=== PATIENT | female | born 1960 | race Caucasian/White ===

== ENCOUNTER 2016-04-09 07:01 | Day surgery (SDC) | payer OTHER ==
[2016-04-09] MEDS ORDERED: SODIUM CHLORIDE 250 ML IV ONE (08:00)
[2016-04-09 08:09] LABS: EOSINOPHIL 2.5 % (0-4.5); MCH 29.5 pg (25.7-33.7); MCHC 34.3 g/dl (32.0-36.0); MEAN CELL VOLUME 86.2 fl (80-96); MEAN PLT VOLUME 8.1 fl (7.5-11.1); NEUTROPHILS 55.3 % (42.8-82.8); PLATELET COUNT 235 K/MM3 (134-434); RDW 13.3 % (11.6-15.6); WHITE BLOOD COUNT 7.5 K/mm3 (4.0-10.0)
[2016-04-09] MEDS ORDERED: PERTUZUMAB 420 MG in SODIUM CHLORIDE 250 ML IVPB ONE (08:30)
[2016-04-09] MEDS ORDERED: TRASTUZUMAB IVPB ONE ×2 (09:00)
[2016-04-09] MEDS ORDERED: SODIUM CHLORIDE IVPB ONE ×2 (09:00)
[2016-04-09 09:47] VITALS: BMI 27.9
[2016-04-09 19:00] VITALS: PULSE 68; TEMP 97.6
[2016-04-09 19:01] VITALS: BP 125/74
== END 2016-04-09 13:00 | disposition home or self-care (01) ==
LOC: JONCCHEMO 07:01 → J7W 09:02 → JONCCHEMO 13:00
PROVIDERS: ATTEND Internal Medicine Hematology & Oncology
DX: Z51.11 Encounter for antineoplastic chemotherapy (principal); C50.919 Malignant neoplasm of unspecified site of unspecified female breast
CPT/HCPCS: 96413; 96417; J9306; J9355; 36415; 85025; 96415

== ENCOUNTER 2016-04-30 07:01 | Day surgery (SDC) | payer OTHER ==
[2016-04-30] MEDS ORDERED: SODIUM CHLORIDE 250 ML IV ONE (08:00)
[2016-04-30] MEDS ORDERED: PERTUZUMAB 420 MG in SODIUM CHLORIDE 250 ML IVPB ONE (08:30)
[2016-04-30] MEDS ORDERED: TRASTUZUMAB IVPB ONE (09:00)
[2016-04-30] MEDS ORDERED: SODIUM CHLORIDE IVPB ONE (09:00)
[2016-04-30 09:13] VITALS: TEMP 97.7
[2016-04-30 09:32] LABS: BASOPHIL 0.5 % (0-2.0); EOSINOPHIL 2.3 % (0-4.5); MCH 29.1 pg (25.7-33.7); MCHC 33.8 g/dl (32.0-36.0); MEAN CELL VOLUME 86.3 fl (80-96); MEAN PLT VOLUME 7.6 fl (7.5-11.1); NEUTROPHILS 53.4 % (42.8-82.8); PLATELET COUNT 264 K/MM3 (134-434); RDW 13.4 % (11.6-15.6); WHITE BLOOD COUNT 7.9 K/mm3 (4.0-10.0)
[2016-04-30 10:19] LABS: ALK PHOS 71 U/L (45-117); CALCIUM 9.5 mg/dL (8.5-10.1); CO2 28 mmol/L (21-32); GLUCOSE,RANDOM 103 mg/dL (74-106); SGOT/AST 30 U/L (15-37); TOT PROT 7.7 g/dl (6.4-8.2)
[2016-04-30 10:57] LABS: BILIRUBIN,TOTAL 0.4 mg/dL (0.2-1.0); SGPT/ALT 50 U/L (12-78)
[2016-04-30 11:03] LABS: BILIRUBIN,DIRECT < 0.1 mg/dL (0.0-0.2)
[2016-04-30 11:17] LABS: ANION GAP 9 (8-16)
[2016-04-30] MEDS ORDERED: PORTA CATH FLUSH 10 ML IVPUSH ONE (12:10)
[2016-04-30 12:19] VITALS: BP 130/80; PULSE 70
== END 2016-04-30 11:12 | disposition home or self-care (01) ==
LOC: JONCCHEMO 07:01 → J7W 08:48 → JONCCHEMO 11:12
PROVIDERS: ATTEND Internal Medicine Hematology & Oncology
DX: Z51.11 Encounter for antineoplastic chemotherapy (principal); C50.312 Malignant neoplasm of lower-inner quadrant of left female breast
CPT/HCPCS: 36415; 80048; 80076; 82378; 85025; 86300; 96413; 96417; J9306; J9355

== ENCOUNTER 2016-05-21 07:03 | Day surgery (SDC) | payer OTHER ==
[2016-05-21] MEDS: SODIUM CHLORIDE 250 ML IV ONE (10:26)
[2016-05-21] MEDS: PERTUZUMAB 420 MG in SODIUM CHLORIDE 250 ML IVPB ONE (10:54)
[2016-05-21 10:59] LABS: BASOPHIL 0.7 % (0-2.0); EOSINOPHIL 1.9 % (0-4.5); MCH 29.4 pg (25.7-33.7); MCHC 34.1 g/dl (32.0-36.0); MEAN PLT VOLUME 7.7 fl (7.5-11.1); NEUTROPHILS 56.1 % (42.8-82.8); PLATELET COUNT 238 K/MM3 (134-434); RDW 13.3 % (11.6-15.6); WHITE BLOOD COUNT 8.2 K/mm3 (4.0-10.0)
[2016-05-21] MEDS: TRASTUZUMAB IVPB ONE (11:33)
[2016-05-21] MEDS: SODIUM CHLORIDE IVPB ONE (11:33)
[2016-05-21 11:39] LABS: ALBUMIN 4.1 g/dl (3.4-5.0); ANION GAP 9 (8-16); BILIRUBIN,TOTAL 0.5 mg/dL (0.2-1.0); CALCIUM 8.9 mg/dL (8.5-10.1); CO2 25 mmol/L (21-32); COCKROFT - GAULT 0; CREATININE 0.9 mg/dL (0.55-1.02); GLUCOSE,RANDOM 93 mg/dL (74-106); SGOT/AST 26 U/L (15-37); SGPT/ALT 38 U/L (12-78); TOT PROT 7.6 g/dl (6.4-8.2)
[2016-05-21 11:40] LABS: ALK PHOS 66 U/L (45-117); BILIRUBIN,DIRECT < 0.1 mg/dL (0.0-0.2)
[2016-05-21 14:20] VITALS: TEMP 98.5
[2016-05-21 14:23] VITALS: BP 118/69; PULSE 100
== END 2016-05-21 12:20 | disposition home or self-care (01) ==
LOC: JONCCHEMO 07:03 → J7W 10:00 → JONCCHEMO 12:20
PROVIDERS: ATTEND Internal Medicine Hematology & Oncology
DX: Z51.11 Encounter for antineoplastic chemotherapy (principal); C50.312 Malignant neoplasm of lower-inner quadrant of left female breast
CPT/HCPCS: 36415; 80048; 80076; 82378; 85025; 86300; 96360; 96413; 96417; J9306; J9355

== ENCOUNTER 2016-06-11 07:38 | Day surgery (SDC) | payer OTHER ==
[2016-06-11] MEDS ORDERED: SODIUM CHLORIDE 250 ML IV ONE (08:00)
[2016-06-11] MEDS ORDERED: PERTUZUMAB 420 MG in SODIUM CHLORIDE 250 ML IVPB ONE (08:30)
[2016-06-11] MEDS ORDERED: TRASTUZUMAB IVPB ONE (09:00)
[2016-06-11] MEDS ORDERED: SODIUM CHLORIDE IVPB ONE (09:00)
[2016-06-11 09:02] LABS: BASOPHIL 1.2 % (0-2.0); EOSINOPHIL 2.3 % (0-4.5); MCH 29.2 pg (25.7-33.7); MEAN CELL VOLUME 85.8 fl (80-96); MEAN PLT VOLUME 8.1 fl (7.5-11.1); NEUTROPHILS 57.3 % (42.8-82.8); PLATELET COUNT 246 K/MM3 (134-434); WHITE BLOOD COUNT 7.8 K/mm3 (4.0-10.0)
[2016-06-11] MEDS ORDERED: PORTA CATH FLUSH 10 ML IVPUSH ONE (14:07)
[2016-06-11 14:12] VITALS: BP 112/64; PULSE 56; TEMP 97.9
== END 2016-06-11 15:50 | disposition home or self-care (01) ==
LOC: JONCCHEMO 07:38 → J7W 09:51 → JONCCHEMO 15:50
PROVIDERS: ATTEND Internal Medicine Hematology & Oncology
PROC: 3E04305 Introduction of Other Antineoplastic into Central Vein, Percutaneous Approach (ICD-10-PCS; principal; 2016-06-11)
PROC: 3E043GC Introduction of Other Therapeutic Substance into Central Vein, Percutaneous Approach (ICD-10-PCS; 2016-06-11)
PROC: 3E0437Z Introduction of Electrolytic and Water Balance Substance into Central Vein, Percutaneous Approach (ICD-10-PCS; 2016-06-11)
DX: Z51.11 Encounter for antineoplastic chemotherapy (principal); C50.312 Malignant neoplasm of lower-inner quadrant of left female breast
CPT/HCPCS: 96413; 96417; J9306; J9355; 36415; 85025; 96360

== ENCOUNTER 2016-07-02 07:17 | Day surgery (SDC) | payer OTHER ==
[2016-07-02] MEDS ORDERED: PORTA CATH FLUSH 10 ML IVPUSH ONE (09:14)
[2016-07-02 09:22] LABS: ALBUMIN 4.1 g/dl (3.4-5.0); BILIRUBIN,DIRECT 0.1 mg/dL (0.0-0.2); BILIRUBIN,TOTAL 0.5 mg/dL (0.2-1.0); CALCIUM 9.1 mg/dL (8.5-10.1); COCKROFT - GAULT 77.35; TOT PROT 7.6 g/dl (6.4-8.2)
[2016-07-02 09:31] LABS: BASOPHIL 0.7 % (0-2.0); MCH 29.5 pg (25.7-33.7); MEAN CELL VOLUME 86.8 fl (80-96); MEAN PLT VOLUME 7.8 fl (7.5-11.1); NEUTROPHILS 56.5 % (42.8-82.8); PLATELET COUNT 253 K/MM3 (134-434); RDW 13.4 % (11.6-15.6); WHITE BLOOD COUNT 6.3 K/mm3 (4.0-10.0)
[2016-07-02] MEDS ORDERED: SODIUM CHLORIDE 250 ML IV ONE (10:00)
[2016-07-02] MEDS ORDERED: PERTUZUMAB 420 MG in SODIUM CHLORIDE 250 ML IVPB ONE (10:30)
[2016-07-02] MEDS ORDERED: TRASTUZUMAB IVPB ONE (11:00)
[2016-07-02] MEDS ORDERED: SODIUM CHLORIDE IVPB ONE (11:00)
[2016-07-02 11:31] VITALS: BP 112/65; PULSE 60; TEMP 98.2
== END 2016-07-02 14:11 | disposition home or self-care (01) ==
LOC: JONCCHEMO 07:17 → J7W 09:08 → JONCCHEMO 14:11
PROVIDERS: ATTEND Internal Medicine Hematology & Oncology
DX: Z51.11 Encounter for antineoplastic chemotherapy (principal); C50.312 Malignant neoplasm of lower-inner quadrant of left female breast
CPT/HCPCS: 36415; 80048; 80076; 85025; 96360; 96413; 96417; J9306; J9355

== ENCOUNTER 2016-07-23 07:38 | Day surgery (SDC) | payer OTHER ==
[2016-07-23 09:00] LABS: BASOPHIL 0.4 % (0-2.0); EOSINOPHIL 3.2 % (0-4.5); MCH 29.1 pg (25.7-33.7); MEAN CELL VOLUME 88.2 fl (80-96); MEAN PLT VOLUME 7.6 fl (7.5-11.1); NEUTROPHILS 51.6 % (42.8-82.8); PLATELET COUNT 239 K/MM3 (134-434); RDW 13.3 % (11.6-15.6); WHITE BLOOD COUNT 6.2 K/mm3 (4.0-10.0)
[2016-07-23 09:24] LABS: BILIRUBIN,TOTAL 0.4 mg/dL (0.2-1.0); CALCIUM 9.4 mg/dL (8.5-10.1); COCKROFT - GAULT 77.35; TOT PROT 7.5 g/dl (6.4-8.2)
[2016-07-23] MEDS ORDERED: PORTA CATH FLUSH 10 ML IVPUSH ONE (09:52)
[2016-07-23] MEDS ORDERED: SODIUM CHLORIDE 250 ML IV ONE (10:00)
[2016-07-23] MEDS ORDERED: PERTUZUMAB 420 MG in SODIUM CHLORIDE 250 ML IVPB ONE (10:30)
[2016-07-23 10:50] LABS: ALBUMIN 3.9 g/dl (3.4-5.0); ALK PHOS 68 U/L (45-117); BILIRUBIN,DIRECT < 0.1 mg/dL (0.0-0.2); BILIRUBIN,TOTAL 0.3 mg/dL (0.2-1.0); SGOT/AST 35 U/L (15-37); SGPT/ALT 55 U/L (12-78); TOT PROT 7.5 g/dl (6.4-8.2)
[2016-07-23] MEDS ORDERED: TRASTUZUMAB IVPB ONE (11:00)
[2016-07-23] MEDS ORDERED: SODIUM CHLORIDE IVPB ONE (11:00)
[2016-07-23 13:29] VITALS: BP 118/57; PULSE 58; TEMP 98.2
== END 2016-07-23 13:32 | disposition home or self-care (01) ==
LOC: JONCCHEMO 07:38 → J7W 09:41 → JONCCHEMO 13:32
PROVIDERS: ATTEND Internal Medicine Hematology & Oncology
PROC: 3E04305 Introduction of Other Antineoplastic into Central Vein, Percutaneous Approach (ICD-10-PCS; principal; 2016-07-23)
PROC: 3E0437Z Introduction of Electrolytic and Water Balance Substance into Central Vein, Percutaneous Approach (ICD-10-PCS; 2016-07-23)
DX: Z51.11 Encounter for antineoplastic chemotherapy (principal); C50.312 Malignant neoplasm of lower-inner quadrant of left female breast; D70.1 Agranulocytosis secondary to cancer chemotherapy
CPT/HCPCS: 96413; 96417; J9306; 36415; 80053; 80076; 82378; 83735; 85025; J9355

== ENCOUNTER 2016-08-13 07:32 | Day surgery (SDC) | payer OTHER ==
[2016-08-13 08:55] LABS: BASOPHIL 0.7 % (0-2.0); EOSINOPHIL 2.5 % (0-4.5); MCH 29.2 pg (25.7-33.7); MCHC 33.4 g/dl (32.0-36.0); MEAN CELL VOLUME 87.4 fl (80-96); MEAN PLT VOLUME 7.6 fl (7.5-11.1); NEUTROPHILS 55.2 % (42.8-82.8); PLATELET COUNT 248 K/MM3 (134-434); RDW 13.1 % (11.6-15.6); WHITE BLOOD COUNT 7.2 K/mm3 (4.0-10.0)
[2016-08-13 09:20] LABS: ALBUMIN 4.2 g/dl (3.4-5.0); ALK PHOS 69 U/L (45-117); ANION GAP 9 (8-16); BILIRUBIN,DIRECT 0.1 mg/dL (0.0-0.2); BILIRUBIN,TOTAL 0.5 mg/dL (0.2-1.0); CALCIUM 9.3 mg/dL (8.5-10.1); CO2 27 mmol/L (21-32); GLUCOSE,RANDOM 92 mg/dL (74-106); SGOT/AST 30 U/L (15-37); SGPT/ALT 36 U/L (12-78)
[2016-08-13] MEDS ORDERED: SODIUM CHLORIDE 250 ML IV ONE (10:00)
[2016-08-13] MEDS ORDERED: PORTA CATH FLUSH 10 ML IVPUSH ONE (10:03)
[2016-08-13] MEDS ORDERED: PERTUZUMAB 420 MG in SODIUM CHLORIDE 250 ML IVPB ONE (10:30)
[2016-08-13] MEDS ORDERED: TRASTUZUMAB IVPB ONE (11:00)
[2016-08-13] MEDS ORDERED: SODIUM CHLORIDE IVPB ONE (11:00)
[2016-08-13 14:37] VITALS: BP 115/62; PULSE 67; TEMP 98
== END 2016-08-13 15:44 | disposition home or self-care (01) ==
LOC: JONCCHEMO 07:32 → J7W 09:57 → JONCCHEMO 15:44
PROVIDERS: ATTEND Internal Medicine Hematology & Oncology
PROC: 3E04305 Introduction of Other Antineoplastic into Central Vein, Percutaneous Approach (ICD-10-PCS; principal; 2016-08-13)
PROC: 3E0437Z Introduction of Electrolytic and Water Balance Substance into Central Vein, Percutaneous Approach (ICD-10-PCS; 2016-08-13)
DX: Z51.11 Encounter for antineoplastic chemotherapy (principal); C50.312 Malignant neoplasm of lower-inner quadrant of left female breast; D70.1 Agranulocytosis secondary to cancer chemotherapy
CPT/HCPCS: 36415; 80053; 80076; 82378; 83735; 85025; 86300; 96413; 96417; J9306; J9355

== ENCOUNTER 2016-09-03 07:50 | Day surgery (SDC) | payer OTHER ==
[2016-09-03] MEDS ORDERED: SODIUM CHLORIDE 250 ML IV ONE (08:00)
[2016-09-03] MEDS ORDERED: PERTUZUMAB 420 MG in SODIUM CHLORIDE 250 ML IVPB ONE (08:30)
[2016-09-03 08:49] LABS: BASOPHIL 0.5 % (0-2.0); EOSINOPHIL 2.3 % (0-4.5); MCH 29.1 pg (25.7-33.7); MCHC 33.3 g/dl (32.0-36.0); MEAN CELL VOLUME 87.4 fl (80-96); MEAN PLT VOLUME 8.1 fl (7.5-11.1); NEUTROPHILS 60.7 % (42.8-82.8); PLATELET COUNT 249 K/MM3 (134-434); RDW 12.9 % (11.6-15.6); WHITE BLOOD COUNT 8.6 K/mm3 (4.0-10.0)
[2016-09-03] MEDS ORDERED: TRASTUZUMAB IVPB ONE (09:00)
[2016-09-03] MEDS ORDERED: SODIUM CHLORIDE IVPB ONE (09:00)
[2016-09-03 09:13] LABS: ALBUMIN 3.9 g/dl (3.4-5.0); ANION GAP 9 (8-16); BILIRUBIN,TOTAL 0.5 mg/dL (0.2-1.0); CALCIUM 9.1 mg/dL (8.5-10.1); CO2 22 mmol/L (21-32); CREATININE 0.9 mg/dL (0.55-1.02); GLUCOSE,RANDOM 92 mg/dL (74-106); SGOT/AST 35 U/L (15-37); SGPT/ALT 31 U/L (12-78); TOT PROT 7.9 g/dl (6.4-8.2)
[2016-09-03 09:14] LABS: ALK PHOS 68 U/L (45-117)
[2016-09-03 09:16] LABS: BILIRUBIN,DIRECT < 0.1 mg/dL (0.0-0.2)
[2016-09-03 09:30] VITALS: BP 106/57; PULSE 60; TEMP 98
[2016-09-03] MEDS ORDERED: PORTA CATH FLUSH 10 ML IVPUSH ONE (09:30)
== END 2016-09-03 12:00 | disposition home or self-care (01) ==
LOC: JONCCHEMO 07:50 → J7W 09:19 → JONCCHEMO 12:00
PROVIDERS: ATTEND Internal Medicine Hematology & Oncology
DX: Z51.11 Encounter for antineoplastic chemotherapy (principal); C50.312 Malignant neoplasm of lower-inner quadrant of left female breast; D70.1 Agranulocytosis secondary to cancer chemotherapy
CPT/HCPCS: 36415; 80053; 80076; 85025; 96413; 96417; J9306; J9355

== ENCOUNTER 2016-09-24 07:59 | Day surgery (SDC) | payer OTHER ==
[2016-09-24 09:06] LABS: BASOPHIL 0.5 % (0-2.0); EOSINOPHIL 2.2 % (0-4.5); MCH 29.4 pg (25.7-33.7); MEAN CELL VOLUME 86.6 fl (80-96); MEAN PLT VOLUME 7.9 fl (7.5-11.1); NEUTROPHILS 55.6 % (42.8-82.8); PLATELET COUNT 285 K/MM3 (134-434); WHITE BLOOD COUNT 7.2 K/mm3 (4.0-10.0)
[2016-09-24 09:26] LABS: ALBUMIN 4.1 g/dl (3.4-5.0); ALK PHOS 72 U/L (45-117); ANION GAP 9 (8-16); BILIRUBIN,TOTAL 0.5 mg/dL (0.2-1.0); CALCIUM 9.1 mg/dL (8.5-10.1); CO2 29 mmol/L (21-32); GLUCOSE,RANDOM 91 mg/dL (74-106); MAGNESIUM 2.1 mg/dL (1.8-2.4); SGOT/AST 23 U/L (15-37); SGPT/ALT 28 U/L (12-78); TOT PROT 7.8 g/dl (6.4-8.2)
[2016-09-24 09:27] LABS: BILIRUBIN,DIRECT < 0.2 mg/dL (0.0-0.2)
[2016-09-24] MEDS ORDERED: SODIUM CHLORIDE 250 ML IV ONE (10:00)
[2016-09-24] MEDS ORDERED: PERTUZUMAB 420 MG in SODIUM CHLORIDE 250 ML IVPB ONE (10:30)
[2016-09-24] MEDS ORDERED: TRASTUZUMAB IVPB ONE (11:00)
[2016-09-24] MEDS ORDERED: SODIUM CHLORIDE IVPB ONE (11:00)
[2016-09-24 16:12] VITALS: BP 112/69; PULSE 57; TEMP 98.1
== END 2016-09-24 12:00 | disposition home or self-care (01) ==
LOC: JONCCHEMO 07:59 → J7W 09:36 → JONCCHEMO 12:00
PROVIDERS: ATTEND Internal Medicine Hematology & Oncology
PROC: 3E04305 Introduction of Other Antineoplastic into Central Vein, Percutaneous Approach (ICD-10-PCS; principal; 2016-09-24)
PROC: 3E0437Z Introduction of Electrolytic and Water Balance Substance into Central Vein, Percutaneous Approach (ICD-10-PCS; 2016-09-24)
DX: Z51.11 Encounter for antineoplastic chemotherapy (principal); C50.312 Malignant neoplasm of lower-inner quadrant of left female breast; D70.1 Agranulocytosis secondary to cancer chemotherapy
CPT/HCPCS: 96413; 96417; J9306; J9355; 36415; 80053; 80076; 83735; 85025

== ENCOUNTER 2016-10-15 07:15 | Day surgery (SDC) | payer OTHER ==
[2016-10-15] MEDS ORDERED: SODIUM CHLORIDE 250 ML IV ONE (08:00)
[2016-10-15] MEDS ORDERED: SODIUM CHLORIDE IVPB ONE ×2 (08:30→10:00)
[2016-10-15] MEDS ORDERED: TRASTUZUMAB IVPB ONE (08:30)
[2016-10-15] MEDS ORDERED: PERTUZUMAB 420 MG in SODIUM CHLORIDE 250 ML IVPB ONE (09:00)
[2016-10-15 09:08] LABS: BASOPHIL 0.4 % (0-2.0); EOSINOPHIL 2.5 % (0-4.5); MCH 28.7 pg (25.7-33.7); MCHC 33.3 g/dl (32.0-36.0); MEAN CELL VOLUME 86.1 fl (80-96); MEAN PLT VOLUME 7.5 fl (7.5-11.1); NEUTROPHILS 53.6 % (42.8-82.8); PLATELET COUNT 258 K/MM3 (134-434)
[2016-10-15 09:30] VITALS: TEMP 98
[2016-10-15 09:50] LABS: ALK PHOS 66 U/L (45-117); BILIRUBIN,DIRECT < 0.1 mg/dL (0.0-0.2); BILIRUBIN,TOTAL 0.4 mg/dL (0.2-1.0); MAGNESIUM 1.9 mg/dL (1.8-2.4); SGOT/AST 20 U/L (15-37); SGPT/ALT 26 U/L (12-78); TOT PROT 7.4 g/dl (6.4-8.2)
[2016-10-15] MEDS ORDERED: DEXAMETHASONE IVPB ONE (10:00)
[2016-10-15] MEDS ORDERED: DIPHENHYDRAMINE IVPB ONE (10:00)
[2016-10-15] MEDS ORDERED: DEXAMETHASONE SOD PHOSPHATE 4 MG/1 ML VIAL IVPB ONE (10:15)
[2016-10-15] MEDS ORDERED: PORTA CATH FLUSH 10 ML IVPUSH ONE (12:52)
[2016-10-15 14:18] VITALS: BP 112/49; PULSE 55
== END 2016-10-15 13:00 | disposition home or self-care (01) ==
LOC: JONCCHEMO 07:15 → J7W 09:15 → JONCCHEMO 13:00
PROVIDERS: ATTEND Internal Medicine Hematology & Oncology
DX: Z51.11 Encounter for antineoplastic chemotherapy (principal); C50.312 Malignant neoplasm of lower-inner quadrant of left female breast; D70.1 Agranulocytosis secondary to cancer chemotherapy
CPT/HCPCS: 36415; 80076; 82378; 83735; 85025; 86300; 96361; 96375; 96413; 96417; J9306; J9355

== ENCOUNTER 2016-11-05 07:20 | Day surgery (SDC) | payer OTHER ==
[2016-11-05] MEDS ORDERED: SODIUM CHLORIDE 250 ML IV ONE (08:00)
[2016-11-05] MEDS ORDERED: PERTUZUMAB 420 MG in SODIUM CHLORIDE 250 ML IVPB ONE (08:30)
[2016-11-05 08:57] LABS: BASOPHIL 0.6 % (0-2.0); EOSINOPHIL 2.4 % (0-4.5); MCH 28.6 pg (25.7-33.7); MCHC 32.9 g/dl (32.0-36.0); MEAN CELL VOLUME 86.9 fl (80-96); MEAN PLT VOLUME 7.8 fl (7.5-11.1); NEUTROPHILS 55.5 % (42.8-82.8); PLATELET COUNT 256 K/MM3 (134-434); RDW 13.4 % (11.6-15.6); WHITE BLOOD COUNT 5.8 K/mm3 (4.0-10.0)
[2016-11-05] MEDS ORDERED: SODIUM CHLORIDE IVPB ONE (09:00)
[2016-11-05] MEDS ORDERED: TRASTUZUMAB IVPB ONE (09:00)
[2016-11-05 09:31] LABS: ANION GAP 7 (8-16); BILIRUBIN,DIRECT < 0.1 mg/dL (0.0-0.2); BILIRUBIN,TOTAL 0.3 mg/dL (0.2-1.0); CALCIUM 9.6 mg/dL (8.5-10.1); CO2 27 mmol/L (21-32); GLUCOSE,RANDOM 92 mg/dL (74-106); SGOT/AST 19 U/L (15-37); SGPT/ALT 26 U/L (12-78); TOT PROT 7.9 g/dl (6.4-8.2)
[2016-11-05 09:32] LABS: ALK PHOS 70 U/L (45-117)
[2016-11-05 10:38] VITALS: TEMP 98.3
[2016-11-05] MEDS ORDERED: PORTA CATH FLUSH 10 ML IVPUSH ONE (10:38)
[2016-11-05 15:34] VITALS: BP 111/60; PULSE 62
== END 2016-11-05 11:30 | disposition home or self-care (01) ==
LOC: JONCCHEMO 07:20 → J7W 09:23 → JONCCHEMO 11:30
PROVIDERS: ATTEND Internal Medicine Hematology & Oncology
DX: Z51.11 Encounter for antineoplastic chemotherapy (principal); C50.312 Malignant neoplasm of lower-inner quadrant of left female breast; D70.1 Agranulocytosis secondary to cancer chemotherapy
CPT/HCPCS: 36415; 80053; 80076; 82378; 83735; 85025; 96413; 96415; 96417; J9306; J9355

== ENCOUNTER 2016-11-26 07:36 | Day surgery (SDC) | payer OTHER ==
[2016-11-26 09:03] LABS: BASOPHIL 0.4 % (0-2.0); EOSINOPHIL 2.5 % (0-4.5); MCH 28.6 pg (25.7-33.7); MCHC 33.2 g/dl (32.0-36.0); MEAN CELL VOLUME 86.3 fl (80-96); MEAN PLT VOLUME 7.4 fl (7.5-11.1); NEUTROPHILS 54.5 % (42.8-82.8); PLATELET COUNT 245 K/MM3 (134-434); RDW 13.1 % (11.6-15.6); WHITE BLOOD COUNT 8.6 K/mm3 (4.0-10.0)
[2016-11-26 09:26] LABS: ALBUMIN 3.9 g/dl (3.4-5.0); ALK PHOS 67 U/L (45-117); ANION GAP 6 (8-16); BILIRUBIN,DIRECT 0.1 mg/dL (0.0-0.2); BILIRUBIN,TOTAL 0.5 mg/dL (0.2-1.0); CALCIUM 9.3 mg/dL (8.5-10.1); CO2 28 mmol/L (21-32); GLUCOSE,RANDOM 84 mg/dL (74-106); MAGNESIUM 2.2 mg/dL (1.8-2.4); SGOT/AST 24 U/L (15-37); SGPT/ALT 29 U/L (12-78); TOT PROT 7.6 g/dl (6.4-8.2)
[2016-11-26] MEDS ORDERED: SODIUM CHLORIDE 250 ML IV ONE (10:00)
[2016-11-26] MEDS ORDERED: PERTUZUMAB 420 MG in SODIUM CHLORIDE 250 ML IVPB ONE (10:30)
[2016-11-26 10:54] VITALS: TEMP 98.3
[2016-11-26] MEDS ORDERED: SODIUM CHLORIDE IVPB ONE (11:00)
[2016-11-26] MEDS ORDERED: TRASTUZUMAB IVPB ONE (11:00)
[2016-11-26] MEDS ORDERED: PORTA CATH FLUSH 10 ML IVPUSH ONE (11:48)
[2016-11-26 13:31] VITALS: BP 136/79; PULSE 64
== END 2016-11-26 12:45 | disposition home or self-care (01) ==
LOC: JONCCHEMO 07:36 → J7W 09:59 → JONCCHEMO 12:45
PROVIDERS: ATTEND Internal Medicine Hematology & Oncology
DX: Z51.11 Encounter for antineoplastic chemotherapy (principal); C50.312 Malignant neoplasm of lower-inner quadrant of left female breast; D70.1 Agranulocytosis secondary to cancer chemotherapy
CPT/HCPCS: 36415; 80053; 80076; 83735; 85025; 96413; 96417; J9306; J9355

== ENCOUNTER 2017-01-07 07:27 | Day surgery (SDC) | payer OTHER ==
[2017-01-07] MEDS ORDERED: SODIUM CHLORIDE 250 ML IV ONE (08:00)
[2017-01-07] MEDS ORDERED: PERTUZUMAB 420 MG in SODIUM CHLORIDE 250 ML IVPB ONE (08:30)
[2017-01-07 08:44] VITALS: TEMP 98.3
[2017-01-07] MEDS ORDERED: TRASTUZUMAB IVPB ONE (09:00)
[2017-01-07] MEDS ORDERED: SODIUM CHLORIDE IVPB ONE (09:00)
[2017-01-07 09:27] LABS: BASOPHIL 0.6 % (0-2.0); EOSINOPHIL 2.2 % (0-4.5); MCH 29.2 pg (25.7-33.7); MEAN CELL VOLUME 88.4 fl (80-96); NEUTROPHILS 58.3 % (42.8-82.8); PLATELET COUNT 265 K/MM3 (134-434); RDW 13.1 % (11.6-15.6); WHITE BLOOD COUNT 5.9 K/mm3 (4.0-10.0)
[2017-01-07 09:44] LABS: ALBUMIN 3.9 g/dl (3.4-5.0); ALK PHOS 73 U/L (45-117); ANION GAP 6 (8-16); BILIRUBIN,DIRECT < 0.2 mg/dL (0.0-0.2); BILIRUBIN,TOTAL 0.3 mg/dL (0.2-1.0); CALCIUM 8.6 mg/dL (8.5-10.1); CO2 26 mmol/L (21-32); CREATININE 0.9 mg/dL (0.55-1.02); GLUCOSE,RANDOM 99 mg/dL (74-106); SGOT/AST 25 U/L (15-37); SGPT/ALT 33 U/L (12-78); TOT PROT 7.6 g/dl (6.4-8.2)
[2017-01-07] MEDS ORDERED: PORTA CATH FLUSH 10 ML IVPUSH ONE (10:23)
[2017-01-07 12:41] VITALS: BP 136/70; PULSE 66
== END 2017-01-07 12:20 | disposition home or self-care (01) ==
LOC: JONCCHEMO 07:27 → J7W 09:49 → JONCCHEMO 12:20
PROVIDERS: ATTEND Internal Medicine Hematology & Oncology
DX: Z51.11 Encounter for antineoplastic chemotherapy (principal); C50.312 Malignant neoplasm of lower-inner quadrant of left female breast; D70.1 Agranulocytosis secondary to cancer chemotherapy
CPT/HCPCS: 36415; 80053; 80076; 83735; 85025; 96361; 96413; 96417; J9306; J9355

== ENCOUNTER 2017-01-28 07:26 | Day surgery (SDC) | payer OTHER ==
[2017-01-28] MEDS ORDERED: SODIUM CHLORIDE 250 ML IV ONE (08:00)
[2017-01-28] MEDS ORDERED: PERTUZUMAB 420 MG in SODIUM CHLORIDE 250 ML IVPB ONE (08:30)
[2017-01-28 08:42] VITALS: TEMP 97.9
[2017-01-28] MEDS ORDERED: SODIUM CHLORIDE IVPB ONE (09:00)
[2017-01-28] MEDS ORDERED: TRASTUZUMAB IVPB ONE (09:00)
[2017-01-28 09:24] LABS: BASO % 0.5 % (0-2.0); EOS % 2.7 % (0-4.5); MCH 28.3 pg (25.7-33.7); MCHC 32.2 g/dl (32.0-36.0); MEAN CELL VOLUME 88.1 fl (80-96); MEAN PLT VOLUME 8.2 fl (7.5-11.1); NEUT % 52.5 % (42.8-82.8); PLATELET COUNT 261 K/MM3 (134-434); RDW 12.9 % (11.6-15.6); WHITE BLOOD COUNT 6.3 K/mm3 (4.0-10.0)
[2017-01-28 09:52] LABS: ALK PHOS 67 U/L (45-117); ANION GAP 5 (8-16); BILIRUBIN,DIRECT < 0.2 mg/dL (0.0-0.2); BILIRUBIN,TOTAL 0.4 mg/dL (0.2-1.0); CALCIUM 9.2 mg/dL (8.5-10.1); CO2 27 mmol/L (21-32); CREATININE 0.9 mg/dL (0.55-1.02); GLUCOSE,RANDOM 91 mg/dL (74-106); MAGNESIUM 2.2 mg/dL (1.8-2.4); SGOT/AST 24 U/L (15-37); SGPT/ALT 32 U/L (12-78); TOT PROT 7.8 g/dl (6.4-8.2)
[2017-01-28 14:18] VITALS: BP 130/73; PULSE 60
[2017-01-28] MEDS ORDERED: PORTA CATH FLUSH 10 ML IVPUSH ONE (14:18)
== END 2017-01-28 11:45 | disposition home or self-care (01) ==
LOC: JONCCHEMO 07:26 → J7W 09:50 → JONCCHEMO 11:45
PROVIDERS: ATTEND Internal Medicine Hematology & Oncology
DX: Z51.11 Encounter for antineoplastic chemotherapy (principal); C50.312 Malignant neoplasm of lower-inner quadrant of left female breast; D70.1 Agranulocytosis secondary to cancer chemotherapy
CPT/HCPCS: 36415; 80053; 80076; 83735; 85025; 96413; 96417; J9306; J9355

== ENCOUNTER 2017-02-18 07:38 | Day surgery (SDC) | payer OTHER ==
[2017-02-18 09:36] LABS: BASO % 0.6 % (0-2.0); HEMATOCRIT 42.3 % (32.4-45.2); HEMOGLOBIN 13.6 GM/dL (10.7-15.3); LYMPH % 30.7 % (8-40); MCH 28.2 pg (25.7-33.7); MCHC 32.1 g/dl (32.0-36.0); MEAN CELL VOLUME 87.8 fl (80-96); MEAN PLT VOLUME 7.8 fl (7.5-11.1); MONO % 9.6 % (3.8-10.2); NEUT % 56.1 % (42.8-82.8); PLATELET COUNT 257 K/MM3 (134-434); RBC 4.82 M/mm3 (3.60-5.2); WHITE BLOOD COUNT 7.2 K/mm3 (4.0-10.0)
[2017-02-18] MEDS ORDERED: SODIUM CHLORIDE 250 ML IV ONE (10:00)
[2017-02-18 10:05] LABS: ALBUMIN 3.8 g/dl (3.4-5.0); ALK PHOS 69 U/L (45-117); ANION GAP 6 (8-16); BILIRUBIN,DIRECT < 0.2 mg/dL (0.0-0.2); BILIRUBIN,TOTAL 0.6 mg/dL (0.2-1.0); BLOOD UREA NITROGEN 27 mg/dL (7-18); CALCIUM 8.6 mg/dL (8.5-10.1); CHLORIDE 107 mmol/L (98-107); CO2 27 mmol/L (21-32); CREATININE 0.9 mg/dL (0.55-1.02); GLUCOSE,RANDOM 88 mg/dL (74-106); MAGNESIUM 2.2 mg/dL (1.8-2.4); POTASSIUM 4.9 mmol/L (3.5-5.1); SGOT/AST 18 U/L (15-37); SGPT/ALT 30 U/L (12-78); SODIUM 140 mmol/L (136-145); TOT PROT 7.7 g/dl (6.4-8.2)
[2017-02-18 10:14] VITALS: TEMP 98
[2017-02-18] MEDS ORDERED: PERTUZUMAB 420 MG in SODIUM CHLORIDE 250 ML IVPB ONE (10:30)
[2017-02-18] MEDS ORDERED: TRASTUZUMAB IVPB ONE (11:00)
[2017-02-18] MEDS ORDERED: SODIUM CHLORIDE IVPB ONE (11:00)
[2017-02-18] MEDS ORDERED: PORTA CATH FLUSH 10 ML IVPUSH ONE (15:24)
[2017-02-18 15:26] VITALS: BP 113/71; PULSE 56
== END 2017-02-18 12:03 | disposition home or self-care (01) ==
LOC: JONCCHEMO 07:38 → J7W 09:53 → JONCCHEMO 12:03
PROVIDERS: ATTEND Internal Medicine Hematology & Oncology
DX: Z51.11 Encounter for antineoplastic chemotherapy (principal); C50.312 Malignant neoplasm of lower-inner quadrant of left female breast; D70.1 Agranulocytosis secondary to cancer chemotherapy
CPT/HCPCS: 36415; 80053; 80076; 83735; 85025; 96413; 96417; J9306; J9355

== ENCOUNTER 2017-03-11 07:32 | Day surgery (SDC) | payer OTHER ==
[2017-03-11] MEDS ORDERED: SODIUM CHLORIDE 250 ML IV ONE (08:00)
[2017-03-11] MEDS ORDERED: PERTUZUMAB 420 MG in SODIUM CHLORIDE 250 ML IVPB ONE (08:30)
[2017-03-11] MEDS ORDERED: TRASTUZUMAB IVPB ONE (09:00)
[2017-03-11] MEDS ORDERED: SODIUM CHLORIDE IVPB ONE (09:00)
[2017-03-11 09:03] LABS: BASO % 0.6 % (0-2.0); EOS % 3.1 % (0-4.5); HEMOGLOBIN 13.7 GM/dL (10.7-15.3); MCH 28.3 pg (25.7-33.7); MCHC 32.6 g/dl (32.0-36.0); MEAN CELL VOLUME 86.9 fl (80-96); MEAN PLT VOLUME 7.7 fl (7.5-11.1); MONO % 9.6 % (3.8-10.2); NEUT % 54.7 % (42.8-82.8); PLATELET COUNT 244 K/MM3 (134-434); RBC 4.83 M/mm3 (3.60-5.2); RDW 12.9 % (11.6-15.6); WHITE BLOOD COUNT 7.2 K/mm3 (4.0-10.0)
[2017-03-11 09:36] LABS: ALBUMIN 4.1 g/dl (3.4-5.0); ALK PHOS 77 U/L (45-117); ANION GAP 7 (8-16); BILIRUBIN,DIRECT < 0.2 mg/dL (0.0-0.2); BILIRUBIN,TOTAL 0.4 mg/dL (0.2-1.0); BLOOD UREA NITROGEN 23 mg/dL (7-18); CALCIUM 8.9 mg/dL (8.5-10.1); CHLORIDE 105 mmol/L (98-107); CO2 27 mmol/L (21-32); CREATININE 0.9 mg/dL (0.55-1.02); GLUCOSE,RANDOM 89 mg/dL (74-106); MAGNESIUM 1.9 mg/dL (1.8-2.4); POTASSIUM 4.4 mmol/L (3.5-5.1); SGOT/AST 20 U/L (15-37); SGPT/ALT 28 U/L (12-78); SODIUM 139 mmol/L (136-145); TOT PROT 7.9 g/dl (6.4-8.2)
[2017-03-11 10:36] VITALS: TEMP 98.2
[2017-03-11] MEDS ORDERED: PORTA CATH FLUSH 10 ML IVPUSH ONE (10:36)
[2017-03-11 15:44] VITALS: BP 122/80; PULSE 83
== END 2017-03-11 12:10 | disposition home or self-care (01) ==
LOC: JONCCHEMO 07:32 → J7W 09:22 → JONCCHEMO 12:10
PROVIDERS: ATTEND Internal Medicine Hematology & Oncology
DX: Z51.11 Encounter for antineoplastic chemotherapy (principal); C50.312 Malignant neoplasm of lower-inner quadrant of left female breast
CPT/HCPCS: 36415; 80053; 80076; 83735; 85025; 96361; 96413; 96417; J9306; J9355

== ENCOUNTER 2017-04-01 07:39 | Day surgery (SDC) | payer OTHER ==
[2017-04-01 08:59] LABS: BASO % 0.4 % (0-2.0); EOS % 2.5 % (0-4.5); HEMATOCRIT 42.6 % (32.4-45.2); LYMPH % 36.3 % (8-40); MCH 28.6 pg (25.7-33.7); MCHC 32.9 g/dl (32.0-36.0); MEAN CELL VOLUME 86.9 fl (80-96); MEAN PLT VOLUME 7.7 fl (7.5-11.1); MONO % 9.2 % (3.8-10.2); NEUT % 51.6 % (42.8-82.8); PLATELET COUNT 280 K/MM3 (134-434); RDW 13.1 % (11.6-15.6); WHITE BLOOD COUNT 7.5 K/mm3 (4.0-10.0)
[2017-04-01] MEDS ORDERED: SODIUM CHLORIDE 250 ML IV ONE (09:00)
[2017-04-01 09:23] LABS: ALBUMIN 4.1 g/dl (3.4-5.0); ALK PHOS 71 U/L (45-117); ANION GAP 5 (8-16); BILIRUBIN,DIRECT < 0.2 mg/dL (0.0-0.2); BILIRUBIN,TOTAL 0.6 mg/dL (0.2-1.0); BLOOD UREA NITROGEN 22 mg/dL (7-18); CALCIUM 8.8 mg/dL (8.5-10.1); CHLORIDE 107 mmol/L (98-107); CO2 29 mmol/L (21-32); GLUCOSE,RANDOM 85 mg/dL (74-106); MAGNESIUM 2.1 mg/dL (1.8-2.4); POTASSIUM 4.6 mmol/L (3.5-5.1); SGOT/AST 25 U/L (15-37); SGPT/ALT 26 U/L (12-78); SODIUM 141 mmol/L (136-145); TOT PROT 7.8 g/dl (6.4-8.2)
[2017-04-01] MEDS ORDERED: PORTA CATH FLUSH 10 ML IVPUSH ONE (09:50)
[2017-04-01 09:51] VITALS: TEMP 97.6
[2017-04-01] MEDS ORDERED: PERTUZUMAB 420 MG in SODIUM CHLORIDE 250 ML IVPB ONE (10:00)
[2017-04-01] MEDS ORDERED: SODIUM CHLORIDE IVPB ONE (10:30)
[2017-04-01] MEDS ORDERED: TRASTUZUMAB IVPB ONE (10:30)
[2017-04-01 13:03] VITALS: BP 112/77; PULSE 87
== END 2017-04-01 11:30 | disposition home or self-care (01) ==
LOC: JONCCHEMO 07:39 → J7W 09:21 → JONCCHEMO 11:30
PROVIDERS: ATTEND Internal Medicine Hematology & Oncology
DX: Z51.11 Encounter for antineoplastic chemotherapy (principal); C50.211 Malignant neoplasm of upper-inner quadrant of right female breast
CPT/HCPCS: 36415; 80053; 80076; 83735; 85025; 96361; 96413; 96417; J9306; J9355

== ENCOUNTER 2017-04-22 07:31 | Day surgery (SDC) | payer OTHER ==
[2017-04-22 08:41] LABS: BASO % 0.5 % (0-2.0); EOS % 2.1 % (0-4.5); HEMATOCRIT 41.1 % (32.4-45.2); LYMPH % 30.5 % (8-40); MCH 29.5 pg (25.7-33.7); MEAN CELL VOLUME 86.6 fl (80-96); MEAN PLT VOLUME 7.4 fl (7.5-11.1); MONO % 8.4 % (3.8-10.2); NEUT % 58.5 % (42.8-82.8); PLATELET COUNT 261 K/MM3 (134-434); RBC 4.74 M/mm3 (3.60-5.2); RDW 13.3 % (11.6-15.6); WHITE BLOOD COUNT 8.5 K/mm3 (4.0-10.0)
[2017-04-22] MEDS ORDERED: SODIUM CHLORIDE 250 ML IV ONE (09:30)
[2017-04-22 09:33] LABS: ALBUMIN 4.1 g/dl (3.4-5.0); ANION GAP 9 (8-16); BILIRUBIN,DIRECT < 0.2 mg/dL (0.0-0.2); BILIRUBIN,TOTAL 0.5 mg/dL (0.2-1.0); BLOOD UREA NITROGEN 22 mg/dL (7-18); CALCIUM 8.9 mg/dL (8.5-10.1); CHLORIDE 106 mmol/L (98-107); CO2 25 mmol/L (21-32); GLUCOSE,RANDOM 85 mg/dL (74-106); SGOT/AST 19 U/L (15-37); SGPT/ALT 26 U/L (12-78); SODIUM 140 mmol/L (136-145); TOT PROT 7.9 g/dl (6.4-8.2)
[2017-04-22 09:35] LABS: ALK PHOS 78 U/L (45-117)
[2017-04-22] MEDS ORDERED: PERTUZUMAB 420 MG in SODIUM CHLORIDE 250 ML IVPB ONE (10:00)
[2017-04-22] MEDS ORDERED: SODIUM CHLORIDE IVPB ONE (10:30)
[2017-04-22] MEDS ORDERED: TRASTUZUMAB IVPB ONE (10:30)
[2017-04-22 13:38] VITALS: TEMP 97.8
[2017-04-22] MEDS ORDERED: PORTA CATH FLUSH 10 ML IVPUSH ONE (13:38)
[2017-04-22 13:51] VITALS: BP 118/60; PULSE 60
== END 2017-04-22 11:10 | disposition home or self-care (01) ==
LOC: JONCCHEMO 07:31 → J7W 09:21 → JONCCHEMO 11:10
PROVIDERS: ATTEND Internal Medicine Hematology & Oncology
DX: Z51.11 Encounter for antineoplastic chemotherapy (principal); C50.211 Malignant neoplasm of upper-inner quadrant of right female breast
CPT/HCPCS: 36415; 80053; 80076; 82378; 83735; 85025; 86300; 96361; 96413; 96417; J9306; J9355

== ENCOUNTER 2017-06-24 07:40 | Day surgery (SDC) | payer OTHER ==
[2017-06-24] MEDS ORDERED: SODIUM CHLORIDE 250 ML IV ONE (08:00)
[2017-06-24] MEDS ORDERED: PERTUZUMAB 420 MG in SODIUM CHLORIDE 250 ML IVPB ONE (08:30)
[2017-06-24] MEDS ORDERED: TRASTUZUMAB IVPB ONE (09:00)
[2017-06-24] MEDS ORDERED: SODIUM CHLORIDE IVPB ONE (09:00)
[2017-06-24 09:51] LABS: BASO % 0.6 % (0-2.0); EOS % 2.9 % (0-4.5); HEMATOCRIT 40.9 % (32.4-45.2); HEMOGLOBIN 13.6 GM/dL (10.7-15.3); LYMPH % 27.9 % (8-40); MCHC 33.3 g/dl (32.0-36.0); MEAN CELL VOLUME 87.1 fl (80-96); MONO % 9.5 % (3.8-10.2); NEUT % 59.1 % (42.8-82.8); PLATELET COUNT 270 K/MM3 (134-434); RDW 13.2 % (11.6-15.6)
[2017-06-24 10:14] VITALS: TEMP 97.8
[2017-06-24] MEDS ORDERED: PORTA CATH FLUSH 10 ML IVPUSH ONE ×3 (10:17→12:11)
[2017-06-24 10:42] LABS: ALBUMIN 3.9 g/dl (3.4-5.0); ALK PHOS 76 U/L (45-117); ANION GAP 10 (8-16); BILIRUBIN,TOTAL 0.3 mg/dL (0.2-1.0); BLOOD UREA NITROGEN 19 mg/dL (7-18); CALCIUM 8.9 mg/dL (8.5-10.1); CHLORIDE 105 mmol/L (98-107); CO2 25 mmol/L (21-32); CREATININE 0.9 mg/dL (0.55-1.02); GLUCOSE,RANDOM 87 mg/dL (74-106); POTASSIUM 4.6 mmol/L (3.5-5.1); SGOT/AST 36 U/L (15-37); SGPT/ALT 47 U/L (12-78); SODIUM 140 mmol/L (136-145); TOT PROT 7.6 g/dl (6.4-8.2)
[2017-06-24 10:45] LABS: BILIRUBIN,DIRECT < 0.2 mg/dL (0.0-0.2)
[2017-06-24 12:11] VITALS: BP 131/60; PULSE 96
== END 2017-06-24 11:30 | disposition home or self-care (01) ==
LOC: JONCCHEMO 07:40 → J7W 09:34 → JONCCHEMO 11:30
PROVIDERS: ATTEND Internal Medicine Hematology & Oncology
DX: Z51.11 Encounter for antineoplastic chemotherapy (principal); C50.312 Malignant neoplasm of lower-inner quadrant of left female breast
CPT/HCPCS: 36415; 80053; 80076; 82378; 83735; 85025; 86300; 96361; 96367; 96411; 96413; J9306; J9355

== ENCOUNTER 2017-07-15 07:23 | Day surgery (SDC) | payer OTHER ==
[2017-07-15] MEDS ORDERED: SODIUM CHLORIDE 250 ML IV ONE (08:00)
[2017-07-15] MEDS ORDERED: PERTUZUMAB 420 MG in SODIUM CHLORIDE 250 ML IVPB ONE (08:30)
[2017-07-15 08:58] LABS: BASO % 0.5 % (0-2.0); EOS % 2.8 % (0-4.5); HEMATOCRIT 38.4 % (32.4-45.2); HEMOGLOBIN 12.8 GM/dL (10.7-15.3); LYMPH % 30.5 % (8-40); MCH 28.7 pg (25.7-33.7); MCHC 33.2 g/dl (32.0-36.0); MEAN CELL VOLUME 86.4 fl (80-96); MEAN PLT VOLUME 7.9 fl (7.5-11.1); MONO % 10.2 % (3.8-10.2); PLATELET COUNT 264 K/MM3 (134-434); RBC 4.45 M/mm3 (3.60-5.2); RDW 12.9 % (11.6-15.6); WHITE BLOOD COUNT 6.1 K/mm3 (4.0-10.0)
[2017-07-15] MEDS ORDERED: TRASTUZUMAB IVPB ONE (09:00)
[2017-07-15] MEDS ORDERED: SODIUM CHLORIDE IVPB ONE (09:00)
[2017-07-15 09:17] LABS: ANION GAP 5 (8-16); BLOOD UREA NITROGEN 26 mg/dL (7-18); CHLORIDE 106 mmol/L (98-107); CO2 28 mmol/L (21-32); GLUCOSE,RANDOM 86 mg/dL (74-106); POTASSIUM 4.8 mmol/L (3.5-5.1); SODIUM 139 mmol/L (136-145)
[2017-07-15] MEDS ORDERED: PORTA CATH FLUSH 10 ML IVPUSH ONE (09:32)
[2017-07-15 09:33] VITALS: TEMP 97.7
[2017-07-15 09:35] LABS: ALK PHOS 71 U/L (45-117); BILIRUBIN,DIRECT < 0.2 mg/dL (0.0-0.2); BILIRUBIN,TOTAL 0.3 mg/dL (0.2-1.0); SGOT/AST 27 U/L (15-37); SGPT/ALT 41 U/L (12-78); TOT PROT 7.4 g/dl (6.4-8.2)
[2017-07-15 11:12] VITALS: BP 117/70; PULSE 56
[2017-07-16 08:06] LABS: CARCINOEMBRYONIC ANTIGEN 3.3 ng/mL (0.0-4.7)
== END 2017-07-15 11:12 | disposition home or self-care (01) ==
LOC: JONCCHEMO 07:23 → J7W 09:15 → JONCCHEMO 11:12
PROVIDERS: ATTEND Internal Medicine Hematology & Oncology
DX: Z51.11 Encounter for antineoplastic chemotherapy (principal); C50.312 Malignant neoplasm of lower-inner quadrant of left female breast
CPT/HCPCS: 36415; 80048; 80076; 82378; 83735; 85025; 86300; 96361; 96413; 96417; J9306; J9355

== ENCOUNTER 2017-08-05 07:27 | Day surgery (SDC) | payer OTHER ==
[2017-08-05 09:18] LABS: BASO % 0.5 % (0-2.0); EOS % 2.5 % (0-4.5); HEMATOCRIT 40.6 % (32.4-45.2); HEMOGLOBIN 13.5 GM/dL (10.7-15.3); LYMPH % 32.6 % (8-40); MCH 28.4 pg (25.7-33.7); MCHC 33.1 g/dl (32.0-36.0); MEAN CELL VOLUME 85.6 fl (80-96); MEAN PLT VOLUME 7.5 fl (7.5-11.1); MONO % 10.1 % (3.8-10.2); NEUT % 54.3 % (42.8-82.8); PLATELET COUNT 247 K/MM3 (134-434); RBC 4.74 M/mm3 (3.60-5.2); WHITE BLOOD COUNT 5.8 K/mm3 (4.0-10.0)
[2017-08-05] MEDS: SODIUM CHLORIDE 250 ML IV ONE (09:35)
[2017-08-05 09:46] LABS: ANION GAP 8 (8-16); BLOOD UREA NITROGEN 20 mg/dL (7-18); CALCIUM 8.9 mg/dL (8.5-10.1); CHLORIDE 110 mmol/L (98-107); CO2 24 mmol/L (21-32); GLUCOSE,RANDOM 94 mg/dL (74-106); SGOT/AST 23 U/L (15-37); SGPT/ALT 31 U/L (12-78); SODIUM 142 mmol/L (136-145)
[2017-08-05 09:47] LABS: BILIRUBIN,DIRECT < 0.2 mg/dL (0.0-0.2); MAGNESIUM 1.8 mg/dL (1.8-2.4); SGOT/AST 22 U/L (15-37); SGPT/ALT 31 U/L (12-78)
[2017-08-05 09:48] LABS: ALK PHOS 74 U/L (45-117); BILIRUBIN,TOTAL 0.3 mg/dL (0.2-1.0); TOT PROT 7.7 g/dl (6.4-8.2)
[2017-08-05 09:49] LABS: ALK PHOS 72 U/L (45-117); BILIRUBIN,TOTAL 0.3 mg/dL (0.2-1.0); TOT PROT 7.7 g/dl (6.4-8.2)
[2017-08-05] MEDS ORDERED: PERTUZUMAB 420 MG in SODIUM CHLORIDE 250 ML IVPB ONE (10:00)
[2017-08-05] MEDS ORDERED: SODIUM CHLORIDE IVPB ONE (10:30)
[2017-08-05] MEDS ORDERED: TRASTUZUMAB IVPB ONE (10:30)
[2017-08-05 10:48] VITALS: BP 135/70; PULSE 65; TEMP 98
[2017-08-05] MEDS ORDERED: PORTA CATH FLUSH 10 ML IVPUSH ONE ×2 (10:51→16:54)
== END 2017-08-05 12:00 | disposition home or self-care (01) ==
LOC: JONCCHEMO 07:27 → J7W 09:20 → JONCCHEMO 12:00
PROVIDERS: ATTEND Internal Medicine Hematology & Oncology
DX: Z51.11 Encounter for antineoplastic chemotherapy (principal); C50.312 Malignant neoplasm of lower-inner quadrant of left female breast
CPT/HCPCS: 36415; 80053; 80076; 82378; 83735; 85025; 86300; 96361; 96413; 96417; J9306; J9355

== ENCOUNTER 2017-08-26 07:43 | Day surgery (SDC) | payer OTHER ==
[2017-08-26] MEDS ORDERED: SODIUM CHLORIDE 250 ML IV ONE (08:00)
[2017-08-26] MEDS ORDERED: PERTUZUMAB 420 MG in SODIUM CHLORIDE 250 ML IVPB ONE (08:30)
[2017-08-26] MEDS ORDERED: SODIUM CHLORIDE IVPB ONE (09:00)
[2017-08-26] MEDS ORDERED: TRASTUZUMAB IVPB ONE (09:00)
[2017-08-26 09:06] LABS: BASO % 0.4 % (0-2.0); EOS % 3.3 % (0-4.5); HEMATOCRIT 39.5 % (32.4-45.2); HEMOGLOBIN 13.3 GM/dL (10.7-15.3); LYMPH % 28.6 % (8-40); MCH 28.9 pg (25.7-33.7); MCHC 33.7 g/dl (32.0-36.0); MEAN CELL VOLUME 85.8 fl (80-96); MEAN PLT VOLUME 7.8 fl (7.5-11.1); MONO % 10.4 % (3.8-10.2); NEUT % 57.3 % (42.8-82.8); PLATELET COUNT 278 K/MM3 (134-434); RBC 4.61 M/mm3 (3.60-5.2); RDW 12.8 % (11.6-15.6); WHITE BLOOD COUNT 6.5 K/mm3 (4.0-10.0)
[2017-08-26 09:26] LABS: ALBUMIN 4.1 g/dl (3.4-5.0); ANION GAP 9 (8-16); BILIRUBIN,DIRECT < 0.2 mg/dL (0.0-0.2); BILIRUBIN,TOTAL 0.3 mg/dL (0.2-1.0); BLOOD UREA NITROGEN 19 mg/dL (7-18); CALCIUM 9.3 mg/dL (8.5-10.1); CHLORIDE 106 mmol/L (98-107); CO2 26 mmol/L (21-32); CREATININE 0.9 mg/dL (0.55-1.02); GLUCOSE,RANDOM 91 mg/dL (74-106); POTASSIUM 4.7 mmol/L (3.5-5.1); SGOT/AST 32 U/L (15-37); SGPT/ALT 38 U/L (12-78); SODIUM 141 mmol/L (136-145); TOT PROT 7.9 g/dl (6.4-8.2)
[2017-08-26 09:27] LABS: ALK PHOS 79 U/L (45-117)
[2017-08-26 09:38] VITALS: TEMP 97.9
[2017-08-26] MEDS ORDERED: PORTA CATH FLUSH 10 ML IVPUSH ONE (09:38)
[2017-08-26 13:59] VITALS: BP 116/63; PULSE 60
== END 2017-08-26 11:30 | disposition home or self-care (01) ==
LOC: JONCCHEMO 07:43 → J7W 09:15 → JONCCHEMO 11:30
PROVIDERS: ATTEND Internal Medicine Hematology & Oncology
DX: Z51.11 Encounter for antineoplastic chemotherapy (principal); C50.312 Malignant neoplasm of lower-inner quadrant of left female breast
CPT/HCPCS: 36415; 80053; 80076; 83735; 85025; 96413; 96417; J9306; J9355

== ENCOUNTER 2017-10-28 07:34 | Day surgery (SDC) | payer OTHER ==
[2017-10-28 09:05] LABS: BASO % 0.4 % (0-2.0); EOS % 2.2 % (0-4.5); HEMATOCRIT 40.2 % (32.4-45.2); HEMOGLOBIN 13.4 GM/dL (10.7-15.3); LYMPH % 29.4 % (8-40); MCH 28.6 pg (25.7-33.7); MCHC 33.3 g/dl (32.0-36.0); MEAN CELL VOLUME 85.8 fl (80-96); MEAN PLT VOLUME 7.8 fl (7.5-11.1); PLATELET COUNT 266 K/MM3 (134-434); RBC 4.68 M/mm3 (3.60-5.2); RDW 13.4 % (11.6-15.6); WHITE BLOOD COUNT 7.4 K/mm3 (4.0-10.0)
[2017-10-28] MEDS ORDERED: SODIUM CHLORIDE 250 ML IV ONE (09:30)
[2017-10-28 09:37] LABS: ALK PHOS 76 U/L (45-117); ANION GAP 9 MMOL/L (8-16); BILIRUBIN,DIRECT < 0.2 mg/dL (0.0-0.2); BILIRUBIN,TOTAL 0.5 mg/dL (0.2-1); BLOOD UREA NITROGEN 24 mg/dL (7-18); CALCIUM 9.6 mg/dL (8.5-10.1); CHLORIDE 108 mmol/L (98-107); CO2 25 mmol/L (21-32); CREATININE 0.9 mg/dL (0.55-1.3); GLUCOSE,RANDOM 87 mg/dL (74-106); MAGNESIUM 2.2 mg/dL (1.8-2.4); POTASSIUM 4.5 mmol/L (3.5-5.1); SGOT/AST 29 U/L (15-37); SGPT/ALT 35 U/L (13-61); SODIUM 142 mmol/L (136-145); TOT PROT 7.7 g/dl (6.4-8.2)
[2017-10-28] MEDS ORDERED: PERTUZUMAB 420 MG in SODIUM CHLORIDE 250 ML IVPB ONE (10:00)
[2017-10-28] MEDS ORDERED: TRASTUZUMAB IVPB ONE (10:30)
[2017-10-28] MEDS ORDERED: SODIUM CHLORIDE IVPB ONE (10:30)
[2017-10-28 14:30] VITALS: TEMP 98.6
[2017-10-28 14:52] VITALS: BP 109/48; PULSE 63
[2017-10-28] MEDS ORDERED: PORTA CATH FLUSH 10 ML IVPUSH ONE (14:52)
== END 2017-10-28 12:10 | disposition home or self-care (01) ==
LOC: JONCCHEMO 07:34 → J7W 09:49 → JONCCHEMO 12:10
PROVIDERS: ATTEND Internal Medicine Hematology & Oncology
DX: Z51.11 Encounter for antineoplastic chemotherapy (principal); C50.312 Malignant neoplasm of lower-inner quadrant of left female breast
CPT/HCPCS: 36415; 80053; 80076; 83735; 85025; 96361; 96366; 96413; 96417; J9306; J9355

== ENCOUNTER 2017-11-18 08:02 | Day surgery (SDC) | payer OTHER ==
[2017-11-18 09:21] LABS: BASO % 0.5 % (0-2.0); EOS % 2.2 % (0-4.5); HEMATOCRIT 38.5 % (32.4-45.2); HEMOGLOBIN 12.5 GM/dL (10.7-15.3); LYMPH % 32.6 % (8-40); MCHC 32.6 g/dl (32.0-36.0); MEAN CELL VOLUME 85.9 fl (80-96); MEAN PLT VOLUME 7.4 fl (7.5-11.1); MONO % 8.9 % (3.8-10.2); NEUT % 55.8 % (42.8-82.8); PLATELET COUNT 257 K/MM3 (134-434); RBC 4.48 M/mm3 (3.60-5.2); RDW 13.2 % (11.6-15.6); WHITE BLOOD COUNT 6.1 K/mm3 (4.0-10.0)
[2017-11-18] MEDS ORDERED: SODIUM CHLORIDE 250 ML IV ONE (09:30)
[2017-11-18 09:32] VITALS: BP 141/59; PULSE 59; TEMP 96.4
[2017-11-18 09:50] LABS: ALBUMIN 3.8 g/dl (3.4-5.0); ALK PHOS 65 U/L (45-117); ANION GAP 7 MMOL/L (8-16); BILIRUBIN,DIRECT 0.1 mg/dL (0.0-0.2); BILIRUBIN,TOTAL 0.5 mg/dL (0.2-1); BLOOD UREA NITROGEN 21 mg/dL (7-18); CALCIUM 8.9 mg/dL (8.5-10.1); CHLORIDE 110 mmol/L (98-107); CO2 26 mmol/L (21-32); CREATININE 0.8 mg/dL (0.55-1.3); GLUCOSE,RANDOM 89 mg/dL (74-106); SGOT/AST 25 U/L (15-37); SGPT/ALT 32 U/L (13-61); SODIUM 142 mmol/L (136-145); TOT PROT 7.4 g/dl (6.4-8.2)
[2017-11-18] MEDS ORDERED: PORTA CATH FLUSH 10 ML IVPUSH ONE (09:52)
[2017-11-18] MEDS ORDERED: PERTUZUMAB 420 MG in SODIUM CHLORIDE 250 ML IVPB ONE (10:00)
[2017-11-18] MEDS ORDERED: TRASTUZUMAB IVPB ONE (10:30)
[2017-11-18] MEDS ORDERED: SODIUM CHLORIDE IVPB ONE (10:30)
== END 2017-11-18 11:00 | disposition home or self-care (01) ==
LOC: JONCCHEMO 08:02 → J7W 08:43 → JONCCHEMO 11:00
PROVIDERS: ATTEND Internal Medicine Hematology & Oncology
DX: Z51.11 Encounter for antineoplastic chemotherapy (principal); C50.312 Malignant neoplasm of lower-inner quadrant of left female breast
CPT/HCPCS: 36415; 80048; 80076; 82378; 85025; 86300; 96361; 96413; 96417; J9306; J9355

== ENCOUNTER 2017-12-09 07:33 | Day surgery (SDC) | payer OTHER ==
[2017-12-09 09:14] LABS: BASO % 0.5 % (0-2.0); EOS % 2.8 % (0-4.5); HEMATOCRIT 41.4 % (32.4-45.2); HEMOGLOBIN 13.6 GM/dL (10.7-15.3); LYMPH % 32.9 % (8-40); MCH 28.1 pg (25.7-33.7); MCHC 32.7 g/dl (32.0-36.0); MEAN CELL VOLUME 85.9 fl (80-96); MEAN PLT VOLUME 7.6 fl (7.5-11.1); MONO % 9.5 % (3.8-10.2); NEUT % 54.3 % (42.8-82.8); PLATELET COUNT 278 K/MM3 (134-434); RBC 4.82 M/mm3 (3.60-5.2); RDW 13.2 % (11.6-15.6); WHITE BLOOD COUNT 6.5 K/mm3 (4.0-10.0)
[2017-12-09] MEDS ORDERED: SODIUM CHLORIDE 250 ML IV ONE (09:30)
[2017-12-09 09:49] LABS: ALBUMIN 4.1 g/dl (3.4-5.0); ALK PHOS 71 U/L (45-117); ANION GAP 10 MMOL/L (8-16); BILIRUBIN,DIRECT 0.1 mg/dL (0.0-0.2); BILIRUBIN,TOTAL 0.7 mg/dL (0.2-1); BLOOD UREA NITROGEN 26 mg/dL (7-18); CALCIUM 8.9 mg/dL (8.5-10.1); CHLORIDE 106 mmol/L (98-107); CO2 25 mmol/L (21-32); CREATININE 0.8 mg/dL (0.55-1.3); GLUCOSE,RANDOM 82 mg/dL (74-106); SGOT/AST 31 U/L (15-37); SGPT/ALT 36 U/L (13-61); SODIUM 142 mmol/L (136-145); TOT PROT 7.9 g/dl (6.4-8.2)
[2017-12-09] MEDS ORDERED: PERTUZUMAB 420 MG in SODIUM CHLORIDE 250 ML IVPB ONE (10:00)
[2017-12-09] MEDS ORDERED: SODIUM CHLORIDE IVPB ONE (10:30)
[2017-12-09] MEDS ORDERED: TRASTUZUMAB IVPB ONE (10:30)
[2017-12-09 10:34] VITALS: BP 128/66; PULSE 68
[2017-12-09] MEDS ORDERED: PORTA CATH FLUSH 10 ML IVPUSH ONE (10:34)
[2017-12-09 10:35] VITALS: TEMP 97.8
[2017-12-10 16:31] LABS: CARCINOEMBRYONIC ANTIGEN 3.5 ng/mL (0.0-4.7)
== END 2017-12-09 12:10 | disposition home or self-care (01) ==
LOC: JONCCHEMO 07:33 → J7W 10:11 → JONCCHEMO 12:10
PROVIDERS: ATTEND Internal Medicine Hematology & Oncology
DX: Z51.11 Encounter for antineoplastic chemotherapy (principal); C50.312 Malignant neoplasm of lower-inner quadrant of left female breast
CPT/HCPCS: 36415; 80053; 80076; 82378; 83735; 85025; 86300; 96413; 96417; J9306; J9355

== ENCOUNTER 2018-01-03 07:32 | Day surgery (SDC) | payer OTHER ==
[2018-01-03] MEDS ORDERED: SODIUM CHLORIDE 250 ML IV ONE (09:30)
[2018-01-03] MEDS ORDERED: PERTUZUMAB 420 MG in SODIUM CHLORIDE 250 ML IVPB ONE (10:00)
[2018-01-03 10:15] LABS: BASO % 0.6 % (0-2.0); EOS % 2.7 % (0-4.5); HEMATOCRIT 37.3 % (32.4-45.2); HEMOGLOBIN 12.9 GM/dL (10.7-15.3); LYMPH % 31.8 % (8-40); MCH 29.7 pg (25.7-33.7); MCHC 34.7 g/dl (32.0-36.0); MEAN CELL VOLUME 85.7 fl (80-96); MONO % 8.6 % (3.8-10.2); NEUT % 56.3 % (42.8-82.8); PLATELET COUNT 261 K/MM3 (134-434); RBC 4.35 M/mm3 (3.60-5.2); WHITE BLOOD COUNT 5.8 K/mm3 (4.0-10.0)
[2018-01-03] MEDS ORDERED: SODIUM CHLORIDE IVPB ONE (10:30)
[2018-01-03] MEDS ORDERED: TRASTUZUMAB IVPB ONE (10:30)
[2018-01-03 10:46] LABS: ALBUMIN 3.9 g/dl (3.4-5.0); ALK PHOS 65 U/L (45-117); ANION GAP 7 MMOL/L (8-16); BILIRUBIN,DIRECT 0.1 mg/dL (0.0-0.2); BILIRUBIN,TOTAL 0.2 mg/dL (0.2-1); BLOOD UREA NITROGEN 24 mg/dL (7-18); CALCIUM 8.9 mg/dL (8.5-10.1); CHLORIDE 108 mmol/L (98-107); CO2 25 mmol/L (21-32); CREATININE 0.9 mg/dL (0.55-1.3); GLUCOSE,RANDOM 91 mg/dL (74-106); MAGNESIUM 1.8 mg/dL (1.8-2.4); POTASSIUM 4.3 mmol/L (3.5-5.1); SGOT/AST 21 U/L (15-37); SGPT/ALT 26 U/L (13-61); SODIUM 140 mmol/L (136-145); TOT PROT 7.3 g/dl (6.4-8.2)
[2018-01-03 17:09] VITALS: BP 129/55; PULSE 55; TEMP 98
== END 2018-01-03 12:20 | disposition home or self-care (01) ==
LOC: JONCCHEMO 07:32 → J7W 09:26 → JONCCHEMO 12:20
PROVIDERS: ATTEND Internal Medicine Hematology & Oncology
DX: Z51.11 Encounter for antineoplastic chemotherapy (principal); C50.312 Malignant neoplasm of lower-inner quadrant of left female breast
CPT/HCPCS: 36415; 80048; 80076; 83735; 85025; 96413; 96417; J9306; J9355

== ENCOUNTER 2018-01-27 05:45 | Day surgery (SDC) | payer OTHER ==
[2018-01-27 09:10] LABS: BASO % 0.5 % (0-2.0); HEMATOCRIT 37.4 % (32.4-45.2); HEMOGLOBIN 13.1 GM/dL (10.7-15.3); MCH 29.7 pg (25.7-33.7); MCHC 34.9 g/dl (32.0-36.0); MEAN PLT VOLUME 7.5 fl (7.5-11.1); MONO % 9.6 % (3.8-10.2); NEUT % 53.9 % (42.8-82.8); PLATELET COUNT 264 K/MM3 (134-434); RDW 13.2 % (11.6-15.6); WHITE BLOOD COUNT 5.7 K/mm3 (4.0-10.0)
[2018-01-27] MEDS ORDERED: SODIUM CHLORIDE 250 ML IV ONE (09:30)
[2018-01-27 09:37] LABS: ALBUMIN 3.6 g/dl (3.4-5.0); ALK PHOS 68 U/L (45-117); ANION GAP 6 MMOL/L (8-16); BILIRUBIN,TOTAL 0.4 mg/dL (0.2-1); BLOOD UREA NITROGEN 22 mg/dL (7-18); CALCIUM 8.6 mg/dL (8.5-10.1); CHLORIDE 105 mmol/L (98-107); CO2 27 mmol/L (21-32); CREATININE 0.9 mg/dL (0.55-1.3); GLUCOSE,RANDOM 95 mg/dL (74-106); POTASSIUM 3.8 mmol/L (3.5-5.1); SGOT/AST 39 U/L (15-37); SGPT/ALT 52 U/L (13-61); SODIUM 138 mmol/L (136-145); TOT PROT 7.4 g/dl (6.4-8.2)
[2018-01-27 09:38] LABS: ALBUMIN 3.6 g/dl (3.4-5.0); BILIRUBIN,DIRECT 0.1 mg/dL (0.0-0.2); BILIRUBIN,TOTAL 0.4 mg/dL (0.2-1); MAGNESIUM 1.9 mg/dL (1.8-2.4); TOT PROT 7.4 g/dl (6.4-8.2)
[2018-01-27] MEDS ORDERED: PERTUZUMAB 420 MG in SODIUM CHLORIDE 250 ML IVPB ONE (10:00)
[2018-01-27] MEDS ORDERED: SODIUM CHLORIDE IVPB ONE (10:30)
[2018-01-27] MEDS ORDERED: TRASTUZUMAB IVPB ONE (10:30)
[2018-01-27 15:50] VITALS: TEMP 97.8
[2018-01-27 16:10] VITALS: BP 111/54; PULSE 54
[2018-01-27] MEDS ORDERED: PORTA CATH FLUSH 10 ML IVPUSH ONE (16:10)
[2018-01-28 04:17] LABS: CARCINOEMBRYONIC ANTIGEN 4.5 ng/mL (0.0-4.7)
== END 2018-01-27 13:00 | disposition home or self-care (01) ==
LOC: JONCCHEMO 05:45 → J7W 10:42 → JONCCHEMO 13:00
PROVIDERS: ATTEND Internal Medicine Hematology & Oncology
PROC: 3E04305 Introduction of Other Antineoplastic into Central Vein, Percutaneous Approach (ICD-10-PCS; principal; 2018-01-27)
PROC: 3E0437Z Introduction of Electrolytic and Water Balance Substance into Central Vein, Percutaneous Approach (ICD-10-PCS; 2018-01-27)
DX: Z51.11 Encounter for antineoplastic chemotherapy (principal); C50.312 Malignant neoplasm of lower-inner quadrant of left female breast; D70.1 Agranulocytosis secondary to cancer chemotherapy
CPT/HCPCS: 36415; 80053; 80076; 82378; 83735; 85025; 86300; 96413; 96417; J9306; J9355

== ENCOUNTER 2018-02-17 05:23 | Day surgery (SDC) | payer OTHER ==
[2018-02-17] MEDS ORDERED: SODIUM CHLORIDE 250 ML IV ONE (08:00)
[2018-02-17] MEDS ORDERED: PERTUZUMAB 420 MG in SODIUM CHLORIDE 250 ML IVPB ONE (08:30)
[2018-02-17] MEDS ORDERED: SODIUM CHLORIDE IVPB ONE (09:00)
[2018-02-17] MEDS ORDERED: TRASTUZUMAB IVPB ONE (09:00)
[2018-02-17 09:17] LABS: BASO % 0.7 % (0-2.0); EOS % 2.9 % (0-4.5); HEMATOCRIT 40.4 % (32.4-45.2); HEMOGLOBIN 13.8 GM/dL (10.7-15.3); LYMPH % 31.7 % (8-40); MCH 29.3 pg (25.7-33.7); MCHC 34.1 g/dl (32.0-36.0); MEAN CELL VOLUME 85.9 fl (80-96); MEAN PLT VOLUME 7.5 fl (7.5-11.1); MONO % 8.7 % (3.8-10.2); PLATELET COUNT 290 K/MM3 (134-434); RDW 13.4 % (11.6-15.6); WHITE BLOOD COUNT 7.3 K/mm3 (4.0-10.0)
[2018-02-17 09:40] LABS: ALBUMIN 3.9 g/dl (3.4-5.0); ALK PHOS 70 U/L (45-117); ANION GAP 8 MMOL/L (8-16); BILIRUBIN,DIRECT 0.1 mg/dL (0.0-0.2); BILIRUBIN,TOTAL 0.3 mg/dL (0.2-1); BLOOD UREA NITROGEN 18 mg/dL (7-18); CHLORIDE 105 mmol/L (98-107); CO2 26 mmol/L (21-32); GLUCOSE,RANDOM 92 mg/dL (74-106); POTASSIUM 4.1 mmol/L (3.5-5.1); SGOT/AST 24 U/L (15-37); SGPT/ALT 26 U/L (13-61); SODIUM 138 mmol/L (136-145); TOT PROT 7.6 g/dl (6.4-8.2)
[2018-02-17] MEDS ORDERED: PORTA CATH FLUSH 10 ML IVPUSH ONE (15:40)
[2018-02-17 15:41] VITALS: BP 138/66; PULSE 57; TEMP 97.9
[2018-02-18 08:06] LABS: CARCINOEMBRYONIC ANTIGEN 5.3 ng/mL (0.0-4.7)
== END 2018-02-17 11:40 | disposition home or self-care (01) ==
LOC: JONCCHEMO 05:23 → J7W 09:57 → JONCCHEMO 11:40
PROVIDERS: ATTEND Internal Medicine Hematology & Oncology
DX: Z51.11 Encounter for antineoplastic chemotherapy (principal); C50.312 Malignant neoplasm of lower-inner quadrant of left female breast; D70.1 Agranulocytosis secondary to cancer chemotherapy
CPT/HCPCS: 36415; 80048; 80076; 82378; 83735; 85025; 86300; 96413; 96417; J9306; J9355

== ENCOUNTER 2018-03-10 07:21 | Day surgery (SDC) | payer OTHER ==
[2018-03-10 08:53] LABS: HEMATOCRIT 38.7 % (32.4-45.2); HEMOGLOBIN 13.4 GM/dL (10.7-15.3); MCHC 34.6 g/dl (32.0-36.0); MEAN CELL VOLUME 86.8 fl (80-96); MEAN PLT VOLUME 7.7 fl (7.5-11.1); NEUT % 54.5 % (42.8-82.8); PLATELET COUNT 242 K/MM3 (134-434); RBC 4.45 M/mm3 (3.60-5.2); RDW 13.2 % (11.6-15.6); WHITE BLOOD COUNT 6.9 K/mm3 (4.0-10.0)
[2018-03-10 08:54] LABS: BASO % 0.7 % (0-2.0); EOS % 2.5 % (0-4.5); LYMPH % 32.3 % (8-40)
[2018-03-10 08:58] VITALS: PULSE 66
[2018-03-10 09:25] LABS: ALBUMIN 3.9 g/dl (3.4-5.0); ALK PHOS 63 U/L (45-117); ANION GAP 9 MMOL/L (8-16); BILIRUBIN,DIRECT 0.1 mg/dL (0.0-0.2); BILIRUBIN,TOTAL 0.4 mg/dL (0.2-1); BLOOD UREA NITROGEN 24 mg/dL (7-18); CALCIUM 8.9 mg/dL (8.5-10.1); CHLORIDE 107 mmol/L (98-107); CO2 25 mmol/L (21-32); GLUCOSE,RANDOM 93 mg/dL (74-106); MAGNESIUM 1.7 mg/dL (1.8-2.4); POTASSIUM 3.9 mmol/L (3.5-5.1); SGOT/AST 23 U/L (15-37); SGPT/ALT 28 U/L (13-61); SODIUM 141 mmol/L (136-145); TOT PROT 7.6 g/dl (6.4-8.2)
[2018-03-10] MEDS ORDERED: SODIUM CHLORIDE 250 ML IV ONE (09:30)
[2018-03-10] MEDS ORDERED: MAGNESIUM SULF 50% (8.12 MEQ/2 ML-1 GM VIAL) ONE (09:57)
[2018-03-10] MEDS ORDERED: PERTUZUMAB 420 MG in SODIUM CHLORIDE 250 ML IVPB ONE (10:00)
[2018-03-10] MEDS ORDERED: TRASTUZUMAB IVPB ONE (10:30)
[2018-03-10] MEDS ORDERED: SODIUM CHLORIDE IVPB ONE (10:30)
[2018-03-10] MEDS ORDERED: MAGNESIUM SULF 50% (8.12 MEQ/2 ML-1 GM VIAL) IVPB ONE (10:30)
[2018-03-10 14:47] VITALS: BP 136/53; TEMP 97.8
[2018-03-10] MEDS ORDERED: PORTA CATH FLUSH 10 ML IVPUSH ONE (15:32)
[2018-03-11 04:14] LABS: CARCINOEMBRYONIC ANTIGEN 6.2 ng/mL (0.0-4.7)
== END 2018-03-10 12:30 | disposition home or self-care (01) ==
LOC: JONCCHEMO 07:21 → J7W 09:50 → JONCCHEMO 12:30
PROVIDERS: ATTEND Internal Medicine Hematology & Oncology
DX: Z51.11 Encounter for antineoplastic chemotherapy (principal); C50.312 Malignant neoplasm of lower-inner quadrant of left female breast; D70.1 Agranulocytosis secondary to cancer chemotherapy
CPT/HCPCS: 36415; 80048; 80076; 82378; 83735; 85025; 86300; 96413; 96417; J9306; J9355

== ENCOUNTER 2018-03-31 05:42 | Day surgery (SDC) | payer OTHER ==
[2018-03-31] MEDS ORDERED: PERTUZUMAB 420 MG in SODIUM CHLORIDE 250 ML IVPB ONE (08:00)
[2018-03-31] MEDS ORDERED: TRASTUZUMAB IVPB ONE (08:30)
[2018-03-31] MEDS ORDERED: SODIUM CHLORIDE IVPB ONE (08:30)
[2018-03-31 09:00] LABS: BASO % 0.4 % (0-2.0); EOS % 2.3 % (0-4.5); HEMATOCRIT 38.1 % (32.4-45.2); HEMOGLOBIN 13.1 GM/dL (10.7-15.3); MCH 29.4 pg (25.7-33.7); MCHC 34.3 g/dl (32.0-36.0); MEAN CELL VOLUME 85.7 fl (80-96); MEAN PLT VOLUME 7.6 fl (7.5-11.1); NEUT % 55.3 % (42.8-82.8); PLATELET COUNT 247 K/MM3 (134-434); RBC 4.45 M/mm3 (3.60-5.2); RDW 13.5 % (11.6-15.6); WHITE BLOOD COUNT 6.9 K/mm3 (4.0-10.0)
[2018-03-31 09:53] LABS: ALBUMIN 3.9 g/dl (3.4-5.0); ALK PHOS 64 U/L (45-117); ANION GAP 6 MMOL/L (8-16); BILIRUBIN,TOTAL 0.6 mg/dL (0.2-1); BLOOD UREA NITROGEN 29 mg/dL (7-18); CALCIUM 9.2 mg/dL (8.5-10.1); CHLORIDE 104 mmol/L (98-107); CO2 28 mmol/L (21-32); GLUCOSE,RANDOM 87 mg/dL (74-106); POTASSIUM 4.1 mmol/L (3.5-5.1); SGOT/AST 26 U/L (15-37); SGPT/ALT 26 U/L (13-61); SODIUM 138 mmol/L (136-145); TOT PROT 7.6 g/dl (6.4-8.2)
[2018-03-31 09:54] LABS: ALBUMIN 3.9 g/dl (3.4-5.0); BILIRUBIN,DIRECT 0.1 mg/dL (0.0-0.2); BILIRUBIN,TOTAL 0.6 mg/dL (0.2-1); MAGNESIUM 1.8 mg/dL (1.8-2.4); TOT PROT 7.6 g/dl (6.4-8.2)
[2018-03-31] MEDS ORDERED: MAGNESIUM OXIDE 400 MG TABLET (FP) PO ONE (10:30)
[2018-03-31] MEDS ORDERED: SODIUM CHLORIDE 250 ML IV ONE (11:00)
[2018-03-31 15:33] VITALS: PULSE 69
[2018-03-31] MEDS ORDERED: PORTA CATH FLUSH 10 ML IVPUSH ONE (15:33)
[2018-03-31 15:36] VITALS: BP 119/69; TEMP 97.9
== END 2018-03-31 12:31 | disposition home or self-care (01) ==
LOC: JONCCHEMO 05:42 → J7W 10:09 → JONCCHEMO 12:31
PROVIDERS: ATTEND Internal Medicine Hematology & Oncology
DX: Z51.11 Encounter for antineoplastic chemotherapy (principal); C50.312 Malignant neoplasm of lower-inner quadrant of left female breast
CPT/HCPCS: 36415; 80053; 80076; 82378; 83735; 85025; 86300; 96413; 96417; J9306; J9355

== ENCOUNTER 2018-04-25 07:47 | Day surgery (SDC) | payer OTHER ==
[2018-04-25 08:53] LABS: BASO % 0.7 % (0-2.0); HEMATOCRIT 37.8 % (32.4-45.2); HEMOGLOBIN 13.4 GM/dL (10.7-15.3); LYMPH % 32.2 % (8-40); MCH 30.5 pg (25.7-33.7); MCHC 35.4 g/dl (32.0-36.0); MEAN CELL VOLUME 86.2 fl (80-96); MEAN PLT VOLUME 7.6 fl (7.5-11.1); MONO % 9.9 % (3.8-10.2); NEUT % 54.2 % (42.8-82.8); PLATELET COUNT 249 K/MM3 (134-434); RBC 4.38 M/mm3 (3.60-5.2); RDW 13.3 % (11.6-15.6); WHITE BLOOD COUNT 7.1 K/mm3 (4.0-10.0)
[2018-04-25 09:52] LABS: ALBUMIN 3.8 g/dl (3.4-5.0); ALK PHOS 66 U/L (45-117); ANION GAP 7 MMOL/L (8-16); BILIRUBIN,DIRECT 0.1 mg/dL (0.0-0.2); BILIRUBIN,TOTAL 0.3 mg/dL (0.2-1); BLOOD UREA NITROGEN 38 mg/dL (7-18); CALCIUM 9.1 mg/dL (8.5-10.1); CHLORIDE 106 mmol/L (98-107); CO2 25 mmol/L (21-32); CREATININE 1.2 mg/dL (0.55-1.3); GLUCOSE,RANDOM 90 mg/dL (74-106); SGOT/AST 38 U/L (15-37); SGPT/ALT 56 U/L (13-61); SODIUM 138 mmol/L (136-145); TOT PROT 7.4 g/dl (6.4-8.2)
[2018-04-25] MEDS ORDERED: PERTUZUMAB 420 MG in SODIUM CHLORIDE 250 ML IVPB ONE (10:00)
[2018-04-25] MEDS ORDERED: SODIUM CHLORIDE IVPB ONE (10:30)
[2018-04-25] MEDS ORDERED: TRASTUZUMAB IVPB ONE (10:30)
[2018-04-25] MEDS ORDERED: SODIUM CHLORIDE 250 ML IV ONE (10:30)
[2018-04-25 13:00] VITALS: PULSE 56; TEMP 97.7
[2018-04-25] MEDS ORDERED: PORTA CATH FLUSH 10 ML IVPUSH ONE (13:09)
[2018-04-25 18:25] VITALS: BP 142/52
== END 2018-04-25 12:00 | disposition home or self-care (01) ==
LOC: JONCCHEMO 07:47 → J7W 09:33 → JONCCHEMO 12:00
PROVIDERS: ATTEND Internal Medicine Hematology & Oncology
PROC: 3E04305 Introduction of Other Antineoplastic into Central Vein, Percutaneous Approach (ICD-10-PCS; principal; 2018-04-25)
PROC: 3E0437Z Introduction of Electrolytic and Water Balance Substance into Central Vein, Percutaneous Approach (ICD-10-PCS; 2018-04-25)
DX: Z51.11 Encounter for antineoplastic chemotherapy (principal); C50.312 Malignant neoplasm of lower-inner quadrant of left female breast; Z17.0 Estrogen receptor positive status [ER+]; D70.1 Agranulocytosis secondary to cancer chemotherapy
CPT/HCPCS: 36415; 80053; 80076; 83735; 85025; 96413; 96417; J9306; J9355

== ENCOUNTER 2018-05-19 07:04 | Day surgery (SDC) | payer OTHER ==
[2018-05-19] MEDS ORDERED: PERTUZUMAB 420 MG in SODIUM CHLORIDE 250 ML IVPB ONE (08:00)
[2018-05-19] MEDS ORDERED: TRASTUZUMAB IVPB ONE (08:30)
[2018-05-19] MEDS ORDERED: SODIUM CHLORIDE IVPB ONE (08:30)
[2018-05-19 09:13] LABS: BASO % 0.5 % (0-2.0); EOS % 2.4 % (0-4.5); HEMATOCRIT 39.2 % (32.4-45.2); HEMOGLOBIN 13.2 GM/dL (10.7-15.3); LYMPH % 33.3 % (8-40); MCH 29.2 pg (25.7-33.7); MCHC 33.8 g/dl (32.0-36.0); MEAN CELL VOLUME 86.6 fl (80-96); MEAN PLT VOLUME 7.5 fl (7.5-11.1); NEUT % 53.8 % (42.8-82.8); PLATELET COUNT 265 K/MM3 (134-434); RBC 4.53 M/mm3 (3.60-5.2); RDW 13.4 % (11.6-15.6); WHITE BLOOD COUNT 6.7 K/mm3 (4.0-10.0)
[2018-05-19 09:46] LABS: ALBUMIN 3.8 g/dl (3.4-5.0); ALK PHOS 69 U/L (45-117); ANION GAP 4 MMOL/L (8-16); BILIRUBIN,TOTAL 0.3 mg/dL (0.2-1); BLOOD UREA NITROGEN 24 mg/dL (7-18); CALCIUM 9.2 mg/dL (8.5-10.1); CHLORIDE 105 mmol/L (98-107); CO2 28 mmol/L (21-32); CREATININE 1.1 mg/dL (0.55-1.3); GLUCOSE,RANDOM 92 mg/dL (74-106); POTASSIUM 4.6 mmol/L (3.5-5.1); SGOT/AST 28 U/L (15-37); SGPT/ALT 31 U/L (13-61); SODIUM 137 mmol/L (136-145); TOT PROT 7.8 g/dl (6.4-8.2)
[2018-05-19 09:47] LABS: ALBUMIN 3.8 g/dl (3.4-5.0); BILIRUBIN,DIRECT 0.1 mg/dL (0.0-0.2); BILIRUBIN,TOTAL 0.4 mg/dL (0.2-1); MAGNESIUM 1.8 mg/dL (1.8-2.4); TOT PROT 7.6 g/dl (6.4-8.2)
[2018-05-19 15:30] VITALS: TEMP 98.4
[2018-05-19] MEDS ORDERED: PORTA CATH FLUSH 10 ML IVPUSH ONE (15:30)
[2018-05-19 15:31] VITALS: BP 138/72; PULSE 62
== END 2018-05-19 10:45 | disposition home or self-care (01) ==
LOC: JONCCHEMO 07:04 → J7W 09:43 → JONCCHEMO 10:45
PROVIDERS: ATTEND Internal Medicine Hematology & Oncology
DX: Z51.11 Encounter for antineoplastic chemotherapy (principal); C50.312 Malignant neoplasm of lower-inner quadrant of left female breast; Z17.0 Estrogen receptor positive status [ER+]; D70.1 Agranulocytosis secondary to cancer chemotherapy
CPT/HCPCS: 36415; 80053; 80076; 82378; 83735; 85025; 86300; 96413; 96417; J9306; J9355

== ENCOUNTER 2018-06-20 07:21 | Day surgery (SDC) | payer OTHER ==
[2018-06-20 08:53] LABS: BASO % 0.8 % (0-2.0); EOS % 3.5 % (0-4.5); HEMATOCRIT 40.6 % (32.4-45.2); HEMOGLOBIN 13.3 GM/dL (10.7-15.3); LYMPH % 29.3 % (8-40); MCH 28.7 pg (25.7-33.7); MCHC 32.7 g/dl (32.0-36.0); MEAN CELL VOLUME 87.8 fl (80-96); MEAN PLT VOLUME 7.7 fl (7.5-11.1); MONO % 11.1 % (3.8-10.2); NEUT % 55.3 % (42.8-82.8); PLATELET COUNT 248 K/MM3 (134-434); RBC 4.62 M/mm3 (3.60-5.2); RDW 13.5 % (11.6-15.6)
[2018-06-20 09:18] LABS: BILIRUBIN,DIRECT 0.1 mg/dL (0.0-0.2); BILIRUBIN,TOTAL 0.3 mg/dL (0.2-1); CALCIUM 9.2 mg/dL (8.5-10.1); MAGNESIUM 2.2 mg/dL (1.8-2.4); POTASSIUM 4.3 mmol/L (3.5-5.1); TOT PROT 7.6 g/dl (6.4-8.2)
[2018-06-20] MEDS ORDERED: PERTUZUMAB 420 MG in SODIUM CHLORIDE 250 ML IVPB ONE (10:00)
[2018-06-20] MEDS ORDERED: TRASTUZUMAB IVPB ONE (10:00)
[2018-06-20] MEDS ORDERED: SODIUM CHLORIDE IVPB ONE (10:00)
[2018-06-20] MEDS ORDERED: SODIUM CHLORIDE 500 ML IV SCH (10:30)
[2018-06-20 14:28] VITALS: TEMP 98.1
[2018-06-20 14:35] VITALS: BP 138/68; PULSE 56
[2018-06-20] MEDS ORDERED: PORTA CATH FLUSH 10 ML IVPUSH ONE (14:35)
== END 2018-06-20 12:30 | disposition home or self-care (01) ==
LOC: JONCCHEMO 07:21 → J7W 09:16 → JONCCHEMO 12:30
PROVIDERS: ATTEND Internal Medicine Hematology & Oncology
DX: Z51.11 Encounter for antineoplastic chemotherapy (principal); C50.312 Malignant neoplasm of lower-inner quadrant of left female breast; Z17.0 Estrogen receptor positive status [ER+]; D70.1 Agranulocytosis secondary to cancer chemotherapy
CPT/HCPCS: 36415; 80048; 80076; 83735; 85025; 96361; 96367; 96413; 96417; J9306; J9355

== ENCOUNTER 2018-07-11 07:23 | Day surgery (SDC) | payer OTHER ==
[2018-07-11 09:38] LABS: BASO % 0.7 % (0-2.0); EOS % 2.7 % (0-4.5); HEMATOCRIT 40.5 % (32.4-45.2); HEMOGLOBIN 13.5 GM/dL (10.7-15.3); LYMPH % 27.6 % (8-40); MCH 28.7 pg (25.7-33.7); MCHC 33.3 g/dl (32.0-36.0); MEAN CELL VOLUME 86.2 fl (80-96); MEAN PLT VOLUME 7.7 fl (7.5-11.1); MONO % 9.9 % (3.8-10.2); NEUT % 59.1 % (42.8-82.8); PLATELET COUNT 272 K/MM3 (134-434); RBC 4.69 M/mm3 (3.60-5.2); WHITE BLOOD COUNT 6.1 K/mm3 (4.0-10.0)
[2018-07-11] MEDS ORDERED: PERTUZUMAB 420 MG in SODIUM CHLORIDE 250 ML IVPB ONE (10:00)
[2018-07-11 10:02] LABS: ALBUMIN 4.2 g/dl (3.4-5.0); BILIRUBIN,DIRECT 0.1 mg/dL (0.0-0.2); BILIRUBIN,TOTAL 0.4 mg/dL (0.2-1); CALCIUM 9.6 mg/dL (8.5-10.1); CREATININE 1.1 mg/dL (0.55-1.3); MAGNESIUM 2.1 mg/dL (1.8-2.4); POTASSIUM 4.6 mmol/L (3.5-5.1); TOT PROT 7.9 g/dl (6.4-8.2)
[2018-07-11] MEDS ORDERED: SODIUM CHLORIDE IVPB ONE (10:30)
[2018-07-11] MEDS ORDERED: TRASTUZUMAB IVPB ONE (10:30)
[2018-07-11 15:10] VITALS: BP 140/70; PULSE 68; TEMP 97.9
[2018-07-11] MEDS ORDERED: PORTA CATH FLUSH 10 ML IVPUSH ONE (15:10)
[2018-07-12 23:11] LABS: CARCINOEMBRYONIC ANTIGEN 5.4 ng/mL (0.0-4.7)
== END 2018-07-11 13:40 | disposition home or self-care (01) ==
LOC: JONCCHEMO 07:23 → J7W 10:24 → JONCCHEMO 13:40
PROVIDERS: ATTEND Internal Medicine Hematology & Oncology
DX: Z51.11 Encounter for antineoplastic chemotherapy (principal); C50.312 Malignant neoplasm of lower-inner quadrant of left female breast; Z17.0 Estrogen receptor positive status [ER+]; D70.1 Agranulocytosis secondary to cancer chemotherapy
CPT/HCPCS: 36415; 80048; 80076; 82378; 83735; 85025; 86300; 96413; 96417; J9306; J9355

== ENCOUNTER 2018-08-04 07:19 | Day surgery (SDC) | payer OTHER ==
[2018-08-04] MEDS ORDERED: PERTUZUMAB 420 MG in SODIUM CHLORIDE 250 ML IVPB ONE (09:00)
[2018-08-04] MEDS ORDERED: SODIUM CHLORIDE IVPB ONE (09:30)
[2018-08-04] MEDS ORDERED: TRASTUZUMAB IVPB ONE (09:30)
[2018-08-04 09:41] LABS: BASO % 0.5 % (0-2.0); EOS % 3.2 % (0-4.5); HEMATOCRIT 39.6 % (32.4-45.2); HEMOGLOBIN 13.3 GM/dL (10.7-15.3); LYMPH % 32.8 % (8-40); MCH 28.8 pg (25.7-33.7); MCHC 33.6 g/dl (32.0-36.0); MEAN CELL VOLUME 85.8 fl (80-96); MEAN PLT VOLUME 7.8 fl (7.5-11.1); MONO % 9.5 % (3.8-10.2); PLATELET COUNT 268 K/MM3 (134-434); RBC 4.62 M/mm3 (3.60-5.2); RDW 13.1 % (11.6-15.6); WHITE BLOOD COUNT 5.6 K/mm3 (4.0-10.0)
[2018-08-04 10:05] LABS: BILIRUBIN,DIRECT 0.1 mg/dL (0.0-0.2); BILIRUBIN,TOTAL 0.5 mg/dL (0.2-1); BLOOD UREA NITROGEN 26.8 mg/dL (7-18); MAGNESIUM 2.1 mg/dL (1.8-2.4); POTASSIUM 4.1 mmol/L (3.5-5.1); TOT PROT 7.6 g/dl (6.4-8.2)
[2018-08-04] MEDS ORDERED: PORTA CATH FLUSH 10 ML IVPUSH ONE (15:33)
[2018-08-04 15:34] VITALS: BP 120/69; PULSE 70; TEMP 98.1
[2018-08-05 05:13] LABS: CARCINOEMBRYONIC ANTIGEN 2.6 ng/mL (0.0-4.7)
== END 2018-08-04 11:40 | disposition home or self-care (01) ==
LOC: JONCCHEMO 07:19 → J7W 09:58 → JONCCHEMO 11:40
PROVIDERS: ATTEND Internal Medicine Hematology & Oncology
DX: C50.312 Malignant neoplasm of lower-inner quadrant of left female breast (principal)
CPT/HCPCS: 36415; 80048; 80076; 82378; 83735; 85025; 86300; 96413; 96417; J9306; J9355

== ENCOUNTER 2018-08-25 06:36 | Day surgery (SDC) | payer OTHER ==
[2018-08-25 08:55] LABS: BASO % 0.6 % (0-2.0); EOS % 2.5 % (0-4.5); HEMOGLOBIN 13.3 GM/dL (10.7-15.3); LYMPH % 29.5 % (8-40); MCH 28.9 pg (25.7-33.7); MCHC 33.3 g/dl (32.0-36.0); MEAN CELL VOLUME 86.6 fl (80-96); MEAN PLT VOLUME 7.3 fl (7.5-11.1); MONO % 9.1 % (3.8-10.2); NEUT % 58.3 % (42.8-82.8); PLATELET COUNT 237 K/MM3 (134-434); RBC 4.62 M/mm3 (3.60-5.2); RDW 13.3 % (11.6-15.6); WHITE BLOOD COUNT 5.2 K/mm3 (4.0-10.0)
[2018-08-25 09:19] LABS: ALBUMIN 3.8 g/dl (3.4-5.0); BILIRUBIN,DIRECT 0.1 mg/dL (0.0-0.2); BILIRUBIN,TOTAL 0.4 mg/dL (0.2-1); BLOOD UREA NITROGEN 29.4 mg/dL (7-18); CALCIUM 9.1 mg/dL (8.5-10.1); CREATININE 1.1 mg/dL (0.55-1.3); MAGNESIUM 2.2 mg/dL (1.8-2.4); POTASSIUM 4.4 mmol/L (3.5-5.1); TOT PROT 7.4 g/dl (6.4-8.2)
[2018-08-25] MEDS ORDERED: PERTUZUMAB 420 MG in SODIUM CHLORIDE 250 ML IVPB ONE (10:00)
[2018-08-25] MEDS ORDERED: SODIUM CHLORIDE IVPB ONE (10:30)
[2018-08-25] MEDS ORDERED: TRASTUZUMAB IVPB ONE (10:30)
[2018-08-25 18:32] VITALS: BP 124/70; PULSE 61; TEMP 97.4
== END 2018-08-25 13:00 | disposition home or self-care (01) ==
LOC: JONCCHEMO 06:36 → J7W 10:25 → JONCCHEMO 13:00
PROVIDERS: ATTEND Internal Medicine Hematology & Oncology
DX: Z51.11 Encounter for antineoplastic chemotherapy (principal); C50.312 Malignant neoplasm of lower-inner quadrant of left female breast
CPT/HCPCS: 36415; 80048; 80076; 82378; 83735; 85025; 86300; 96413; 96417; J9306; J9355

== ENCOUNTER 2018-09-15 06:46 | Day surgery (SDC) | payer OTHER | END 2018-09-15 12:00 | disposition home or self-care (01) | LOC: JONCCHEMO 06:46 → JERBED 09:44 → J7W 09:46 → JONCCHEMO 12:00 ==

== ENCOUNTER 2018-10-06 07:06 | Day surgery (SDC) | payer OTHER ==
[2018-10-06 09:19] LABS: BASO % 1.1 % (0-2.0); EOS % 2.3 % (0-4.5); HEMATOCRIT 39.6 % (32.4-45.2); HEMOGLOBIN 13.5 GM/dL (10.7-15.3); LYMPH % 33.3 % (8-40); MCH 29.3 pg (25.7-33.7); MEAN PLT VOLUME 7.5 fl (7.5-11.1); MONO % 8.7 % (3.8-10.2); NEUT % 54.6 % (42.8-82.8); PLATELET COUNT 256 K/MM3 (134-434); RDW 13.6 % (11.6-15.6); WHITE BLOOD COUNT 5.8 K/mm3 (4.0-10.0)
[2018-10-06 09:47] LABS: BILIRUBIN,DIRECT 0.1 mg/dL (0.0-0.2); BILIRUBIN,TOTAL 0.5 mg/dL (0.2-1); BLOOD UREA NITROGEN 21.3 mg/dL (7-18); CALCIUM 9.1 mg/dL (8.5-10.1); MAGNESIUM 2.1 mg/dL (1.8-2.4); TOT PROT 7.6 g/dl (6.4-8.2)
[2018-10-06] MEDS ORDERED: PERTUZUMAB 420 MG in SODIUM CHLORIDE 250 ML IVPB ONE (10:00)
[2018-10-06] MEDS ORDERED: TRASTUZUMAB IVPB ONE (10:30)
[2018-10-06] MEDS ORDERED: SODIUM CHLORIDE IVPB ONE (10:30)
[2018-10-06 13:28] VITALS: TEMP 98
[2018-10-06] MEDS ORDERED: PORTA CATH FLUSH 10 ML IVPUSH ONE (13:28)
[2018-10-06 13:39] VITALS: BP 124/60; PULSE 63
[2018-10-07 06:07] LABS: CARCINOEMBRYONIC ANTIGEN 2.4 ng/mL (0.0-4.7)
== END 2018-10-06 11:55 | disposition home or self-care (01) ==
LOC: JONCCHEMO 07:06 → J7W 10:05 → JONCCHEMO 11:55
PROVIDERS: ATTEND Internal Medicine Hematology & Oncology
DX: Z51.11 Encounter for antineoplastic chemotherapy (principal); C50.312 Malignant neoplasm of lower-inner quadrant of left female breast; Z17.0 Estrogen receptor positive status [ER+]; D70.8 Other neutropenia
CPT/HCPCS: 36415; 80048; 80076; 82378; 83735; 85025; 86300; 96413; 96417; J9306; J9355

== ENCOUNTER 2018-10-27 05:26 | Day surgery (SDC) | payer OTHER ==
[2018-10-27 09:44] LABS: BASO % 0.5 % (0-2.0); EOS % 2.4 % (0-4.5); HEMATOCRIT 42.2 % (32.4-45.2); HEMOGLOBIN 13.9 GM/dL (10.7-15.3); LYMPH % 27.7 % (8-40); MCH 28.5 pg (25.7-33.7); MEAN CELL VOLUME 86.5 fl (80-96); MEAN PLT VOLUME 7.6 fl (7.5-11.1); MONO % 8.7 % (3.8-10.2); NEUT % 60.7 % (42.8-82.8); PLATELET COUNT 274 K/MM3 (134-434); RBC 4.88 M/mm3 (3.60-5.2); RDW 13.5 % (11.6-15.6); WHITE BLOOD COUNT 6.6 K/mm3 (4.0-10.0)
[2018-10-27] MEDS ORDERED: PERTUZUMAB 420 MG in SODIUM CHLORIDE 250 ML IVPB ONE (10:00)
[2018-10-27 10:16] LABS: ALBUMIN 4.1 g/dl (3.4-5.0); BILIRUBIN,TOTAL 0.3 mg/dL (0.2-1); BLOOD UREA NITROGEN 20.7 mg/dL (7-18); CALCIUM 9.9 mg/dL (8.5-10.1); POTASSIUM 4.8 mmol/L (3.5-5.1); TOT PROT 7.8 g/dl (6.4-8.2)
[2018-10-27] MEDS ORDERED: SODIUM CHLORIDE IVPB ONE (10:30)
[2018-10-27] MEDS ORDERED: TRASTUZUMAB IVPB ONE (10:30)
[2018-10-27] MEDS ORDERED: PORTA CATH FLUSH 10 ML IVPUSH ONE (15:31)
[2018-10-27 15:32] VITALS: TEMP 98.2
[2018-10-27 15:33] VITALS: BP 117/88; PULSE 66
== END 2018-10-27 12:30 | disposition home or self-care (01) ==
LOC: JONCCHEMO 05:26 → J7W 10:22 → JONCCHEMO 12:30
PROVIDERS: ATTEND Internal Medicine Hematology & Oncology
DX: Z51.11 Encounter for antineoplastic chemotherapy (principal); C50.312 Malignant neoplasm of lower-inner quadrant of left female breast; Z17.0 Estrogen receptor positive status [ER+]; D70.8 Other neutropenia
CPT/HCPCS: 36415; 72100-TC-FY; 80053; 82378; 83735; 85025; 86300; 96413; 96417; J9306; J9355

== ENCOUNTER 2018-11-17 07:17 | Day surgery (SDC) | payer OTHER ==
[2018-11-17 09:50] LABS: BASO % 0.6 % (0-2.0); EOS % 2.4 % (0-4.5); HEMATOCRIT 41.7 % (32.4-45.2); HEMOGLOBIN 13.9 GM/dL (10.7-15.3); LYMPH % 32.8 % (8-40); MCH 28.8 pg (25.7-33.7); MCHC 33.4 g/dl (32.0-36.0); MEAN CELL VOLUME 86.3 fl (80-96); MEAN PLT VOLUME 7.9 fl (7.5-11.1); MONO % 10.7 % (3.8-10.2); NEUT % 53.5 % (42.8-82.8); PLATELET COUNT 257 K/MM3 (134-434); RBC 4.83 M/mm3 (3.60-5.2); RDW 13.4 % (11.6-15.6); WHITE BLOOD COUNT 6.3 K/mm3 (4.0-10.0)
[2018-11-17] MEDS ORDERED: PERTUZUMAB 420 MG in SODIUM CHLORIDE 250 ML IVPB ONE (10:00)
[2018-11-17 10:19] LABS: ALBUMIN 4.1 g/dl (3.4-5.0); BILIRUBIN,TOTAL 0.4 mg/dL (0.2-1); CALCIUM 9.2 mg/dL (8.5-10.1); MAGNESIUM 2.1 mg/dL (1.8-2.4); POTASSIUM 4.3 mmol/L (3.5-5.1); TOT PROT 7.8 g/dl (6.4-8.2)
[2018-11-17] MEDS ORDERED: SODIUM CHLORIDE IVPB ONE (10:30)
[2018-11-17] MEDS ORDERED: TRASTUZUMAB IVPB ONE (10:30)
[2018-11-17 15:53] VITALS: TEMP 97.9
[2018-11-17 15:54] VITALS: BP 123/73; PULSE 70
[2018-11-18 08:08] LABS: CARCINOEMBRYONIC ANTIGEN 2.8 ng/mL (0.0-4.7)
== END 2018-11-17 12:40 | disposition home or self-care (01) ==
LOC: JONCCHEMO 07:17 → J7W 10:53 → JONCCHEMO 12:40
PROVIDERS: ATTEND Internal Medicine Hematology & Oncology
DX: Z51.11 Encounter for antineoplastic chemotherapy (principal); C50.312 Malignant neoplasm of lower-inner quadrant of left female breast; D70.8 Other neutropenia; Z17.0 Estrogen receptor positive status [ER+]
CPT/HCPCS: 36415; 80053; 82378; 83735; 85025; 86300; 96413; 96417; J9306; J9355

== ENCOUNTER 2018-12-08 05:30 | Day surgery (SDC) | payer OTHER ==
[2018-12-08 09:45] LABS: BASO % 0.5 % (0-2.0); EOS % 2.5 % (0-4.5); HEMATOCRIT 39.3 % (32.4-45.2); HEMOGLOBIN 13.2 GM/dL (10.7-15.3); LYMPH % 28.5 % (8-40); MCH 28.8 pg (25.7-33.7); MCHC 33.6 g/dl (32.0-36.0); MEAN CELL VOLUME 85.8 fl (80-96); MEAN PLT VOLUME 7.2 fl (7.5-11.1); MONO % 8.1 % (3.8-10.2); NEUT % 60.4 % (42.8-82.8); PLATELET COUNT 272 K/MM3 (134-434); RBC 4.58 M/mm3 (3.60-5.2); RDW 13.3 % (11.6-15.6); WHITE BLOOD COUNT 6.6 K/mm3 (4.0-10.0)
[2018-12-08] MEDS ORDERED: PERTUZUMAB 420 MG in SODIUM CHLORIDE 250 ML IVPB ONE (10:00)
[2018-12-08 10:18] LABS: ALBUMIN 3.9 g/dl (3.4-5.0); BILIRUBIN,TOTAL 0.5 mg/dL (0.2-1); CALCIUM 9.2 mg/dL (8.5-10.1); CREATININE 1.1 mg/dL (0.55-1.3); POTASSIUM 4.3 mmol/L (3.5-5.1); TOT PROT 7.6 g/dl (6.4-8.2)
[2018-12-08] MEDS ORDERED: DEXAMETHASONE SOD PHOSPHATE 20 MG/5 ML VIAL IVPB ONE (10:23)
[2018-12-08] MEDS ORDERED: ACETAMINOPHEN 325 MG TABLET (FP) PO ONE ×2 (10:24→11:15)
[2018-12-08] MEDS ORDERED: SODIUM CHLORIDE IVPB ONE (10:30)
[2018-12-08] MEDS ORDERED: TRASTUZUMAB IVPB ONE (10:30)
[2018-12-08] MEDS ORDERED: DEXAMETHASONE SOD PHOSPHATE 10 MG/1 ML VIAL IVPB ONE (11:15)
[2018-12-08 15:15] VITALS: TEMP 98
[2018-12-08 15:17] VITALS: BP 109/70; PULSE 58
[2018-12-09 08:06] LABS: CARCINOEMBRYONIC ANTIGEN 3.1 ng/mL (0.0-4.7)
[2018-12-09] MEDS ORDERED: MONTELUKAST NA 10 MG TABLET PO ONE (10:45)
== END 2018-12-08 13:00 | disposition home or self-care (01) ==
LOC: JONCCHEMO 05:30 → J7W 10:54 → JONCCHEMO 13:00
PROVIDERS: ATTEND Internal Medicine Hematology & Oncology
PROC: 3E04305 Introduction of Other Antineoplastic into Central Vein, Percutaneous Approach (ICD-10-PCS; principal; 2018-12-08)
PROC: 3E043GC Introduction of Other Therapeutic Substance into Central Vein, Percutaneous Approach (ICD-10-PCS; 2018-12-08)
DX: Z51.11 Encounter for antineoplastic chemotherapy (principal); C50.312 Malignant neoplasm of lower-inner quadrant of left female breast; D70.8 Other neutropenia
CPT/HCPCS: 36415; 80053; 82378; 83735; 85025; 86300; 96367; 96413; 96417; J1100; J9306; J9355

== ENCOUNTER 2018-12-29 07:09 | Day surgery (SDC) | payer OTHER ==
[2018-12-29] MEDS ORDERED: PERTUZUMAB 420 MG in SODIUM CHLORIDE 250 ML IVPB ONE (10:00)
[2018-12-29] MEDS ORDERED: TRASTUZUMAB ANNS IVPB ONE (10:30)
[2018-12-29] MEDS ORDERED: SODIUM CHLORIDE IVPB ONE (10:30)
[2018-12-29 10:59] LABS: BASO % 0.5 % (0-2.0); EOS % 2.7 % (0-4.5); HEMATOCRIT 38.4 % (32.4-45.2); HEMOGLOBIN 12.9 GM/dL (10.7-15.3); LYMPH % 25.7 % (8-40); MCH 28.8 pg (25.7-33.7); MCHC 33.4 g/dl (32.0-36.0); MEAN CELL VOLUME 86.3 fl (80-96); MEAN PLT VOLUME 7.7 fl (7.5-11.1); MONO % 8.7 % (3.8-10.2); NEUT % 62.4 % (42.8-82.8); PLATELET COUNT 253 K/MM3 (134-434); RBC 4.46 M/mm3 (3.60-5.2); WHITE BLOOD COUNT 5.7 K/mm3 (4.0-10.0)
[2018-12-29 11:36] LABS: ALBUMIN 3.8 g/dl (3.4-5.0); BILIRUBIN,TOTAL 0.4 mg/dL (0.2-1); BLOOD UREA NITROGEN 21.3 mg/dL (7-18); CALCIUM 9.3 mg/dL (8.5-10.1); MAGNESIUM 2.1 mg/dL (1.8-2.4); POTASSIUM 4.7 mmol/L (3.5-5.1); TOT PROT 7.4 g/dl (6.4-8.2)
[2018-12-29] MEDS ORDERED: DEXAMETHASONE SOD PHOSPHATE 10 MG/1 ML VIAL IVPB ONE (15:15)
[2018-12-29] MEDS ORDERED: ACETAMINOPHEN 325 MG TABLET (FP) PO ONE (15:15)
[2018-12-29 16:38] VITALS: PULSE 71; TEMP 98.2
[2018-12-29 17:14] VITALS: BP 114/46
[2018-12-29] MEDS ORDERED: PORTA CATH FLUSH 10 ML IVPUSH ONE (17:14)
== END 2018-12-29 17:05 | disposition home or self-care (01) ==
LOC: JONCCHEMO 07:09 → J7W 13:31 → JONCCHEMO 17:05
PROVIDERS: ATTEND Internal Medicine Hematology & Oncology
DX: Z51.11 Encounter for antineoplastic chemotherapy (principal); C50.312 Malignant neoplasm of lower-inner quadrant of left female breast; D70.8 Other neutropenia
CPT/HCPCS: 36415; 80053; 83735; 85025; 96375; 96413; 96417; J1100; J9306; Q5117

== ENCOUNTER 2019-01-19 07:19 | Day surgery (SDC) | payer OTHER ==
[2019-01-19 09:24] LABS: BASO % 0.8 % (0-2.0); EOS % 3.7 % (0-4.5); HEMATOCRIT 39.9 % (32.4-45.2); HEMOGLOBIN 13.5 GM/dL (10.7-15.3); LYMPH % 34.6 % (8-40); MCH 29.5 pg (25.7-33.7); MCHC 33.9 g/dl (32.0-36.0); MEAN CELL VOLUME 86.9 fl (80-96); MONO % 12.7 % (3.8-10.2); NEUT % 48.2 % (42.8-82.8); PLATELET COUNT 239 K/MM3 (134-434); RBC 4.58 M/mm3 (3.60-5.2); RDW 13.5 % (11.6-15.6); WHITE BLOOD COUNT 4.5 K/mm3 (4.0-10.0)
[2019-01-19 09:57] LABS: ALBUMIN 3.8 g/dl (3.4-5.0); BILIRUBIN,TOTAL 0.4 mg/dL (0.2-1); CALCIUM 8.9 mg/dL (8.5-10.1); MAGNESIUM 1.9 mg/dL (1.8-2.4); POTASSIUM 4.6 mmol/L (3.5-5.1)
[2019-01-19] MEDS ORDERED: PERTUZUMAB 420 MG in SODIUM CHLORIDE 250 ML IVPB ONE (10:00)
[2019-01-19] MEDS ORDERED: SODIUM CHLORIDE IVPB ONE (10:30)
[2019-01-19] MEDS ORDERED: TRASTUZUMAB ANNS IVPB ONE (10:30)
[2019-01-19] MEDS ORDERED: DEXAMETHASONE INJECTION 10 MG, DIPHENHYDRAMINE 25 MG in SODIUM CHLORIDE 100 ML IVPB ONE (11:00)
[2019-01-19] MEDS ORDERED: ACETAMINOPHEN 325 MG TABLET (FP) PO ONE (11:00)
[2019-01-19 15:09] VITALS: TEMP 97.7
[2019-01-19 15:10] VITALS: BP 121/52; PULSE 63
== END 2019-01-19 13:10 | disposition home or self-care (01) ==
LOC: JONCCHEMO 07:19 → J7W 10:28 → JONCCHEMO 13:10
PROVIDERS: ATTEND Internal Medicine Hematology & Oncology
DX: Z51.11 Encounter for antineoplastic chemotherapy (principal); C50.312 Malignant neoplasm of lower-inner quadrant of left female breast; D70.8 Other neutropenia
CPT/HCPCS: 36415; 80053; 83735; 85025; 96413; 96417; J1100; J9306; Q5117

== ENCOUNTER 2019-02-01 22:20 | Inpatient (IN) | payer OTHER ==
--- NOTE | 2019-02-01 23:13 | PDOC ---
*Physical Exam - Vital Signs Last Vital Signs Temp Pulse Resp BP Pulse Ox 100.2 F H 92 H 20 155/68 96 02/01/19 22:28 02/01/19 22:28 02/01/19 22:28 02/01/19 22:28 02/01/19 22:28 - Physical Exam 02/01/19 23:13 The patient was examined by MARY GRACE Robert under my direct supervision. I personally evaluated the patient. I concur with the above findings and the plan of care. ED Treatment Course - LABORATORY CBC & Chemistry Diagram: 02/07/19 05:10 02/07/19 05:10 Discharge - Discharge Information Problems reviewed: Yes Clinical Impression/Diagnosis: Influenza A, Breast CA Pneumonia Qualifiers: Pneumonia type: due to influenza A virus Laterality: left Lung location: lower lobe of lung Qualified Code(s): J11.00 - Influenza due to unidentified influenza virus with unspecified type of pneumonia Condition: Good Disposition: HOME - Follow up/Referral - Patient Discharge Instructions - Post Discharge Activity
[2019-02-01] MEDS ORDERED: SODIUM CHLORIDE 2,245 ML IV ONE (23:37)
--- NOTE | 2019-02-01 23:37 | PDOC ---
History of Present Illness - General Chief Complaint: Cold Symptoms Stated Complaint: FEVER/ HEADACHE/ COUGH Time Seen by Provider: 02/01/19 23:09 - History of Present Illness Initial Comments: 02/01/19 23:34 CHIEF COMPLAINT: headache, chills HISTORY OF PRESENT ILLNESS: 53 yo F with hx of breast cancer (last chemo therapy was last week, followed by Dr. Patel), HTN, HLD presents to ED with c/ o headache, left-sided sore throat, cough, and chills since this morning. Patient reports taking 3 Advils two hours ago for a temp of 101.7F. Patient denies any abdominal pain, nausea, vomiting, or diarrhea. PCP: Reji/Norberto No recent travel or sick contacts. PAST MEDICAL HISTORY: breast cancer (active), HTN, HLD FAMILY HISTORY: Denies SOCIAL HISTORY: Denies tobacco, alcohol, illicit drug use. SURGICAL HISTORY: mastectomy on left breast, s/p lymphnodectomy, reconstruction on left and right breast, oophorectomy, 4 D&Cs ALLERGIES: No known drug allergies REVIEW OF SYSTEMS General/Constitutional: Sudden onset fever and chills since this morning, generalized body aches. Denies weakness, weight change. HEENT: Denies change in vision. Denies ear pain or discharge. Denies sore throat. Cardiovascular: Denies chest pain or shortness of breath. Respiratory:Cough. Denies wheezing, or hemoptysis. Gastrointestinal: Denies nausea, vomiting, diarrhea or constipation. Denies rectal bleeding. Genitourinary: Denies dysuria, frequency, or change in urination. Musculoskeletal: Denies joint or muscle swelling or pain. Denies neck or back pain. Skin and breasts: Denies rash or easy bruising. Neurologic: Headache. Denies vertigo, loss of consciousness, or loss of sensation. Psychiatric: Denies depression or anxiety. PHYSICAL EXAM General Appearance: Diaphoretic. No apparent distress, no intoxication. HEENT: Rhinorrhea, swollne turbinates. EOMI, PERRLA, normal ENT inspection, normal voice, TMs normal, pharynx normal. No conjunctival pallor. No photophobia, scleral icterus. Neck: Supple. Trachea midline. No tenderness, rigidity, carotid bruit, stridor , lymphadenopathy, or thyromegaly. Respiratory/Chest: Lungs CTAB. No shortness of breath, chest tenderness, respiratory distress, accessory muscle use. No crackles, rales, rhonchi, stridor , wheezing, dullness Cardiovascular: RRR. S1, S2. No JVD, murmur, bradycardia, tachycardia. Gastrointestinal/Abdominal: Normal bowel sounds. Abdomen soft, non-distended. No tenderness or rebound tenderness. No organomegaly, pulsatile mass, guarding , hernia, hepatomegaly, splenomegaly. Musculoskeletal/Extremities: Normal inspection. FROM of all extremities, normal capillary refill. Pelvis Stable. No CVA tenderness. No tenderness to extremities, pedal edema, swelling, erythema or deformity. Integumentary: Appropriate color, dry, warm. No cyanosis, erythema, jaundice or rash Neurologic: medical biller coder II-XII intact. Fully oriented, alert. Appropriate mood/affect. Motor strength 5/5. No appreciable EOM palsy, facial droop or sensory deficit. Past History - Past Medical History Allergies/Adverse Reactions: Allergies Allergy/AdvReac Type Severity Reaction Status Date / Time levofloxacin [From Levaquin] Allergy Severe Hives Verified 04/08/15 16:31 Home Medications: Ambulatory Orders Losartan/Hydrochlorothiazide [Hyzaar 100-25 Tablet] 1 each PO DAILY 02/20/13 Trastuzumab [Herceptin -] 480 mg IV ASDIR 08/29/13 Cholecalciferol (Vitamin D3) [Vitamin D3] 2,000 unit PO HS #0 tablet 01/05/14 Exemestane [Aromasin -] 25 mg PO DAILY 01/30/16 Multivit-Min/FA/Lycopen/Lutein [Centrum Silver Tablet] 1 each PO DAILY 04/09/16 Anemia: No Asthma: No Cancer: Yes (breast cancer metastatic stage 4 to bone,) Cardiac Disorders: No CVA: No COPD: No CHF: No Dementia: No Diabetes: No GI Disorders: No Disorders: No HTN: Yes Hypercholesterolemia: Yes Liver Disease: No Seizures: No Thyroid Disease: No - Surgical History Abdominal Surgery: No Appendectomy: No Cardiac Surgery: No Cholecystectomy: No Lung Surgery: No Neurologic Surgery: No Orthopedic Surgery: No - Psycho Social/Smoking Cessation Hx Smoking Status: No Smoking History: Never smoked Have you smoked in the past 12 months: No Number of Cigarettes Smoked Daily: 0 Hx Alcohol Use: No Drug/Substance Use Hx: No Substance Use Type: None Hx Substance Use Treatment: No *Physical Exam - Vital Signs Last Vital Signs Temp Pulse Resp BP Pulse Ox 100.2 F H 92 H 20 155/68 96 02/01/19 22:28 02/01/19 22:28 02/01/19 22:28 02/01/19 22:28 02/01/19 22:28 ED Treatment Course - LABORATORY CBC & Chemistry Diagram: 02/02/19 00:15 02/02/19 00:15 Medical Decision Making - Medical Decision Making 02/02/19 01:25 53 yo F with hx of breast cancer (last chemo therapy was last week, followed by Dr. Patel), HTN, HLD presents to ED with c/o headache, left-sided sore throat, cough, and chills since this morning. -sepsis workup Laboratory Tests 02/02/19 02/02/19 02/02/19 00:15 00:15 00:20 WBC 7.0 MCV 87.0 Monocytes % 16.5 H PT with INR 13.20 H INR 1.12 H Lactic Acid 2.1 H Influenza A (Rapid) 02/02/19 01:00 WBC MCV Monocytes % PT with INR INR Lactic Acid Influenza A (Rapid) Positive A CXR with LLL infiltrate suggestive of pneumonia. -ceftriaxone -azithromycin Flu positive. -tamiflu Will admit. Discharge - Discharge Information Problems reviewed: Yes Clinical Impression/Diagnosis: Influenza A, Breast CA Pneumonia Qualifiers: Pneumonia type: due to influenza A virus Laterality: left Lung location: lower lobe of lung Qualified Code(s): J11.00 - Influenza due to unidentified influenza virus with unspecified type of pneumonia - Admission Yes - Follow up/Referral - Patient Discharge Instructions - Post Discharge Activity
[2019-02-02 00:30] LABS: BASO % 0.5 % (0-2.0); EOS % 1.2 % (0-4.5); HEMATOCRIT 37.9 % (32.4-45.2); HEMOGLOBIN 12.7 GM/dL (10.7-15.3); LYMPH % 10.3 % (8-40); MCH 29.2 pg (25.7-33.7); MCHC 33.5 g/dl (32.0-36.0); MEAN PLT VOLUME 7.5 fl (7.5-11.1); MONO % 16.5 % (3.8-10.2); NEUT % 71.5 % (42.8-82.8); PLATELET COUNT 227 K/MM3 (134-434); RBC 4.35 M/mm3 (3.60-5.2); RDW 13.9 % (11.6-15.6)
[2019-02-02 00:46] LABS: INR 1.12 (0.83-1.09); PROTHROMBIN TIME (PATIENT) 13.2 SEC (9.7-13.0)
[2019-02-02 00:49] LABS: ACTIVATED PTT 35.8 SECONDS (25.2-36.5)
[2019-02-02 00:55] LABS: ALBUMIN 3.9 g/dl (3.4-5.0); BILIRUBIN,TOTAL 0.3 mg/dL (0.2-1); BLOOD UREA NITROGEN 19.5 mg/dL (7-18); CALCIUM 8.9 mg/dL (8.5-10.1); CREATININE 1.1 mg/dL (0.55-1.3); TOT PROT 7.3 g/dl (6.4-8.2)
[2019-02-02] MEDS ORDERED: OSELTAMIVIR PHOSPHATE 75 MG CAPSULE PO ONE (01:24)
[2019-02-02] MEDS ORDERED: CEFTRIAXONE 1,000 MG in DEXTROSE 5%-WATER - 50 ML IVPB ONE (01:24)
[2019-02-02] MEDS ORDERED: AZITHROMYCIN IVPB 500 MG in DEXTROSE 5%-WATER - 250 ML IVPB ONE (01:25)
[2019-02-02] MEDS ORDERED: CEFTRIAXONE 1 GM/50 ML BAG ONE (01:59)
[2019-02-02] MEDS ORDERED: OSELTAMIVIR PHOSPHATE 75 MG CAPSULE ONE (01:59)
[2019-02-02] MEDS ORDERED: AZITHROMYCIN IVPB 500 MG/250 ML BAG IVPB ONE (02:30)
[2019-02-02] MEDS ORDERED: ACETAMINOPHEN 325 MG TABLET (FP) PO PRN (02:53)
[2019-02-02] MEDS ORDERED: SODIUM CHLORIDE 1,000 ML IV SCH (03:00)
[2019-02-02 03:10] LABS: EPI CELLS 0.8 /HPF (0-5/HPF); HYALINE CASTS 1 /lpf (0-8); PH,URINE 5.5 (5.0-8.0); URINE APPEARANCE CLEAR; URINE BACTERIA 1.9 /hpf (NEGATIVE); URINE BILIRUBIN NEGATIVE (NEGATIVE); URINE COLOR YELLOW; URINE GLUCOSE (UA) NEGATIVE (NEGATIVE); URINE KETONE NEGATIVE (NEGATIVE); URINE LEUK ESTERASE 1+ (NEGATIVE); URINE NITRITE NEGATIVE (NEGATIVE); URINE PROTEIN NEGATIVE (NEGATIVE); URINE RBC 1 /hpf (0-4); URINE UROBILINOGEN 0.2 mg/dL (0.2-1.0); URINE WBC 8 /hpf (0-5)
--- NOTE | 2019-02-02 03:15 | HP ---
CHIEF COMPLAINT: flu like symptoms PCP: Dr Thornton HISTORY OF PRESENT ILLNESS: 53 yo F with hx breast cancer since 2009 fourth recurrence (last chemo therapy was last week, followed by Dr. Patel), HTN, HLD presents to ED with c/o headache, sore throat,body ache, non productive cough, and chills since this morning. She states that when she measured her temperature today it was at 101.7 at its highest. Last week, she visited her grandchildren who were actively sick with the flu. Pt admits to not taking her flu shot this year. She took tylenol which helped temporarily.She denies any chest pain, SOB, abdominal pain, nausea, vomiting, diarrhea or change in urination. daughter with history of hodgkins lymphoma in her 20s. ER course was notable for: (1) low grade fever 100.2F. CBC unremarkable. CMP PT/INR 13.2/1.12, LA 2.1 (2) influenza A positive, CXR with LLL infiltrate. urine, blood culture sent (3) tamiflu, ceftriaxone, azithro, tylenol Recent Travel: none PAST MEDICAL HISTORY:as above PAST SURGICAL HISTORY: mastectomy on left breast, s/p axilary lymph node dissection on Left, reconstruction on left and right breast, oophorectomy, 4 D& Cs Social History: denies Smoking:denies Alcohol:denies Drugs:denies Allergies levofloxacin [From Levaquin] Allergy (Severe, Verified 04/08/15 16:31) Hives HOME MEDICATIONS: Home Medications Medication Instructions Recorded Losartan/Hydrochlorothiazide 1 each PO DAILY 02/20/13 [Hyzaar 100-25 Tablet] Trastuzumab [Herceptin -] 480 mg IV ASDIR 08/29/13 Cholecalciferol (Vitamin D3) 2,000 unit PO HS #0 tablet 01/05/14 [Vitamin D3] Exemestane [Aromasin -] 25 mg PO DAILY 01/30/16 Multivit-Min/FA/Lycopen/Lutein 1 each PO DAILY 04/09/16 [Centrum Silver Tablet] REVIEW OF SYSTEMS CONSTITUTIONAL: fever, chills Absent: diaphoresis, generalized weakness, malaise, loss of appetite, weight change HEENT: throat pain Absent: rhinorrhea, nasal congestion, throat swelling, difficulty swallowing, mouth swelling, ear pain, eye pain, visual changes CARDIOVASCULAR: Absent: chest pain, syncope, palpitations, irregular heart rate, lightheadedness , peripheral edema RESPIRATORY: cough Absent: shortness of breath, dyspnea with exertion, orthopnea, wheezing, stridor, hemoptysis GASTROINTESTINAL: Absent: abdominal pain, abdominal distension, nausea, vomiting, diarrhea, constipation, melena, hematochezia GENITOURINARY: Absent: dysuria, frequency, urgency, hesitancy, hematuria, flank pain, genital pain MUSCULOSKELETAL: Absent: myalgia, arthralgia, joint swelling, back pain, neck pain SKIN: Absent: rash, itching, pallor HEMATOLOGIC/IMMUNOLOGIC: Absent: easy bleeding, easy bruising, lymphadenopathy, frequent infections ENDOCRINE: Absent: unexplained weight gain, unexplained weight loss, heat intolerance, cold intolerance NEUROLOGIC: headache Absent: focal weakness or paresthesias, dizziness, unsteady gait, seizure, mental status changes, bladder or bowel incontinence PSYCHIATRIC: Absent: anxiety, depression, suicidal or homicidal ideation, hallucinations. PHYSICAL EXAMINATION Vital Signs - 24 hr 02/01/19 02/02/19 02/02/19 22:28 02:24 02:26 Temperature 100.2 F H Pulse Rate 92 H Pulse Rate [ Radial] Respiratory 20 Rate Blood Pressure 155/68 O2 Sat by Pulse 96 96 96 Oximetry (%) 02/02/19 02:39 Temperature 97.8 F Pulse Rate Pulse Rate [ 90 Radial] Respiratory Rate Blood Pressure O2 Sat by Pulse Oximetry (%) GENERAL: Awake, alert, and fully oriented, in mild distress. HEAD: Normal with no signs of trauma. EYES: Pupils equal, round and reactive to light, extraocular movements intact, sclera anicteric, conjunctiva clear. No lid lag. EARS, NOSE, THROAT: swollen turbinate on left, oropharynx clear without exudates. Moist mucous membranes. NECK: Normal range of motion, supple without lymphadenopathy, JVD, or masses. LUNGS: Breath sounds equal, clear to auscultation bilaterally. No wheezes, and no crackles. No accessory muscle use. HEART: Regular rate and rhythm, normal S1 and S2 without murmur, rub or gallop. ABDOMEN: Soft, nontender, not distended, normoactive bowel sounds, no guarding, no rebound, no masses. No hepatomegaly or splenomegaly. MUSCULOSKELETAL: Normal range of motion at all joints. No bony deformities or tenderness. No CVA tenderness. UPPER EXTREMITIES: 2+ pulses, warm, well-perfused. No cyanosis. No clubbing. No peripheral edema. LOWER EXTREMITIES: 2+ pulses, warm, well-perfused. No calf tenderness. No peripheral edema. PSYCHIATRIC: Cooperative. Good eye contact. Appropriate mood and affect. SKIN: mastectomy scars. flushing in neck and anterior chest. Laboratory Results - last 24 hr 02/02/19 02/02/19 02/02/19 00:15 00:15 00:15 WBC 7.0 RBC 4.35 Hgb 12.7 Hct 37.9 MCV 87.0 MCH 29.2 MCHC 33.5 RDW 13.9 Plt Count 227 MPV 7.5 Absolute Neuts (auto) 5.0 Neutrophils % 71.5 D Lymphocytes % 10.3 D Monocytes % 16.5 H Eosinophils % 1.2 Basophils % 0.5 Nucleated RBC % 0 PT with INR 13.20 H INR 1.12 H PTT (Actin FS) 35.8 Sodium Potassium Chloride Carbon Dioxide Anion Gap BUN Creatinine Est GFR (CKD-EPI)AfAm Est GFR (CKD-EPI)NonAf Random Glucose Lactic Acid Calcium Total Bilirubin AST ALT Alkaline Phosphatase Troponin I < 0.02 Total Protein Albumin Influenza A (Rapid) Influenza B (Rapid) 02/02/19 02/02/19 02/02/19 00:15 00:20 01:00 WBC RBC Hgb Hct MCV MCH MCHC RDW Plt Count MPV Absolute Neuts (auto) Neutrophils % Lymphocytes % Monocytes % Eosinophils % Basophils % Nucleated RBC % PT with INR INR PTT (Actin FS) Sodium 138 Potassium 4.0 Chloride 103 Carbon Dioxide 28 Anion Gap 7 L BUN 19.5 H Creatinine 1.1 Est GFR (CKD-EPI)AfAm 63.64 Est GFR (CKD-EPI)NonAf 54.91 Random Glucose 90 Lactic Acid 2.1 H Calcium 8.9 Total Bilirubin 0.3 AST 22 ALT 28 Alkaline Phosphatase 59 Troponin I Total Protein 7.3 Albumin 3.9 Influenza A (Rapid) Positive A Influenza B (Rapid) Negative ASSESSMENT/PLAN: 53 yo F with hx breast cancer since 2008 fourth recurrence (last chemo therapy was last week, followed by Dr. Patel), HTN, HLD presents to ED with c/o headache, sore throat,body ache, non productive cough, and chills since this morning. admitted for PNA with positive flu test sepsis 2/2 possibly PNA no white count, fever and non productive cough, tachypnic, lactic acid at 2.1, tachycardia actively receiving chemo. immunosuppressed state cont ceftriaxone and azithromycin procalcitonin to evaluate viral vs bacterial and antibiotics duration cepacol lozenge for sore throat repeat lactic acid ordered NS @100cc/hr Heme/onc Dr Patel consulted - actively treating her for breast ca f/u AM labs +influenza A with symptoms of cough, fever, body aches, sick contact tamiflu 75 mg BID. symptoms present less than 48hrs reverse isolation monitor for improvement HTN resume once med rec HLD resume once med rec DVT lovenox daily Visit type - Emergency Visit Emergency Visit: Yes ED Registration Date: 02/02/19 Care time: The patient presented to the Emergency Department on the above date and was hospitalized for further evaluation of their emergent condition. - New Patient This patient is new to me today: Yes Date on this admission: 02/02/19 - Critical Care Critical Care patient: No ATTENDING PHYSICIAN STATEMENT I saw and evaluated the patient. I reviewed the resident's note and discussed the case with the resident. I agree with the resident's findings and plan as documented. SUBJECTIVE: OBJECTIVE: ASSESSMENT AND PLAN:
[2019-02-02] MEDS ORDERED: BENZOCAINE/MENTH/CETYLPYRD CL 1 EACH LOZENGE MM PRN (03:18)
[2019-02-02] MEDS: SODIUM CHLORIDE 1,000 ML IV SCH ×2 (03:30→04:15)
[2019-02-02 04:38] VITALS: BMI 31.1
[2019-02-02 06:50] LABS: BASO % 0.7 % (0-2.0); EOS % 1.2 % (0-4.5); HEMATOCRIT 36.6 % (32.4-45.2); HEMOGLOBIN 12.3 GM/dL (10.7-15.3); MCHC 33.5 g/dl (32.0-36.0); MEAN CELL VOLUME 86.6 fl (80-96); MEAN PLT VOLUME 7.6 fl (7.5-11.1); MONO % 19.9 % (3.8-10.2); NEUT % 60.2 % (42.8-82.8); PLATELET COUNT 207 K/MM3 (134-434); RBC 4.22 M/mm3 (3.60-5.2); RDW 13.7 % (11.6-15.6); WHITE BLOOD COUNT 4.8 K/mm3 (4.0-10.0)
[2019-02-02 07:07] LABS: ALBUMIN 3.4 g/dl (3.4-5.0); BILIRUBIN,TOTAL 0.3 mg/dL (0.2-1); BLOOD UREA NITROGEN 17.6 mg/dL (7-18); CALCIUM 8.3 mg/dL (8.5-10.1); CREATININE 0.9 mg/dL (0.55-1.3); MAGNESIUM 1.8 mg/dL (1.8-2.4); POTASSIUM 4.2 mmol/L (3.5-5.1); TOT PROT 6.4 g/dl (6.4-8.2)
--- NOTE | 2019-02-02 10:03 | CONSULT ---
Consultation: REQUESTING PROVIDER:primary team Dr Parker CONSULT REQUEST: We have been asked to medically evaluate this patient for ( active flue , breast mets on chemotherapy ). HISTORY OF PRESENT ILLNESS: 53 yo F with HER-2 positive , ER +,metastatic breast cancer(diagnosed 2009 fourth recurrence) S/P chemo/radiation (last chemo therapy was last week, followed by Dr. Patel), HTN, HLD presents to ED with c/o headache, sore throat, body ache, non productive cough, and chills since yesterday 11 AM. She states that when she measured her temperature today it was at 101.7 at its highest. Last week, she visited her grandchildren who were actively sick with the flu. Pt admits to not taking her flu shot this year. She took tylenol which helped temporarily.She denies any chest pain, SOB, abdominal pain, nausea, vomiting, diarrhea or change in urination. daughter with history of hodgkins lymphoma in her 20s. today pt reports fever , chills, sore throat , worsening cough had 3 BM yesterday normal texture denies any blood in urine or stool reports loss of appetite started on Ceftrixone /Azithromycin, cepacol, and IV fludis Recent Travel: none PMHx: as above PSHx:: mastectomy on left breast, s/p axilary lymph node dissection on Left, reconstruction on left and right breast, oophorectomy, 4 D&Cs Social History: denies Smoking:denies Alcohol:denies Drugs:denies Allergies levofloxacin [From Levaquin] Allergy (Severe, Verified 04/08/15 16:31) Hives REVIEW OF SYSTEMS: CONSTITUTIONAL: Absent: fever, chills, diaphoresis, generalized weakness, malaise, loss of appetite, weight change HEENT: Absent: rhinorrhea, nasal congestion, throat pain, throat swelling, difficulty swallowing, mouth swelling, ear pain, eye pain, visual changes CARDIOVASCULAR: Absent: chest pain, syncope, palpitations, irregular heart rate, lightheadedness , peripheral edema RESPIRATORY: Absent: cough, shortness of breath, dyspnea with exertion, orthopnea, wheezing, stridor, hemoptysis GASTROINTESTINAL: Absent: abdominal pain, abdominal distension, nausea, vomiting, diarrhea, constipation, melena, hematochezia GENITOURINARY: Absent: dysuria, frequency, urgency, hesitancy, hematuria, flank pain, genital pain MUSCULOSKELETAL: Absent: myalgia, arthralgia, joint swelling, back pain, neck pain SKIN: Absent: rash, itching, pallor HEMATOLOGIC/IMMUNOLOGIC: Absent: easy bleeding, easy bruising, lymphadenopathy sub mandibular left side , frequent infections ENDOCRINE: Absent: unexplained weight gain, unexplained weight loss, heat intolerance, cold intolerance NEUROLOGIC: Absent: headache, focal weakness or paresthesias, dizziness, unsteady gait, seizure, mental status changes, bladder or bowel incontinence PSYCHIATRIC: Absent: anxiety, depression, suicidal or homicidal ideation, hallucinations. PHYSICAL EXAMINATION Vital Signs - 24 hr 02/01/19 02/02/19 02/02/19 22:28 02:24 02:26 Temperature 100.2 F H Pulse Rate 92 H Pulse Rate [ Radial] Respiratory 20 Rate Blood Pressure 155/68 O2 Sat by Pulse 96 96 96 Oximetry (%) 02/02/19 02/02/19 02/02/19 02:39 03:00 03:10 Temperature 97.8 F 98 F Pulse Rate 62 Pulse Rate [ 90 Radial] Respiratory 20 Rate Blood Pressure 132/67 O2 Sat by Pulse 96 Oximetry (%) 02/02/19 05:54 Temperature 98.7 F Pulse Rate 68 Pulse Rate [ Radial] Respiratory 20 Rate Blood Pressure O2 Sat by Pulse Oximetry (%) GENERAL: Awake, alert, and fully oriented, feverish , HEAD: Normal with no signs of trauma. EYES: Pupils equal, round and reactive to light, extraocular movements intact, sclera anicteric, EARS, NOSE, THROAT: Ears normal, nares patent, oropharynx clear without exudates. Moist mucous membranes. Nodes : left sub mandibular lymphe node enlargement less than 0.5 cm NECK: Normal range of motion, supple Breast : double port on right side , right breast surgical scar , left breast surgical scar and tatto areola , no lyph nodes was palpated B/L , skin erythema around the neck LUNGS: Breath sounds equal, clear to auscultation bilaterally. No wheezes, and no crackles. No accessory muscle use. HEART: Regular rate and rhythm, normal S1 and S2 without murmur, rub or gallop. ABDOMEN: Soft, nontender, not distended, normoactive bowel sounds, no guarding, LOWER EXTREMITIES: 2+ pulses, warm, well-perfused. No calf tenderness. No peripheral edema. NEUROLOGICAL: no focal deficit Normal speech. Laboratory Results - last 24 hr 02/02/19 02/02/19 02/02/19 00:15 00:15 00:15 WBC 7.0 RBC 4.35 Hgb 12.7 Hct 37.9 MCV 87.0 MCH 29.2 MCHC 33.5 RDW 13.9 Plt Count 227 MPV 7.5 Absolute Neuts (auto) 5.0 Neutrophils % 71.5 D Lymphocytes % 10.3 D Monocytes % 16.5 H Eosinophils % 1.2 Basophils % 0.5 Nucleated RBC % 0 PT with INR 13.20 H INR 1.12 H PTT (Actin FS) 35.8 Sodium Potassium Chloride Carbon Dioxide Anion Gap BUN Creatinine Est GFR (CKD-EPI)AfAm Est GFR (CKD-EPI)NonAf Random Glucose Lactic Acid Calcium Phosphorus Magnesium Total Bilirubin AST ALT Alkaline Phosphatase Troponin I < 0.02 Total Protein Albumin Urine Color Urine Appearance Urine pH Ur Specific [place] Urine Protein Urine Glucose (UA) Urine Ketones Urine Blood Urine Nitrite Urine Bilirubin Urine Urobilinogen Ur Leukocyte Esterase Urine WBC (Auto) Urine RBC (Auto) Urine Casts (Auto) U Epithel Cells (Auto) Urine Bacteria (Auto) Influenza A (Rapid) Influenza B (Rapid) 02/02/19 02/02/19 02/02/19 00:15 00:20 01:00 WBC RBC Hgb Hct MCV MCH MCHC RDW Plt Count MPV Absolute Neuts (auto) Neutrophils % Lymphocytes % Monocytes % Eosinophils % Basophils % Nucleated RBC % PT with INR INR PTT (Actin FS) Sodium 138 Potassium 4.0 Chloride 103 Carbon Dioxide 28 Anion Gap 7 L BUN 19.5 H Creatinine 1.1 Est GFR (CKD-EPI)AfAm 63.64 Est GFR (CKD-EPI)NonAf 54.91 Random Glucose 90 Lactic Acid 2.1 H Calcium 8.9 Phosphorus Magnesium Total Bilirubin 0.3 AST 22 ALT 28 Alkaline Phosphatase 59 Troponin I Total Protein 7.3 Albumin 3.9 Urine Color Urine Appearance Urine pH Ur Specific [place] Urine Protein Urine Glucose (UA) Urine Ketones Urine Blood Urine Nitrite Urine Bilirubin Urine Urobilinogen Ur Leukocyte Esterase Urine WBC (Auto) Urine RBC (Auto) Urine Casts (Auto) U Epithel Cells (Auto) Urine Bacteria (Auto) Influenza A (Rapid) Positive A Influenza B (Rapid) Negative 02/02/19 02/02/19 02/02/19 02:30 05:15 05:15 WBC 4.8 RBC 4.22 Hgb 12.3 Hct 36.6 MCV 86.6 MCH 29.0 MCHC 33.5 RDW 13.7 Plt Count 207 MPV 7.6 Absolute Neuts (auto) 2.9 Neutrophils % 60.2 Lymphocytes % 18.0 D Monocytes % 19.9 H Eosinophils % 1.2 Basophils % 0.7 Nucleated RBC % 0 PT with INR INR PTT (Actin FS) Sodium 141 Potassium 4.2 Chloride 108 H Carbon Dioxide 28 Anion Gap 5 L BUN 17.6 Creatinine 0.9 Est GFR (CKD-EPI)AfAm 81.11 Est GFR (CKD-EPI)NonAf 69.99 Random Glucose 87 Lactic Acid Calcium 8.3 L Phosphorus 3.0 Magnesium 1.8 Total Bilirubin 0.3 AST 21 ALT 23 Alkaline Phosphatase 52 Troponin I Total Protein 6.4 Albumin 3.4 Urine Color Yellow Urine Appearance Clear Urine pH 5.5 Ur Specific [place] 1.008 L Urine Protein Negative Urine Glucose (UA) Negative Urine Ketones Negative Urine Blood Negative Urine Nitrite Negative Urine Bilirubin Negative Urine Urobilinogen 0.2 Ur Leukocyte Esterase 1+ H Urine WBC (Auto) 8 Urine RBC (Auto) 1 Urine Casts (Auto) 1 U Epithel Cells (Auto) 0.8 Urine Bacteria (Auto) 1.9 Influenza A (Rapid) Influenza B (Rapid) 02/02/19 05:15 WBC RBC Hgb Hct MCV MCH MCHC RDW Plt Count MPV Absolute Neuts (auto) Neutrophils % Lymphocytes % Monocytes % Eosinophils % Basophils % Nucleated RBC % PT with INR INR PTT (Actin FS) Sodium Potassium Chloride Carbon Dioxide Anion Gap BUN Creatinine Est GFR (CKD-EPI)AfAm Est GFR (CKD-EPI)NonAf Random Glucose Lactic Acid 1.5 Calcium Phosphorus Magnesium Total Bilirubin AST ALT Alkaline Phosphatase Troponin I Total Protein Albumin Urine Color Urine Appearance Urine pH Ur Specific [place] Urine Protein Urine Glucose (UA) Urine Ketones Urine Blood Urine Nitrite Urine Bilirubin Urine Urobilinogen Ur Leukocyte Esterase Urine WBC (Auto) Urine RBC (Auto) Urine Casts (Auto) U Epithel Cells (Auto) Urine Bacteria (Auto) Influenza A (Rapid) Influenza B (Rapid) Active Medications Generic Name Dose Route Start Last Admin Trade Name Freq PRN Reason Stop Dose Admin Acetaminophen 650 mg 02/02/19 02:53 Tylenol - PO Q4H PRN PAIN LEVEL 6-10 Benzocaine/Menthol 1 each 02/02/19 03:18 02/02/19 04:41 Cepacol Lozenge - MM 1 each PRN PRN Administration SORE THROAT Enoxaparin Sodium 40 mg 02/02/19 10:00 Lovenox - SQ DAILY GISELLA Azithromycin 500 mg/ Dextrose 250 mls @ 250 mls/hr 02/02/19 18:00 IVPB DAILY GISELLA Ceftriaxone Sodium 1 gm/ 50 mls @ 100 mls/hr 02/02/19 18:00 Dextrose IVPB DAILY GISELLA Protocol Sodium Chloride 1,000 mls @ 100 mls/hr 02/02/19 03:21 02/02/19 04:15 Normal Saline - IV 100 mls/hr ASDIR GISELLA Administration Oseltamivir Phosphate 75 mg 02/02/19 10:00 Tamiflu - PO 02/07/19 09:59 BID GISELLA CBC, BMP 02/02/19 05:15 02/02/19 05:15 ASSESSMENT/PLAN:primary note pending discussuin with Dr Gipson 53 yo F with HER-2 positive , ER +,metastatic breast cancer(diagnosed 2009 fourth recurrence) S/P chemo/radiation (last chemo therapy was last week, followed by Dr. Patel), HTN, HLD well known to dr Patel service presented to ED due to one days history fo flue like symptoms was found to have + Influenza A and LLL PNA and we were cosnulted as pt on chemotherapy last dose alst week # LLL # Influenza A positive * IV hydration , * Tylenol IV Q 6 hr PRN for fever * cont Abx and tamiflue , consult ID * airborne isolation precautions * xcr reviewed, * follow up reyna cx * cepacole for sore throat # breast cancer with mets will discuss with dr gipson the needs to cont meds for now #dry cugh start on Rbutussin AC # HTN # HLD #Hypothyroidim # DVT priophylaxis per primaty team Dispo: We will continue to follow the patient. Thank you for this consultative opportunity. Visit type - Emergency Visit Emergency Visit: Yes ED Registration Date: 02/02/19 Care time: The patient presented to the Emergency Department on the above date and was hospitalized for further evaluation of their emergent condition. - New Patient This patient is new to me today: Yes Date on this admission: 02/03/19 - Critical Care Critical Care patient: No ATTENDING PHYSICIAN STATEMENT I saw and evaluated the patient. I reviewed the resident's note and discussed the case with the resident. I agree with the resident's findings and plan as documented. SUBJECTIVE: OBJECTIVE: ASSESSMENT AND PLAN:
--- NOTE | 2019-02-02 10:28 | EKG ---
Test Reason : Blood Pressure : / mmHG Vent. Rate : 058 BPM Atrial Rate : 058 BPM P-R Int : 150 ms QRS Dur : 078 ms QT Int : 358 ms P-R-T Axes : 056 -03 079 degrees QTc Int : 351 ms POOR DATA QUALITY, INTERPRETATION MAY BE ADVERSELY AFFECTED SINUS BRADYCARDIA NONSPECIFIC T WAVE ABNORMALITY ABNORMAL ECG WHEN COMPARED WITH ECG OF 08-APR-2015 19:06, QT HAS SHORTENED Confirmed by HARJEET LOVELL, VIKTORIA ([id number]) on 02/02/2019 10:27:57 AM Referred By: Confirmed By:VIKTORIA COSBY MD
[2019-02-02] MEDS: OSELTAMIVIR PHOSPHATE 75 MG CAPSULE PO SCH ×2 (10:41→21:35)
[2019-02-02] MEDS: ENOXAPARIN NA (PORCINE) 40 MG/0.4 ML DISP.SYRIN SQ SCH (10:41)
[2019-02-02] MEDS: ACETAMINOPHEN 1000 MG/100 ML VIAL (NON FORMULARY) IVPB PRN ×2 (10:50→16:08)
[2019-02-02] MEDS: BENZOCAINE/MENTH/CETYLPYRD CL 1 EACH LOZENGE MM PRN ×2 (10:50→20:00)
--- NOTE | 2019-02-02 11:02 | PN ---
Progress Note, Physician History of Present Illness: Patient seen and examined earlier today Chart is reviewed coughing Mild distress due to discomfort - Current Medication List Current Medications: Active Medications Acetaminophen (Ofirmev Injection -) 1,000 mg IVPB Q6H PRN PRN Reason: FEVER Last Admin: 02/02/19 10:50 Dose: 1,000 mg Benzocaine/Menthol (Cepacol Lozenge -) 1 each MM Q4H PRN PRN Reason: SORE THROAT Stop: 02/06/19 03:17 Last Admin: 02/02/19 10:50 Dose: 1 each Enoxaparin Sodium (Lovenox -) 40 mg SQ DAILY GISELLA Last Admin: 02/02/19 10:41 Dose: 40 mg Guaifenesin/Codeine Phosphate (Robitussin Ac -) 10 ml PO Q8H PRN PRN Reason: COUGH Azithromycin 500 mg/ Dextrose 250 mls @ 250 mls/hr IVPB DAILY GISELLA Ceftriaxone Sodium 1 gm/ (Dextrose) 50 mls @ 100 mls/hr IVPB DAILY GISELLA; Protocol Sodium Chloride (Normal Saline -) 1,000 mls @ 100 mls/hr IV ASDIR GISELLA Last Admin: 02/02/19 04:15 Dose: 100 mls/hr Oseltamivir Phosphate (Tamiflu -) 75 mg PO BID GISELLA Stop: 02/07/19 09:59 Last Admin: 02/02/19 10:41 Dose: 75 mg - Objective Vital Signs: Vital Signs Temperature 98.7 F 02/02/19 05:54 Pulse Rate 68 02/02/19 05:54 Respiratory Rate 20 02/02/19 05:54 Blood Pressure 132/67 02/02/19 03:00 O2 Sat by Pulse Oximetry (%) 96 02/02/19 03:10 Constitutional: Yes: Mild Distress Eyes: Yes: Conjunctiva Clear HENT: Yes: Other (Congestive) Neck: Yes: Supple Cardiovascular: Yes: Regular Rate and Rhythm Respiratory: Yes: Rhonchi (scattered) Gastrointestinal: Yes: Soft Edema: No Psychiatric: Yes: Alert Labs: CBC, BMP 02/02/19 05:15 02/02/19 05:15 INR, PTT INR 1.12 (0.83-1.09) H 02/02/19 00:15 - ....Imaging Chest X-ray: Report Reviewed Problem List - Problems (1) Breast CA Code(s): C50.919 - MALIGNANT NEOPLASM OF UNSP SITE OF UNSPECIFIED FEMALE BREAST (2) Influenza A Code(s): J10.1 - FLU DUE TO OTH IDENT INFLUENZA VIRUS W OTH RESP MANIFEST (3) HTN (hypertension) Code(s): I10 - ESSENTIAL (PRIMARY) HYPERTENSION Assessment/Plan discussed I agree with current management Doppler precautions Follow-up cultures discontinue Cipro--tomorrow if cultures negative Chest x-ray--- negative for pneumonia Will follow
[2019-02-02] MEDS: guaiFENesin/CODEINE 5 ML UNIT-DOSE CUPS PO PRN ×2 (11:37→20:00)
--- NOTE | 2019-02-02 15:50 | PN ---
Progress Note (short form) - Note Progress Note: ID consult dictated imp/reccd 58 yo female with PMLH breast cancer 2008, on chemo- last on (one week ago) no influenza vaccine this week helped care for her daughter's sick Kids- one of whom was diagnosed with influenza yesterday she developed acute onset of fever, chills, cough also notes sore throat came to ED last night influenza A antigen positive cxray read by radiology as normal influenza A will swab throat +erythema given c/o pharyngitis but she has already been started on antibiotics metastatic breast cancer continue tamiflu continue rocephin f/u cultures- blood and throat droplet isolation Problem List - Problems (1) Influenza A Code(s): J10.1 - FLU DUE TO OTH IDENT INFLUENZA VIRUS W OTH RESP MANIFEST (2) Sore throat Code(s): J02.9 - ACUTE PHARYNGITIS, UNSPECIFIED (3) Breast CA Code(s): C50.919 - MALIGNANT NEOPLASM OF UNSP SITE OF UNSPECIFIED FEMALE BREAST
--- NOTE | 2019-02-02 18:42 | PN ---
Teaching Attending Note Name of Resident: Den Torres ATTENDING PHYSICIAN STATEMENT I saw and evaluated the patient. I reviewed the resident's note and discussed the case with the resident. I agree with the resident's findings and plan as documented. SUBJECTIVE: Doing better now. Mentioned prior malaise, sore throat OBJECTIVE: General: NAD HEENT: Oropharyinx erythema CVS: S1, S2 Lungs: CTAB Abdomen: + BS Extremities: No edema Neuro: Moves all extremities ASSESSMENT AND PLAN: 53 y/o lady with HER-2 positive , ER +,metastatic breast cancer(diagnosed 2009 fourth recurrence) S/P chemo/radiation (last chemo therapy was last week, followed by Dr. Patel), HTN, HLD well known to dr Patel service presented to ED due to one days history fo flu-like symptoms was found to have + Influenza A and LLL PNA and we were consulted as pt on chemotherapy last dose last week Continue supportive care, tamiflu, ceftriaxone F/U Dr. Patel/ upon discharge
[2019-02-02] MEDS: CEFTRIAXONE 1 GM in DEXTROSE 5%-WATER - 50 ML IVPB SCH (20:27)
[2019-02-03] MEDS: ACETAMINOPHEN 1000 MG/100 ML VIAL (NON FORMULARY) IVPB PRN ×2 (00:42→09:49)
[2019-02-03] MEDS: SODIUM CHLORIDE 1,000 ML IV SCH (01:50)
[2019-02-03] MEDS: BENZOCAINE/MENTH/CETYLPYRD CL 1 EACH LOZENGE MM PRN ×2 (06:07→10:30)
[2019-02-03] MEDS ORDERED: DEXTROSE 5%-WATER - 50 ML IVPB ONE (09:06)
[2019-02-03] MEDS ORDERED: cefTRIAXone SODIUM 1 GM VIAL ONE (09:06)
[2019-02-03] MEDS: guaiFENesin/CODEINE 5 ML UNIT-DOSE CUPS PO PRN ×2 (09:48→16:54)
[2019-02-03] MEDS: OSELTAMIVIR PHOSPHATE 75 MG CAPSULE PO SCH ×2 (09:49→22:45)
[2019-02-03] MEDS: ENOXAPARIN NA (PORCINE) 40 MG/0.4 ML DISP.SYRIN SQ SCH (09:49)
[2019-02-03] MEDS: CEFTRIAXONE 1 GM in DEXTROSE 5%-WATER - 50 ML IVPB SCH (09:49)
[2019-02-03] MEDS ORDERED: AZITHROMYCIN IVPB 500 MG/250 ML BAG IVPB SCH (10:00)
--- NOTE | 2019-02-03 10:47 | PN ---
Progress Note (short form) - Note Progress Note: feels lousy fevers tmax 103 nonproductive cough Vital Signs Period Temp Pulse Resp BP Sys/Mullen Pulse Ox Last 24 Hr 98.4 F-103 F 65-98 20-21 102-141/57-77 93 cor-rrr lungs crackles left base abd soft,nt ext no edema CBC, BMP 02/02/19 05:15 02/02/19 05:15 Microbiology 02/02/19 02:30 Urine - Urine Clean Catch Urine Culture - Final NO GROWTH OBTAINED 02/02/19 00:15 Blood - Peripheral Venous Blood Culture - Preliminary NO GROWTH OBTAINED AFTER 24 HOURS, INCUBATION TO CONTINUE FOR 4 DAYS. 02/02/19 00:15 Blood - Peripheral Venous Blood Culture - Preliminary NO GROWTH OBTAINED AFTER 24 HOURS, INCUBATION TO CONTINUE FOR 4 DAYS. Current Medications Benzocaine/Menthol (Cepacol Lozenge -) 1 each MM Q4H PRN PRN Reason: SORE THROAT Stop: 02/06/19 03:17 Last Admin: 02/03/19 06:07 Dose: 1 each Enoxaparin Sodium (Lovenox -) 40 mg SQ DAILY GISELLA Last Admin: 02/03/19 09:49 Dose: 40 mg Guaifenesin/Codeine Phosphate (Robitussin Ac -) 10 ml PO Q8H PRN PRN Reason: COUGH Last Admin: 02/03/19 09:48 Dose: 10 ml Ceftriaxone Sodium 1 gm/ (Dextrose) 50 mls @ 100 mls/hr IVPB DAILY GISELLA; Protocol Last Admin: 02/03/19 09:49 Dose: 100 mls/hr Sodium Chloride (Normal Saline -) 1,000 mls @ 100 mls/hr IV ASDIR GISELLA Last Admin: 02/03/19 01:50 Dose: 100 mls/hr Oseltamivir Phosphate (Tamiflu -) 75 mg PO BID GISELLA Stop: 02/07/19 09:59 Last Admin: 02/03/19 09:49 Dose: 75 mg a/p influenza A r/o pneumonia metastatic breast cancer continue tamiflu continue rocephin f/u cultures- blood and throat repeat cxray droplet isolation Problem List - Problems (1) Influenza A Code(s): J10.1 - FLU DUE TO OTH IDENT INFLUENZA VIRUS W OTH RESP MANIFEST (2) Sore throat Code(s): J02.9 - ACUTE PHARYNGITIS, UNSPECIFIED (3) Breast CA Code(s): C50.919 - MALIGNANT NEOPLASM OF UNSP SITE OF UNSPECIFIED FEMALE BREAST
--- NOTE | 2019-02-03 11:25 | PN ---
Progress Note (short form) - Note Progress Note: feels bad no distress having fever cough + i/d f/u noted and d/w Dr. Jorge also. Vital Signs Temp 103 F H 02/03/19 09:30 Pulse 98 H 02/03/19 09:30 Resp 20 02/03/19 09:30 BP 140/77 02/03/19 09:30 Pulse Ox 93 L 02/02/19 20:40 Intake & Output 02/02/19 02/02/19 02/03/19 11:59 23:59 11:59 Intake Total 570 320 Balance 570 320 Weight 187 lb Intake: IV 200 Normal Saline - 1,000 ml 200 @ 100 mls/hr IV ASDIR GISELLA Rx#:[id number] IVPB 250 Oral 120 320 Other: Voiding Method Toilet Toilet # Unmeasured Voids Void 1 1 Height 5 ft 5 in Body Mass Index (BMI) 31.1 Weight Measurement Method Standing Scale Active Medications Benzocaine/Menthol (Cepacol Lozenge -) 1 each MM Q4H PRN PRN Reason: SORE THROAT Stop: 02/06/19 03:17 Last Admin: 02/03/19 06:07 Dose: 1 each Enoxaparin Sodium (Lovenox -) 40 mg SQ DAILY GISELLA Last Admin: 02/03/19 09:49 Dose: 40 mg Guaifenesin/Codeine Phosphate (Robitussin Ac -) 10 ml PO Q8H PRN PRN Reason: COUGH Last Admin: 02/03/19 09:48 Dose: 10 ml Ceftriaxone Sodium 1 gm/ (Dextrose) 50 mls @ 100 mls/hr IVPB DAILY GISELLA; Protocol Last Admin: 02/03/19 09:49 Dose: 100 mls/hr Sodium Chloride (Normal Saline -) 1,000 mls @ 100 mls/hr IV ASDIR GISELLA Last Admin: 02/03/19 01:50 Dose: 100 mls/hr Oseltamivir Phosphate (Tamiflu -) 75 mg PO BID GISELLA Stop: 02/07/19 09:59 Last Admin: 02/03/19 09:49 Dose: 75 mg CBC, BMP 02/02/19 05:15 02/02/19 05:15 Microbiology 02/02/19 02:30 Urine Culture - Final Urine - Urine Clean Catch NO GROWTH OBTAINED 02/02/19 00:15 Blood Culture - Preliminary Blood - Peripheral Venous NO GROWTH OBTAINED AFTER 24 HOURS, INCUBATION TO CONTINUE FOR 4 DAYS. 02/02/19 00:15 Blood Culture - Preliminary Blood - Peripheral Venous NO GROWTH OBTAINED AFTER 24 HOURS, INCUBATION TO CONTINUE FOR 4 DAYS. Physical Exam Constitutional: Yes: Mild Distress Eyes: Yes: Conjunctiva Clear HEENT: Yes: Other (Congestive) Neck: Yes: Supple Cardiovascular: Yes: Regular Rate and Rhythm Respiratory: Yes: Rhonchi (scattered) Gastrointestinal: Yes: Soft Edema: No Psychiatric: Yes: Alert Labs: CBC, BMP 02/02/19 05:15 02/02/19 05:15 INR, PTT INR 1.12 (0.83-1.09) H 02/02/19 00:15 - ....Imaging Chest X-ray: Report Reviewed Problem List - Problems (1) Breast CA Code(s): C50.919 - MALIGNANT NEOPLASM OF UNSP SITE OF UNSPECIFIED FEMALE BREAST (2) Influenza A Code(s): J10.1 - FLU DUE TO OTH IDENT INFLUENZA VIRUS W OTH RESP MANIFEST (3) HTN (hypertension) Code(s): I10 - ESSENTIAL (PRIMARY) HYPERTENSION Assessment/Plan discussed continue present care abx - per i/d Doppler precautions Follow-up cultures Will follow Problem List - Problems (1) Breast CA Code(s): C50.919 - MALIGNANT NEOPLASM OF UNSP SITE OF UNSPECIFIED FEMALE BREAST (2) Influenza A Code(s): J10.1 - FLU DUE TO OTH IDENT INFLUENZA VIRUS W OTH RESP MANIFEST (3) HTN (hypertension) Code(s): I10 - ESSENTIAL (PRIMARY) HYPERTENSION
[2019-02-03] MEDS ORDERED: ACETAMINOPHEN 1000 MG/100 ML VIAL (NON FORMULARY) IVPB PRN (12:05)
--- NOTE | 2019-02-03 13:00 | PN ---
Physical Exam: SUBJECTIVE: Patient seen and examined still feverish but feel better cough has improved OBJECTIVE: Vital Signs Period Temp Pulse Resp BP Sys/Mullen Pulse Ox Last 24 Hr 98.4 F-103 F 65-98 20-21 102-141/57-77 93 GENERAL: Awake, alert, and fully oriented, feverish , HEAD: Normal with no signs of trauma. EYES: Pupils equal, round and reactive to light, extraocular movements intact, sclera anicteric, EARS, NOSE, THROAT: Ears normal, nares patent, oropharynx clear without exudates. Moist mucous membranes. Nodes : left sub mandibular lymphe node enlargement less than 0.5 cm NECK: Normal range of motion, supple Breast : double port on right side , right breast surgical scar , left breast surgical scar and tatto areola , no lyph nodes was palpated B/L , skin erythema around the neck LUNGS: Breath sounds equal, clear to auscultation bilaterally. No wheezes, and no crackles. No accessory muscle use. HEART: Regular rate and rhythm, normal S1 and S2 without murmur, rub or gallop. ABDOMEN: Soft, nontender, not distended, normoactive bowel sounds, no guarding, LOWER EXTREMITIES: 2+ pulses, warm, well-perfused. No calf tenderness. No peripheral edema. NEUROLOGICAL: no focal deficit Normal speech. Active Medications Generic Name Dose Route Start Last Admin Trade Name Freq PRN Reason Stop Dose Admin Acetaminophen 1,000 mg 02/03/19 12:05 Ofirmev Injection - IVPB Q6H PRN FEVER Benzocaine/Menthol 1 each 02/02/19 10:44 02/03/19 06:07 Cepacol Lozenge - MM 02/06/19 03:17 1 each Q4H PRN Administration SORE THROAT Enoxaparin Sodium 40 mg 02/02/19 10:00 02/03/19 09:49 Lovenox - SQ 40 mg DAILY GISELLA Administration Guaifenesin/Codeine Phosphate 10 ml 02/02/19 10:45 02/03/19 09:48 Robitussin Ac - PO 10 ml Q8H PRN Administration COUGH Ceftriaxone Sodium 1 gm/ 50 mls @ 100 mls/hr 02/02/19 18:00 02/03/19 09:49 Dextrose IVPB 100 mls/hr DAILY GISELLA Administration Protocol Sodium Chloride 1,000 mls @ 100 mls/hr 02/02/19 03:21 02/03/19 01:50 Normal Saline - IV 100 mls/hr ASDIR GISELLA Administration Oseltamivir Phosphate 75 mg 02/02/19 10:00 02/03/19 09:49 Tamiflu - PO 02/07/19 09:59 75 mg BID GISELLA Administration CBC, BMP 02/02/19 05:15 02/02/19 05:15 ASSESSMENT/PLAN: 53 yo F with HER-2 positive , ER +,metastatic breast cancer(diagnosed 2009 fourth recurrence) S/P chemo/radiation (last chemo therapy was last week, followed by Dr. Patel), HTN, HLD well known to dr Patel service presented to ED due to one days history fo flue like symptoms was found to have + Influenza A and LLL PNA and we were cosnulted as pt on chemotherapy last dose alst week # LLL PNA # Influenza A positive * IV hydration , * Tylenol IV Q 6 hr PRN for fever * cont Abx and tamiflue , consult ID * airborne isolation precautions * cxr reviewed, * follow up reyna cx * cepacole for sore throat # breast cancer with mets cont home meds #dry cugh start on Rbutussin AC # HTN # HLD #Hypothyroidim # DVT prophylaxis per primaty team Visit type - Emergency Visit Emergency Visit: Yes ED Registration Date: 02/02/19 Care time: The patient presented to the Emergency Department on the above date and was hospitalized for further evaluation of their emergent condition. - New Patient This patient is new to me today: No - Critical Care Critical Care patient: No - Discharge Referral Referred to [facility] No ATTENDING PHYSICIAN STATEMENT I saw and evaluated the patient. I reviewed the resident's note and discussed the case with the resident. I agree with the resident's findings and plan as documented. SUBJECTIVE: OBJECTIVE: ASSESSMENT AND PLAN:
--- NOTE | 2019-02-03 18:58 | CONS ---
DATE OF CONSULTATION: 02/02/2019 INFECTIOUS DISEASE CONSULTATION CONSULTATION REQUESTED BY: Cyndi Thornton MD HISTORY OF PRESENT ILLNESS: The patient is a 58-year-old woman with a past medical history of breast cancer diagnosed in 2008. She is on chemotherapy and states she has been on chemotherapy intermittently since that time. Her last chemotherapy was last , one week ago. She helped care for her daughter's sick children after chemotherapy on Wednesday and either on Wednesday or Wednesday (she is not sure when), she went with her grandchildren to [place] and one of the children was diagnosed with influenza at that time. Subsequently, on , she was home and was cooking when she started having the acute onset of fever, chills, myalgia and cough. She also noted a sore throat. Her symptoms abated. She was able to wait for her guests to leave but after they left, she felt so bad that she came to the ER. She reported having fever as high as 101.7 at home. She took three Advil before she came to the ER. There is no history of recent travel. Sick contacts include her grandchildren, who are known to have influenza. Of note, the patient did not receive an influenza vaccine this year. PAST MEDICAL HISTORY: Notable for breast cancer diagnosed in 2008, hypertension, hyperlipidemia. She has had radiation therapy in the past and is currently on chemotherapy. PAST SURGICAL HISTORY: She has had a mastectomy, lymph node removal, bilateral breast reconstruction and oophorectomy. She reports that she gets frequent sinusitis and sore throats for which she often takes a Z-Elmer. HOME MEDICATIONS: Herceptin, which is her chemotherapy. She is on multivitamins, Hyzaar, Aromasin and vitamin D. SOCIAL HISTORY: She is and lives with her . She has two adult children and several grandchildren. ALLERGIES: No known drug allergies. REVIEW OF SYSTEMS: She reports feeling better at this time but notes that she still has throat discomfort. PHYSICAL EXAMINATION: General: She is resting comfortably. Vital Signs: T-max is 100.2 in the ER. Her current temperature is 99.1. She is saturating at 96% on room air. Pulse is 65, blood pressure is 102/57, respiratory rate is 20. HEENT: She is normocephalic. Her eyes are anicteric. Neck: Supple. She has some pharyngeal erythema. There are no monie exudates. She has no meningeal signs. Lungs: Clear to auscultation. Heart: Regular rate and rhythm. Abdomen: Soft, nontender. Extremities: Without edema. LABORATORY DATA: Notable for a white count of 4.8. Hemoglobin is 12.3, platelets are 207. BUN and creatinine are 17 and 0.9. LFTs are normal. Her influenza-A screen was positive. Blood and urine cultures are pending. The official report of her chest x-ray is being read as clear. IMPRESSION: 1. This is a 58-year-old woman with breast cancer on chemotherapy with influenza-A. She complains of pharyngitis. Given these complaints, we will swab her throat but she has already been started on antibiotics. She was started on ceftriaxone and Zithromax last night in the ER. 2. She has metastatic breast cancer. Would continue Tamiflu. Continue Rocephin. Will stop the Zithromax. Follow up the cultures of blood and throat. She should be in droplet isolation. I spoke to her at length about influenza vaccination which she should get prior to discharge. I also spoke to her about the fact that if she had notified her physician, she could have been prophylaxed, given the fact that she had had a household exposure in the setting of chemotherapy and had not been vaccinated. She is now aware of this. JENNIFER DRIVER M.D. [id number]
--- NOTE | 2019-02-03 20:34 | PN ---
Progress Note (short form) - Note Progress Note: Patient seen and examined Feels better Vital Signs Period Temp Pulse Resp BP Sys/Mullen Pulse Ox Last 24 Hr 98.4 F-103 F 65-98 20-21 102-141/57-77 93 cor-rrr lungs crackles left base abd soft,nt ext no edema CBC, BMP 02/02/19 05:15 02/02/19 05:15 Microbiology 02/02/19 02:30 Urine - Urine Clean Catch Urine Culture - Final NO GROWTH OBTAINED 02/02/19 00:15 Blood - Peripheral Venous Blood Culture - Preliminary NO GROWTH OBTAINED AFTER 24 HOURS, INCUBATION TO CONTINUE FOR 4 DAYS. 02/02/19 00:15 Blood - Peripheral Venous Blood Culture - Preliminary NO GROWTH OBTAINED AFTER 24 HOURS, INCUBATION TO CONTINUE FOR 4 DAYS. Current Medications Benzocaine/Menthol (Cepacol Lozenge -) 1 each MM Q4H PRN PRN Reason: SORE THROAT Stop: 02/06/19 03:17 Last Admin: 02/03/19 06:07 Dose: 1 each Enoxaparin Sodium (Lovenox -) 40 mg SQ DAILY GISELLA Last Admin: 02/03/19 09:49 Dose: 40 mg Guaifenesin/Codeine Phosphate (Robitussin Ac -) 10 ml PO Q8H PRN PRN Reason: COUGH Last Admin: 02/03/19 09:48 Dose: 10 ml Ceftriaxone Sodium 1 gm/ (Dextrose) 50 mls @ 100 mls/hr IVPB DAILY GISELLA; Protocol Last Admin: 02/03/19 09:49 Dose: 100 mls/hr Sodium Chloride (Normal Saline -) 1,000 mls @ 100 mls/hr IV ASDIR GISELLA Last Admin: 02/03/19 01:50 Dose: 100 mls/hr Oseltamivir Phosphate (Tamiflu -) 75 mg PO BID GISELLA Stop: 02/07/19 09:59 Last Admin: 02/03/19 09:49 Dose: 75 mg a/p influenza A r/o pneumonia oligometastatic breast cancer---on herceptin/pertuzumab/aromasin
[2019-02-03] MEDS ORDERED: PT OWN MED DRAWER 7, Y5N ONE (21:25)
[2019-02-04] MEDS: SODIUM CHLORIDE 1,000 ML IV SCH ×2 (03:00→21:10)
[2019-02-04 07:07] LABS: BASO % 0.6 % (0-2.0); HEMATOCRIT 34.4 % (32.4-45.2); HEMOGLOBIN 11.5 GM/dL (10.7-15.3); LYMPH % 38.8 % (8-40); MCH 28.9 pg (25.7-33.7); MCHC 33.5 g/dl (32.0-36.0); MEAN CELL VOLUME 86.5 fl (80-96); MEAN PLT VOLUME 7.9 fl (7.5-11.1); MONO % 12.3 % (3.8-10.2); NEUT % 45.3 % (42.8-82.8); PLATELET COUNT 189 K/MM3 (134-434); RBC 3.98 M/mm3 (3.60-5.2); RDW 13.7 % (11.6-15.6); WHITE BLOOD COUNT 3.9 K/mm3 (4.0-10.0)
[2019-02-04 07:33] LABS: ALBUMIN 2.9 g/dl (3.4-5.0); BILIRUBIN,TOTAL 0.2 mg/dL (0.2-1); BLOOD UREA NITROGEN 13.4 mg/dL (7-18); CALCIUM 7.7 mg/dL (8.5-10.1); CREATININE 0.7 mg/dL (0.55-1.3); POTASSIUM 3.7 mmol/L (3.5-5.1)
[2019-02-04] MEDS ORDERED: DEXTROSE 5%-WATER - 50 ML IVPB ONE (09:48)
[2019-02-04] MEDS ORDERED: cefTRIAXone SODIUM 1 GM VIAL ONE (09:48)
[2019-02-04] MEDS: ENOXAPARIN NA (PORCINE) 40 MG/0.4 ML DISP.SYRIN SQ SCH (10:15)
[2019-02-04] MEDS: CEFTRIAXONE 1 GM in DEXTROSE 5%-WATER - 50 ML IVPB SCH (10:15)
[2019-02-04] MEDS: OSELTAMIVIR PHOSPHATE 75 MG CAPSULE PO SCH ×2 (10:15→21:10)
--- NOTE | 2019-02-04 11:11 | PN ---
Progress Note (short form) - Note Progress Note: feels better still with dry cough Vital Signs Period Temp Pulse Resp BP Sys/Mullen Pulse Ox Last 24 Hr 98.1 F-99.3 F 55-66 20-20 97-137/48-59 93-97 cor-rrr lungs improved, clear to ausculation abd soft, nt ext no edema CBC, BMP 02/04/19 05:10 02/04/19 05:10 Microbiology 02/02/19 15:53 Throat Throat Culture - Final NO BETA HEMOLYTIC STREPTOCOCCI ISOLATED 02/02/19 00:15 Blood - Peripheral Venous Blood Culture - Preliminary NO GROWTH OBTAINED AFTER 48 HOURS, INCUBATION TO CONTINUE FOR 3 DAYS. 02/02/19 00:15 Blood - Peripheral Venous Blood Culture - Preliminary NO GROWTH OBTAINED AFTER 48 HOURS, INCUBATION TO CONTINUE FOR 3 DAYS. 02/02/19 02:30 Urine - Urine Clean Catch Urine Culture - Final NO GROWTH OBTAINED Active Medications Acetaminophen (Ofirmev Injection -) 1,000 mg IVPB Q6H PRN PRN Reason: FEVER Last Admin: 02/03/19 16:54 Dose: 1,000 mg Benzocaine/Menthol (Cepacol Lozenge -) 1 each MM Q4H PRN PRN Reason: SORE THROAT Stop: 02/06/19 03:17 Last Admin: 02/03/19 10:30 Dose: 1 each Enoxaparin Sodium (Lovenox -) 40 mg SQ DAILY GISELLA Last Admin: 02/04/19 10:15 Dose: 40 mg Guaifenesin/Codeine Phosphate (Robitussin Ac -) 10 ml PO Q8H PRN PRN Reason: COUGH Last Admin: 02/03/19 16:54 Dose: 10 ml Ceftriaxone Sodium 1 gm/ (Dextrose) 50 mls @ 100 mls/hr IVPB DAILY GISELLA; Protocol Last Admin: 02/04/19 10:15 Dose: 100 mls/hr Sodium Chloride (Normal Saline -) 1,000 mls @ 100 mls/hr IV ASDIR GISELLA Last Admin: 02/03/19 01:50 Dose: 100 mls/hr Oseltamivir Phosphate (Tamiflu -) 75 mg PO BID GISELLA Stop: 02/07/19 09:59 Last Admin: 02/04/19 10:15 Dose: 75 mg a/p influenza A r/o pneumonia metastatic breast cancer continue tamiflu continue rocephin repeat cxxray with RLL infiltrate? will repeat on Wednesday d/w dr stewart droplet isolation Problem List - Problems (1) Influenza A Code(s): J10.1 - FLU DUE TO OTH IDENT INFLUENZA VIRUS W OTH RESP MANIFEST (2) Sore throat Code(s): J02.9 - ACUTE PHARYNGITIS, UNSPECIFIED (3) Breast CA Code(s): C50.919 - MALIGNANT NEOPLASM OF UNSP SITE OF UNSPECIFIED FEMALE BREAST
--- NOTE | 2019-02-04 11:48 | PN ---
Progress Note (short form) - Note Progress Note: pt seen/examined. chart reviewed awake/ comfortable feels better all f/u noted/ appreciated decreased cough temp coming down Vital Signs Temp 98.7 F 02/04/19 08:00 Pulse 61 02/04/19 08:00 Resp 20 02/04/19 09:00 BP 108/59 L 02/04/19 08:00 Pulse Ox 97 02/04/19 09:00 Intake & Output 02/03/19 02/03/19 02/04/19 11:59 23:59 11:59 Intake Total 2049 240 Balance 2049 240 Intake: IV 1200 Normal Saline - 1,000 ml 1200 @ 100 mls/hr IV ASDIR GISELLA Rx#:[id number] Oral 850 240 Other: Voiding Method Toilet Toilet # Unmeasured Voids Void 1 Bowel Movement No No Active Medications Acetaminophen (Ofirmev Injection -) 1,000 mg IVPB Q6H PRN PRN Reason: FEVER Last Admin: 02/03/19 16:54 Dose: 1,000 mg Benzocaine/Menthol (Cepacol Lozenge -) 1 each MM Q4H PRN PRN Reason: SORE THROAT Stop: 02/06/19 03:17 Last Admin: 02/03/19 10:30 Dose: 1 each Enoxaparin Sodium (Lovenox -) 40 mg SQ DAILY GISELLA Last Admin: 02/04/19 10:15 Dose: 40 mg Guaifenesin/Codeine Phosphate (Robitussin Ac -) 10 ml PO Q8H PRN PRN Reason: COUGH Last Admin: 02/03/19 16:54 Dose: 10 ml Ceftriaxone Sodium 1 gm/ (Dextrose) 50 mls @ 100 mls/hr IVPB DAILY GISELLA; Protocol Last Admin: 02/04/19 10:15 Dose: 100 mls/hr Sodium Chloride (Normal Saline -) 1,000 mls @ 100 mls/hr IV ASDIR GISELLA Last Admin: 02/03/19 01:50 Dose: 100 mls/hr Oseltamivir Phosphate (Tamiflu -) 75 mg PO BID GISELLA Stop: 02/07/19 09:59 Last Admin: 02/04/19 10:15 Dose: 75 mg CBC, BMP 02/04/19 05:10 02/04/19 05:10 CXR - reviewed Physical Exam Constitutional: Yes: awake/ comfortable. Eyes: Yes: Conjunctiva Clear HEENT: Yes: Other (Congestive) Neck: Yes: Supple. Cardiovascular: Yes: Regular Rate and Rhythm Respiratory: Yes: Rhonchi (scattered)- Gastrointestinal: Yes: Soft Edema: No Psychiatric: Yes: Alert - ....Imaging Chest X-ray: Report Reviewed Assessment/Plan BETTER continue present care abx - Doppler precautions Follow-up cultures Will follow Problem List - Problems (1) Breast CA Code(s): C50.919 - MALIGNANT NEOPLASM OF UNSP SITE OF UNSPECIFIED FEMALE BREAST (2) Influenza A Code(s): J10.1 - FLU DUE TO OTH IDENT INFLUENZA VIRUS W OTH RESP MANIFEST (3) HTN (hypertension) Code(s): I10 - ESSENTIAL (PRIMARY) HYPERTENSION
--- NOTE | 2019-02-04 13:07 | PN ---
Progress Note (short form) - Note Progress Note: Seen in follow up. No events overnight. Out of bed, eating lunch. No complaints Inpatient meds reviewed: Current Medications Generic Name Dose Route Start Last Admin Trade Name Freq PRN Reason Stop Dose Admin Acetaminophen 1,000 mg 02/03/19 12:05 02/03/19 16:54 Ofirmev Injection - IVPB 1,000 mg Q6H PRN Administration FEVER Benzocaine/Menthol 1 each 02/02/19 10:44 02/03/19 10:30 Cepacol Lozenge - MM 02/06/19 03:17 1 each Q4H PRN Administration SORE THROAT Enoxaparin Sodium 40 mg 02/02/19 10:00 02/04/19 10:15 Lovenox - SQ 40 mg DAILY GISELLA Administration Guaifenesin/Codeine Phosphate 10 ml 02/02/19 10:45 02/03/19 16:54 Robitussin Ac - PO 10 ml Q8H PRN Administration COUGH Ceftriaxone Sodium 1 gm/ 50 mls @ 100 mls/hr 02/02/19 18:00 02/04/19 10:15 Dextrose IVPB 100 mls/hr DAILY GISELLA Administration Protocol Sodium Chloride 1,000 mls @ 100 mls/hr 02/02/19 03:21 02/03/19 01:50 Normal Saline - IV 100 mls/hr ASDIR GISELLA Administration Oseltamivir Phosphate 75 mg 02/02/19 10:00 02/04/19 10:15 Tamiflu - PO 02/07/19 09:59 75 mg BID GISELLA Administration On Examination: Last Vital Signs Temp Pulse Resp BP Pulse Ox 98.7 F 61 20 108/59 L 97 02/04/19 08:00 02/04/19 08:00 02/04/19 09:00 02/04/19 08:00 02/04/19 09:00 General: In no acute distress, sitting at bedside. Extremities: No pallor or icterus. No pedal edema. Chest: breathing comfortably Abdomen: non-distended Neuro: Alert, oriented, non-focal. Labs: CBC, BMP 02/04/19 05:10 02/04/19 05:10 Assessment. Metastatic breast cancer on chemotherapy, admitted with sepsis syndrome and confirmed to have influenza. Doing better symptomatically on Tamiflu. Empiric Rocephin as per ID, concern for pneumonia. Continue Mx as per ID
[2019-02-04] MEDS ORDERED: PT OWN MED DRAWER 7, Y5N ONE (20:41)
[2019-02-05] MEDS ORDERED: cefTRIAXone SODIUM 1 GM VIAL ONE (09:32)
[2019-02-05] MEDS ORDERED: DEXTROSE 5%-WATER - 50 ML IVPB ONE (09:32)
[2019-02-05] MEDS: OSELTAMIVIR PHOSPHATE 75 MG CAPSULE PO SCH ×2 (10:12→22:28)
[2019-02-05] MEDS: CEFTRIAXONE 1 GM in DEXTROSE 5%-WATER - 50 ML IVPB SCH (10:12)
[2019-02-05] MEDS: ENOXAPARIN NA (PORCINE) 40 MG/0.4 ML DISP.SYRIN SQ SCH (10:12)
--- NOTE | 2019-02-05 10:25 | PN ---
Progress Note (short form) - Note Progress Note: some nausea overnight vomiting once- yellow less cough Vital Signs Period Temp Pulse Resp BP Sys/Mullen Pulse Ox Last 24 Hr 97.9 F-98.4 F 50-72 20-20 129-140/50-67 97-97 cor-rrr lungs clear abd soft,nt ext no edema CBC, BMP 02/04/19 05:10 02/04/19 05:10 Microbiology 02/02/19 00:15 Blood - Peripheral Venous Blood Culture - Preliminary NO GROWTH OBTAINED AFTER 72 HOURS, INCUBATION TO CONTINUE FOR 2 DAYS. 02/02/19 00:15 Blood - Peripheral Venous Blood Culture - Preliminary NO GROWTH OBTAINED AFTER 72 HOURS, INCUBATION TO CONTINUE FOR 2 DAYS. 02/02/19 15:53 Throat Throat Culture - Final NO BETA HEMOLYTIC STREPTOCOCCI ISOLATED 02/02/19 02:30 Urine - Urine Clean Catch Urine Culture - Final NO GROWTH OBTAINED a/p influenza A r/o pneumonia metastatic breast cancer continue tamiflu continue rocephin repeat cxray on Wednesday droplet isolation Problem List - Problems (1) Influenza A Code(s): J10.1 - FLU DUE TO OTH IDENT INFLUENZA VIRUS W OTH RESP MANIFEST (2) Sore throat Code(s): J02.9 - ACUTE PHARYNGITIS, UNSPECIFIED (3) Breast CA Code(s): C50.919 - MALIGNANT NEOPLASM OF UNSP SITE OF UNSPECIFIED FEMALE BREAST
--- NOTE | 2019-02-05 11:35 | PN ---
Progress Note (short form) - Note Progress Note: patient feels subjectively better no distress More energy still have some nausea Episode of vomiting 1 Denies abdominal pain Afebrile Vital Signs Temp 98.4 F 02/05/19 09:00 Pulse 52 L 02/05/19 09:00 Resp 20 02/05/19 09:00 BP 132/50 L 02/05/19 09:00 Pulse Ox 97 02/05/19 09:00 Intake & Output 02/04/19 02/04/19 02/05/19 11:59 23:59 11:59 Intake Total 240 2290 360 Balance 240 2290 360 Intake: IV 2000 Normal Saline - 1,000 ml 2000 @ 100 mls/hr IV ASDIR GISELLA Rx#:[id number] IVPB 50 Oral 240 240 360 Other: Voiding Method Toilet Toilet Toilet # Unmeasured Voids Void 1 1 Bowel Movement No No No Microbiology 02/02/19 00:15 Blood Culture - Preliminary Blood - Peripheral Venous NO GROWTH OBTAINED AFTER 72 HOURS, INCUBATION TO CONTINUE FOR 2 DAYS. 02/02/19 00:15 Blood Culture - Preliminary Blood - Peripheral Venous NO GROWTH OBTAINED AFTER 72 HOURS, INCUBATION TO CONTINUE FOR 2 DAYS. 02/02/19 15:53 Throat Culture - Final Throat NO BETA HEMOLYTIC STREPTOCOCCI ISOLATED Active Medications Acetaminophen (Ofirmev Injection -) 1,000 mg IVPB Q6H PRN PRN Reason: FEVER Last Admin: 02/03/19 16:54 Dose: 1,000 mg Benzocaine/Menthol (Cepacol Lozenge -) 1 each MM Q4H PRN PRN Reason: SORE THROAT Stop: 02/06/19 03:17 Last Admin: 02/03/19 10:30 Dose: 1 each Enoxaparin Sodium (Lovenox -) 40 mg SQ DAILY GISELLA Last Admin: 02/05/19 10:12 Dose: 40 mg Guaifenesin/Codeine Phosphate (Robitussin Ac -) 10 ml PO Q8H PRN PRN Reason: COUGH Last Admin: 02/03/19 16:54 Dose: 10 ml Ceftriaxone Sodium 1 gm/ (Dextrose) 50 mls @ 100 mls/hr IVPB DAILY GISELLA; Protocol Last Admin: 02/05/19 10:12 Dose: 100 mls/hr Sodium Chloride (Normal Saline -) 1,000 mls @ 100 mls/hr IV ASDIR GISELLA Last Admin: 02/04/19 21:10 Dose: 100 mls/hr Oseltamivir Phosphate (Tamiflu -) 75 mg PO BID GISELLA Stop: 02/07/19 09:59 Last Admin: 02/04/19 21:10 Dose: 75 mg CBC, BMP 02/04/19 05:10 02/04/19 05:10 Physical Exam Constitutional: Yes: awake/ comfortable. Eyes: Yes: Conjunctiva Clear HEENT: Yes: Other (Congestive) Neck: Yes: Supple. Cardiovascular: Yes: Regular Rate and Rhythm Respiratory: Yes: Rhonchi (scattered)-Improved Gastrointestinal: Yes: Soft Edema: No Psychiatric: Yes: Alert - ....Imaging Chest X-ray: Report Reviewed Assessment/Plan BETTER continue present care abx - Doppler precautions Follow-up chest x-ray tomorrow Continue mild hydration Will follow Problem List - Problems (1) Breast CA Code(s): C50.919 - MALIGNANT NEOPLASM OF UNSP SITE OF UNSPECIFIED FEMALE BREAST (2) Influenza A Code(s): J10.1 - FLU DUE TO OTH IDENT INFLUENZA VIRUS W OTH RESP MANIFEST (3) HTN (hypertension) Code(s): I10 - ESSENTIAL (PRIMARY) HYPERTENSION
[2019-02-05] MEDS ORDERED: PT OWN MED DRAWER 7, Y5N ONE (21:46)
[2019-02-05] MEDS: SODIUM CHLORIDE 1,000 ML IV SCH (22:29)
[2019-02-06] MEDS ORDERED: PT OWN MED DRAWER 7, Y5N ONE ×2 (08:55→09:38)
[2019-02-06] MEDS: OSELTAMIVIR PHOSPHATE 75 MG CAPSULE PO SCH ×2 (09:41→21:58)
[2019-02-06] MEDS: SODIUM CHLORIDE 1,000 ML IV SCH (10:01)
[2019-02-06] MEDS: ENOXAPARIN NA (PORCINE) 40 MG/0.4 ML DISP.SYRIN SQ SCH (10:01)
--- NOTE | 2019-02-06 10:13 | PN ---
Progress Note (short form) - Note Progress Note: Pt seen/ examined feels much better cough improved eating better Vital Signs Temp 98.2 F 02/06/19 08:31 Pulse 58 L 02/06/19 08:31 Resp 20 02/06/19 08:34 BP 132/64 02/06/19 08:31 Pulse Ox 97 02/06/19 08:34 Intake & Output 02/05/19 02/05/19 02/06/19 11:59 23:59 11:59 Intake Total 605 208 5201 Balance 956 144 4639 Intake: IV 800 1000 Normal Saline - 1,000 ml 800 1000 @ 100 mls/hr IV ASDIR GISELLA Rx#:[id number] IVPB 50 Oral 360 Other: Voiding Method Toilet Toilet Toilet # Unmeasured Voids Void 1 2 Bowel Movement No No No Active Medications Acetaminophen (Ofirmev Injection -) 1,000 mg IVPB Q6H PRN PRN Reason: FEVER Last Admin: 02/03/19 16:54 Dose: 1,000 mg Enoxaparin Sodium (Lovenox -) 40 mg SQ DAILY [facility] Last Admin: 02/06/19 10:01 Dose: 40 mg Guaifenesin/Codeine Phosphate (Robitussin Ac -) 10 ml PO Q8H PRN PRN Reason: COUGH Last Admin: 02/03/19 16:54 Dose: 10 ml Oseltamivir Phosphate (Tamiflu -) 75 mg PO BID [facility] Stop: 02/07/19 09:59 Last Admin: 02/06/19 09:41 Dose: 75 mg CBC, BMP 02/04/19 05:10 02/04/19 05:10 cxr-- Pending report Microbiology 02/02/19 00:15 Blood Culture - Preliminary Blood - Peripheral Venous NO GROWTH OBTAINED AFTER 96 HOURS, INCUBATION TO CONTINUE FOR 1 DAYS. 02/02/19 00:15 Blood Culture - Preliminary Blood - Peripheral Venous NO GROWTH OBTAINED AFTER 96 HOURS, INCUBATION TO CONTINUE FOR 1 DAYS. Physical Exam Constitutional: Yes: awake/ comfortable. Eyes: Yes: Conjunctiva Clear HEENT: Yes: Other (Congestive) Neck: Yes: Supple. Cardiovascular: Yes: Regular Rate and Rhythm Respiratory: Yes: Rhonchi (scattered)-Improved Gastrointestinal: Yes: Soft Edema: No Psychiatric: Yes: Alert - ....Imaging Chest X-ray: Report Reviewed Assessment/Plan BETTER continue present care abx - Doppler precautions Follow-up chest x-ray Discontinue hydration Will follow. d/c tele Problem List - Problems (1) Breast CA Code(s): C50.919 - MALIGNANT NEOPLASM OF UNSP SITE OF UNSPECIFIED FEMALE BREAST (2) Influenza A Code(s): J10.1 - FLU DUE TO OTH IDENT INFLUENZA VIRUS W OTH RESP MANIFEST (3) HTN (hypertension) Code(s): I10 - ESSENTIAL (PRIMARY) HYPERTENSION
[2019-02-06] MEDS ORDERED: cefTRIAXone SODIUM 1 GM VIAL ONE (12:00)
[2019-02-06] MEDS ORDERED: DEXTROSE 5%-WATER - 50 ML IVPB ONE (12:01)
[2019-02-06] MEDS: CEFTRIAXONE 1 GM in DEXTROSE 5%-WATER - 50 ML IVPB SCH (12:02)
--- NOTE | 2019-02-06 13:14 | PN ---
Progress Note (short form) - Note Progress Note: nausea and vomiting resolved less cough Vital Signs Period Temp Pulse Resp BP Sys/Mullen Pulse Ox Last 24 Hr 97.8 F-98.2 F 52-58 20-20 123-137/60-71 97-97 cor-rrr lungs decreased bs at bases abd soft, nt ext no edema CBC, BMP 02/04/19 05:10 02/04/19 05:10 Microbiology 02/02/19 00:15 Blood - Peripheral Venous Blood Culture - Preliminary NO GROWTH OBTAINED AFTER 96 HOURS, INCUBATION TO CONTINUE FOR 1 DAYS. 02/02/19 00:15 Blood - Peripheral Venous Blood Culture - Preliminary NO GROWTH OBTAINED AFTER 96 HOURS, INCUBATION TO CONTINUE FOR 1 DAYS. 02/02/19 15:53 Throat Throat Culture - Final NO BETA HEMOLYTIC STREPTOCOCCI ISOLATED 02/02/19 02:30 Urine - Urine Clean Catch Urine Culture - Final NO GROWTH OBTAINED cxray improving LLL infiltrate/effusion a/p influenza A r/o pneumonia metastatic breast cancer completing tamiflu continue rocephin-switch to ceftin in am 500 mg bid for another 3 to 5 days droplet isolation Problem List - Problems (1) Influenza A Code(s): J10.1 - FLU DUE TO OTH IDENT INFLUENZA VIRUS W OTH RESP MANIFEST (2) Sore throat Code(s): J02.9 - ACUTE PHARYNGITIS, UNSPECIFIED (3) Breast CA Code(s): C50.919 - MALIGNANT NEOPLASM OF UNSP SITE OF UNSPECIFIED FEMALE BREAST
[2019-02-07 06:27] LABS: BASO % 0.6 % (0-2.0); EOS % 2.5 % (0-4.5); HEMATOCRIT 36.8 % (32.4-45.2); HEMOGLOBIN 12.2 GM/dL (10.7-15.3); MCH 28.7 pg (25.7-33.7); MCHC 33.2 g/dl (32.0-36.0); MEAN CELL VOLUME 86.6 fl (80-96); MEAN PLT VOLUME 7.6 fl (7.5-11.1); MONO % 9.4 % (3.8-10.2); NEUT % 53.5 % (42.8-82.8); PLATELET COUNT 233 K/MM3 (134-434); RBC 4.25 M/mm3 (3.60-5.2); RDW 13.5 % (11.6-15.6); WHITE BLOOD COUNT 6.1 K/mm3 (4.0-10.0)
[2019-02-07 06:49] LABS: ALBUMIN 3.4 g/dl (3.4-5.0); BILIRUBIN,TOTAL 0.4 mg/dL (0.2-1); BLOOD UREA NITROGEN 8.3 mg/dL (7-18); CALCIUM 8.4 mg/dL (8.5-10.1); CREATININE 0.8 mg/dL (0.55-1.3); POTASSIUM 3.9 mmol/L (3.5-5.1); TOT PROT 6.7 g/dl (6.4-8.2)
--- NOTE | 2019-02-07 07:47 | PN ---
Progress Note (short form) - Note Progress Note: Patient seen and examined Feels much better AFVSS cor-rrr lungs crackles left base abd soft,nt ext no edema Labs/meds reviewed a/p influenza A pneumonia oligometastatic breast cancer---on herceptin/pertuzumab/aromasin--- to resume treatment 02/16/18 d/c planning check CBC/CMP prior to d/c
[2019-02-07] MEDS ORDERED: cefTRIAXone SODIUM 1 GM VIAL ONE (09:31)
[2019-02-07] MEDS ORDERED: DEXTROSE 5%-WATER - 50 ML IVPB ONE (09:31)
[2019-02-07] MEDS: CEFTRIAXONE 1 GM in DEXTROSE 5%-WATER - 50 ML IVPB SCH (10:35)
[2019-02-07] MEDS: ENOXAPARIN NA (PORCINE) 40 MG/0.4 ML DISP.SYRIN SQ SCH (10:35)
[2019-02-07] MEDS ORDERED: FLU VACCINE QUAD 60 MCG/0.5 ML (MDV 19-20) IM ONE (10:45)
[2019-02-07 11:07] VITALS: BP 134/74; PULSE 60; TEMP 98
--- NOTE | 2019-02-07 11:28 | DS ---
Physical Examination Vital Signs: Vital Signs Temperature 98.0 F 02/07/19 10:00 Pulse Rate 60 02/07/19 10:00 Respiratory Rate 20 02/07/19 10:00 Blood Pressure 134/74 02/07/19 10:00 O2 Sat by Pulse Oximetry (%) 95 02/07/19 10:00 Constitutional: Yes: No Distress, Calm Cardiovascular: Yes: Regular Rate and Rhythm Respiratory: Yes: CTA Bilaterally Gastrointestinal: Yes: Normal Bowel Sounds, Soft. No: Tenderness Edema: No Labs: CBC, BMP 02/07/19 05:10 02/07/19 05:10 Discharge Summary Problems reviewed: Yes Reason For Visit: INFLUENZA DUE TO INFLUENZA VIRUS, TYPE A Current Active Problems Breast CA (Acute) Influenza A (Acute) Pneumonia (Acute) Hospital Course: Admission HISTORY OF PRESENT ILLNESS: 53 yo F with hx breast cancer since 2008 fourth recurrence (last chemo therapy was last week, followed by Dr. Patel), HTN, HLD presents to ED with c/o headache, sore throat,body ache, non productive cough, and chills since this morning. She states that when she measured her temperature today it was at 101.7 at its highest. Last week, she visited her grandchildren who were actively sick with the flu. Pt admits to not taking her flu shot this year. She took tylenol which helped temporarily.She denies any chest pain, SOB, abdominal pain, nausea, vomiting, diarrhea or change in urination. daughter with history of hodgkins lymphoma in her 20s. ER course was notable for: (1) low grade fever 100.2F. CBC unremarkable. CMP PT/INR 13.2/1.12, LA 2.1 (2) influenza A positive, CXR with LLL infiltrate. urine, blood culture sent (3) tamiflu, ceftriaxone, azithro, tylenol Hospital course Evaluated by ID and oncology Was on IV ceftriaxone and tamiflu She completed the course of tamiflu here Also received Flu vaccine here day of dc as well she is feeling better s/p treatment Appetite is better stable for dc home on PO ceftin x 5 days more Condition: Good - Instructions Disposition: HOME - Home Medications Comprehensive Discharge Medication List: Ambulatory Orders Losartan/Hydrochlorothiazide [Hyzaar 100-25 Tablet] 1 each PO DAILY 02/20/13 Trastuzumab [Herceptin -] 480 mg IV ASDIR 08/29/13 Cholecalciferol (Vitamin D3) [Vitamin D3] 2,000 unit PO HS #0 tablet 01/05/14 Exemestane [Aromasin -] 25 mg PO DAILY 01/30/16 Multivit-Min/FA/Lycopen/Lutein [Centrum Silver Tablet] 1 each PO DAILY 04/09/16 Cefuroxime Axetil [Ceftin -] 500 mg PO Q12H #10 tablet 02/07/19
== END 2019-02-07 12:52 | disposition home or self-care (01) | DRG 194 ==
LOC: JER 22:20 → JERBED 02-02 01:28 → J4W 02-02 03:01
PROVIDERS: ADMIT Internal Medicine; ATTEND Internal Medicine
DX: J10.1 Influenza due to other identified influenza virus with other respiratory manifestations (principal); C79.51 Secondary malignant neoplasm of bone; C50.919 Malignant neoplasm of unspecified site of unspecified female breast; I10 Essential (primary) hypertension; E78.5 Hyperlipidemia, unspecified; E78.00 Pure hypercholesterolemia, unspecified; R00.0 Tachycardia, unspecified; R50.9 Fever, unspecified; E03.9 Hypothyroidism, unspecified; J02.9 Acute pharyngitis, unspecified
CPT/HCPCS: 36415; 71045-TC-FY; 80053; 81003; 82308; 83605; 83735; 84100; 84484; 85025; 85610; 85730; 87040; 87070; 87086; 87804; 93005; 93010; 97116-GP; 97161-GP; 99284-25; G0008; J0131; J7030; Q2036

== ENCOUNTER 2019-02-16 05:41 | Day surgery (SDC) | payer OTHER ==
[2019-02-16] MEDS ORDERED: DEXAMETHASONE SODIUM PHOSPHATE 10 MG, DIPHENHYDRAMINE 25 MG in SODIUM CHLORIDE 100 ML IVPB ONE (10:00)
[2019-02-16] MEDS ORDERED: ACETAMINOPHEN 325 MG TABLET (FP) PO ONE (10:00)
[2019-02-16 10:29] LABS: BASO % 0.8 % (0-2.0); EOS % 2.7 % (0-4.5); HEMATOCRIT 40.6 % (32.4-45.2); HEMOGLOBIN 13.3 GM/dL (10.7-15.3); LYMPH % 23.9 % (8-40); MCH 28.5 pg (25.7-33.7); MCHC 32.7 g/dl (32.0-36.0); MEAN CELL VOLUME 87.3 fl (80-96); MEAN PLT VOLUME 7.8 fl (7.5-11.1); MONO % 9.6 % (3.8-10.2); PLATELET COUNT 312 K/MM3 (134-434); RBC 4.65 M/mm3 (3.60-5.2); RDW 13.8 % (11.6-15.6)
[2019-02-16] MEDS ORDERED: PERTUZUMAB 420 MG in SODIUM CHLORIDE 250 ML IVPB ONE (10:30)
[2019-02-16 10:55] LABS: ALBUMIN 3.7 g/dl (3.4-5.0); BILIRUBIN,TOTAL 0.3 mg/dL (0.2-1); CALCIUM 9.1 mg/dL (8.5-10.1); CREATININE 0.9 mg/dL (0.55-1.3); POTASSIUM 4.7 mmol/L (3.5-5.1); TOT PROT 7.2 g/dl (6.4-8.2)
[2019-02-16] MEDS ORDERED: TRASTUZUMAB ANNS IVPB ONE (11:00)
[2019-02-16] MEDS ORDERED: SODIUM CHLORIDE IVPB ONE (11:00)
[2019-02-16 16:30] VITALS: TEMP 97.9
[2019-02-16 17:00] VITALS: BP 126/62; PULSE 68
[2019-02-16] MEDS ORDERED: PORTA CATH FLUSH 10 ML IVPUSH ONE (17:00)
== END 2019-02-16 14:30 | disposition home or self-care (01) ==
LOC: JONCCHEMO 05:41 → J7W 11:15 → JONCCHEMO 14:30
PROVIDERS: ATTEND Internal Medicine Hematology & Oncology
DX: Z51.11 Encounter for antineoplastic chemotherapy (principal); C50.312 Malignant neoplasm of lower-inner quadrant of left female breast; C79.51 Secondary malignant neoplasm of bone
CPT/HCPCS: 36415; 80053; 83735; 85025; 96367; 96413; 96417; J9306; Q5117

== ENCOUNTER 2019-03-09 07:12 | Day surgery (SDC) | payer OTHER ==
[2019-03-09 09:19] LABS: BASO % 0.6 % (0-2.0); EOS % 3.5 % (0-4.5); HEMATOCRIT 40.6 % (32.4-45.2); HEMOGLOBIN 13.4 GM/dL (10.7-15.3); LYMPH % 28.1 % (8-40); MCH 28.9 pg (25.7-33.7); MEAN CELL VOLUME 87.5 fl (80-96); MEAN PLT VOLUME 7.8 fl (7.5-11.1); MONO % 10.8 % (3.8-10.2); PLATELET COUNT 263 K/MM3 (134-434); RBC 4.64 M/mm3 (3.60-5.2); WHITE BLOOD COUNT 6.7 K/mm3 (4.0-10.0)
[2019-03-09] MEDS ORDERED: ACETAMINOPHEN 325 MG TABLET (FP) PO ONE (09:30)
[2019-03-09] MEDS ORDERED: DEXAMETHASONE SODIUM PHOSPHATE 10 MG, DIPHENHYDRAMINE 25 MG in SODIUM CHLORIDE 100 ML IVPB ONE (09:30)
[2019-03-09 09:55] LABS: ALBUMIN 3.9 g/dl (3.4-5.0); BILIRUBIN,TOTAL 0.5 mg/dL (0.2-1); BLOOD UREA NITROGEN 26.1 mg/dL (7-18); CALCIUM 9.6 mg/dL (8.5-10.1); MAGNESIUM 1.9 mg/dL (1.8-2.4); POTASSIUM 4.4 mmol/L (3.5-5.1); TOT PROT 7.6 g/dl (6.4-8.2)
[2019-03-09] MEDS ORDERED: PERTUZUMAB 420 MG in SODIUM CHLORIDE 250 ML IVPB ONE (10:00)
[2019-03-09] MEDS ORDERED: TRASTUZUMAB ANNS IVPB ONE (10:30)
[2019-03-09] MEDS ORDERED: SODIUM CHLORIDE IVPB ONE (10:30)
[2019-03-09 15:40] VITALS: TEMP 98.5
[2019-03-09 15:59] VITALS: BP 122/41; PULSE 71
[2019-03-09] MEDS ORDERED: PORTA CATH FLUSH 10 ML IVPUSH ONE (15:59)
== END 2019-03-09 13:30 | disposition home or self-care (01) ==
LOC: JONCCHEMO 07:12 → J7W 09:25 → JONCCHEMO 13:30
PROVIDERS: ATTEND Internal Medicine Hematology & Oncology
DX: Z51.11 Encounter for antineoplastic chemotherapy (principal); C50.312 Malignant neoplasm of lower-inner quadrant of left female breast; C79.51 Secondary malignant neoplasm of bone
CPT/HCPCS: 36415; 80053; 83735; 85025; 96367; 96413; 96417; J9306; Q5117

== ENCOUNTER 2019-03-30 05:39 | Day surgery (SDC) | payer OTHER ==
[2019-03-30 09:41] LABS: BASO % 0.8 % (0-2.0); EOS % 4.6 % (0-4.5); HEMATOCRIT 41.2 % (32.4-45.2); HEMOGLOBIN 13.8 GM/dL (10.7-15.3); LYMPH % 30.4 % (8-40); MCH 29.3 pg (25.7-33.7); MCHC 33.4 g/dl (32.0-36.0); MEAN CELL VOLUME 87.7 fl (80-96); MEAN PLT VOLUME 7.6 fl (7.5-11.1); MONO % 10.4 % (3.8-10.2); NEUT % 53.8 % (42.8-82.8); PLATELET COUNT 296 K/MM3 (134-434); RDW 13.7 % (11.6-15.6); WHITE BLOOD COUNT 5.2 K/mm3 (4.0-10.0)
[2019-03-30] MEDS ORDERED: DEXAMETHASONE SODIUM PHOSPHATE 10 MG, DIPHENHYDRAMINE 25 MG in SODIUM CHLORIDE 100 ML IVPB ONE (10:00)
[2019-03-30] MEDS ORDERED: ACETAMINOPHEN 325 MG TABLET (FP) PO ONE (10:00)
[2019-03-30 10:10] LABS: ALBUMIN 3.9 g/dl (3.4-5.0); BILIRUBIN,TOTAL 0.4 mg/dL (0.2-1); BLOOD UREA NITROGEN 23.2 mg/dL (7-18); CALCIUM 9.4 mg/dL (8.5-10.1); MAGNESIUM 1.9 mg/dL (1.8-2.4); POTASSIUM 4.3 mmol/L (3.5-5.1); TOT PROT 7.5 g/dl (6.4-8.2)
[2019-03-30] MEDS ORDERED: PERTUZUMAB 420 MG in SODIUM CHLORIDE 250 ML IVPB ONE (10:30)
[2019-03-30] MEDS ORDERED: SODIUM CHLORIDE IVPB ONE (11:00)
[2019-03-30] MEDS ORDERED: TRASTUZUMAB ANNS IVPB ONE (11:00)
[2019-03-30 14:59] VITALS: BP 126/61; PULSE 67; TEMP 98
[2019-03-30] MEDS ORDERED: PORTA CATH FLUSH 10 ML IVPUSH ONE (15:07)
== END 2019-03-30 13:00 | disposition home or self-care (01) ==
LOC: JONCCHEMO 05:39 → J7W 10:15 → JONCCHEMO 13:00
PROVIDERS: ATTEND Internal Medicine Hematology & Oncology
DX: Z51.11 Encounter for antineoplastic chemotherapy (principal); C50.312 Malignant neoplasm of lower-inner quadrant of left female breast; C79.51 Secondary malignant neoplasm of bone
CPT/HCPCS: 36415; 80053; 83735; 85025; 96367; 96413; J9306; Q5117

== ENCOUNTER 2019-08-01 05:44 | Day surgery (SDC) | payer OTHER ==
[2019-08-01 09:05] LABS: BASO % 0.7 % (0-2.0); EOS % 2.4 % (0-4.5); LYMPH % 32.8 % (8-40); MCH 29.1 pg (25.7-33.7); MCHC 33.2 g/dl (32.0-36.0); MEAN CELL VOLUME 87.6 fl (80-96); MEAN PLT VOLUME 7.9 fl (7.5-11.1); MONO % 11.9 % (3.8-10.2); NEUT % 52.2 % (42.8-82.8); PLATELET COUNT 263 K/MM3 (134-434); RBC 4.45 M/mm3 (3.60-5.2); RDW 13.2 % (11.6-15.6); WHITE BLOOD COUNT 5.4 K/mm3 (4.0-10.0)
[2019-08-01 09:41] LABS: ALBUMIN 3.9 g/dl (3.4-5.0); BILIRUBIN,DIRECT 0.1 mg/dL (0.0-0.2); BILIRUBIN,TOTAL 0.6 mg/dL (0.2-1); BLOOD UREA NITROGEN 17.4 mg/dL (7-18); CALCIUM 8.9 mg/dL (8.5-10.1); TOT PROT 7.2 g/dl (6.4-8.2)
[2019-08-01] MEDS ORDERED: ACETAMINOPHEN 325 MG TABLET (FP) PO ONE (10:00)
[2019-08-01] MEDS ORDERED: DEXAMETHASONE SODIUM PHOSPHATE 6 MG, DIPHENHYDRAMINE 25 MG in SODIUM CHLORIDE 100 ML IVPB ONE (10:00)
[2019-08-01] MEDS ORDERED: PERTUZUMAB 420 MG in SODIUM CHLORIDE 250 ML IVPB ONE (10:30)
[2019-08-01] MEDS ORDERED: SODIUM CHLORIDE IVPB ONE (11:00)
[2019-08-01] MEDS ORDERED: TRASTUZUMAB ANNS IVPB ONE (11:00)
[2019-08-01 14:07] VITALS: BP 119/75; PULSE 60; TEMP 98
[2019-08-01] MEDS ORDERED: PORTA CATH FLUSH 10 ML IVPUSH ONE (14:07)
== END 2019-08-01 12:35 | disposition home or self-care (01) ==
LOC: JONCCHEMO 05:44
PROVIDERS: ATTEND Nurse Practitioner Family
DX: Z51.11 Encounter for antineoplastic chemotherapy (principal); C50.312 Malignant neoplasm of lower-inner quadrant of left female breast; C79.51 Secondary malignant neoplasm of bone
CPT/HCPCS: 36415; 80048; 80076; 83735; 85025; 96367; 96413; 96417; J9306; Q5117

== ENCOUNTER 2019-08-24 07:16 | Day surgery (SDC) | payer OTHER ==
[2019-08-24] MEDS ORDERED: ACETAMINOPHEN 325 MG TABLET (FP) PO ONE (09:30)
[2019-08-24] MEDS ORDERED: DEXAMETHASONE SODIUM PHOSPHATE 6 MG, DIPHENHYDRAMINE 25 MG in SODIUM CHLORIDE 100 ML IVPB ONE (09:30)
[2019-08-24] MEDS ORDERED: PERTUZUMAB 420 MG in SODIUM CHLORIDE 250 ML IVPB ONE (10:00)
[2019-08-24] MEDS ORDERED: SODIUM CHLORIDE IVPB ONE (10:30)
[2019-08-24] MEDS ORDERED: TRASTUZUMAB ANNS IVPB ONE (10:30)
[2019-08-24 11:19] LABS: HEMATOCRIT 41.7 % (32.4-45.2); HEMOGLOBIN 13.8 GM/dL (10.7-15.3); MCH 28.9 pg (25.7-33.7); MCHC 32.9 g/dl (32.0-36.0); MEAN CELL VOLUME 87.7 fl (80-96); MEAN PLT VOLUME 8.1 fl (7.5-11.1); NEUT % 60.7 % (42.8-82.8); PLATELET COUNT 268 K/MM3 (134-434); RBC 4.76 M/mm3 (3.60-5.2)
[2019-08-24 11:20] LABS: BASO % 0.8 % (0-2.0); LYMPH % 25.1 % (8-40); MONO % 10.4 % (3.8-10.2)
[2019-08-24 12:10] LABS: ALBUMIN 3.8 g/dl (3.4-5.0); BILIRUBIN,DIRECT 0.1 mg/dL (0.0-0.2); BILIRUBIN,TOTAL 0.4 mg/dL (0.2-1); BLOOD UREA NITROGEN 20.9 mg/dL (7-18); CALCIUM 9.5 mg/dL (8.5-10.1); MAGNESIUM 1.9 mg/dL (1.8-2.4); POTASSIUM 4.1 mmol/L (3.5-5.1); TOT PROT 7.5 g/dl (6.4-8.2)
[2019-08-24 16:49] VITALS: TEMP 98.5
[2019-08-24 16:50] VITALS: BP 118/69; PULSE 71
== END 2019-08-24 14:15 | disposition home or self-care (01) ==
LOC: JONCCHEMO 07:16
PROVIDERS: ATTEND Internal Medicine Hematology & Oncology
DX: Z51.11 Encounter for antineoplastic chemotherapy (principal); C50.312 Malignant neoplasm of lower-inner quadrant of left female breast; C79.51 Secondary malignant neoplasm of bone
CPT/HCPCS: 36415; 80048; 80076; 82378; 83735; 85025; 86300; 96367; 96413; 96417; J9306; Q5117

== ENCOUNTER 2019-09-14 07:31 | Day surgery (SDC) | payer OTHER ==
[2019-09-14] MEDS ORDERED: DEXAMETHASONE SODIUM PHOSPHATE 6 MG, DIPHENHYDRAMINE 25 MG in SODIUM CHLORIDE 100 ML IVPB ONE (10:00)
[2019-09-14] MEDS ORDERED: ACETAMINOPHEN 325 MG TABLET (FP) PO ONE (10:00)
[2019-09-14] MEDS ORDERED: PERTUZUMAB 420 MG in SODIUM CHLORIDE 250 ML IVPB ONE (10:30)
[2019-09-14] MEDS ORDERED: TRASTUZUMAB ANNS IVPB ONE (11:00)
[2019-09-14] MEDS ORDERED: SODIUM CHLORIDE IVPB ONE (11:00)
[2019-09-14 11:32] LABS: BASO % 0.5 % (0-2.0); EOS % 2.2 % (0-4.5); HEMATOCRIT 40.1 % (32.4-45.2); HEMOGLOBIN 13.1 GM/dL (10.7-15.3); LYMPH % 29.8 % (8-40); MCH 28.3 pg (25.7-33.7); MCHC 32.7 g/dl (32.0-36.0); MEAN CELL VOLUME 86.7 fl (80-96); MEAN PLT VOLUME 7.8 fl (7.5-11.1); MONO % 9.6 % (3.8-10.2); NEUT % 57.9 % (42.8-82.8); PLATELET COUNT 273 K/MM3 (134-434); RBC 4.63 M/mm3 (3.60-5.2); RDW 13.2 % (11.6-15.6); WHITE BLOOD COUNT 6.7 K/mm3 (4.0-10.0)
[2019-09-14 12:06] LABS: ALBUMIN 3.9 g/dl (3.4-5.0); BILIRUBIN,DIRECT 0.1 mg/dL (0.0-0.2); BILIRUBIN,TOTAL 0.4 mg/dL (0.2-1); CALCIUM 9.3 mg/dL (8.5-10.1); MAGNESIUM 2.1 mg/dL (1.8-2.4); POTASSIUM 4.2 mmol/L (3.5-5.1); TOT PROT 7.5 g/dl (6.4-8.2)
[2019-09-14 16:35] VITALS: BP 138/70; PULSE 100; TEMP 98.8
[2019-09-14] MEDS ORDERED: PORTA CATH FLUSH 10 ML IVPUSH ONE (16:35)
== END 2019-09-14 16:43 | disposition home or self-care (01) ==
LOC: JONCCHEMO 07:31
PROVIDERS: ATTEND Internal Medicine Hematology & Oncology
DX: Z51.11 Encounter for antineoplastic chemotherapy (principal); C50.312 Malignant neoplasm of lower-inner quadrant of left female breast; C79.51 Secondary malignant neoplasm of bone
CPT/HCPCS: 36415; 80048; 80076; 82378; 83735; 85025; 86300; 96367; 96413; 96417; J9306; Q5117

== ENCOUNTER 2019-10-05 07:14 | Day surgery (SDC) | payer OTHER ==
[2019-10-05 09:57] LABS: BASO % 0.6 % (0-2.0); EOS % 2.6 % (0-4.5); HEMATOCRIT 39.1 % (32.4-45.2); HEMOGLOBIN 13.1 GM/dL (10.7-15.3); LYMPH % 28.8 % (8-40); MCHC 33.5 g/dl (32.0-36.0); MEAN CELL VOLUME 86.7 fl (80-96); MEAN PLT VOLUME 7.8 fl (7.5-11.1); MONO % 9.8 % (3.8-10.2); NEUT % 58.2 % (42.8-82.8); PLATELET COUNT 259 K/MM3 (134-434); RBC 4.52 M/mm3 (3.60-5.2); RDW 13.1 % (11.6-15.6); WHITE BLOOD COUNT 6.5 K/mm3 (4.0-10.0)
[2019-10-05] MEDS ORDERED: ACETAMINOPHEN 325 MG TABLET (FP) PO ONE (10:00)
[2019-10-05] MEDS ORDERED: DEXAMETHASONE SODIUM PHOSPHATE 6 MG, DIPHENHYDRAMINE 25 MG in SODIUM CHLORIDE 100 ML IVPB ONE (10:00)
[2019-10-05] MEDS ORDERED: PERTUZUMAB 420 MG in SODIUM CHLORIDE 250 ML IVPB ONE (10:30)
[2019-10-05] MEDS ORDERED: TRASTUZUMAB-ANNS 520 MG in SODIUM CHLORIDE 250 ML IVPB ONE (11:00)
[2019-10-05 11:03] LABS: ALBUMIN 2.5 g/dl (3.4-5.0); BILIRUBIN,DIRECT 0.1 mg/dL (0.0-0.2); BILIRUBIN,TOTAL 0.4 mg/dL (0.2-1); BLOOD UREA NITROGEN 12.9 mg/dL (7-18); CREATININE 0.5 mg/dL (0.55-1.3); MAGNESIUM 1.2 mg/dL (1.8-2.4); TOT PROT 4.8 g/dl (6.4-8.2)
[2019-10-05 11:37] LABS: CALCIUM 5.9 mg/dL (8.5-10.1); POTASSIUM 2.7 mmol/L (3.5-5.1)
[2019-10-05 12:29] LABS: BILIRUBIN,TOTAL 0.5 mg/dL (0.2-1); BLOOD UREA NITROGEN 17.2 mg/dL (7-18); CALCIUM 9.1 mg/dL (8.5-10.1); CREATININE 0.9 mg/dL (0.55-1.3); POTASSIUM 3.9 mmol/L (3.5-5.1)
[2019-10-05 12:51] LABS: TOT PROT 7.4 g/dl (6.4-8.2)
[2019-10-05 17:38] VITALS: TEMP 98.2
[2019-10-05 17:39] VITALS: BP 124/65; PULSE 72
== END 2019-10-05 15:10 | disposition home or self-care (01) ==
LOC: JONCCHEMO 07:14
PROVIDERS: ATTEND Internal Medicine Hematology & Oncology
DX: Z51.11 Encounter for antineoplastic chemotherapy (principal); C50.312 Malignant neoplasm of lower-inner quadrant of left female breast; C79.51 Secondary malignant neoplasm of bone
CPT/HCPCS: 36415; 80048; 80053; 80076; 82306; 82378; 83735; 85025; 86300; 96375; 96413; 96417; J9306; Q5117

== ENCOUNTER 2019-10-13 09:38 | Emergency (ER) | payer OTHER ==
[2019-10-13 09:47] VITALS: TEMP 98.4; BMI 31.2
--- NOTE | 2019-10-13 10:25 | PDOC ---
History of Present Illness - General Chief Complaint: Diarrhea Stated Complaint: DIARRHEA/NAUSEA/WEAKNESS Time Seen by Provider: 10/13/19 10:24 - History of Present Illness Initial Comments: 10/13/19 10:26 59y/o F hx breast cancer since 2008 fourth recurrence (last chemo therapy was last followed by Dr. Patel), HTN, HLD presents to the ED with 2 days of diarrhea and dysuria. pt reports she has been constipated since last week and took milk of magnesia to relieve her symptoms. Pt denies bloody stools, bright red blood per rectum, nausea, vomiting, fevers, chills, hematuria, abdominal pain, flank pain. pt endorses straining with urination. PMHx: as noted above ROS: as noted SHx: Denies Etoh, IVDA, tobacco use Allergies: NKDA ROS: GENERAL/CONSTITUTIONAL: No fever or chills. No weakness. HEAD, EYES, EARS, NOSE AND THROAT: No change in vision. No ear pain or discharge. No sore throat. CARDIOVASCULAR: No chest pain or shortness of breath RESPIRATORY: No cough, wheezing, or hemoptysis. GASTROINTESTINAL: No nausea, vomiting, diarrhea or constipation. GENITOURINARY: No dysuria, frequency, or change in urination. MUSCULOSKELETAL: No joint or muscle swelling or pain. No neck or back pain. SKIN: No rash NEUROLOGIC: No headache, vertigo, loss of consciousness, or change in strength/sensation. ENDOCRINE: No increased thirst. No abnormal weight change HEMATOLOGIC/LYMPHATIC: No anemia, easy bleeding, or history of blood clots. ALLERGIC/IMMUNOLOGIC: No hives or skin allergy. PE: GENERAL: Awake, alert, and fully oriented, in no acute distress HEAD: No signs of trauma, normocephalic, atraumatic EYES: PERRLA, EOMI, sclera anicteric, conjunctiva clear ENT: Auricles normal inspection, hearing grossly normal, nares patent, oropharynx clear without exudates. Moist mucosa NECK: Normal ROM, supple, no lymphadenopathy, JVD, or masses LUNGS: No distress, speaks full sentences, clear to auscultation bilaterally HEART: Regular rate and rhythm, normal S1 and S2, no murmurs, rubs or gallops, peripheral pulses normal and equal bilaterally. ABDOMEN: Soft, nontender, normoactive bowel sounds. No guarding, no rebound. No masses EXTREMITIES : Normal inspection, Normal range of motion, no edema. No clubbing or cyanosis NEUROLOGICAL: Cranial nerves II through XII grossly intact. Normal speech, normal gait, no focal sensorimotor deficits SKIN: Warm, Dry, normal turgor, no rashes or lesions noted MDM given pt's hx of malignancy, concern for mets to abdomen/pelvis, metabolite derangements from diarrhea, uti/cystitis Workup: cbc, cmp, ua, urine culture, ct abdomen and pelvis. - EKG: normal sinus rhythm, LVH , HR 70 bpm, WV 142ms, QRS 84ms, QTc 384 ms ED course -labs unremarkable. -pt hypertensive on presentation, did not take her a.m medications has her pills with her, will take her home dose, repeat BP after wards. abdomen and pelvis CT IMPRESSION: Motion/breathing artifacts are slightly limiting evaluation of the abdomen pelvis. Otherwise, no gross organomegaly, enlarged lymph nodes or CT evidence of an acute process are identified in the abdomen pelvis. Status post left breast implant again noted. Partially included previously visualized tiny nodules in the right middle lobe. Please refer to prior CT scan of the chest f indings dated 07/20/2019 meds: Re-assessment: Pt feeling better after 1L of fluids. consult with Dr. Gipson : she wants patient to follow up in 1 week. okay with disp to home 10/13/19 13:46 10/13/19 13:54 10/13/19 14:31 Past History - Medical History Allergies/Adverse Reactions: Allergies Allergy/AdvReac Type Severity Reaction Status Date / Time levofloxacin [From Levaquin] Allergy Severe Hives Verified 10/13/19 09:43 Home Medications: Ambulatory Orders Losartan/Hydrochlorothiazide [Hyzaar 100-25 Tablet] 1 each PO DAILY 02/20/13 Cholecalciferol (Vitamin D3) [Vitamin D3] 2,000 unit PO HS #0 tablet 01/05/14 Exemestane [Aromasin -] 25 mg PO HS 01/30/16 Multivit-Min/FA/Lycopen/Lutein [Centrum Silver Tablet] 1 each PO DAILY 04/09/16 Pertuzumab [Perjeta] 420 mg IV ASDIR 10/13/19 Trastuzumab [Herceptin] 150 mg IV ASDIR 10/13/19 Anemia: No Asthma: No Cancer: Yes (breast cancer metastatic stage 4 to bone,) Cardiac Disorders: No CVA: No COPD: No CHF: No Dementia: No Diabetes: No GI Disorders: No Disorders: No HTN: Yes Hypercholesterolemia: Yes Liver Disease: No Seizures: No Thyroid Disease: No - Surgical History Abdominal Surgery: No Appendectomy: No Cardiac Surgery: No Cholecystectomy: No Lung Surgery: No Neurologic Surgery: No Orthopedic Surgery: No - Immunization History Immunization Up to Date: Yes - Psycho-Social/Smoking History Smoking Status: No Smoking History: Never smoked Have you smoked in the past 12 months: No Number of Cigarettes Smoked Daily: 0 - Substance Abuse Hx (Audit-C & DAST Scrn) How often the patient has a drink containing alcohol: Never Score: In Men: 4 or > Positive; In Women: 3 or > Positive: 0 Screen Result (Pos requires Nsg. Audit-10AR): Negative In the last yr the pt used illegal drug/Rx for NonMed reason: No Score: Yes response is considered Positive: 0 Screen Result (Positive result requires Nsg. DAST-10): Negative *Physical Exam - Vital Signs Last Vital Signs Temp Pulse Resp BP Pulse Ox 98.4 F 81 20 193/87 H 100 10/13/19 09:43 10/13/19 09:43 10/13/19 09:43 10/13/19 09:43 10/13/19 09:43 ED Treatment Course - LABORATORY CBC & Chemistry Diagram: 10/13/19 10:00 10/13/19 10:00 Discharge - Discharge Information Problems reviewed: Yes Clinical Impression/Diagnosis: Diarrhea Condition: Stable Disposition: HOME - Admission No - Follow up/Referral Referrals: Cyndi Thornton MD [Primary Care Provider] - Leonela Griffith MD [Staff Physician] - - Patient Discharge Instructions Patient Printed Discharge Instructions: Diarrhea Additional Instructions: You should return to the hospital if you experience persistent nausea and vomiting that does not resolve and does not allow you to tolerate any food or fluids, persistent fevers for greater than 2-3 more days, increasing abdominal pain that persists despite medications, persistent diarrhea, dizziness, syncope (fainting), or for any other concerns. Follow up with Dr. Gipson as discussed. - Post Discharge Activity
[2019-10-13 11:29] LABS: BASO % 0.4 % (0-2.0); EOS % 2.5 % (0-4.5); HEMATOCRIT 42.5 % (32.4-45.2); HEMOGLOBIN 13.9 GM/dL (10.7-15.3); LYMPH % 25.1 % (8-40); MCH 28.4 pg (25.7-33.7); MCHC 32.7 g/dl (32.0-36.0); MEAN CELL VOLUME 86.8 fl (80-96); MEAN PLT VOLUME 7.5 fl (7.5-11.1); MONO % 8.4 % (3.8-10.2); NEUT % 63.6 % (42.8-82.8); PLATELET COUNT 287 K/MM3 (134-434); RBC 4.89 M/mm3 (3.60-5.2); RDW 13.1 % (11.6-15.6); WHITE BLOOD COUNT 7.5 K/mm3 (4.0-10.0)
--- NOTE | 2019-10-13 11:33 | EKG ---
Test Reason : Blood Pressure : / mmHG Vent. Rate : 070 BPM Atrial Rate : 070 BPM P-R Int : 142 ms QRS Dur : 084 ms QT Int : 356 ms P-R-T Axes : 044 -21 091 degrees QTc Int : 384 ms NORMAL SINUS RHYTHM MODERATE VOLTAGE CRITERIA FOR LVH, MAY BE NORMAL VARIANT NONSPECIFIC T WAVE ABNORMALITY ABNORMAL ECG WHEN COMPARED WITH ECG OF 02-FEB-2019 02:13, NO SIGNIFICANT CHANGE WAS FOUND Confirmed by PATRICIA JACKSON MD ([id number]) on 10/13/2019 11:32:34 AM Referred By: Confirmed By:PATRICIA JACKSON MD
[2019-10-13 11:57] LABS: URINE APPEARANCE CLEAR; URINE BILIRUBIN NEGATIVE (NEGATIVE); URINE COLOR YELLOW; URINE GLUCOSE (UA) NEGATIVE (NEGATIVE); URINE KETONE NEGATIVE (NEGATIVE); URINE LEUK ESTERASE NEGATIVE (NEGATIVE); URINE NITRITE NEGATIVE (NEGATIVE); URINE PROTEIN NEGATIVE (NEGATIVE); URINE UROBILINOGEN 0.2 mg/dL (0.2-1.0)
[2019-10-13 12:03] LABS: BILIRUBIN,TOTAL 0.4 mg/dL (0.2-1); BLOOD UREA NITROGEN 13.7 mg/dL (7-18); CALCIUM 8.6 mg/dL (8.5-10.1); POTASSIUM 4.3 mmol/L (3.5-5.1); TOT PROT 7.6 g/dl (6.4-8.2)
[2019-10-13 14:12] VITALS: BP 127/72; PULSE 79
--- NOTE | 2019-10-13 14:52 | PDOC ---
Documentation entered by Yakelin Jean Baptiste SCRIBE, acting as scribe for Nura Christianson MD. Nura Christianson MD: This documentation has been prepared by the Ita marcos Brenda, SCRIBE, under my direction and personally reviewed by me in its entirety. I confirm that the documentation accurately reflects all work, treatment, procedures, and medical decision making performed by me. Attending Attestation - Resident Resident Name: Yolande Schultz - ED Attending Attestation I have performed the following: I have examined & evaluated the patient, The case was reviewed & discussed with the resident, I agree w/resident's findings & plan, Exceptions are as noted - HPI HPI: 10/13/19 11:25 Agree with resident hpi 59y/o F hx breast cancer since 2008 fourth recurrence (last chemo therapy was last followed by Dr. Patel), HTN, HLD presents to the ED with 2 days of diarrhea and dysuria. pt reports she has been constipated since last week and took milk of magnesia to relieve her symptoms. Pt denies bloody stools, bright red blood per rectum, nausea, vomiting, fevers, chills, hematuria, abdominal pain, flank pain. pt endorses straining with urination. - Physicial Exam PE: 10/13/19 12:26 Agree with resident exam - Medical Decision Making 10/13/19 14:40 59-year-old female with a history of recurrent breast cancer on chemotherapy, h ypertension, hyperlipidemia presents emergency department with 2 days of diarrhea and dysuria. Denies any bloody stools. Patient reports she was constipated last weeks and has had diarrhea since taking milk of magnesia. Denies any fevers or chills. She also reports having to strain when she voids, but denies any dysuria or frequency. Denies abdominal pain. Given history of metastatic breast cancer on chemo, a broad work-up was initiated including CTAP to r/o progression of disease or other acute chemo related pathology such as typhlitis although pt has no abd pain or fevers. W/u unrevealing. Discussed results with Dr. Hoff who is covering for the patient's oncologist Dr. Patel. She agrees with discharge so long as patient is well-appearing. All results discussed with patient who states she feels well, and requests discharge. Patient is clinically stable for discharge home, return precautions discussed. I discussed the physical exam findings, ancillary test results and final diagnoses with the patient. I answered all of the patient's questions. The patient was satisfied with the care received and felt comfortable with the discharge plan and treatment plan. The patient will call their primary care physician within 24 hours to arrange follow-up and will return to the Emergency Department with any new, persistent or worsening symptoms. Discharge - Discharge Information Problems reviewed: Yes Clinical Impression/Diagnosis: Diarrhea Disposition: HOME - Follow up/Referral Referrals: Leonela Griffith MD [Staff Physician] - Cyndi Thornton MD [Primary Care Provider] - - Patient Discharge Instructions Patient Printed Discharge Instructions: Diarrhea Additional Instructions: You should return to the hospital if you experience persistent nausea and vomiting that does not resolve and does not allow you to tolerate any food or fluids, persistent fevers for greater than 2-3 more days, increasing abdominal pain that persists despite medications, persistent diarrhea, dizziness, syncope (fainting), or for any other concerns. Follow up with Dr. Gipson as discussed. - Post Discharge Activity
== END 2019-10-13 14:37 | disposition home or self-care (01) ==
LOC: JER 09:38
DX: R19.7 Diarrhea, unspecified (principal)
CPT/HCPCS: 36415; 74177-TC; 80053; 81003; 85025; 87086; 93005; 93010; 99285-25; Q9967

== ENCOUNTER 2019-10-25 07:11 | Day surgery (SDC) | payer OTHER ==
--- OUTSIDE RECORDS SUMMARY | 2019-10-25 07:17 | XMS ---
:1960 Author Organization [facility] Support Name Relationship Address Phone RE, RETIRED Unavailable Unavailable Unavailable RE Unavailable Unavailable Unavailable CRISS KEITH [address] [place] [address] CRISS KEITH Spouse [address] Unavailable [place] [phone] Re-disclosure Warning The records that you are about to access may contain information from federally- assisted alcohol or drug abuse programs. If such information is present, then the following federally mandated warning applies: This information has been disclosed to you from records protected by federal confidentiality rules (42 CFR part 2). The federal rules prohibit you from making any further disclosure of this information unless further disclosure is expressly permitted by the written consent of the person to whom it pertains or as otherwise permitted by 42 CFR part 2. A general authorization for the release of medical or other information is NOT sufficient for this purpose. The Federal rules restrict any use of the information to criminally investigate or prosecute any alcohol or drug abuse patient.The records that you are about to access may contain highly sensitive health information, the redisclosure of which is protected by Article 27-F of the [facility] Public Health law. If you continue you may haveaccess to information: Regarding HIV / AIDS; Provided by facilities licensed or operated by the [facility] Office of Mental Health; or Provided by the [facility] Office for People With Developmental Disabilities. If such information is present, then the following [facility] mandated warning applies: This information has been disclosed to you from confidential records which are protected by state law. State law prohibits you from making any further disclosure of this information without the specific written consent of the person to whom it pertains, or as otherwise permitted by law. Any unauthorized further disclosure in violation of state law may result in a fine or fdc sentence or both. A general authorization for the release of medical or other information is NOT sufficient authorization for further disclosure. Insurance Providers Payer name Policy type Policy ID Covered Covered green party's Policy P paulette / Coverage green party ID relationship to [employer] orm[employer] type khan LOCAL [id number] - [id number] [place] [id number] [place] [id number] SP [id number] [place] [id number] [facility] [id number] SP [id number] 2 BENEFITS FUND [place] [id number] [place] [id number] [facility] [id number] SP [id number] 2 BENEFIT FUND
[2019-10-25] MEDS ORDERED: DEXAMETHASONE SODIUM PHOSPHATE 6 MG, DIPHENHYDRAMINE 25 MG in SODIUM CHLORIDE 100 ML IVPB ONE (09:30)
[2019-10-25] MEDS ORDERED: ACETAMINOPHEN 325 MG TABLET (FP) PO ONE (09:30)
[2019-10-25] MEDS ORDERED: PERTUZUMAB 420 MG in SODIUM CHLORIDE 250 ML IVPB ONE (10:00)
[2019-10-25] MEDS ORDERED: TRASTUZUMAB-ANNS 520 MG in SODIUM CHLORIDE 250 ML IVPB ONE (10:30)
[2019-10-25 11:42] LABS: BASO % 0.7 % (0-2.0); EOS % 2.7 % (0-4.5); HEMATOCRIT 41.3 % (32.4-45.2); LYMPH % 31.6 % (8-40); MCH 29.4 pg (25.7-33.7); MCHC 33.9 g/dl (32.0-36.0); MEAN CELL VOLUME 86.6 fl (80-96); MEAN PLT VOLUME 8.2 fl (7.5-11.1); MONO % 9.3 % (3.8-10.2); NEUT % 55.7 % (42.8-82.8); PLATELET COUNT 266 K/MM3 (134-434); RBC 4.77 M/mm3 (3.60-5.2); RDW 13.4 % (11.6-15.6); WHITE BLOOD COUNT 6.7 K/mm3 (4.0-10.0)
[2019-10-25 12:21] LABS: ALBUMIN 3.9 g/dl (3.4-5.0); BILIRUBIN,DIRECT 0.1 mg/dL (0.0-0.2); MAGNESIUM 1.8 mg/dL (1.8-2.4); TOT PROT 7.6 g/dl (6.4-8.2)
[2019-10-25 13:14] LABS: BLOOD UREA NITROGEN 25.3 mg/dL (7-18); CALCIUM 9.5 mg/dL (8.5-10.1); POTASSIUM 4.4 mmol/L (3.5-5.1)
[2019-10-25 17:08] VITALS: TEMP 98.1
[2019-10-25 17:22] VITALS: BP 112/55; PULSE 64
[2019-10-25] MEDS ORDERED: PORTA CATH FLUSH 10 ML IVPUSH ONE (17:22)
== END 2019-10-25 16:10 | disposition home or self-care (01) ==
LOC: JONCCHEMO 07:11
PROVIDERS: ATTEND Internal Medicine Hematology & Oncology
DX: Z51.11 Encounter for antineoplastic chemotherapy (principal); C50.312 Malignant neoplasm of lower-inner quadrant of left female breast; C79.51 Secondary malignant neoplasm of bone
CPT/HCPCS: 36415; 80053; 80076; 83735; 85025; 96367; 96413; 96417; J9306; Q5117

== ENCOUNTER 2019-11-16 06:46 | Day surgery (SDC) | payer OTHER ==
--- OUTSIDE RECORDS SUMMARY | 2019-11-16 06:52 | XMS ---
:1960 Author Organization [facility] Support Name Relationship Address Phone RE, RETIRED Unavailable Unavailable Unavailable RE Unavailable Unavailable Unavailable CRISS KEITH [address] [place] [id number] CRISS KEITH Spouse [address] [place] [address] Re-disclosure Warning The records that you are [...] is protected by Article 27-F of the [facility] Public Health law. If you continue you may haveaccess to information: Regarding HIV / AIDS; Provided by facilities licensed or operated by the [facility] Office of Mental Health; or Provided by the [facility] Office for People With Developmental Disabilities. If such information is present, then the following [facility] mandated warning applies: This information has been [...] law may result in a fine or nursing home sentence or both. A general authorization for the release of medical or other information is NOT sufficient authorization for further disclosure. Insurance Providers Payer name Policy type Policy ID Covered Covered libertarian's Policy P paulette / Coverage libertarian ID relationship to [employer] ormation type khan LOCAL [facility] - [id number] [facility] [place] [facility] [place]) [id number] [place] [id number] SP [id number] [place] [id number] [facility] [id number] SP [id number] 2 BENEFITS FUND [place] [id number] [place] [id number] [facility] [id number] SP [id number] 2 BENEFIT FUND
[2019-11-16] MEDS ORDERED: ACETAMINOPHEN 325 MG TABLET (FP) PO ONE (10:00)
[2019-11-16] MEDS ORDERED: DEXAMETHASONE SODIUM PHOSPHATE 6 MG, DIPHENHYDRAMINE 25 MG in SODIUM CHLORIDE 100 ML IVPB ONE (10:00)
[2019-11-16] MEDS ORDERED: PERTUZUMAB 420 MG in SODIUM CHLORIDE 250 ML IVPB ONE (10:30)
[2019-11-16 10:36] LABS: BASO % 0.5 % (0-2.0); EOS % 2.4 % (0-4.5); HEMATOCRIT 39.9 % (32.4-45.2); HEMOGLOBIN 13.7 GM/dL (10.7-15.3); LYMPH % 29.4 % (8-40); MCH 29.7 pg (25.7-33.7); MCHC 34.4 g/dl (32.0-36.0); MEAN CELL VOLUME 86.3 fl (80-96); MEAN PLT VOLUME 8.2 fl (7.5-11.1); MONO % 12.5 % (3.8-10.2); NEUT % 55.2 % (42.8-82.8); PLATELET COUNT 275 K/MM3 (134-434); RBC 4.63 M/mm3 (3.60-5.2); RDW 13.2 % (11.6-15.6); WHITE BLOOD COUNT 6.7 K/mm3 (4.0-10.0)
[2019-11-16 10:59] LABS: BILIRUBIN,DIRECT 0.1 mg/dL (0.0-0.2); BILIRUBIN,TOTAL 0.4 mg/dL (0.2-1); CALCIUM 9.4 mg/dL (8.5-10.1); MAGNESIUM 1.9 mg/dL (1.8-2.4); POTASSIUM 3.8 mmol/L (3.5-5.1); TOT PROT 7.7 g/dl (6.4-8.2)
[2019-11-16] MEDS ORDERED: TRASTUZUMAB-ANNS 520 MG in SODIUM CHLORIDE 250 ML IVPB ONE (11:00)
[2019-11-16 15:12] VITALS: TEMP 98
[2019-11-16 15:13] VITALS: BP 139/65; PULSE 88
== END 2019-11-16 14:40 | disposition home or self-care (01) ==
LOC: JONCCHEMO 06:46
PROVIDERS: ATTEND Internal Medicine Hematology & Oncology
DX: Z51.11 Encounter for antineoplastic chemotherapy (principal); C50.312 Malignant neoplasm of lower-inner quadrant of left female breast; C79.51 Secondary malignant neoplasm of bone
CPT/HCPCS: 36415; 80048; 80076; 82378; 83735; 85025; 86300; 96367; 96413; 96417; J9306; Q5117

== ENCOUNTER 2019-12-28 07:12 | Day surgery (SDC) | payer OTHER ==
[2019-12-28] MEDS ORDERED: ACETAMINOPHEN 325 MG TABLET (FP) PO ONE (09:30)
[2019-12-28] MEDS ORDERED: DEXAMETHASONE SODIUM PHOSPHATE 6 MG, DIPHENHYDRAMINE 25 MG in SODIUM CHLORIDE 100 ML IVPB ONE (09:30)
[2019-12-28] MEDS ORDERED: PERTUZUMAB 420 MG in SODIUM CHLORIDE 250 ML IVPB ONE (10:00)
[2019-12-28] MEDS ORDERED: TRASTUZUMAB-ANNS 510 MG in SODIUM CHLORIDE 250 ML IVPB ONE (10:30)
[2019-12-28] MEDS ORDERED: SODIUM CHLORIDE 0.9% 500 ML INFUS.BAG IV ONE (11:30)
[2019-12-28] MEDS ORDERED: LOPERAMIDE HCL 2 MG CAPSULE PO ONE (11:30)
[2019-12-28 11:56] LABS: BASO % 0.7 % (0-2.0); EOS % 2.4 % (0-4.5); HEMATOCRIT 41.6 % (32.4-45.2); HEMOGLOBIN 13.8 GM/dL (10.7-15.3); LYMPH % 26.5 % (8-40); MCH 28.9 pg (25.7-33.7); MCHC 33.1 g/dl (32.0-36.0); MEAN CELL VOLUME 87.2 fl (80-96); MEAN PLT VOLUME 7.9 fl (7.5-11.1); NEUT % 60.4 % (42.8-82.8); PLATELET COUNT 290 K/MM3 (134-434); RBC 4.77 M/mm3 (3.60-5.2); RDW 13.3 % (11.6-15.6)
[2019-12-28 12:29] LABS: POTASSIUM 3.7 mmol/L (3.5-5.1)
[2019-12-28 12:32] LABS: ALBUMIN 3.9 g/dl (3.4-5.0); BLOOD UREA NITROGEN 22.2 mg/dL (7-18); CALCIUM 8.9 mg/dL (8.5-10.1); MAGNESIUM 1.7 mg/dL (1.8-2.4)
[2019-12-28 12:38] LABS: BILIRUBIN,TOTAL 0.8 mg/dL (0.2-1); TOT PROT 7.5 g/dl (6.4-8.2)
[2019-12-28] MEDS ORDERED: MAGNESIUM OXIDE 400 MG TABLET (FP) PO ONE (13:45)
[2019-12-28 14:40] VITALS: TEMP 97.7
[2019-12-28 16:12] VITALS: BP 130/69; PULSE 85
[2019-12-29 21:06] LABS: HEP B CORE AB, TOT Negative (Negative)
== END 2019-12-28 16:03 | disposition home or self-care (01) ==
LOC: JONCCHEMO 07:12
PROVIDERS: ATTEND Internal Medicine Hematology & Oncology
DX: Z51.11 Encounter for antineoplastic chemotherapy (principal); C50.312 Malignant neoplasm of lower-inner quadrant of left female breast; C79.51 Secondary malignant neoplasm of bone
CPT/HCPCS: 36415; 74019-TC-FY; 80053; 82378; 83735; 85025; 86300; 86704; 86706; 86707; 86708; 86709; 87045; 87046; 87340; 96367; 96413; 96417; J9306; Q5117

== ENCOUNTER 2019-12-28 15:49 | Inpatient (IN) | payer OTHER ==
[2019-12-28] MEDS ORDERED: SODIUM CHLORIDE 1,000 ML IV STA (17:18)
[2019-12-28 18:38] LABS: HEMATOCRIT 42.2 % (32.4-45.2); HEMOGLOBIN 14.1 GM/dL (10.7-15.3); MCH 29.3 pg (25.7-33.7); MCHC 33.3 g/dl (32.0-36.0); MEAN PLT VOLUME 8.3 fl (7.5-11.1); PLATELET COUNT 309 K/MM3 (134-434); RDW 13.5 % (11.6-15.6); WHITE BLOOD COUNT 9.8 K/mm3 (4.0-10.0)
[2019-12-28 18:40] LABS: EPI CELLS 4 /uL (0-25.1); HYALINE CASTS 0 /uL (0-3.1); URINE APPEARANCE CLEAR; URINE BACTERIA 35 /uL (0-1359); URINE BILIRUBIN NEGATIVE (NEGATIVE); URINE COLOR YELLOW; URINE GLUCOSE (UA) NEGATIVE (NEGATIVE); URINE KETONE NEGATIVE (NEGATIVE); URINE LEUK ESTERASE 1+ (NEGATIVE); URINE NITRITE NEGATIVE (NEGATIVE); URINE PROTEIN NEGATIVE (NEGATIVE); URINE RBC 9 /uL (0-23.9); URINE UROBILINOGEN 0.2 mg/dL (0.2-1.0); URINE WBC 22 /uL (0-25.8)
[2019-12-28 19:12] LABS: CHLORIDE 107 mmol/L (98-107); POTASSIUM 4.3 mmol/L (3.5-5.1); SODIUM 138 mmol/L (136-145)
[2019-12-28 19:15] LABS: CALCIUM 9.1 mg/dL (8.5-10.1)
[2019-12-28 19:16] LABS: ALBUMIN 4.2 g/dl (3.4-5.0); ANION GAP 9 MMOL/L (8-16); BLOOD UREA NITROGEN 20.3 mg/dL (7-18); CO2 23 mmol/L (21-32); GLUCOSE,RANDOM 105 mg/dL (74-106)
[2019-12-28 19:18] LABS: SGOT/AST 40 U/L (15-37); SGPT/ALT 40 U/L (13-61)
[2019-12-28 19:20] LABS: BILIRUBIN,TOTAL 0.6 mg/dL (0.2-1); TOT PROT 8.3 g/dl (6.4-8.2)
[2019-12-28 19:22] LABS: ALK PHOS 66 U/L (45-117)
[2019-12-29 03:02] VITALS: BMI 31.8
[2019-12-29] MEDS ORDERED: CEFTRIAXONE 1 GM in DEXTROSE 5%-WATER - 50 ML IVPB SCH (03:30)
[2019-12-29] MEDS ORDERED: DEXTROSE 5%-WATER - 50 ML IVPB ONE ×2 (04:18→20:25)
[2019-12-29] MEDS ORDERED: cefTRIAXone SODIUM 1 GM VIAL ONE ×2 (04:18→20:25)
[2019-12-29 06:44] LABS: HEMATOCRIT 38.3 % (32.4-45.2); HEMOGLOBIN 12.5 GM/dL (10.7-15.3); MCH 28.3 pg (25.7-33.7); MCHC 32.6 g/dl (32.0-36.0); MEAN CELL VOLUME 86.9 fl (80-96); MEAN PLT VOLUME 7.5 fl (7.5-11.1); PLATELET COUNT 287 K/MM3 (134-434); RDW 13.4 % (11.6-15.6); WHITE BLOOD COUNT 8.1 K/mm3 (4.0-10.0)
[2019-12-29 06:45] LABS: INR 1.13 (0.83-1.09); PROTHROMBIN TIME (PATIENT) 13.9 SEC (9.7-13.0)
[2019-12-29 07:02] LABS: POTASSIUM 4.4 mmol/L (3.5-5.1)
[2019-12-29 07:06] LABS: CALCIUM 8.8 mg/dL (8.5-10.1)
[2019-12-29 07:07] LABS: ALBUMIN 3.6 g/dl (3.4-5.0)
[2019-12-29 07:10] LABS: CREATININE 0.9 mg/dL (0.55-1.3); PHOSPHOROUS 2.2 mg/dL (2.5-4.9)
[2019-12-29 07:12] LABS: BILIRUBIN,TOTAL 0.5 mg/dL (0.2-1); TOT PROT 7.3 g/dl (6.4-8.2)
[2019-12-29 07:14] LABS: N-TERMINAL BNP 43.8 pg/ml (5-125)
[2019-12-29] MEDS ORDERED: PT OWN MED DRAWER 7, Y5N ONE (09:55)
[2019-12-29] MEDS ORDERED: POLYETHYLENE GLYCOL 3350 119 GM BTL PO SCH (10:00)
[2019-12-29] MEDS ORDERED: PATIENT'S OWN MEDICATION (NON-FORMULARY) (Losartan/Hydrochlorothiazide [Hyzaar 100-25 Tabl PO SCH (10:00)
[2019-12-29] MEDS: ENOXAPARIN NA (PORCINE) 40 MG/0.4 ML DISP.SYRIN SQ SCH (10:52)
[2019-12-29] MEDS: FENOFIBRIC ACID 135 MG CAP PO SCH (10:53)
[2019-12-29] MEDS: PANTOPRAZOLE 40 MG TABLET PO SCH (10:54)
[2019-12-29] MEDS: LOSARTAN POTASSIUM 50 MG TABLET PO SCH (10:54)
[2019-12-29] MEDS: HYDROCHLOROTHIAZIDE 25 MG TABLET (FP) PO SCH (10:54)
[2019-12-29] MEDS ORDERED: PORTA CATH FLUSH 10 ML IVPUSH PRN (18:39)
[2019-12-29] MEDS: POLYETHYLENE GLYCOL 3350 119 GM BTL PO SCH (21:02)
[2019-12-30] MEDS ORDERED: MELATONIN 5 MG TABLETS PO ONE ×2 (00:57→20:38)
[2019-12-30] MEDS: POLYETHYLENE GLYCOL 3350 119 GM BTL PO SCH (05:26)
[2019-12-30] MEDS: LOSARTAN POTASSIUM 50 MG TABLET PO SCH (11:08)
[2019-12-30] MEDS: ENOXAPARIN NA (PORCINE) 40 MG/0.4 ML DISP.SYRIN SQ SCH (11:08)
[2019-12-30] MEDS: HYDROCHLOROTHIAZIDE 25 MG TABLET (FP) PO SCH (11:08)
[2019-12-30] MEDS: PANTOPRAZOLE 40 MG TABLET PO SCH (11:09)
[2019-12-30] MEDS: FENOFIBRIC ACID 135 MG CAP PO SCH (11:09)
[2019-12-31] MEDS ORDERED: ACETAMINOPHEN 325 MG TABLET (FP) PO PRN (07:57)
[2019-12-31] MEDS ORDERED: PEG 3350/NA SULF BICARB CL/KCL 4000 ML SOLN.RECON PO ONE (09:00)
[2019-12-31] MEDS: PANTOPRAZOLE 40 MG TABLET PO SCH (10:34)
[2019-12-31] MEDS: LOSARTAN POTASSIUM 50 MG TABLET PO SCH (10:34)
[2019-12-31] MEDS: HYDROCHLOROTHIAZIDE 25 MG TABLET (FP) PO SCH (10:34)
[2019-12-31] MEDS ORDERED: PT OWN MED DRAWER 7, Y5N ONE (10:40)
[2019-12-31] MEDS: FENOFIBRIC ACID 135 MG CAP PO SCH (10:41)
[2019-12-31] MEDS ORDERED: BISACODYL 5 MG TABLET.DR (FP) PO ONE (18:00)
[2019-12-31] MEDS: ALPRAZolam 0.25 MG TABLET PO PRN (21:49)
[2020-01-01] MEDS: ALPRAZolam 0.25 MG TABLET PO PRN (08:14)
[2020-01-01] MEDS ORDERED: HYDROCHLOROTHIAZIDE 25 MG TABLET (FP) PO SCH (10:00)
[2020-01-01] MEDS ORDERED: LOSARTAN POTASSIUM 50 MG TABLET PO SCH (10:00)
[2020-01-01] MEDS ORDERED: ENOXAPARIN NA (PORCINE) 40 MG/0.4 ML DISP.SYRIN SQ SCH (10:00)
[2020-01-01] MEDS ORDERED: PANTOPRAZOLE 40 MG TABLET PO SCH (10:00)
[2020-01-01] MEDS ORDERED: FENOFIBRIC ACID 135 MG CAP PO SCH (10:00)
[2020-01-01 13:31] VITALS: BP 107/57; PULSE 88; TEMP 97.9
== END 2020-01-01 15:34 | disposition home or self-care (01) | DRG 392 ==
LOC: JER 15:49 → JERBED 23:11 → J4S 12-29 02:28 → J7W 12-29 16:56
PROVIDERS: ADMIT Internal Medicine; ATTEND Internal Medicine
PROC: 0DBH8ZX Excision of Cecum, Via Natural or Artificial Opening Endoscopic, Diagnostic (ICD-10-PCS; principal; 2020-01-01 09:00)
DX: R19.7 Diarrhea, unspecified (principal); N39.0 Urinary tract infection, site not specified; C78.00 Secondary malignant neoplasm of unspecified lung; C79.51 Secondary malignant neoplasm of bone; C50.919 Malignant neoplasm of unspecified site of unspecified female breast; K63.5 Polyp of colon; K76.0 Fatty (change of) liver, not elsewhere classified; K59.00 Constipation, unspecified; I10 Essential (primary) hypertension; E78.5 Hyperlipidemia, unspecified; R91.1 Solitary pulmonary nodule; E04.1 Nontoxic single thyroid nodule; F41.9 Anxiety disorder, unspecified
CPT/HCPCS: 36415; 71045-TC-FY; 71275-TC; 74177-TC; 80053; 81003; 82550; 83605; 83735; 83880; 84100; 84484; 85027; 85610; 85730; 87045; 87046; 87086; 87324; 87449; 88305-TC; 93005; 93010; 93306-TC; 93971-TC; 99285-25; C9803; Q9967; U0003

== ENCOUNTER 2020-01-09 11:33 | Inpatient (IN) | payer OTHER ==
[2020-01-09] MEDS ORDERED: ACETAMINOPHEN 1000 MG/100 ML VIAL (NON FORMULARY) IVPB ONE ×2 (13:01→19:22)
[2020-01-09] MEDS ORDERED: ACETAMINOPHEN INJECTION 100 ML IVPB ONE ×2 (13:46→19:27)
[2020-01-09 13:56] LABS: VENOUS BASE EXCESS 0.6 mmol/L (-2-2); VENOUS O2 SATURATION 80.5 % (70-80); VENOUS PCO2 38.6 mmHg (38-52); VENOUS PH 7.426 (7.310-7.410)
[2020-01-09 14:11] LABS: EPI CELLS 31 /uL (0-25.1); HYALINE CASTS 7 /uL (0-3.1); URINE APPEARANCE CLOUDY; URINE BACTERIA 44 /uL (0-1359); URINE BILIRUBIN NEGATIVE (NEGATIVE); URINE COLOR YELLOW; URINE GLUCOSE (UA) NEGATIVE (NEGATIVE); URINE KETONE NEGATIVE (NEGATIVE); URINE LEUK ESTERASE 1+ (NEGATIVE); URINE NITRITE NEGATIVE (NEGATIVE); URINE PROTEIN TRACE (NEGATIVE); URINE RBC 16 /uL (0-23.9); URINE UROBILINOGEN 0.2 mg/dL (0.2-1.0); URINE WBC 167 /uL (0-25.8)
[2020-01-09 14:12] LABS: BASO % 0.6 % (0-2.0); EOS % 0.3 % (0-4.5); HEMATOCRIT 35.6 % (32.4-45.2); HEMOGLOBIN 11.2 GM/dL (10.7-15.3); LYMPH % 8.6 % (8-40); MCH 27.5 pg (25.7-33.7); MCHC 31.4 g/dl (32.0-36.0); MEAN CELL VOLUME 87.8 fl (80-96); MONO % 8.2 % (3.8-10.2); NEUT % 82.3 % (42.8-82.8); PLATELET COUNT 135 K/MM3 (134-434); RBC 4.06 M/mm3 (3.60-5.2); RDW 13.3 % (11.6-15.6); WHITE BLOOD COUNT 13.8 K/mm3 (4.0-10.0)
[2020-01-09 14:14] LABS: INR 1.24 (0.83-1.09); PROTHROMBIN TIME (PATIENT) 15.2 SEC (9.7-13.0)
[2020-01-09 14:17] LABS: ACTIVATED PTT 27.2 SECONDS (25.2-36.5); CHLORIDE 106 mmol/L (98-107); POTASSIUM 4.1 mmol/L (3.5-5.1); SODIUM 139 mmol/L (136-145)
[2020-01-09 14:19] LABS: BLOOD UREA NITROGEN 16.4 mg/dL (7-18); CALCIUM 8.4 mg/dL (8.5-10.1)
[2020-01-09 14:20] LABS: BILIRUBIN,DIRECT 0.2 mg/dL (0.0-0.2)
[2020-01-09 14:20] LABS: ALBUMIN 3.7 g/dl (3.4-5.0); ANION GAP 7 MMOL/L (8-16); CO2 26 mmol/L (21-32); GLUCOSE,RANDOM 92 mg/dL (74-106)
[2020-01-09 14:23] LABS: SGOT/AST 29 U/L (15-37); SGPT/ALT 39 U/L (13-61)
[2020-01-09 14:24] LABS: BILIRUBIN,TOTAL 0.6 mg/dL (0.2-1); TOT PROT 7.3 g/dl (6.4-8.2)
[2020-01-09 14:26] LABS: ALK PHOS 59 U/L (45-117)
[2020-01-09] MEDS ORDERED: VANCOMYCIN 1 GM in D5W (PRE-DOCKED) 1,000 MG/250 ML IVPB ONE (17:08)
[2020-01-09] MEDS ORDERED: CEFEPIME HCL/D5W 2 GM/50 ML BAG IVPB ONE (17:08)
[2020-01-09] MEDS ORDERED: CEFEPIME 2 GM/100 ML BAG IVPB ONE (17:33)
[2020-01-09] MEDS ORDERED: VANCOMYCIN 1 GRAM (PRE-DOCKED) 1,000 MG/250 ML BAG IVPB ONE (17:33)
[2020-01-09] MEDS: SODIUM CHLORIDE 0.45% 1,000 ML IV SCH (19:20)
[2020-01-10] MEDS ORDERED: ACETAMINOPHEN 325 MG TABLET (FP) PO PRN (01:07)
[2020-01-10] MEDS ORDERED: PIPERACILLIN/TAZOB 3.375 GM 3.375 GM/50 ML BAG IVPB ONE (03:11)
[2020-01-10] MEDS: PIPERACILLIN/TAZOB 3.375 GM 3.375 GM in DEXTROSE 5%-WATER - 50 ML IVPB SCH ×3 (03:21→17:40)
[2020-01-10] MEDS ORDERED: traZODone HCL 50 MG TABLET (FP) PO ONE (03:30)
[2020-01-10 05:45] VITALS: BMI 29.3
[2020-01-10] MEDS: PANTOPRAZOLE 40 MG TABLET PO SCH (06:10)
[2020-01-10] MEDS ORDERED: PIPERACILLIN/TAZOBACTAM 3.375 GM VIAL IVPB ONE ×2 (09:54→17:28)
[2020-01-10] MEDS ORDERED: DEXTROSE 5%-WATER - 50 ML IVPB ONE ×2 (09:54→17:28)
[2020-01-10] MEDS: LOSARTAN 50MG/HCTZ 12.5MG 1 TAB PO SCH (12:18)
[2020-01-10] MEDS ORDERED: ACETAMINOPHEN 500 MG TABLET (FP) PO PRN (12:35)
[2020-01-10] MEDS ORDERED: PORTA CATH FLUSH 10 ML IVPUSH ONE (17:45)
[2020-01-10] MEDS: ALPRAZolam 0.25 MG TABLET PO PRN (22:51)
[2020-01-10] MEDS: ENOXAPARIN NA (PORCINE) 40 MG/0.4 ML DISP.SYRIN SQ SCH (22:51)
[2020-01-10] MEDS: SODIUM CHLORIDE 0.45% 1,000 ML IV SCH (22:51)
[2020-01-11] MEDS ORDERED: PIPERACILLIN/TAZOBACTAM 3.375 GM VIAL IVPB ONE ×3 (02:48→17:12)
[2020-01-11] MEDS ORDERED: DEXTROSE 5%-WATER - 50 ML IVPB ONE ×3 (02:48→17:12)
[2020-01-11] MEDS: PIPERACILLIN/TAZOB 3.375 GM 3.375 GM in DEXTROSE 5%-WATER - 50 ML IVPB SCH ×3 (03:12→17:26)
[2020-01-11] MEDS: BENZOCAINE/MENTH/CETYLPYRD CL 1 EACH LOZENGE MM PRN ×2 (05:56→10:11)
[2020-01-11] MEDS: SODIUM CHLORIDE 0.45% 1,000 ML IV SCH ×2 (05:56→22:48)
[2020-01-11 06:27] LABS: BASO % 0.5 % (0-2.0); EOS % 3.5 % (0-4.5); HEMATOCRIT 34.8 % (32.4-45.2); HEMOGLOBIN 11.2 GM/dL (10.7-15.3); LYMPH % 33.7 % (8-40); MCH 28.3 pg (25.7-33.7); MCHC 32.2 g/dl (32.0-36.0); MEAN CELL VOLUME 87.8 fl (80-96); MEAN PLT VOLUME 7.8 fl (7.5-11.1); MONO % 10.1 % (3.8-10.2); NEUT % 52.2 % (42.8-82.8); PLATELET COUNT 241 K/MM3 (134-434); RBC 3.96 M/mm3 (3.60-5.2); WHITE BLOOD COUNT 7.2 K/mm3 (4.0-10.0)
[2020-01-11] MEDS: PANTOPRAZOLE 40 MG TABLET PO SCH (06:39)
[2020-01-11 06:55] LABS: ANION GAP -15 MMOL/L (8-16); BLOOD UREA NITROGEN 12.1 mg/dL (7-18); CALCIUM 7.6 mg/dL (8.5-10.1); CHLORIDE < 50 mmol/L (98-107); CO2 27 mmol/L (21-32); CREATININE 0.8 mg/dL (0.55-1.3); GLUCOSE,RANDOM 92 mg/dL (74-106); MAGNESIUM 2.1 mg/dL (1.8-2.4)
[2020-01-11 07:26] LABS: POTASSIUM 1.2 mmol/L (3.5-5.1); SODIUM 62 mmol/L (136-145)
[2020-01-11] MEDS ORDERED: PT OWN MED DRAWER 7, Y5N ONE (09:44)
[2020-01-11] MEDS: LOSARTAN 50MG/HCTZ 12.5MG 1 TAB PO SCH (09:55)
[2020-01-11] MEDS: ENOXAPARIN NA (PORCINE) 40 MG/0.4 ML DISP.SYRIN SQ SCH (10:09)
[2020-01-11 10:15] LABS: POTASSIUM 3.7 mmol/L (3.5-5.1)
[2020-01-11 10:17] LABS: ALBUMIN 3.4 g/dl (3.4-5.0); BLOOD UREA NITROGEN 10.9 mg/dL (7-18); CALCIUM 8.1 mg/dL (8.5-10.1)
[2020-01-11 10:22] LABS: BILIRUBIN,TOTAL 0.3 mg/dL (0.2-1); TOT PROT 6.7 g/dl (6.4-8.2)
[2020-01-11] MEDS: ALPRAZolam 0.25 MG TABLET PO PRN (22:48)
[2020-01-12] MEDS ORDERED: DEXTROSE 5%-WATER - 50 ML IVPB ONE ×2 (01:14→09:53)
[2020-01-12] MEDS ORDERED: PIPERACILLIN/TAZOBACTAM 3.375 GM VIAL IVPB ONE ×2 (01:14→09:53)
[2020-01-12] MEDS: PIPERACILLIN/TAZOB 3.375 GM 3.375 GM in DEXTROSE 5%-WATER - 50 ML IVPB SCH ×3 (01:23→17:21)
[2020-01-12] MEDS: PANTOPRAZOLE 40 MG TABLET PO SCH (06:03)
[2020-01-12] MEDS ORDERED: PT OWN MED DRAWER 7, Y5N ONE (09:53)
[2020-01-12] MEDS: ENOXAPARIN NA (PORCINE) 40 MG/0.4 ML DISP.SYRIN SQ SCH (10:00)
[2020-01-12] MEDS: LOSARTAN 50MG/HCTZ 12.5MG 1 TAB PO SCH (10:01)
[2020-01-12] MEDS: SODIUM CHLORIDE 0.45% 1,000 ML IV SCH (10:04)
[2020-01-12 14:43] VITALS: BP 113/50; PULSE 65; TEMP 98.6
== END 2020-01-12 18:32 | disposition home or self-care (01) | DRG 194 ==
LOC: JER 11:33 → JERBED 19:30 → J8W 01-10 03:45 → J7W 01-10 15:03
PROVIDERS: ADMIT Family Medicine; ATTEND Internal Medicine
DX: J18.9 Pneumonia, unspecified organism (principal); C78.00 Secondary malignant neoplasm of unspecified lung; C79.51 Secondary malignant neoplasm of bone; J98.11 Atelectasis; I10 Essential (primary) hypertension; E78.5 Hyperlipidemia, unspecified; C50.919 Malignant neoplasm of unspecified site of unspecified female breast; R19.7 Diarrhea, unspecified; K76.0 Fatty (change of) liver, not elsewhere classified; J98.6 Disorders of diaphragm; Z20.828 Contact with and (suspected) exposure to other viral communicable diseases
CPT/HCPCS: 36415; 71045-TC-FY; 71275-TC; 80048; 80053; 81003; 82248; 82550; 82728; 82803; 83605; 83615; 83735; 84100; 84484; 85025; 85610; 85730; 86140; 87040; 87070; 87086; 87804; 87880; 87899; 93005; 93010; 97116-GP; 97161-GP; 99285-25; C9803; J0131; Q9967; U0003

== ENCOUNTER 2020-01-18 05:58 | Day surgery (SDC) | payer OTHER ==
[2020-01-18] MEDS ORDERED: DEXAMETHASONE SODIUM PHOSPHATE 6 MG, DIPHENHYDRAMINE 25 MG in SODIUM CHLORIDE 100 ML IVPB ONE (10:00)
[2020-01-18] MEDS ORDERED: ACETAMINOPHEN 325 MG TABLET (FP) PO ONE (10:00)
[2020-01-18] MEDS ORDERED: PERTUZUMAB 420 MG in SODIUM CHLORIDE 250 ML IVPB ONE (10:30)
[2020-01-18] MEDS ORDERED: TRASTUZUMAB-ANNS 510 MG in SODIUM CHLORIDE 250 ML IVPB ONE (11:00)
[2020-01-18 11:23] LABS: BASO % 0.5 % (0-2.0); EOS % 2.7 % (0-4.5); HEMATOCRIT 40.7 % (32.4-45.2); HEMOGLOBIN 13.6 GM/dL (10.7-15.3); LYMPH % 26.7 % (8-40); MCH 29.2 pg (25.7-33.7); MCHC 33.3 g/dl (32.0-36.0); MEAN CELL VOLUME 87.5 fl (80-96); MEAN PLT VOLUME 7.6 fl (7.5-11.1); MONO % 8.4 % (3.8-10.2); NEUT % 61.7 % (42.8-82.8); PLATELET COUNT 342 K/MM3 (134-434); RBC 4.64 M/mm3 (3.60-5.2); RDW 13.3 % (11.6-15.6); WHITE BLOOD COUNT 7.7 K/mm3 (4.0-10.0)
[2020-01-18 11:44] LABS: POTASSIUM 4.5 mmol/L (3.5-5.1)
[2020-01-18 11:45] LABS: CALCIUM 9.3 mg/dL (8.5-10.1)
[2020-01-18 11:47] LABS: ALBUMIN 3.8 g/dl (3.4-5.0); BLOOD UREA NITROGEN 17.1 mg/dL (7-18)
[2020-01-18 11:48] LABS: BILIRUBIN,DIRECT 0.1 mg/dL (0.0-0.2)
[2020-01-18 11:49] LABS: CREATININE 0.9 mg/dL (0.55-1.3)
[2020-01-18 11:50] LABS: BILIRUBIN,TOTAL 0.4 mg/dL (0.2-1); TOT PROT 7.6 g/dl (6.4-8.2)
[2020-01-18 16:27] VITALS: TEMP 98
[2020-01-18 16:31] VITALS: BP 130/62; PULSE 65
== END 2020-01-18 13:40 | disposition home or self-care (01) ==
LOC: JONCCHEMO 05:58
PROVIDERS: ATTEND Internal Medicine Hematology & Oncology
DX: Z51.11 Encounter for antineoplastic chemotherapy (principal); C50.312 Malignant neoplasm of lower-inner quadrant of left female breast; C79.51 Secondary malignant neoplasm of bone
CPT/HCPCS: 36415; 80048; 80076; 82378; 83735; 85025; 86300; 96367; 96413; 96417; J9306; Q5117

== ENCOUNTER 2020-02-15 08:04 | Day surgery (SDC) | payer OTHER ==
[2020-02-15] MEDS ORDERED: DEXAMETHASONE SODIUM PHOSPHATE 6 MG, DIPHENHYDRAMINE 25 MG in SODIUM CHLORIDE 100 ML IVPB ONE (09:30)
[2020-02-15] MEDS ORDERED: ACETAMINOPHEN 325 MG TABLET (FP) PO ONE (09:30)
[2020-02-15] MEDS ORDERED: PERTUZUMAB 420 MG in SODIUM CHLORIDE 250 ML IVPB ONE (10:00)
[2020-02-15] MEDS ORDERED: TRASTUZUMAB-ANNS 510 MG in SODIUM CHLORIDE 250 ML IVPB ONE (10:30)
[2020-02-15 10:48] LABS: BASO % 0.4 % (0-2.0); EOS % 2.3 % (0-4.5); HEMATOCRIT 42.4 % (32.4-45.2); HEMOGLOBIN 14.2 GM/dL (10.7-15.3); LYMPH % 29.6 % (8-40); MCH 28.8 pg (25.7-33.7); MCHC 33.4 g/dl (32.0-36.0); MEAN CELL VOLUME 86.1 fl (80-96); MONO % 9.1 % (3.8-10.2); NEUT % 58.6 % (42.8-82.8); PLATELET COUNT 300 K/MM3 (134-434); RBC 4.93 M/mm3 (3.60-5.2); RDW 13.5 % (11.6-15.6); WHITE BLOOD COUNT 7.2 K/mm3 (4.0-10.0)
[2020-02-15 11:09] LABS: CALCIUM 9.2 mg/dL (8.5-10.1)
[2020-02-15 11:10] LABS: ALBUMIN 4.1 g/dl (3.4-5.0); MAGNESIUM 1.8 mg/dL (1.8-2.4)
[2020-02-15 11:13] LABS: BILIRUBIN,DIRECT 0.1 mg/dL (0.0-0.2); CREATININE 1.1 mg/dL (0.55-1.3)
[2020-02-15 11:14] LABS: BILIRUBIN,TOTAL 0.5 mg/dL (0.2-1)
[2020-02-15 14:49] VITALS: BP 117/65; PULSE 79; TEMP 98.1
[2020-02-15] MEDS ORDERED: PORTA CATH FLUSH 10 ML IVPUSH ONE (14:49)
== END 2020-02-15 14:15 | disposition home or self-care (01) ==
LOC: JONCCHEMO 08:04
PROVIDERS: ATTEND Internal Medicine Hematology & Oncology
DX: Z51.11 Encounter for antineoplastic chemotherapy (principal); C50.312 Malignant neoplasm of lower-inner quadrant of left female breast; C79.51 Secondary malignant neoplasm of bone
CPT/HCPCS: 36415; 80048; 80061; 80076; 82378; 83036; 83721; 83735; 84439; 84443; 85025; 86300; 96367; 96413; 96417; J9306; Q5117

== ENCOUNTER → 2020-03-04 | Day surgery (SDC) | payer OTHER | END | disposition home or self-care (01) | LOC: JRADIR 10:28 | PROVIDERS: ATTEND Internal Medicine | PROC: 0G9G3ZX Drainage of Left Thyroid Gland Lobe, Percutaneous Approach, Diagnostic (ICD-10-PCS; principal; 2020-03-04) | DX: E04.1 Nontoxic single thyroid nodule (principal) | CPT/HCPCS: 76942; 88173; 88305-TC ==

== ENCOUNTER 2020-03-07 06:59 | Day surgery (SDC) | payer OTHER ==
[2020-03-07] MEDS ORDERED: DEXAMETHASONE SODIUM PHOSPHATE 6 MG, DIPHENHYDRAMINE 25 MG in SODIUM CHLORIDE 100 ML IVPB ONE (10:00)
[2020-03-07] MEDS ORDERED: ACETAMINOPHEN 325 MG TABLET (FP) PO ONE (10:00)
[2020-03-07] MEDS ORDERED: PERTUZUMAB 420 MG in SODIUM CHLORIDE 250 ML IVPB ONE (10:30)
[2020-03-07 10:46] LABS: BASO % 0.5 % (0-2.0); EOS % 2.4 % (0-4.5); HEMATOCRIT 39.7 % (32.4-45.2); HEMOGLOBIN 13.3 GM/dL (10.7-15.3); LYMPH % 32.2 % (8-40); MCH 28.6 pg (25.7-33.7); MCHC 33.5 g/dl (32.0-36.0); MEAN CELL VOLUME 85.4 fl (80-96); MEAN PLT VOLUME 7.9 fl (7.5-11.1); MONO % 10.6 % (3.8-10.2); NEUT % 54.3 % (42.8-82.8); PLATELET COUNT 279 K/MM3 (134-434); RBC 4.65 M/mm3 (3.60-5.2); RDW 13.1 % (11.6-15.6); WHITE BLOOD COUNT 7.1 K/mm3 (4.0-10.0)
[2020-03-07] MEDS ORDERED: TRASTUZUMAB ANNS IVPB ONE (11:00)
[2020-03-07] MEDS ORDERED: SODIUM CHLORIDE IVPB ONE (11:00)
[2020-03-07 11:08] LABS: POTASSIUM 4.2 mmol/L (3.5-5.1)
[2020-03-07 11:11] LABS: BLOOD UREA NITROGEN 25.3 mg/dL (7-18); CALCIUM 9.4 mg/dL (8.5-10.1); MAGNESIUM 1.7 mg/dL (1.8-2.4)
[2020-03-07 11:14] LABS: BILIRUBIN,DIRECT 0.2 mg/dL (0.0-0.2)
[2020-03-07 11:16] LABS: BILIRUBIN,TOTAL 0.6 mg/dL (0.2-1); TOT PROT 7.7 g/dl (6.4-8.2)
[2020-03-07] MEDS ORDERED: MAGNESIUM 1GM/D5W - 1 GM/100 ML IVPB IVPB ONE (12:00)
[2020-03-08 08:45] VITALS: BP 113/54; PULSE 64; TEMP 97.8
== END 2020-03-07 15:00 | disposition home or self-care (01) ==
LOC: JONCCHEMO 06:59
PROVIDERS: ATTEND Internal Medicine Hematology & Oncology
DX: Z51.11 Encounter for antineoplastic chemotherapy (principal); C50.312 Malignant neoplasm of lower-inner quadrant of left female breast; C79.51 Secondary malignant neoplasm of bone
CPT/HCPCS: 36415; 80048; 80076; 82378; 83735; 85025; 86300; 96367; 96413; 96417; J9306; Q5117

== ENCOUNTER 2020-03-28 08:23 | Day surgery (SDC) | payer OTHER ==
[2020-03-28] MEDS ORDERED: ACETAMINOPHEN 325 MG TABLET (FP) PO ONE (09:30)
[2020-03-28] MEDS ORDERED: DEXAMETHASONE SODIUM PHOSPHATE 6 MG, DIPHENHYDRAMINE 25 MG in SODIUM CHLORIDE 100 ML IVPB ONE (09:30)
[2020-03-28] MEDS ORDERED: PERTUZUMAB 420 MG in SODIUM CHLORIDE 250 ML IVPB ONE (10:00)
[2020-03-28] MEDS ORDERED: TRASTUZUMAB-ANNS 500 MG in SODIUM CHLORIDE 250 ML IVPB ONE (10:30)
[2020-03-28 10:35] LABS: BASO % 0.7 % (0-2.0); EOS % 2.5 % (0-4.5); HEMOGLOBIN 13.4 GM/dL (10.7-15.3); LYMPH % 29.7 % (8-40); MCH 28.4 pg (25.7-33.7); MCHC 33.4 g/dl (32.0-36.0); MEAN CELL VOLUME 84.9 fl (80-96); MEAN PLT VOLUME 7.6 fl (7.5-11.1); MONO % 8.9 % (3.8-10.2); NEUT % 58.2 % (42.8-82.8); PLATELET COUNT 303 K/MM3 (134-434); RBC 4.71 M/mm3 (3.60-5.2); RDW 13.1 % (11.6-15.6); WHITE BLOOD COUNT 7.5 K/mm3 (4.0-10.0)
[2020-03-28 11:32] LABS: ALBUMIN 3.9 g/dl (3.4-5.0); BILIRUBIN,DIRECT 0.1 mg/dL (0.0-0.2); BILIRUBIN,TOTAL 0.4 mg/dL (0.2-1); BLOOD UREA NITROGEN 18.7 mg/dL (7-18); CALCIUM 9.2 mg/dL (8.5-10.1); TOT PROT 7.4 g/dl (6.4-8.2)
[2020-03-28 12:49] VITALS: TEMP 98.3
[2020-03-28 14:04] VITALS: BP 121/51; PULSE 69
[2020-03-28] MEDS ORDERED: PORTA CATH FLUSH 10 ML IVPUSH ONE (14:04)
== END 2020-03-28 15:00 | disposition home or self-care (01) ==
LOC: JONCCHEMO 08:23
PROVIDERS: ATTEND Internal Medicine Hematology & Oncology
DX: Z51.11 Encounter for antineoplastic chemotherapy (principal); C50.312 Malignant neoplasm of lower-inner quadrant of left female breast; C79.51 Secondary malignant neoplasm of bone
CPT/HCPCS: 36415; 80048; 80076; 82378; 83735; 85025; 86300; 96367; 96413; 96417; J9306; Q5117

== ENCOUNTER 2020-04-04 10:04 | Inpatient (IN) | payer OTHER ==
[2020-04-04] MEDS ORDERED: ACETAMINOPHEN 1000 MG/100 ML VIAL (NON FORMULARY) IVPB ONE (10:59)
[2020-04-04] MEDS ORDERED: ACETAMINOPHEN INJECTION 100 ML IVPB ONE (11:47)
[2020-04-04 12:11] LABS: BASO % 0.4 % (0-2.0); EOS % 1.5 % (0-4.5); HEMATOCRIT 38.8 % (32.4-45.2); HEMOGLOBIN 13.3 GM/dL (10.7-15.3); LYMPH % 30.4 % (8-40); MCHC 34.2 g/dl (32.0-36.0); MEAN CELL VOLUME 84.7 fl (80-96); MEAN PLT VOLUME 7.8 fl (7.5-11.1); MONO % 8.4 % (3.8-10.2); NEUT % 59.3 % (42.8-82.8); PLATELET COUNT 286 K/MM3 (134-434); RBC 4.58 M/mm3 (3.60-5.2); RDW 13.6 % (11.6-15.6); WHITE BLOOD COUNT 7.5 K/mm3 (4.0-10.0)
[2020-04-04 12:35] LABS: CHLORIDE 110 mmol/L (98-107); POTASSIUM 3.7 mmol/L (3.5-5.1); SODIUM 143 mmol/L (136-145)
[2020-04-04 12:37] LABS: ALBUMIN 3.9 g/dl (3.4-5.0); ANION GAP 8 MMOL/L (8-16); CALCIUM 9.1 mg/dL (8.5-10.1); CO2 25 mmol/L (21-32); LIPASE 55 U/L (73-393)
[2020-04-04 12:38] LABS: GLUCOSE,RANDOM 83 mg/dL (74-106)
[2020-04-04 12:40] LABS: CREATININE 0.9 mg/dL (0.55-1.3); SGOT/AST 29 U/L (15-37); SGPT/ALT 43 U/L (13-61)
[2020-04-04 12:42] LABS: TOT PROT 7.7 g/dl (6.4-8.2)
[2020-04-04 12:43] LABS: ALK PHOS 62 U/L (45-117)
[2020-04-04 12:47] LABS: BILIRUBIN,TOTAL 0.5 mg/dL (0.2-1)
[2020-04-04] MEDS ORDERED: SODIUM CHLORIDE 500 ML IV STA (14:40)
[2020-04-04 15:54] LABS: URINE APPEARANCE CLEAR; URINE BILIRUBIN NEGATIVE (NEGATIVE); URINE COLOR YELLOW; URINE GLUCOSE (UA) NEGATIVE (NEGATIVE); URINE KETONE NEGATIVE (NEGATIVE)
[2020-04-04 15:55] LABS: EPI CELLS 42.6 /uL (0-25.1); HYALINE CASTS 10.91 /uL (0-3.1); URINE BACTERIA 250.4 /uL (0-1359); URINE LEUK ESTERASE NEGATIVE (NEGATIVE); URINE NITRITE NEGATIVE (NEGATIVE); URINE PROTEIN NEGATIVE (NEGATIVE); URINE UROBILINOGEN 0.2 mg/dL (0.2-1.0); URINE WBC 17.8 /uL (0-25.8)
[2020-04-04] MEDS ORDERED: MAG HYDROX/AL HYDROX/SIMETH 30 ML UNIT-DOSE CUP PO ONE (16:05)
[2020-04-04] MEDS ORDERED: FAMOTIDINE 20 MG/50 ML IVPB 20 MG/50 ML MG IVPB ONE ×2 (16:05→16:33)
[2020-04-04] MEDS ORDERED: LIDOCAINE VISCOUS 2% ORAL/TOP 20 ML UNIT-DOSE CUP MM ONE (16:06)
[2020-04-04] MEDS ORDERED: LIDOCAINE VISCOUS 2% ORAL/TOP 20 ML UNIT-DOSE CUP ONE (16:32)
[2020-04-04] MEDS ORDERED: MAG HYDROX/AL HYDROX/SIMETH 30 ML UNIT-DOSE CUP ONE (16:33)
[2020-04-04] MEDS ORDERED: CEPHALEXIN MONOHYDRATE 500 MG CAPSULE (UD) PO ONE (16:48)
[2020-04-04] MEDS ORDERED: CEPHALEXIN MONOHYDRATE 500 MG CAPSULE (UD) ONE (17:11)
[2020-04-04] MEDS ORDERED: ACETAMINOPHEN WITH CODEINE 300MG/30MG TABLET PO ONE (17:27)
[2020-04-04] MEDS ORDERED: PANTOPRAZOLE SODIUM 40 MG VIAL IVPUSH ONE (17:28)
[2020-04-04] MEDS ORDERED: ACETAMINOPHEN WITH CODEINE 300MG/30MG TABLET ONE (17:29)
[2020-04-04] MEDS ORDERED: PANTOPRAZOLE SODIUM 40 MG/100 ML BAG IVPB ONE (17:32)
[2020-04-04] MEDS ORDERED: POLYETHYLENE GLYCOL 3350 119 GM BTL PO ONE (18:49)
[2020-04-04] MEDS ORDERED: ACETAMINOPHEN 325 MG TABLET (FP) PO PRN (19:38)
[2020-04-04] MEDS ORDERED: BISACODYL 10 MG SUPP.RECT PR PRN (19:41)
[2020-04-04] MEDS ORDERED: DOCUSATE SODIUM 100 MG CAPSULE (FP) PO PRN (19:41)
[2020-04-04] MEDS: SODIUM CHLORIDE 1,000 ML IV SCH (20:47)
[2020-04-04] MEDS ORDERED: HEPARIN NA (PORCINE) 5,000 UNITS/ML 1ML VIAL ONE (22:03)
[2020-04-04] MEDS ORDERED: ACETAMINOPHEN 325 MG TABLET (FP) ONE (22:03)
[2020-04-04] MEDS: HEPARIN NA (PORCINE) 5,000 UNITS/ML 1ML VIAL SQ SCH (22:13)
[2020-04-04] MEDS: EXEMESTANE 25 MG TABLET PO SCH (22:59)
[2020-04-05 01:04] VITALS: BMI 29.9
[2020-04-05] MEDS: SODIUM CHLORIDE 1,000 ML IV SCH (06:15)
[2020-04-05 07:20] LABS: BASO % 0.5 % (0-2.0); HEMATOCRIT 36.7 % (32.4-45.2); HEMOGLOBIN 12.1 GM/dL (10.7-15.3); LYMPH % 33.6 % (8-40); MCH 28.4 pg (25.7-33.7); MCHC 32.8 g/dl (32.0-36.0); MEAN CELL VOLUME 86.5 fl (80-96); MEAN PLT VOLUME 8.1 fl (7.5-11.1); MONO % 9.7 % (3.8-10.2); NEUT % 53.2 % (42.8-82.8); PLATELET COUNT 228 K/MM3 (134-434); RBC 4.25 M/mm3 (3.60-5.2); RDW 13.6 % (11.6-15.6); WHITE BLOOD COUNT 7.1 K/mm3 (4.0-10.0)
[2020-04-05 07:35] LABS: POTASSIUM 4.1 mmol/L (3.5-5.1)
[2020-04-05 07:38] LABS: ALBUMIN 3.3 g/dl (3.4-5.0)
[2020-04-05 07:39] LABS: BLOOD UREA NITROGEN 14.5 mg/dL (7-18); MAGNESIUM 1.9 mg/dL (1.8-2.4)
[2020-04-05 07:42] LABS: CREATININE 0.8 mg/dL (0.55-1.3)
[2020-04-05 07:43] LABS: BILIRUBIN,TOTAL 0.7 mg/dL (0.2-1); TOT PROT 6.2 g/dl (6.4-8.2)
[2020-04-05] MEDS ORDERED: PT OWN MED DRAWER 7, Y5N ONE ×2 (09:49→22:12)
[2020-04-05] MEDS: HYDROCHLOROTHIAZIDE 25 MG TABLET (FP) PO SCH (09:55)
[2020-04-05] MEDS: PANTOPRAZOLE SODIUM 40 MG VIAL IVPUSH SCH (09:55)
[2020-04-05] MEDS: MULTIVITAMINS THER W-MINERALS COMBO TABLET (FP) PO SCH (09:55)
[2020-04-05] MEDS: HEPARIN NA (PORCINE) 5,000 UNITS/ML 1ML VIAL SQ SCH ×2 (09:55→22:41)
[2020-04-05] MEDS ORDERED: POLYETHYLENE GLYCOL 3350 119 GM BTL PO SCH (10:00)
[2020-04-05] MEDS ORDERED: LOSARTAN POTASSIUM 100 MG TABLET PO SCH (10:00)
[2020-04-05] MEDS ORDERED: CEFTRIAXONE 1 GM in DEXTROSE 5%-WATER - 50 ML IVPB SCH (10:00)
[2020-04-05] MEDS ORDERED: PATIENT'S OWN MEDICATION (NON-FORMULARY) (Losartan/Hydrochlorothiazide [Hyzaar 100-25 Tabl PO SCH (10:00)
[2020-04-05] MEDS ORDERED: SODIUM PHOSPHATE/NA BIPHOS 133 ML ENEMA PR ONE (12:29)
[2020-04-05] MEDS: LOSARTAN POTASSIUM 50 MG TABLET PO SCH (16:09)
[2020-04-05] MEDS ORDERED: MINERAL OIL ENEMA 133 ML ENEMA PR ONE (16:34)
[2020-04-05] MEDS ORDERED: MINERAL OIL ENEMA 133 ML ENEMA RC ONE (16:45)
[2020-04-05] MEDS: POLYETHYLENE GLYCOL 3350 119 GM BTL PO SCH (22:38)
[2020-04-05] MEDS: MELATONIN 5 MG TABLETS PO PRN (23:28)
[2020-04-05] MEDS: EXEMESTANE 25 MG TABLET PO SCH (23:28)
[2020-04-05] MEDS: ALPRAZolam 0.25 MG TABLET PO PRN (23:28)
[2020-04-06] MEDS: POLYETHYLENE GLYCOL 3350 119 GM BTL PO SCH ×3 (05:48→22:01)
[2020-04-06] MEDS: HYDROCORTISONE 2.5% TOPICAL CREAM 30 GM TUBE PR SCH (10:29)
[2020-04-06] MEDS: LOSARTAN POTASSIUM 50 MG TABLET PO SCH (10:29)
[2020-04-06] MEDS: HYDROCHLOROTHIAZIDE 25 MG TABLET (FP) PO SCH (10:30)
[2020-04-06] MEDS: HEPARIN NA (PORCINE) 5,000 UNITS/ML 1ML VIAL SQ SCH ×2 (10:30→22:01)
[2020-04-06] MEDS: MULTIVITAMINS THER W-MINERALS COMBO TABLET (FP) PO SCH (10:30)
[2020-04-06] MEDS: PANTOPRAZOLE SODIUM 40 MG VIAL IVPUSH SCH (11:18)
[2020-04-06] MEDS ORDERED: SENNOSIDES 8.6MG TABLET (FP) PO PRN (12:31)
[2020-04-06] MEDS ORDERED: SIMETHICONE 80 MG TAB.CHEW (FP) PO PRN (17:52)
[2020-04-06] MEDS: EXEMESTANE 25 MG TABLET PO SCH (22:01)
[2020-04-06] MEDS: MELATONIN 5 MG TABLETS PO PRN (22:01)
[2020-04-06] MEDS: ALPRAZolam 0.25 MG TABLET PO PRN (22:01)
[2020-04-07] MEDS: POLYETHYLENE GLYCOL 3350 119 GM BTL PO SCH ×3 (06:19→21:29)
[2020-04-07] MEDS: MULTIVITAMINS THER W-MINERALS COMBO TABLET (FP) PO SCH (09:09)
[2020-04-07] MEDS: HEPARIN NA (PORCINE) 5,000 UNITS/ML 1ML VIAL SQ SCH ×2 (09:09→21:30)
[2020-04-07] MEDS: HYDROCORTISONE 2.5% TOPICAL CREAM 30 GM TUBE PR SCH (09:10)
[2020-04-07] MEDS: LOSARTAN POTASSIUM 50 MG TABLET PO SCH (09:22)
[2020-04-07] MEDS: HYDROCHLOROTHIAZIDE 25 MG TABLET (FP) PO SCH (09:23)
[2020-04-07] MEDS: PANTOPRAZOLE SODIUM 40 MG VIAL IVPUSH SCH (10:53)
[2020-04-07] MEDS ORDERED: MINERAL OIL ENEMA 133 ML ENEMA RC ONE (12:38)
[2020-04-07] MEDS ORDERED: PT OWN MED DRAWER 7, Y5N ONE (20:33)
[2020-04-07] MEDS: EXEMESTANE 25 MG TABLET PO SCH (21:31)
[2020-04-07] MEDS: ALPRAZolam 0.25 MG TABLET PO PRN (21:37)
[2020-04-08] MEDS: POLYETHYLENE GLYCOL 3350 119 GM BTL PO SCH ×2 (05:47→14:00)
[2020-04-08 06:44] VITALS: BP 121/63; PULSE 63; TEMP 97.5
[2020-04-08] MEDS: PANTOPRAZOLE SODIUM 40 MG VIAL IVPUSH SCH (11:14)
[2020-04-08] MEDS: HYDROCORTISONE 2.5% TOPICAL CREAM 30 GM TUBE PR SCH (11:15)
[2020-04-08] MEDS: HEPARIN NA (PORCINE) 5,000 UNITS/ML 1ML VIAL SQ SCH (11:15)
[2020-04-08] MEDS: MULTIVITAMINS THER W-MINERALS COMBO TABLET (FP) PO SCH (11:16)
[2020-04-08] MEDS: HYDROCHLOROTHIAZIDE 25 MG TABLET (FP) PO SCH (11:18)
[2020-04-08] MEDS: LOSARTAN POTASSIUM 50 MG TABLET PO SCH (11:18)
== END 2020-04-08 16:05 | disposition home or self-care (01) | DRG 392 ==
LOC: JER 10:04 → JERBED 18:36 → J7W 22:41
PROVIDERS: ADMIT Internal Medicine; ATTEND Internal Medicine
DX: K59.09 Other constipation (principal); C79.51 Secondary malignant neoplasm of bone; J98.11 Atelectasis; I10 Essential (primary) hypertension; E78.5 Hyperlipidemia, unspecified; C50.919 Malignant neoplasm of unspecified site of unspecified female breast; F41.9 Anxiety disorder, unspecified; K76.0 Fatty (change of) liver, not elsewhere classified; R91.8 Other nonspecific abnormal finding of lung field
CPT/HCPCS: 36415; 71046-TC-FY; 74021-TC-FY; 74177-TC; 80053; 81003; 82272; 83605; 83690; 83735; 83880; 84439; 84443; 84484; 85025; 93005; 93010; 93306-TC; 99285-25; C9803; J0131; J1644; Q9967; U0003

== ENCOUNTER 2020-04-18 07:54 | Day surgery (SDC) | payer OTHER ==
[2020-04-18] MEDS ORDERED: DEXAMETHASONE SODIUM PHOSPHATE 6 MG, DIPHENHYDRAMINE 25 MG in SODIUM CHLORIDE 100 ML IVPB ONE (09:30)
[2020-04-18] MEDS ORDERED: ACETAMINOPHEN 325 MG TABLET (FP) PO ONE (09:30)
[2020-04-18] MEDS ORDERED: PERTUZUMAB 420 MG in SODIUM CHLORIDE 250 ML IVPB ONE (10:00)
[2020-04-18] MEDS ORDERED: TRASTUZUMAB-ANNS 500 MG in SODIUM CHLORIDE 250 ML IVPB ONE (10:30)
[2020-04-18 11:28] LABS: BASO % 0.5 % (0-2.0); EOS % 2.1 % (0-4.5); HEMATOCRIT 41.6 % (32.4-45.2); HEMOGLOBIN 13.8 GM/dL (10.7-15.3); LYMPH % 26.9 % (8-40); MCH 28.8 pg (25.7-33.7); MCHC 33.2 g/dl (32.0-36.0); MEAN CELL VOLUME 86.8 fl (80-96); MEAN PLT VOLUME 8.3 fl (7.5-11.1); MONO % 11.1 % (3.8-10.2); NEUT % 59.4 % (42.8-82.8); PLATELET COUNT 278 K/MM3 (134-434); RDW 14.1 % (11.6-15.6); WHITE BLOOD COUNT 6.1 K/mm3 (4.0-10.0)
[2020-04-18 11:44] LABS: POTASSIUM 4.8 mmol/L (3.5-5.1)
[2020-04-18 11:47] LABS: BLOOD UREA NITROGEN 23.5 mg/dL (7-18)
[2020-04-18 11:50] LABS: BILIRUBIN,DIRECT 0.2 mg/dL (0.0-0.2)
[2020-04-18 11:56] LABS: BILIRUBIN,TOTAL 0.6 mg/dL (0.2-1); TOT PROT 7.8 g/dl (6.4-8.2)
[2020-04-18 12:01] LABS: ALBUMIN 4.2 g/dl (3.4-5.0); CALCIUM 9.6 mg/dL (8.5-10.1)
[2020-04-18 16:26] VITALS: TEMP 98.3
[2020-04-18 16:28] VITALS: BP 126/71; PULSE 82
== END 2020-04-18 15:15 | disposition home or self-care (01) ==
LOC: JONCCHEMO 07:54
PROVIDERS: ATTEND Internal Medicine Hematology & Oncology
DX: Z51.11 Encounter for antineoplastic chemotherapy (principal); C50.312 Malignant neoplasm of lower-inner quadrant of left female breast; C79.51 Secondary malignant neoplasm of bone
CPT/HCPCS: 36415; 80048; 80076; 82378; 83735; 85025; 96367; 96413; 96417; J9306; Q5117

== ENCOUNTER 2020-05-09 07:37 | Day surgery (SDC) | payer OTHER ==
[2020-05-09] MEDS ORDERED: DEXAMETHASONE SODIUM PHOSPHATE 6 MG, DIPHENHYDRAMINE 25 MG in SODIUM CHLORIDE 100 ML IVPB ONE (10:00)
[2020-05-09] MEDS ORDERED: ACETAMINOPHEN 325 MG TABLET (FP) PO ONE (10:00)
[2020-05-09] MEDS ORDERED: PERTUZUMAB 420 MG in SODIUM CHLORIDE 250 ML IVPB ONE (10:30)
[2020-05-09] MEDS ORDERED: TRASTUZUMAB-ANNS 500 MG in SODIUM CHLORIDE 250 ML IVPB ONE (11:00)
[2020-05-09 12:07] LABS: BASO % 0.4 % (0-2.0); EOS % 1.8 % (0-4.5); LYMPH % 28.3 % (8-40); MCH 28.9 pg (25.7-33.7); MCHC 33.3 g/dl (32.0-36.0); MEAN CELL VOLUME 86.8 fl (80-96); MEAN PLT VOLUME 8.1 fl (7.5-11.1); MONO % 9.4 % (3.8-10.2); NEUT % 60.1 % (42.8-82.8); PLATELET COUNT 292 K/MM3 (134-434); RBC 4.85 M/mm3 (3.60-5.2); RDW 14.4 % (11.6-15.6); WHITE BLOOD COUNT 6.6 K/mm3 (4.0-10.0)
[2020-05-09 12:33] LABS: POTASSIUM 4.8 mmol/L (3.5-5.1)
[2020-05-09 12:35] LABS: ALBUMIN 4.1 g/dl (3.4-5.0)
[2020-05-09 12:36] LABS: BLOOD UREA NITROGEN 23.7 mg/dL (7-18); MAGNESIUM 2.2 mg/dL (1.8-2.4)
[2020-05-09 12:38] LABS: BILIRUBIN,DIRECT 0.2 mg/dL (0.0-0.2)
[2020-05-09 12:40] LABS: BILIRUBIN,TOTAL 0.4 mg/dL (0.2-1); TOT PROT 7.9 g/dl (6.4-8.2)
[2020-05-09 17:10] VITALS: TEMP 98.3
[2020-05-09] MEDS ORDERED: PORTA CATH FLUSH 10 ML IVPUSH ONE (17:21)
[2020-05-09 17:29] VITALS: BP 119/58; PULSE 74
== END 2020-05-09 15:15 | disposition home or self-care (01) ==
LOC: JONCCHEMO 07:37
PROVIDERS: ATTEND Internal Medicine Hematology & Oncology
DX: Z51.11 Encounter for antineoplastic chemotherapy (principal); C50.312 Malignant neoplasm of lower-inner quadrant of left female breast; C79.51 Secondary malignant neoplasm of bone
CPT/HCPCS: 36415; 80048; 80076; 82378; 83735; 85025; 86300; 96367; 96413; 96417; J9306; Q5117

== ENCOUNTER 2020-05-30 07:28 | Day surgery (SDC) | payer OTHER ==
[2020-05-30] MEDS ORDERED: ACETAMINOPHEN 325 MG TABLET (FP) PO ONE (09:30)
[2020-05-30] MEDS ORDERED: DEXAMETHASONE SODIUM PHOSPHATE 4 MG, DIPHENHYDRAMINE 25 MG in SODIUM CHLORIDE 100 ML IVPB ONE (09:30)
[2020-05-30] MEDS ORDERED: PERTUZUMAB 420 MG in SODIUM CHLORIDE 250 ML IVPB ONE (10:00)
[2020-05-30] MEDS ORDERED: SODIUM CHLORIDE IVPB ONE (10:30)
[2020-05-30] MEDS ORDERED: TRASTUZUMAB ANNS IVPB ONE (10:30)
[2020-05-30 11:11] LABS: BASO % 0.5 % (0-2.0); EOS % 2.6 % (0-4.5); HEMATOCRIT 40.4 % (32.4-45.2); HEMOGLOBIN 13.7 GM/dL (10.7-15.3); LYMPH % 27.4 % (8-40); MCH 29.5 pg (25.7-33.7); MCHC 33.8 g/dl (32.0-36.0); MEAN CELL VOLUME 87.1 fl (80-96); MEAN PLT VOLUME 7.7 fl (7.5-11.1); MONO % 8.5 % (3.8-10.2); PLATELET COUNT 291 K/MM3 (134-434); RBC 4.63 M/mm3 (3.60-5.2); RDW 13.6 % (11.6-15.6); WHITE BLOOD COUNT 6.1 K/mm3 (4.0-10.0)
[2020-05-30 11:40] LABS: ALBUMIN 4.1 g/dl (3.4-5.0)
[2020-05-30 11:41] LABS: BLOOD UREA NITROGEN 20.5 mg/dL (7-18); CALCIUM 9.3 mg/dL (8.5-10.1)
[2020-05-30 11:43] LABS: BILIRUBIN,DIRECT 0.1 mg/dL (0.0-0.2)
[2020-05-30 11:45] LABS: BILIRUBIN,TOTAL 0.4 mg/dL (0.2-1); TOT PROT 7.6 g/dl (6.4-8.2)
[2020-05-30 17:34] VITALS: TEMP 98.1
[2020-05-30 17:40] VITALS: BP 123/65; PULSE 66
[2020-05-30] MEDS ORDERED: PORTA CATH FLUSH 10 ML IVPUSH ONE (17:40)
== END 2020-05-30 14:15 | disposition home or self-care (01) ==
LOC: JONCCHEMO 07:28
PROVIDERS: ATTEND Internal Medicine Hematology & Oncology
DX: Z51.11 Encounter for antineoplastic chemotherapy (principal); C50.312 Malignant neoplasm of lower-inner quadrant of left female breast; C79.51 Secondary malignant neoplasm of bone
CPT/HCPCS: 36415; 80048; 80076; 82378; 83735; 85025; 86300; 96367; 96413; 96417; J9306; Q5117

== ENCOUNTER 2020-06-20 07:30 | Day surgery (SDC) | payer OTHER ==
[2020-06-20] MEDS ORDERED: ACETAMINOPHEN 325 MG TABLET (FP) PO ONE (10:00)
[2020-06-20] MEDS ORDERED: DEXAMETHASONE SODIUM PHOSPHATE 4 MG, DIPHENHYDRAMINE 25 MG in SODIUM CHLORIDE 100 ML IVPB ONE (10:00)
[2020-06-20] MEDS ORDERED: PERTUZUMAB 420 MG in SODIUM CHLORIDE 250 ML IVPB ONE (10:30)
[2020-06-20] MEDS ORDERED: SODIUM CHLORIDE IVPB ONE (11:00)
[2020-06-20] MEDS ORDERED: TRASTUZUMAB ANNS IVPB ONE (11:00)
[2020-06-20 14:36] LABS: BLOOD UREA NITROGEN 24.9 mg/dL (7-18); CALCIUM 9.2 mg/dL (8.5-10.1)
[2020-06-20 14:37] LABS: ALBUMIN 4.1 g/dl (3.4-5.0)
[2020-06-20 14:39] LABS: BASO % 0.5 % (0-2.0); EOS % 2.1 % (0-4.5); HEMATOCRIT 42.1 % (32.4-45.2); HEMOGLOBIN 14.2 GM/dL (10.7-15.3); LYMPH % 28.4 % (8-40); MCH 29.1 pg (25.7-33.7); MCHC 33.6 g/dl (32.0-36.0); MEAN CELL VOLUME 86.7 fl (80-96); MEAN PLT VOLUME 8.5 fl (7.5-11.1); MONO % 8.4 % (3.8-10.2); NEUT % 60.6 % (42.8-82.8); PLATELET COUNT 289 K/MM3 (134-434); RBC 4.86 M/mm3 (3.60-5.2); RDW 13.5 % (11.6-15.6); WHITE BLOOD COUNT 6.5 K/mm3 (4.0-10.0)
[2020-06-20 14:39] LABS: BILIRUBIN,DIRECT 0.1 mg/dL (0.0-0.2)
[2020-06-20 14:40] LABS: CREATININE 0.9 mg/dL (0.55-1.3)
[2020-06-20 14:41] LABS: BILIRUBIN,TOTAL 0.4 mg/dL (0.2-1)
[2020-06-20 14:43] LABS: TOT PROT 7.8 g/dl (6.4-8.2)
[2020-06-20 16:26] VITALS: TEMP 98.2
[2020-06-20] MEDS ORDERED: PORTA CATH FLUSH 10 ML IVPUSH ONE (16:28)
[2020-06-20 17:31] VITALS: BP 164/56; PULSE 68
== END 2020-06-20 17:34 | disposition home or self-care (01) ==
LOC: JONCCHEMO 07:30
PROVIDERS: ATTEND Internal Medicine Hematology & Oncology
DX: Z51.11 Encounter for antineoplastic chemotherapy (principal); C50.312 Malignant neoplasm of lower-inner quadrant of left female breast; C79.51 Secondary malignant neoplasm of bone
CPT/HCPCS: 36415; 80048; 80061; 80076; 82306; 82378; 82550; 83036; 83721; 83735; 84439; 84443; 85025; 96367; 96413; 96417; J9306

== ENCOUNTER 2020-07-11 08:48 | Day surgery (SDC) | payer OTHER ==
[2020-07-11] MEDS ORDERED: ACETAMINOPHEN 325 MG TABLET (FP) PO ONE (10:00)
[2020-07-11] MEDS ORDERED: DEXAMETHASONE SODIUM PHOSPHATE 4 MG, DIPHENHYDRAMINE 25 MG in SODIUM CHLORIDE 100 ML IVPB ONE (10:00)
[2020-07-11] MEDS ORDERED: PERTUZUMAB 420 MG in SODIUM CHLORIDE 250 ML IVPB ONE (10:30)
[2020-07-11] MEDS ORDERED: TRASTUZUMAB ANNS IVPB ONE (11:00)
[2020-07-11] MEDS ORDERED: SODIUM CHLORIDE IVPB ONE (11:00)
[2020-07-11 11:19] LABS: BASO % 0.5 % (0-2.0); EOS % 2.3 % (0-4.5); HEMATOCRIT 40.5 % (32.4-45.2); HEMOGLOBIN 13.5 GM/dL (10.7-15.3); MCHC 33.3 g/dl (32.0-36.0); MEAN CELL VOLUME 87.1 fl (80-96); MONO % 8.9 % (3.8-10.2); NEUT % 59.3 % (42.8-82.8); PLATELET COUNT 268 K/MM3 (134-434); RBC 4.65 M/mm3 (3.60-5.2); RDW 13.3 % (11.6-15.6); WHITE BLOOD COUNT 6.5 K/mm3 (4.0-10.0)
[2020-07-11 11:39] LABS: CALCIUM 9.5 mg/dL (8.5-10.1)
[2020-07-11 11:40] LABS: ALBUMIN 4.3 g/dl (3.4-5.0); BLOOD UREA NITROGEN 21.1 mg/dL (7-18); MAGNESIUM 2.1 mg/dL (1.8-2.4)
[2020-07-11 11:42] LABS: BILIRUBIN,DIRECT 0.2 mg/dL (0.0-0.2)
[2020-07-11 11:44] LABS: TOT PROT 7.7 g/dl (6.4-8.2)
[2020-07-11 11:45] LABS: BILIRUBIN,TOTAL 0.5 mg/dL (0.2-1)
[2020-07-11 17:40] VITALS: TEMP 97.9
[2020-07-11 17:50] VITALS: BP 124/55; PULSE 77
== END 2020-07-11 14:45 | disposition home or self-care (01) ==
LOC: JONCCHEMO 08:48
PROVIDERS: ATTEND Internal Medicine Hematology & Oncology
DX: Z51.11 Encounter for antineoplastic chemotherapy (principal); C50.312 Malignant neoplasm of lower-inner quadrant of left female breast; C79.51 Secondary malignant neoplasm of bone
CPT/HCPCS: 36415; 80048; 80076; 83735; 85025; 85651; 96367; 96413; 96417; J9306

== ENCOUNTER 2020-08-08 07:12 | Day surgery (SDC) | payer OTHER ==
[2020-08-08] MEDS ORDERED: DEXAMETHASONE SODIUM PHOSPHATE 4 MG, DIPHENHYDRAMINE 25 MG in SODIUM CHLORIDE 100 ML IVPB ONE (09:30)
[2020-08-08] MEDS ORDERED: ACETAMINOPHEN 325 MG TABLET (FP) PO ONE (09:30)
[2020-08-08] MEDS ORDERED: PERTUZUMAB 420 MG in SODIUM CHLORIDE 250 ML IVPB ONE (10:00)
[2020-08-08] MEDS ORDERED: TRASTUZUMAB ANNS IVPB ONE (10:30)
[2020-08-08] MEDS ORDERED: SODIUM CHLORIDE IVPB ONE (10:30)
[2020-08-08 11:20] LABS: BASO % 0.4 % (0-2.0); EOS % 1.6 % (0-4.5); HEMATOCRIT 41.4 % (32.4-45.2); HEMOGLOBIN 13.4 GM/dL (10.7-15.3); LYMPH % 29.2 % (8-40); MCH 27.9 pg (25.7-33.7); MCHC 32.4 g/dl (32.0-36.0); MEAN CELL VOLUME 85.9 fl (80-96); MEAN PLT VOLUME 7.7 fl (7.5-11.1); MONO % 8.7 % (3.8-10.2); NEUT % 60.1 % (42.8-82.8); PLATELET COUNT 259 10^3/uL (134-434); RBC 4.82 M/mm3 (3.60-5.2); RDW 13.2 % (11.6-15.6); WHITE BLOOD COUNT 6.9 K/mm3 (4.0-10.0)
[2020-08-08 11:50] LABS: CALCIUM 8.7 mg/dL (8.5-10.1)
[2020-08-08 11:51] LABS: ALBUMIN 3.9 g/dl (3.4-5.0); BLOOD UREA NITROGEN 20.1 mg/dL (7-18); MAGNESIUM 1.9 mg/dL (1.8-2.4)
[2020-08-08 11:53] LABS: BILIRUBIN,DIRECT 0.1 mg/dL (0.0-0.2)
[2020-08-08 11:54] LABS: CREATININE 0.8 mg/dL (0.55-1.3)
[2020-08-08 11:55] LABS: BILIRUBIN,TOTAL 0.5 mg/dL (0.2-1); TOT PROT 7.4 g/dl (6.4-8.2)
[2020-08-08 15:57] VITALS: TEMP 98.4
[2020-08-08 15:59] VITALS: BP 119/60; PULSE 69
== END 2020-08-08 15:15 | disposition home or self-care (01) ==
LOC: JONCCHEMO 07:12
PROVIDERS: ATTEND Internal Medicine Hematology & Oncology
DX: Z51.11 Encounter for antineoplastic chemotherapy (principal); C50.312 Malignant neoplasm of lower-inner quadrant of left female breast; C79.51 Secondary malignant neoplasm of bone
CPT/HCPCS: 36415; 80048; 80076; 82378; 83735; 85025; 86300; 96367; 96413; 96417; J9306; Q5117

== ENCOUNTER 2020-08-29 07:28 | Day surgery (SDC) | payer OTHER ==
[2020-08-29] MEDS ORDERED: ACETAMINOPHEN 325 MG TABLET (FP) PO ONE (10:00)
[2020-08-29] MEDS ORDERED: PERTUZUMAB 420 MG in SODIUM CHLORIDE 250 ML IVPB ONE (10:00)
[2020-08-29] MEDS ORDERED: DEXAMETHASONE SODIUM PHOSPHATE 4 MG, DIPHENHYDRAMINE 25 MG in SODIUM CHLORIDE 100 ML IVPB ONE (10:00)
[2020-08-29] MEDS ORDERED: SODIUM CHLORIDE IVPB ONE (10:30)
[2020-08-29] MEDS ORDERED: TRASTUZUMAB ANNS IVPB ONE (10:30)
[2020-08-29 11:52] LABS: BASO % 0.7 % (0-2.0); EOS % 1.9 % (0-4.5); HEMATOCRIT 40.1 % (32.4-45.2); HEMOGLOBIN 13.4 GM/dL (10.7-15.3); LYMPH % 29.4 % (8-40); MCH 28.8 pg (25.7-33.7); MCHC 33.4 g/dl (32.0-36.0); MEAN CELL VOLUME 86.4 fl (80-96); MEAN PLT VOLUME 7.8 fl (7.5-11.1); MONO % 8.7 % (3.8-10.2); NEUT % 59.3 % (42.8-82.8); PLATELET COUNT 248 10^3/uL (134-434); RBC 4.64 M/mm3 (3.60-5.2); RDW 13.3 % (11.6-15.6); WHITE BLOOD COUNT 5.7 K/mm3 (4.0-10.0)
[2020-08-29 12:15] LABS: CALCIUM 8.8 mg/dL (8.5-10.1)
[2020-08-29 12:16] LABS: MAGNESIUM 2.1 mg/dL (1.8-2.4)
[2020-08-29 12:20] LABS: BILIRUBIN,DIRECT 0.1 mg/dL (0.0-0.2); BILIRUBIN,TOTAL 0.3 mg/dL (0.2-1); TOT PROT 7.5 g/dl (6.4-8.2)
[2020-08-29 16:34] VITALS: TEMP 98
[2020-08-29 16:37] VITALS: BP 162/85; PULSE 74
== END 2020-08-29 14:30 | disposition home or self-care (01) ==
LOC: JONCCHEMO 07:28
PROVIDERS: ATTEND Internal Medicine Hematology & Oncology
DX: Z51.11 Encounter for antineoplastic chemotherapy (principal); C50.312 Malignant neoplasm of lower-inner quadrant of left female breast
CPT/HCPCS: 36415; 80048; 80076; 82378; 83735; 85025; 86300; 96367; 96413; 96417; J9306; Q5117

== ENCOUNTER 2020-09-19 07:25 | Day surgery (SDC) | payer OTHER ==
[2020-09-19] MEDS ORDERED: ACETAMINOPHEN 325 MG TABLET (FP) PO ONE (09:30)
[2020-09-19] MEDS ORDERED: DEXAMETHASONE SODIUM PHOSPHATE 4 MG, DIPHENHYDRAMINE 25 MG in SODIUM CHLORIDE 100 ML IVPB ONE (09:30)
[2020-09-19] MEDS ORDERED: PERTUZUMAB 420 MG in SODIUM CHLORIDE 250 ML IVPB ONE (10:00)
[2020-09-19] MEDS ORDERED: TRASTUZUMAB ANNS IVPB ONE (10:30)
[2020-09-19] MEDS ORDERED: SODIUM CHLORIDE IVPB ONE (10:30)
[2020-09-19 10:36] LABS: BASO % 0.4 % (0-2.0); EOS % 1.4 % (0-4.5); HEMATOCRIT 42.2 % (32.4-45.2); HEMOGLOBIN 14.3 GM/dL (10.7-15.3); LYMPH % 28.1 % (8-40); MCH 29.1 pg (25.7-33.7); MCHC 33.8 g/dl (32.0-36.0); MEAN PLT VOLUME 7.4 fl (7.5-11.1); MONO % 9.5 % (3.8-10.2); NEUT % 60.6 % (42.8-82.8); PLATELET COUNT 290 10^3/uL (134-434); RBC 4.91 M/mm3 (3.60-5.2); RDW 13.4 % (11.6-15.6); WHITE BLOOD COUNT 6.4 K/mm3 (4.0-10.0)
[2020-09-19 11:05] LABS: ALBUMIN 4.2 g/dl (3.4-5.0); BLOOD UREA NITROGEN 21.9 mg/dL (7-18)
[2020-09-19 11:08] LABS: BILIRUBIN,DIRECT 0.1 mg/dL (0.0-0.2); CREATININE 1.1 mg/dL (0.55-1.3)
[2020-09-19 11:10] LABS: BILIRUBIN,TOTAL 0.5 mg/dL (0.2-1); TOT PROT 7.8 g/dl (6.4-8.2)
[2020-09-19 17:02] VITALS: TEMP 98.4
[2020-09-19 17:03] VITALS: BP 104/63; PULSE 82
== END 2020-09-19 13:38 | disposition home or self-care (01) ==
LOC: JONCCHEMO 07:25
PROVIDERS: ATTEND Internal Medicine Hematology & Oncology
DX: Z51.11 Encounter for antineoplastic chemotherapy (principal); C50.312 Malignant neoplasm of lower-inner quadrant of left female breast
CPT/HCPCS: 36415; 80048; 80076; 82378; 83735; 85025; 86300; 96367; 96413; 96417; J9306; Q5117

== ENCOUNTER 2020-10-10 08:13 | Day surgery (SDC) | payer OTHER ==
[~2020-10-10 08:13] MED LIST: SODIUM CHLORIDE IVPB ONE; TRASTUZUMAB ANNS IVPB ONE
[2020-10-10] MEDS ORDERED: DEXAMETHASONE SODIUM PHOSPHATE 4 MG, DIPHENHYDRAMINE 25 MG in SODIUM CHLORIDE 100 ML IVPB ONE (10:00)
[2020-10-10] MEDS ORDERED: ACETAMINOPHEN 325 MG TABLET (FP) PO ONE (10:00)
[2020-10-10] MEDS ORDERED: PERTUZUMAB 420 MG in SODIUM CHLORIDE 250 ML IVPB ONE (10:30)
[2020-10-10] MEDS ORDERED: SODIUM CHLORIDE IVPB ONE (11:00)
[2020-10-10] MEDS ORDERED: TRASTUZUMAB ANNS IVPB ONE (11:00)
[2020-10-10 13:07] LABS: BASO % 0.5 % (0-2.0); EOS % 1.3 % (0-4.5); HEMOGLOBIN 13.2 GM/dL (10.7-15.3); LYMPH % 26.2 % (8-40); MCH 28.9 pg (25.7-33.7); MCHC 33.9 g/dl (32.0-36.0); MEAN CELL VOLUME 85.3 fl (80-96); MEAN PLT VOLUME 7.7 fl (7.5-11.1); MONO % 9.2 % (3.8-10.2); NEUT % 62.8 % (42.8-82.8); PLATELET COUNT 259 10^3/uL (134-434); RBC 4.57 M/mm3 (3.60-5.2); RDW 13.6 % (11.6-15.6); WHITE BLOOD COUNT 6.6 K/mm3 (4.0-10.0)
[2020-10-10 13:21] LABS: INR 1.05 (0.83-1.09); PROTHROMBIN TIME (PATIENT) 12.9 SEC (9.7-13.0)
[2020-10-10 13:24] LABS: ACTIVATED PTT 32.3 SECONDS (25.2-36.5)
[2020-10-10 13:27] LABS: CALCIUM 8.7 mg/dL (8.5-10.1)
[2020-10-10 13:28] LABS: ALBUMIN 3.8 g/dl (3.4-5.0); BLOOD UREA NITROGEN 18.9 mg/dL (7-18)
[2020-10-10 13:30] LABS: BILIRUBIN,DIRECT 0.1 mg/dL (0.0-0.2)
[2020-10-10 13:31] LABS: CREATININE 0.8 mg/dL (0.55-1.3)
[2020-10-10 13:32] LABS: BILIRUBIN,TOTAL 0.3 mg/dL (0.2-1); TOT PROT 7.4 g/dl (6.4-8.2)
[2020-10-10 16:41] VITALS: BP 148/70; PULSE 77; TEMP 99
[2020-10-10] MEDS ORDERED: PORTA CATH FLUSH 10 ML IVPUSH ONE (16:41)
== END 2020-10-10 15:55 | disposition home or self-care (01) ==
LOC: JONCCHEMO 08:13
PROVIDERS: ATTEND Internal Medicine Hematology & Oncology
PROC: 3E04305 Introduction of Other Antineoplastic into Central Vein, Percutaneous Approach (ICD-10-PCS; principal; 2020-10-10)
PROC: 3E043GC Introduction of Other Therapeutic Substance into Central Vein, Percutaneous Approach (ICD-10-PCS; 2020-10-10)
DX: Z51.11 Encounter for antineoplastic chemotherapy (principal); C50.312 Malignant neoplasm of lower-inner quadrant of left female breast
CPT/HCPCS: 36415; 80048; 80076; 82378; 83735; 85025; 85610; 85730; 86300; 96367; 96413; 96417; J9306; Q5117

== ENCOUNTER 2020-10-31 07:49 | Day surgery (SDC) | payer OTHER ==
[2020-10-31] MEDS ORDERED: DEXAMETHASONE SODIUM PHOSPHATE 4 MG, DIPHENHYDRAMINE 25 MG in SODIUM CHLORIDE 100 ML IVPB ONE (10:00)
[2020-10-31] MEDS ORDERED: ACETAMINOPHEN 325 MG TABLET (FP) PO ONE (10:00)
[2020-10-31] MEDS ORDERED: PERTUZUMAB 420 MG in SODIUM CHLORIDE 250 ML IVPB ONE (10:30)
[2020-10-31] MEDS ORDERED: TRASTUZUMAB ANNS IVPB ONE (11:00)
[2020-10-31] MEDS ORDERED: SODIUM CHLORIDE IVPB ONE (11:00)
[2020-10-31 11:04] LABS: BASO % 0.8 % (0-2.0); EOS % 2.2 % (0-4.5); HEMATOCRIT 40.2 % (32.4-45.2); HEMOGLOBIN 13.5 GM/dL (10.7-15.3); LYMPH % 30.5 % (8-40); MCH 28.9 pg (25.7-33.7); MCHC 33.5 g/dl (32.0-36.0); MEAN CELL VOLUME 86.2 fl (80-96); MEAN PLT VOLUME 7.6 fl (7.5-11.1); MONO % 9.9 % (3.8-10.2); NEUT % 56.6 % (42.8-82.8); PLATELET COUNT 266 10^3/uL (134-434); RBC 4.67 M/mm3 (3.60-5.2); RDW 13.8 % (11.6-15.6); WHITE BLOOD COUNT 5.4 K/mm3 (4.0-10.0)
[2020-10-31 11:10] LABS: INR 0.93 (0.83-1.09); PROTHROMBIN TIME (PATIENT) 11.4 SEC (9.7-13.0)
[2020-10-31 11:30] LABS: CALCIUM 8.9 mg/dL (8.5-10.1)
[2020-10-31 11:31] LABS: BLOOD UREA NITROGEN 22.7 mg/dL (7-18); MAGNESIUM 2.1 mg/dL (1.8-2.4)
[2020-10-31 11:34] LABS: BILIRUBIN,DIRECT 0.1 mg/dL (0.0-0.2); CREATININE 0.9 mg/dL (0.55-1.3)
[2020-10-31 11:35] LABS: BILIRUBIN,TOTAL 0.4 mg/dL (0.2-1); TOT PROT 7.7 g/dl (6.4-8.2)
[2020-10-31 16:30] VITALS: TEMP 98.4
[2020-10-31 16:31] VITALS: BP 124/72; PULSE 67
== END 2020-10-31 14:15 | disposition home or self-care (01) ==
LOC: JONCCHEMO 07:49
PROVIDERS: ATTEND Internal Medicine Hematology & Oncology
DX: Z51.11 Encounter for antineoplastic chemotherapy (principal); C50.312 Malignant neoplasm of lower-inner quadrant of left female breast
CPT/HCPCS: 36415; 80048; 80076; 82378; 83735; 85025; 85610; 86300; 96367; 96413; 96417; J9306; Q5117

== ENCOUNTER 2020-11-21 07:46 | Day surgery (SDC) | payer OTHER ==
[2020-11-21] MEDS ORDERED: DEXAMETHASONE SODIUM PHOSPHATE 4 MG, DIPHENHYDRAMINE 25 MG in SODIUM CHLORIDE 100 ML IVPB ONE ×2 (09:30→12:00)
[2020-11-21] MEDS ORDERED: ACETAMINOPHEN 325 MG TABLET (FP) PO ONE (09:30)
[2020-11-21] MEDS ORDERED: PERTUZUMAB 420 MG in SODIUM CHLORIDE 250 ML IVPB ONE (10:00)
[2020-11-21] MEDS ORDERED: SODIUM CHLORIDE IVPB ONE ×2 (10:30→12:30)
[2020-11-21] MEDS ORDERED: TRASTUZUMAB ANNS IVPB ONE (10:30)
[2020-11-21 11:02] LABS: EOS % 2.4 % (0-4.5); HEMATOCRIT 40.1 % (32.4-45.2); HEMOGLOBIN 13.5 GM/dL (10.7-15.3); LYMPH % 25.2 % (8-40); MCH 28.8 pg (25.7-33.7); MCHC 33.6 g/dl (32.0-36.0); MEAN CELL VOLUME 85.7 fl (80-96); MEAN PLT VOLUME 7.3 fl (7.5-11.1); MONO % 9.7 % (3.8-10.2); NEUT % 61.7 % (42.8-82.8); PLATELET COUNT 309 10^3/uL (134-434); RBC 4.68 M/mm3 (3.60-5.2); RDW 13.3 % (11.6-15.6); WHITE BLOOD COUNT 6.5 K/mm3 (4.0-10.0)
[2020-11-21 11:33] LABS: CALCIUM 9.5 mg/dL (8.5-10.1)
[2020-11-21 11:34] LABS: ALBUMIN 3.9 g/dl (3.4-5.0); BLOOD UREA NITROGEN 27.2 mg/dL (7-18); MAGNESIUM 1.8 mg/dL (1.8-2.4)
[2020-11-21 11:36] LABS: BILIRUBIN,DIRECT 0.1 mg/dL (0.0-0.2); CREATININE 1.1 mg/dL (0.55-1.3)
[2020-11-21 11:38] LABS: BILIRUBIN,TOTAL 0.7 mg/dL (0.2-1)
[2020-11-21 11:39] LABS: TOT PROT 7.9 g/dl (6.4-8.2)
[2020-11-21] MEDS ORDERED: ADO TRASTUZUMAB EMTANSINE IVPB ONE (12:30)
[2020-11-21 15:51] VITALS: TEMP 98.2
[2020-11-21 15:54] VITALS: BP 112/64; PULSE 80
== END 2020-11-21 15:00 | disposition home or self-care (01) ==
LOC: JONCCHEMO 07:46
PROVIDERS: ATTEND Internal Medicine Hematology & Oncology
DX: Z51.11 Encounter for antineoplastic chemotherapy (principal); C50.312 Malignant neoplasm of lower-inner quadrant of left female breast
CPT/HCPCS: 36415; 80048; 80076; 82378; 83735; 85025; 96367; 96413; J9354; Q5117

== ENCOUNTER 2020-12-12 08:14 | Day surgery (SDC) | payer OTHER ==
[2020-12-12] MEDS ORDERED: DEXAMETHASONE SODIUM PHOSPHATE 4 MG, DIPHENHYDRAMINE 25 MG in SODIUM CHLORIDE 100 ML IVPB ONE (09:30)
[2020-12-12] MEDS ORDERED: ACETAMINOPHEN 325 MG TABLET (FP) PO ONE (09:30)
[2020-12-12] MEDS ORDERED: ONDANSETRON 4 MG/2 ML VIAL IVPB ONE (09:57)
[2020-12-12] MEDS ORDERED: SODIUM CHLORIDE IVPB ONE (10:00)
[2020-12-12] MEDS ORDERED: ADO TRASTUZUMAB EMTANSINE IVPB ONE (10:00)
[2020-12-12 11:28] LABS: BASO % 0.6 % (0-2.0); EOS % 1.7 % (0-4.5); HEMATOCRIT 40.7 % (32.4-45.2); HEMOGLOBIN 13.7 GM/dL (10.7-15.3); LYMPH % 24.1 % (8-40); MCH 28.7 pg (25.7-33.7); MCHC 33.6 g/dl (32.0-36.0); MEAN CELL VOLUME 85.5 fl (80-96); MEAN PLT VOLUME 7.2 fl (7.5-11.1); MONO % 9.7 % (3.8-10.2); NEUT % 63.9 % (42.8-82.8); PLATELET COUNT 307 10^3/uL (134-434); RBC 4.76 M/mm3 (3.60-5.2); RDW 13.1 % (11.6-15.6); WHITE BLOOD COUNT 7.5 K/mm3 (4.0-10.0)
[2020-12-12 11:57] LABS: ALBUMIN 3.8 g/dl (3.4-5.0); CALCIUM 9.3 mg/dL (8.5-10.1)
[2020-12-12 11:58] LABS: BLOOD UREA NITROGEN 22.4 mg/dL (7-18)
[2020-12-12 12:01] LABS: BILIRUBIN,DIRECT 0.1 mg/dL (0.0-0.2)
[2020-12-12 12:03] LABS: BILIRUBIN,TOTAL 0.5 mg/dL (0.2-1)
[2020-12-12 12:05] LABS: MAGNESIUM 2.1 mg/dL (1.8-2.4)
[2020-12-12 16:01] VITALS: TEMP 98.1
[2020-12-12 16:03] VITALS: BP 132/55; PULSE 85
== END 2020-12-12 13:40 | disposition home or self-care (01) ==
LOC: JONCCHEMO 08:14
PROVIDERS: ATTEND Internal Medicine Hematology & Oncology
DX: Z51.11 Encounter for antineoplastic chemotherapy (principal); C50.312 Malignant neoplasm of lower-inner quadrant of left female breast; Z17.0 Estrogen receptor positive status [ER+]
CPT/HCPCS: 36415; 80048; 80076; 82378; 83735; 85025; 86300; 86704; 87340; 87517; 96367; 96375; 96413; J9354

== ENCOUNTER 2020-12-30 07:27 | Day surgery (SDC) | payer OTHER ==
[2020-12-30] MEDS ORDERED: DEXAMETHASONE SODIUM PHOSPHATE IVPB ONE (10:30)
[2020-12-30] MEDS ORDERED: DIPHENHYDRAMINE IVPB ONE (10:30)
[2020-12-30] MEDS ORDERED: [UNRECOGNIZED DRUG - OTHER] IVPB ONE (10:30)
[2020-12-30] MEDS ORDERED: ACETAMINOPHEN 325 MG TABLET (FP) PO ONE (10:30)
[2020-12-30] MEDS ORDERED: ADO TRASTUZUMAB EMTANSINE IVPB ONE (11:00)
[2020-12-30] MEDS ORDERED: SODIUM CHLORIDE IVPB ONE (11:00)
[2020-12-30 11:37] LABS: BLOOD UREA NITROGEN 18.8 mg/dL (7-18); CALCIUM 9.4 mg/dL (8.5-10.1)
[2020-12-30 11:39] LABS: MAGNESIUM 2.1 mg/dL (1.8-2.4)
[2020-12-30 11:41] LABS: BILIRUBIN,DIRECT 0.1 mg/dL (0.0-0.2)
[2020-12-30 11:42] LABS: CREATININE 1.1 mg/dL (0.55-1.3)
[2020-12-30 11:43] LABS: BILIRUBIN,TOTAL 0.5 mg/dL (0.2-1); TOT PROT 8.2 g/dl (6.4-8.2)
[2020-12-30 11:45] LABS: BASO % 0.6 % (0-2.0); EOS % 1.4 % (0-4.5); HEMATOCRIT 41.8 % (32.4-45.2); HEMOGLOBIN 13.9 GM/dL (10.7-15.3); LYMPH % 24.9 % (8-40); MCH 28.6 pg (25.7-33.7); MCHC 33.1 g/dl (32.0-36.0); MEAN CELL VOLUME 86.3 fl (80-96); MEAN PLT VOLUME 7.8 fl (7.5-11.1); MONO % 11.9 % (3.8-10.2); NEUT % 61.2 % (42.8-82.8); PLATELET COUNT 330 10^3/uL (134-434); RBC 4.85 M/mm3 (3.60-5.2); RDW 13.5 % (11.6-15.6); WHITE BLOOD COUNT 7.9 K/mm3 (4.0-10.0)
[2020-12-30 17:04] VITALS: TEMP 98.7
[2020-12-30 17:15] VITALS: BP 134/72; PULSE 72
== END 2020-12-30 15:45 | disposition home or self-care (01) ==
LOC: JONCCHEMO 07:27
PROVIDERS: ATTEND Internal Medicine Hematology & Oncology
DX: Z51.11 Encounter for antineoplastic chemotherapy (principal); C50.312 Malignant neoplasm of lower-inner quadrant of left female breast; Z17.0 Estrogen receptor positive status [ER+]
CPT/HCPCS: 36415; 80048; 80076; 83735; 85025; 96367; 96413; J2405; J9354

== ENCOUNTER 2021-01-23 08:13 | Day surgery (SDC) | payer OTHER ==
[2021-01-23] MEDS ORDERED: ACETAMINOPHEN 325 MG TABLET (FP) PO ONE (10:30)
[2021-01-23] MEDS ORDERED: DIPHENHYDRAMINE IVPB ONE (10:30)
[2021-01-23] MEDS ORDERED: [UNRECOGNIZED DRUG - OTHER] IVPB ONE (10:30)
[2021-01-23] MEDS ORDERED: DEXAMETHASONE SODIUM PHOSPHATE IVPB ONE (10:30)
[2021-01-23] MEDS ORDERED: ADO TRASTUZUMAB EMTANSINE IVPB ONE (11:00)
[2021-01-23] MEDS ORDERED: SODIUM CHLORIDE IVPB ONE (11:00)
[2021-01-23 11:33] LABS: BASO % 0.5 % (0-2.0); EOS % 1.2 % (0-4.5); HEMATOCRIT 43.3 % (32.4-45.2); HEMOGLOBIN 14.3 GM/dL (10.7-15.3); LYMPH % 28.5 % (8-40); MCH 28.6 pg (25.7-33.7); MEAN CELL VOLUME 86.6 fl (80-96); MEAN PLT VOLUME 8.1 fl (7.5-11.1); MONO % 8.5 % (3.8-10.2); NEUT % 61.3 % (42.8-82.8); PLATELET COUNT 311 10^3/uL (134-434); RDW 13.9 % (11.6-15.6); WHITE BLOOD COUNT 7.9 K/mm3 (4.0-10.0)
[2021-01-23 11:39] LABS: CALCIUM 9.7 mg/dL (8.5-10.1)
[2021-01-23 11:42] LABS: CREATININE 1.1 mg/dL (0.55-1.3)
[2021-01-23 11:44] LABS: BILIRUBIN,TOTAL 0.4 mg/dL (0.2-1); TOT PROT 8.2 g/dl (6.4-8.2)
[2021-01-23 16:01] VITALS: BP 96/55; PULSE 83; TEMP 97.7
[2021-01-23] MEDS ORDERED: PORTA CATH FLUSH 10 ML IVPUSH ONE (16:01)
[2021-01-25 08:08] LABS: CARCINOEMBRYONIC ANTIGEN 6.1 ng/mL (0.0-4.7)
== END 2021-01-23 13:10 | disposition home or self-care (01) ==
LOC: JONCCHEMO 08:13
PROVIDERS: ATTEND Internal Medicine Hematology & Oncology
DX: Z51.11 Encounter for antineoplastic chemotherapy (principal); C50.312 Malignant neoplasm of lower-inner quadrant of left female breast; Z17.0 Estrogen receptor positive status [ER+]
CPT/HCPCS: 36415; 80053; 82378; 85025; 86300; 96367; 96413; J2405; J9354

== ENCOUNTER 2021-02-13 08:18 | Day surgery (SDC) | payer OTHER ==
[2021-02-13] MEDS ORDERED: ACETAMINOPHEN 325 MG TABLET (FP) PO ONE (10:00)
[2021-02-13] MEDS ORDERED: DEXAMETHASONE SODIUM PHOSPHATE 4 MG, ONDANSETRON INJECTION 8 MG, DIPHENHYDRAMINE 25 MG ... IVPB ONE (10:00)
[2021-02-13] MEDS ORDERED: ADO TRASTUZUMAB EMTANSINE IVPB ONE (10:30)
[2021-02-13] MEDS ORDERED: SODIUM CHLORIDE IVPB ONE (10:30)
[2021-02-13 11:51] LABS: BASO % 0.7 % (0-2.0); EOS % 1.6 % (0-4.5); HEMATOCRIT 42.8 % (32.4-45.2); LYMPH % 29.2 % (8-40); MCH 28.1 pg (25.7-33.7); MCHC 32.6 g/dl (32.0-36.0); MEAN CELL VOLUME 86.3 fl (80-96); MEAN PLT VOLUME 8.3 fl (7.5-11.1); MONO % 10.1 % (3.8-10.2); NEUT % 58.4 % (42.8-82.8); PLATELET COUNT 328 10^3/uL (134-434); RBC 4.96 M/mm3 (3.60-5.2); WHITE BLOOD COUNT 7.1 K/mm3 (4.0-10.0)
[2021-02-13 12:02] LABS: CALCIUM 9.4 mg/dL (8.5-10.1)
[2021-02-13 12:03] LABS: ALBUMIN 4.1 g/dl (3.4-5.0); BLOOD UREA NITROGEN 21.3 mg/dL (7-18); MAGNESIUM 2.2 mg/dL (1.8-2.4)
[2021-02-13 12:05] LABS: BILIRUBIN,DIRECT 0.1 mg/dL (0.0-0.2)
[2021-02-13 12:07] LABS: BILIRUBIN,TOTAL 0.4 mg/dL (0.2-1)
[2021-02-13 12:08] LABS: TOT PROT 8.1 g/dl (6.4-8.2)
[2021-02-13 15:43] VITALS: BP 123/69; PULSE 86; TEMP 98.3
[2021-02-13] MEDS ORDERED: PORTA CATH FLUSH 10 ML IVPUSH ONE (15:52)
== END 2021-02-13 14:35 | disposition home or self-care (01) ==
LOC: JONCCHEMO 08:18
PROVIDERS: ATTEND Internal Medicine Hematology & Oncology
DX: Z51.11 Encounter for antineoplastic chemotherapy (principal); C50.312 Malignant neoplasm of lower-inner quadrant of left female breast; Z17.0 Estrogen receptor positive status [ER+]
CPT/HCPCS: 36415; 80048; 80076; 82378; 83735; 85025; 86300; 96367; 96413; J9354

== ENCOUNTER 2021-02-17 21:17 | Inpatient (IN) | payer OTHER ==
[2021-02-18] MEDS ORDERED: LACTATED RINGERS SOLUTION 1000 ML INFUS.BAG IV ONE (00:18)
[2021-02-18] MEDS ORDERED: ACETAMINOPHEN 1000 MG/100 ML BAG IVPB ONE (00:21)
[2021-02-18] MEDS ORDERED: ACETAMINOPHEN INJECTION 100 ML IVPB ONE (00:57)
[2021-02-18 01:40] LABS: HEMATOCRIT 38.5 % (32.4-45.2); HEMOGLOBIN 12.8 GM/dL (10.7-15.3); MCHC 33.3 g/dl (32.0-36.0); MEAN CELL VOLUME 84.3 fl (80-96); MEAN PLT VOLUME 7.6 fl (7.5-11.1); PLATELET COUNT 141 10^3/uL (134-434); RBC 4.57 M/mm3 (3.60-5.2); RDW 14.4 % (11.6-15.6); WHITE BLOOD COUNT 5.1 K/mm3 (4.0-10.0)
[2021-02-18 01:57] LABS: INR 1.22 (0.83-1.09); PROTHROMBIN TIME (PATIENT) 14.1 SEC (9.7-13.0)
[2021-02-18 02:00] LABS: ACTIVATED PTT 31.4 SECONDS (25.2-36.5); ALBUMIN 3.8 g/dl (3.4-5.0); CALCIUM 9.1 mg/dL (8.5-10.1)
[2021-02-18 02:01] LABS: CO2 30 mmol/L (21-32); GLUCOSE,RANDOM 107 mg/dL (74-106)
[2021-02-18 02:03] LABS: CREATININE 1.2 mg/dL (0.55-1.3)
[2021-02-18 02:04] LABS: SGOT/AST 52 U/L (15-37); SGPT/ALT 44 U/L (13-61)
[2021-02-18 02:05] LABS: BILIRUBIN,TOTAL 0.3 mg/dL (0.2-1); TOT PROT 7.3 g/dl (6.4-8.2)
[2021-02-18 02:07] LABS: ALK PHOS 65 U/L (45-117)
[2021-02-18 02:46] LABS: ANION GAP 6 MMOL/L (8-16); CHLORIDE 102 mmol/L (98-107); SODIUM 139 mmol/L (136-145)
[2021-02-18] MEDS ORDERED: DEXAMETHASONE SOD PHOSPHATE 10 MG/1 ML VIAL IVPUSH ONE (02:55)
[2021-02-18 03:23] LABS: ANISOCYTOSIS 2+; MACROCYTOSIS 0; PLATELET ESTIMATE DECREASED
[2021-02-18] MEDS ORDERED: DEXAMETHASONE SOD PHOSPHATE 10 MG/1 ML VIAL ONE (04:56)
[2021-02-18 05:32] LABS: EPI CELLS 24 /uL (0-25.1); HYALINE CASTS 4 /uL (0-3.1); URINE APPEARANCE CLEAR; URINE BACTERIA 29 /uL (0-1359); URINE BILIRUBIN NEGATIVE (NEGATIVE); URINE COLOR YELLOW; URINE GLUCOSE (UA) NEGATIVE (NEGATIVE); URINE KETONE TRACE (NEGATIVE); URINE LEUK ESTERASE 2+ (NEGATIVE); URINE NITRITE NEGATIVE (NEGATIVE); URINE PROTEIN NEGATIVE (NEGATIVE); URINE RBC 7 /uL (0-23.9); URINE UROBILINOGEN 0.2 mg/dL (0.2-1.0); URINE WBC 241 /uL (0-25.8)
[2021-02-18] MEDS ORDERED: ACETAMINOPHEN 325 MG TABLET (FP) PO PRN (05:54)
[2021-02-18] MEDS ORDERED: POLYETHYLENE GLYCOL (HEALTHYLAX) 3350 17 GM PACKET PO PRN (05:54)
[2021-02-18] MEDS ORDERED: ONDANSETRON 4 MG/2 ML VIAL IVPUSH PRN (06:01)
[2021-02-18] MEDS ORDERED: ZINC SULFATE 220 MG CAPSULE (FP) ONE (10:05)
[2021-02-18] MEDS ORDERED: ENOXAPARIN NA (PORCINE) 40 MG/0.4 ML DISP.SYRIN SQ ONE (10:05)
[2021-02-18] MEDS ORDERED: ASCORBIC ACID 500 MG TABLET (FP) ONE (10:05)
[2021-02-18] MEDS: ASCORBIC ACID 500 MG TABLET (FP) PO SCH (10:10)
[2021-02-18] MEDS: ZINC SULFATE 220 MG CAPSULE (FP) PO SCH (10:10)
[2021-02-18] MEDS: ENOXAPARIN NA (PORCINE) 40 MG/0.4 ML DISP.SYRIN SQ SCH (10:10)
[2021-02-18 10:44] LABS: BASO % 0.4 % (0-2.0); EOS % 0.1 % (0-4.5); HEMOGLOBIN 12.8 GM/dL (10.7-15.3); LYMPH % 16.6 % (8-40); MCH 28.4 pg (25.7-33.7); MCHC 33.6 g/dl (32.0-36.0); MEAN CELL VOLUME 84.6 fl (80-96); MEAN PLT VOLUME 7.9 fl (7.5-11.1); MONO % 8.1 % (3.8-10.2); NEUT % 74.8 % (42.8-82.8); PLATELET COUNT 127 10^3/uL (134-434); RDW 13.9 % (11.6-15.6); WHITE BLOOD COUNT 3.7 K/mm3 (4.0-10.0)
[2021-02-18 11:31] LABS: BLOOD UREA NITROGEN 23.1 mg/dL (7-18); CALCIUM 9.2 mg/dL (8.5-10.1); MAGNESIUM 2.1 mg/dL (1.8-2.4)
[2021-02-18 11:34] LABS: CREATININE 0.9 mg/dL (0.55-1.3)
[2021-02-18] MEDS ORDERED: REMDESIVIR 200 MG in SODIUM CHLORIDE 250 ML IVPB ONE ×2 (15:00→17:57)
[2021-02-18 18:45] VITALS: BMI 28.5
[2021-02-18] MEDS: CHOLECALCIFEROL (VIT D3) 1,000 UNIT (25 MCG) TABLET PO SCH ×2 (20:34→21:15)
[2021-02-19 08:28] LABS: HEMATOCRIT 40.2 % (32.4-45.2); HEMOGLOBIN 13.1 GM/dL (10.7-15.3); MCH 27.5 pg (25.7-33.7); MCHC 32.5 g/dl (32.0-36.0); MEAN CELL VOLUME 84.4 fl (80-96); MEAN PLT VOLUME 8.3 fl (7.5-11.1); PLATELET COUNT 157 10^3/uL (134-434); RBC 4.76 M/mm3 (3.60-5.2); RDW 13.8 % (11.6-15.6); WHITE BLOOD COUNT 3.4 K/mm3 (4.0-10.0)
[2021-02-19 09:13] LABS: CALCIUM 8.7 mg/dL (8.5-10.1)
[2021-02-19 09:14] LABS: BLOOD UREA NITROGEN 19.1 mg/dL (7-18)
[2021-02-19 09:15] LABS: ALBUMIN 3.5 g/dl (3.4-5.0)
[2021-02-19 09:17] LABS: CREATININE 0.7 mg/dL (0.55-1.3)
[2021-02-19 09:19] LABS: TOT PROT 7.1 g/dl (6.4-8.2)
[2021-02-19 09:20] LABS: BILIRUBIN,TOTAL 0.3 mg/dL (0.2-1)
[2021-02-19 09:35] LABS: ERYTHROCYTE SEDIMENTATION RATE 28 mm/hr (0-30)
[2021-02-19] MEDS ORDERED: DEXAMETHASONE SOD PHOSPHATE 4 MG/1 ML VIAL IVPUSH SCH (10:00)
[2021-02-19] MEDS: ZINC SULFATE 220 MG CAPSULE (FP) PO SCH (10:16)
[2021-02-19] MEDS: ASCORBIC ACID 500 MG TABLET (FP) PO SCH (10:16)
[2021-02-19] MEDS: ENOXAPARIN NA (PORCINE) 40 MG/0.4 ML DISP.SYRIN SQ SCH (10:16)
[2021-02-19 12:18] LABS: ANISOCYTOSIS 0; MACROCYTOSIS 0; PLATELET ESTIMATE DECREASED
[2021-02-19] MEDS: REMDESIVIR 100 MG in SODIUM CHLORIDE 250 ML IVPB SCH (15:36)
[2021-02-19] MEDS ORDERED: PORTA CATH FLUSH 10 ML IVPUSH ONE (16:19)
[2021-02-19] MEDS: CHOLECALCIFEROL (VIT D3) 1,000 UNIT (25 MCG) TABLET PO SCH (21:50)
[2021-02-20] MEDS: ZINC SULFATE 220 MG CAPSULE (FP) PO SCH (10:18)
[2021-02-20] MEDS: DEXAMETHASONE SOD PHOSPHATE 4 MG/1 ML VIAL IVPB SCH (10:18)
[2021-02-20] MEDS: ENOXAPARIN NA (PORCINE) 40 MG/0.4 ML DISP.SYRIN SQ SCH (10:18)
[2021-02-20] MEDS: ASCORBIC ACID 500 MG TABLET (FP) PO SCH (10:18)
[2021-02-20 11:49] LABS: HEMOGLOBIN 13.1 GM/dL (10.7-15.3); MCH 28.2 pg (25.7-33.7); MCHC 33.5 g/dl (32.0-36.0); MEAN CELL VOLUME 84.2 fl (80-96); MEAN PLT VOLUME 8.5 fl (7.5-11.1); PLATELET COUNT 163 10^3/uL (134-434); RBC 4.64 M/mm3 (3.60-5.2); RDW 14.1 % (11.6-15.6); WHITE BLOOD COUNT 4.1 K/mm3 (4.0-10.0)
[2021-02-20 12:58] LABS: ANISOCYTOSIS 2+; MACROCYTOSIS 0; PLATELET ESTIMATE NORMAL
[2021-02-20] MEDS ORDERED: ALBUTEROL SO4 HFA INHALER IH PRN (13:05)
[2021-02-20 13:15] LABS: ALBUMIN 3.5 g/dl (3.4-5.0); BILIRUBIN,TOTAL 0.2 mg/dL (0.2-1); BLOOD UREA NITROGEN 20.3 mg/dL (7-18); CALCIUM 8.6 mg/dL (8.5-10.1); CREATININE 0.8 mg/dL (0.55-1.3); TOT PROT 7.3 g/dl (6.4-8.2)
[2021-02-20] MEDS ORDERED: SODIUM CHLORIDE 1,000 ML IV SCH (13:15)
[2021-02-20] MEDS: REMDESIVIR 100 MG in SODIUM CHLORIDE 250 ML IVPB SCH (16:12)
[2021-02-20] MEDS: CHOLECALCIFEROL (VIT D3) 1,000 UNIT (25 MCG) TABLET PO SCH (22:22)
[2021-02-21] MEDS: DEXAMETHASONE SOD PHOSPHATE 4 MG/1 ML VIAL IVPB SCH (09:53)
[2021-02-21] MEDS: ZINC SULFATE 220 MG CAPSULE (FP) PO SCH (09:53)
[2021-02-21] MEDS: ENOXAPARIN NA (PORCINE) 40 MG/0.4 ML DISP.SYRIN SQ SCH (09:53)
[2021-02-21] MEDS: ASCORBIC ACID 500 MG TABLET (FP) PO SCH (09:53)
[2021-02-21] MEDS: REMDESIVIR 100 MG in SODIUM CHLORIDE 250 ML IVPB SCH (15:23)
[2021-02-21] MEDS: CHOLECALCIFEROL (VIT D3) 1,000 UNIT (25 MCG) TABLET PO SCH (22:00)
[2021-02-22 05:50] VITALS: BP 134/92; PULSE 84; TEMP 98.8
[2021-02-22] MEDS: ASCORBIC ACID 500 MG TABLET (FP) PO SCH (11:44)
[2021-02-22] MEDS: DEXAMETHASONE SOD PHOSPHATE 4 MG/1 ML VIAL IVPB SCH (11:44)
[2021-02-22] MEDS: ENOXAPARIN NA (PORCINE) 40 MG/0.4 ML DISP.SYRIN SQ SCH (11:44)
[2021-02-22] MEDS: ZINC SULFATE 220 MG CAPSULE (FP) PO SCH (11:44)
[2021-02-22 14:29] LABS: BASO % 0.1 % (0-2.0); EOS % 0.1 % (0-4.5); HEMATOCRIT 38.3 % (32.4-45.2); HEMOGLOBIN 12.3 GM/dL (10.7-15.3); LYMPH % 24.8 % (8-40); MCH 27.4 pg (25.7-33.7); MCHC 32.2 g/dl (32.0-36.0); MEAN CELL VOLUME 85.3 fl (80-96); PLATELET COUNT 140 10^3/uL (134-434); RBC 4.49 M/mm3 (3.60-5.2); RDW 13.9 % (11.6-15.6); WHITE BLOOD COUNT 7.1 K/mm3 (4.0-10.0)
[2021-02-22 14:57] LABS: CALCIUM 8.5 mg/dL (8.5-10.1)
[2021-02-22 14:58] LABS: ALBUMIN 3.3 g/dl (3.4-5.0); BLOOD UREA NITROGEN 21.5 mg/dL (7-18)
[2021-02-22 15:01] LABS: CREATININE 0.9 mg/dL (0.55-1.3)
[2021-02-22 15:03] LABS: BILIRUBIN,TOTAL 0.2 mg/dL (0.2-1); TOT PROT 6.5 g/dl (6.4-8.2)
[2021-02-22 15:24] LABS: ERYTHROCYTE SEDIMENTATION RATE 14 mm/hr (0-30)
[2021-02-22] MEDS: REMDESIVIR 100 MG in SODIUM CHLORIDE 250 ML IVPB SCH (15:50)
== END 2021-02-22 19:32 | disposition home or self-care (01) | DRG 177 ==
LOC: JER 21:17 → JERBED 02-18 00:41 → J7W 02-18 17:56
PROVIDERS: ADMIT Hospitalist; ATTEND Internal Medicine
PROC: 3E0333Z Introduction of Anti-inflammatory into Peripheral Vein, Percutaneous Approach (ICD-10-PCS; principal; 2021-02-18)
PROC: XW033E5 Introduction of Remdesivir Anti-infective into Peripheral Vein, Percutaneous Approach, New Technology Group 5 (ICD-10-PCS; 2021-02-18)
DX: U07.1 COVID-19 (principal); J12.82 Pneumonia due to coronavirus disease 2019; C79.51 Secondary malignant neoplasm of bone; C50.912 Malignant neoplasm of unspecified site of left female breast; R00.0 Tachycardia, unspecified; R09.02 Hypoxemia; D69.6 Thrombocytopenia, unspecified; R82.81 Pyuria; D72.819 Decreased white blood cell count, unspecified
CPT/HCPCS: 36415; 71045-TC-FY; 80048; 80053; 80061; 81003; 82550; 82728; 83036; 83605; 83615; 83735; 84439; 84443; 84484; 85025; 85379; 85384; 85610; 85651; 85730; 86140; 87040; 87086; 87186; 87804; 87807; 93005; 93010; 94010; 99291; C9399; C9803; J0131; J1100; U0003; U0005

== ENCOUNTER 2021-03-03 13:49 | Emergency (ER) | payer OTHER ==
[2021-03-03 14:13] VITALS: TEMP 98.4; BMI 27.1
[2021-03-03] MEDS ORDERED: LACTATED RINGERS SOLUTION 1000 ML INFUS.BAG IV ONE (16:02)
[2021-03-03 17:33] LABS: BASO % 0.3 % (0-2.0); EOS % 0.8 % (0-4.5); HEMATOCRIT 46.4 % (32.4-45.2); HEMOGLOBIN 14.8 GM/dL (10.7-15.3); LYMPH % 27.7 % (8-40); MCH 27.8 pg (25.7-33.7); MEAN CELL VOLUME 86.8 fl (80-96); MEAN PLT VOLUME 8.3 fl (7.5-11.1); MONO % 12.3 % (3.8-10.2); NEUT % 58.9 % (42.8-82.8); PLATELET COUNT 260 10^3/uL (134-434); RBC 5.34 M/mm3 (3.60-5.2); RDW 15.3 % (11.6-15.6); WHITE BLOOD COUNT 12.2 K/mm3 (4.0-10.0)
[2021-03-03 17:48] LABS: CHLORIDE 103 mmol/L (98-107); SODIUM 141 mmol/L (136-145)
[2021-03-03 17:51] LABS: ALBUMIN 3.5 g/dl (3.4-5.0); ANION GAP 5 MMOL/L (8-16); BLOOD UREA NITROGEN 26.5 mg/dL (7-18); CALCIUM 9.4 mg/dL (8.5-10.1); CO2 33 mmol/L (21-32); GLUCOSE,RANDOM 92 mg/dL (74-106); MAGNESIUM 2.3 mg/dL (1.8-2.4)
[2021-03-03 17:54] LABS: CREATININE 0.9 mg/dL (0.55-1.3); PHOSPHOROUS 3.6 mg/dL (2.5-4.9); SGOT/AST 31 U/L (15-37); SGPT/ALT 48 U/L (13-61)
[2021-03-03 17:56] LABS: BILIRUBIN,TOTAL 0.5 mg/dL (0.2-1); TOT PROT 7.4 g/dl (6.4-8.2)
[2021-03-03 17:57] LABS: ALK PHOS 68 U/L (45-117)
[2021-03-03 20:00] VITALS: BP 110/76; PULSE 94
== END 2021-03-03 21:01 | disposition home or self-care (01) ==
LOC: JER 13:49
DX: R06.02 Shortness of breath (principal)
CPT/HCPCS: 36415; 71046-TC-FY; 71275-TC; 80053; 82550; 83735; 84100; 84484; 85025; 93005; 93010; 99285-25; Q9967

== ENCOUNTER 2021-03-17 07:03 | Day surgery (SDC) | payer OTHER ==
[2021-03-17] MEDS ORDERED: DEXAMETHASONE SODIUM PHOSPHATE 4 MG, ONDANSETRON INJECTION 8 MG, DIPHENHYDRAMINE 25 MG ... IVPB ONE (10:30)
[2021-03-17] MEDS ORDERED: ACETAMINOPHEN 325 MG TABLET (FP) PO ONE (10:30)
[2021-03-17] MEDS ORDERED: SODIUM CHLORIDE IVPB ONE (11:00)
[2021-03-17] MEDS ORDERED: ADO TRASTUZUMAB EMTANSINE IVPB ONE (11:00)
[2021-03-17 11:42] LABS: BASO % 0.4 % (0-2.0); EOS % 2.6 % (0-4.5); HEMATOCRIT 39.9 % (32.4-45.2); HEMOGLOBIN 13.4 GM/dL (10.7-15.3); LYMPH % 31.9 % (8-40); MCH 28.7 pg (25.7-33.7); MCHC 33.5 g/dl (32.0-36.0); MEAN CELL VOLUME 85.7 fl (80-96); MEAN PLT VOLUME 7.2 fl (7.5-11.1); MONO % 9.7 % (3.8-10.2); NEUT % 55.4 % (42.8-82.8); PLATELET COUNT 256 10^3/uL (134-434); RBC 4.66 M/mm3 (3.60-5.2); WHITE BLOOD COUNT 6.5 K/mm3 (4.0-10.0)
[2021-03-17 12:03] LABS: CALCIUM 9.5 mg/dL (8.5-10.1)
[2021-03-17 12:05] LABS: ALBUMIN 3.7 g/dl (3.4-5.0); BLOOD UREA NITROGEN 19.2 mg/dL (7-18); MAGNESIUM 1.9 mg/dL (1.8-2.4)
[2021-03-17 12:06] LABS: BILIRUBIN,DIRECT 0.1 mg/dL (0.0-0.2)
[2021-03-17 12:08] LABS: TOT PROT 7.5 g/dl (6.4-8.2)
[2021-03-17 12:10] LABS: BILIRUBIN,TOTAL 0.3 mg/dL (0.2-1)
[2021-03-17 16:41] VITALS: TEMP 98.1
[2021-03-17 16:53] VITALS: BP 103/56; PULSE 103
== END 2021-03-17 14:10 | disposition home or self-care (01) ==
LOC: JONCCHEMO 07:03
PROVIDERS: ATTEND Internal Medicine Hematology & Oncology
DX: Z51.11 Encounter for antineoplastic chemotherapy (principal); C50.312 Malignant neoplasm of lower-inner quadrant of left female breast; Z17.0 Estrogen receptor positive status [ER+]; D70.1 Agranulocytosis secondary to cancer chemotherapy
CPT/HCPCS: 36415; 80048; 80076; 83735; 85025; 96367; 96413; J9354

== ENCOUNTER 2021-04-07 08:39 | Day surgery (SDC) | payer OTHER ==
[2021-04-07] MEDS ORDERED: ACETAMINOPHEN 325 MG TABLET (FP) PO ONE (10:00)
[2021-04-07] MEDS ORDERED: DEXAMETHASONE SODIUM PHOSPHATE IVPB ONE (10:00)
[2021-04-07] MEDS ORDERED: DIPHENHYDRAMINE IVPB ONE (10:00)
[2021-04-07] MEDS ORDERED: [UNRECOGNIZED DRUG - OTHER] IVPB ONE (10:00)
[2021-04-07] MEDS ORDERED: ADO TRASTUZUMAB EMTANSINE IVPB ONE (10:30)
[2021-04-07] MEDS ORDERED: SODIUM CHLORIDE IVPB ONE (10:30)
[2021-04-07 12:42] LABS: BASO % 0.9 % (0-2.0); EOS % 1.7 % (0-4.5); HEMATOCRIT 40.7 % (32.4-45.2); HEMOGLOBIN 13.3 GM/dL (10.7-15.3); LYMPH % 27.7 % (8-40); MCH 28.2 pg (25.7-33.7); MCHC 32.7 g/dl (32.0-36.0); MEAN CELL VOLUME 86.4 fl (80-96); MEAN PLT VOLUME 8.1 fl (7.5-11.1); NEUT % 59.7 % (42.8-82.8); PLATELET COUNT 267 10^3/uL (134-434); RBC 4.71 M/mm3 (3.60-5.2); RDW 14.9 % (11.6-15.6); WHITE BLOOD COUNT 7.3 K/mm3 (4.0-10.0)
[2021-04-07 13:04] LABS: BLOOD UREA NITROGEN 19.4 mg/dL (7-18)
[2021-04-07 13:05] LABS: CALCIUM 9.9 mg/dL (8.5-10.1); MAGNESIUM 2.1 mg/dL (1.8-2.4)
[2021-04-07 13:06] LABS: ALBUMIN 4.1 g/dl (3.4-5.0)
[2021-04-07 13:08] LABS: BILIRUBIN,DIRECT 0.1 mg/dL (0.0-0.2)
[2021-04-07 13:10] LABS: BILIRUBIN,TOTAL 0.4 mg/dL (0.2-1)
[2021-04-07 18:15] VITALS: BP 103/91; PULSE 93; TEMP 98.3
[2021-04-07] MEDS ORDERED: PORTA CATH FLUSH 10 ML IVPUSH ONE (18:15)
== END 2021-04-07 16:00 | disposition home or self-care (01) ==
LOC: JONCCHEMO 08:39
PROVIDERS: ATTEND Internal Medicine Hematology & Oncology
DX: Z51.11 Encounter for antineoplastic chemotherapy (principal); C50.312 Malignant neoplasm of lower-inner quadrant of left female breast; D70.1 Agranulocytosis secondary to cancer chemotherapy; Z17.0 Estrogen receptor positive status [ER+]
CPT/HCPCS: 36415; 71046-TC-FY; 80048; 80076; 82378; 83735; 85025; 96367; 96413; J9354

== ENCOUNTER 2021-04-28 07:30 | Day surgery (SDC) | payer OTHER ==
[2021-04-28] MEDS ORDERED: DIPHENHYDRAMINE IVPB ONE (10:30)
[2021-04-28] MEDS ORDERED: [UNRECOGNIZED DRUG - OTHER] IVPB ONE (10:30)
[2021-04-28] MEDS ORDERED: ACETAMINOPHEN 325 MG TABLET (FP) PO ONE (10:30)
[2021-04-28] MEDS ORDERED: DEXAMETHASONE SODIUM PHOSPHATE IVPB ONE (10:30)
[2021-04-28] MEDS ORDERED: ADO TRASTUZUMAB EMTANSINE IVPB ONE (11:00)
[2021-04-28] MEDS ORDERED: SODIUM CHLORIDE IVPB ONE (11:00)
[2021-04-28 12:02] LABS: BASO % 0.5 % (0-2.0); EOS % 1.9 % (0-4.5); HEMATOCRIT 40.3 % (32.4-45.2); HEMOGLOBIN 13.6 GM/dL (10.7-15.3); LYMPH % 27.8 % (8-40); MCH 28.9 pg (25.7-33.7); MCHC 33.8 g/dl (32.0-36.0); MEAN CELL VOLUME 85.5 fl (80-96); MEAN PLT VOLUME 7.4 fl (7.5-11.1); MONO % 9.6 % (3.8-10.2); NEUT % 60.2 % (42.8-82.8); PLATELET COUNT 274 10^3/uL (134-434); RBC 4.71 M/mm3 (3.60-5.2); RDW 14.8 % (11.6-15.6)
[2021-04-28 12:09] LABS: INR 1.03 (0.83-1.09); PROTHROMBIN TIME (PATIENT) 11.9 SEC (9.7-13.0)
[2021-04-28 12:11] LABS: ACTIVATED PTT 32.9 SECONDS (25.2-36.5)
[2021-04-28 12:24] LABS: ALBUMIN 4.1 g/dl (3.4-5.0)
[2021-04-28 12:25] LABS: BLOOD UREA NITROGEN 20.8 mg/dL (7-18); MAGNESIUM 2.1 mg/dL (1.8-2.4)
[2021-04-28 12:26] LABS: BILIRUBIN,DIRECT 0.1 mg/dL (0.0-0.2); CREATININE 0.9 mg/dL (0.55-1.3)
[2021-04-28 12:28] LABS: BILIRUBIN,TOTAL 0.4 mg/dL (0.2-1); TOT PROT 7.8 g/dl (6.4-8.2)
[2021-04-28 15:51] VITALS: BP 118/61; PULSE 65; TEMP 97.5
== END 2021-04-28 15:52 | disposition home or self-care (01) ==
LOC: JONCCHEMO 07:30
PROVIDERS: ATTEND Internal Medicine Hematology & Oncology
DX: Z51.11 Encounter for antineoplastic chemotherapy (principal); C50.312 Malignant neoplasm of lower-inner quadrant of left female breast; Z17.0 Estrogen receptor positive status [ER+]
CPT/HCPCS: 36415; 80048; 80076; 82378; 83735; 85025; 85610; 85730; 86300; 96367; 96413; J9354

== ENCOUNTER 2021-05-19 08:11 | Day surgery (SDC) | payer OTHER ==
[2021-05-19] MEDS ORDERED: DIPHENHYDRAMINE IVPB ONE (09:30)
[2021-05-19] MEDS ORDERED: [UNRECOGNIZED DRUG - OTHER] IVPB ONE (09:30)
[2021-05-19] MEDS ORDERED: DEXAMETHASONE SODIUM PHOSPHATE IVPB ONE (09:30)
[2021-05-19] MEDS ORDERED: ACETAMINOPHEN 325 MG TABLET (FP) PO ONE (09:30)
[2021-05-19] MEDS ORDERED: ADO TRASTUZUMAB EMTANSINE IVPB ONE (10:00)
[2021-05-19] MEDS ORDERED: SODIUM CHLORIDE IVPB ONE (10:00)
[2021-05-19 11:30] VITALS: TEMP 97.9
[2021-05-19 11:42] LABS: BASO % 0.5 % (0-2.0); EOS % 1.6 % (0-4.5); HEMOGLOBIN 13.9 GM/dL (10.7-15.3); LYMPH % 26.1 % (8-40); MCH 27.8 pg (25.7-33.7); MCHC 32.3 g/dl (32.0-36.0); MEAN CELL VOLUME 85.9 fl (80-96); MEAN PLT VOLUME 7.7 fl (7.5-11.1); MONO % 10.7 % (3.8-10.2); NEUT % 61.1 % (42.8-82.8); PLATELET COUNT 293 10^3/uL (134-434); RBC 5.01 M/mm3 (3.60-5.2); RDW 14.4 % (11.6-15.6)
[2021-05-19 12:07] LABS: ALBUMIN 3.9 g/dl (3.4-5.0); BLOOD UREA NITROGEN 19.5 mg/dL (7-18); MAGNESIUM 2.1 mg/dL (1.8-2.4)
[2021-05-19 12:09] LABS: BILIRUBIN,DIRECT 0.1 mg/dL (0.0-0.2)
[2021-05-19 12:10] LABS: CREATININE 1.1 mg/dL (0.55-1.3)
[2021-05-19 12:11] LABS: BILIRUBIN,TOTAL 0.5 mg/dL (0.2-1); TOT PROT 8.1 g/dl (6.4-8.2)
[2021-05-19] MEDS ORDERED: PORTA CATH FLUSH 10 ML IVPUSH PRN (16:11)
[2021-05-19 16:12] VITALS: BP 100/56; PULSE 69
== END 2021-05-19 14:15 | disposition home or self-care (01) ==
LOC: JONCCHEMO 08:11
PROVIDERS: ATTEND Internal Medicine Hematology & Oncology
DX: Z51.11 Encounter for antineoplastic chemotherapy (principal); C50.312 Malignant neoplasm of lower-inner quadrant of left female breast; Z17.0 Estrogen receptor positive status [ER+]
CPT/HCPCS: 36415; 80048; 80076; 82378; 83735; 85025; 86300; 96367; 96413; J9354

== ENCOUNTER 2021-06-09 08:52 | Day surgery (SDC) | payer OTHER ==
[2021-06-09] MEDS ORDERED: DEXAMETHASONE SODIUM PHOSPHATE 4 MG, ONDANSETRON INJECTION 8 MG, DIPHENHYDRAMINE 25 MG ... IVPB ONE (10:00)
[2021-06-09] MEDS ORDERED: ACETAMINOPHEN 325 MG TABLET (FP) PO ONE (10:00)
[2021-06-09] MEDS ORDERED: ADO TRASTUZUMAB EMTANSINE IVPB ONE (10:30)
[2021-06-09] MEDS ORDERED: SODIUM CHLORIDE IVPB ONE (10:30)
[2021-06-09 11:50] LABS: BASO % 0.5 % (0-2.0); EOS % 1.5 % (0-4.5); HEMOGLOBIN 13.6 GM/dL (10.7-15.3); LYMPH % 28.7 % (8-40); MCH 28.2 pg (25.7-33.7); MCHC 33.1 g/dl (32.0-36.0); MEAN CELL VOLUME 85.2 fl (80-96); MEAN PLT VOLUME 7.4 fl (7.5-11.1); MONO % 10.3 % (3.8-10.2); PLATELET COUNT 244 10^3/uL (134-434); RBC 4.81 M/mm3 (3.60-5.2); RDW 14.2 % (11.6-15.6); WHITE BLOOD COUNT 6.4 K/mm3 (4.0-10.0)
[2021-06-09 12:11] LABS: ALBUMIN 4.1 g/dl (3.4-5.0); BLOOD UREA NITROGEN 21.5 mg/dL (7-18); CALCIUM 9.2 mg/dL (8.5-10.1); MAGNESIUM 2.3 mg/dL (1.8-2.4)
[2021-06-09 12:14] LABS: BILIRUBIN,DIRECT 0.2 mg/dL (0.0-0.2); CREATININE 0.9 mg/dL (0.55-1.3)
[2021-06-09 12:16] LABS: BILIRUBIN,TOTAL 0.5 mg/dL (0.2-1); TOT PROT 7.8 g/dl (6.4-8.2)
[2021-06-09 18:47] VITALS: PULSE 78; TEMP 98
[2021-06-09] MEDS ORDERED: PORTA CATH FLUSH 10 ML IVPUSH PRN (18:55)
[2021-06-09 18:56] VITALS: BP 131/60
== END 2021-06-09 14:45 | disposition home or self-care (01) ==
LOC: JONCCHEMO 08:52
PROVIDERS: ATTEND Internal Medicine Hematology & Oncology
DX: Z51.11 Encounter for antineoplastic chemotherapy (principal); C50.312 Malignant neoplasm of lower-inner quadrant of left female breast; Z17.0 Estrogen receptor positive status [ER+]
CPT/HCPCS: 36415; 80048; 80076; 82378; 83735; 85025; 86300; 96367; 96413; J9354

== ENCOUNTER 2021-06-30 06:40 | Day surgery (SDC) | payer OTHER ==
[2021-06-30] MEDS ORDERED: ACETAMINOPHEN 325 MG TABLET (FP) PO ONE (09:30)
[2021-06-30] MEDS ORDERED: DEXAMETHASONE SODIUM PHOSPHATE 4 MG, ONDANSETRON INJECTION 8 MG, DIPHENHYDRAMINE 25 MG ... IVPB ONE (09:30)
[2021-06-30] MEDS ORDERED: ADO TRASTUZUMAB EMTANSINE IVPB ONE (10:00)
[2021-06-30] MEDS ORDERED: SODIUM CHLORIDE IVPB ONE (10:00)
[2021-06-30 12:49] VITALS: TEMP 98.1
[2021-06-30 13:35] LABS: BASO % 0.5 % (0-2.0); EOS % 1.5 % (0-4.5); HEMATOCRIT 43.8 % (32.4-45.2); HEMOGLOBIN 14.1 GM/dL (10.7-15.3); LYMPH % 31.4 % (8-40); MCH 27.8 pg (25.7-33.7); MCHC 32.2 g/dl (32.0-36.0); MEAN CELL VOLUME 86.3 fl (80-96); MEAN PLT VOLUME 8.1 fl (7.5-11.1); NEUT % 56.6 % (42.8-82.8); PLATELET COUNT 251 10^3/uL (134-434); RBC 5.07 M/mm3 (3.60-5.2); WHITE BLOOD COUNT 6.9 K/mm3 (4.0-10.0)
[2021-06-30 13:51] LABS: CALCIUM 9.9 mg/dL (8.5-10.1)
[2021-06-30 13:52] LABS: ALBUMIN 4.2 g/dl (3.4-5.0); BLOOD UREA NITROGEN 27.2 mg/dL (7-18)
[2021-06-30 13:54] LABS: BILIRUBIN,DIRECT 0.1 mg/dL (0.0-0.2)
[2021-06-30 13:56] LABS: BILIRUBIN,TOTAL 0.5 mg/dL (0.2-1); CREATININE 0.9 mg/dL (0.55-1.3)
[2021-06-30 16:37] VITALS: BP 116/58; PULSE 67
== END 2021-06-30 15:50 | disposition home or self-care (01) ==
LOC: JONCCHEMO 06:40
PROVIDERS: ATTEND Internal Medicine Hematology & Oncology
DX: Z51.11 Encounter for antineoplastic chemotherapy (principal); C50.312 Malignant neoplasm of lower-inner quadrant of left female breast; Z17.0 Estrogen receptor positive status [ER+]
CPT/HCPCS: 36415; 80048; 80076; 82378; 83735; 85025; 86300; 96367; 96413; J9354

== ENCOUNTER 2021-07-21 06:53 | Day surgery (SDC) | payer OTHER ==
[2021-07-21] MEDS ORDERED: DEXAMETHASONE SODIUM PHOSPHATE 4 MG, ONDANSETRON INJECTION 8 MG, DIPHENHYDRAMINE 25 MG ... IVPB ONE (10:00)
[2021-07-21] MEDS ORDERED: ACETAMINOPHEN 325 MG TABLET (FP) PO ONE (10:00)
[2021-07-21] MEDS ORDERED: SODIUM CHLORIDE IVPB ONE (10:30)
[2021-07-21] MEDS ORDERED: ADO TRASTUZUMAB EMTANSINE IVPB ONE (10:30)
[2021-07-21 10:48] LABS: BASO % 0.6 % (0-2.0); EOS % 1.8 % (0-4.5); HEMATOCRIT 43.6 % (32.4-45.2); HEMOGLOBIN 14.1 GM/dL (10.7-15.3); LYMPH % 31.8 % (8-40); MCH 27.4 pg (25.7-33.7); MCHC 32.4 g/dl (32.0-36.0); MEAN CELL VOLUME 84.4 fl (80-96); MEAN PLT VOLUME 7.6 fl (7.5-11.1); NEUT % 54.8 % (42.8-82.8); PLATELET COUNT 244 10^3/uL (134-434); RBC 5.17 M/mm3 (3.60-5.2); RDW 14.1 % (11.6-15.6); WHITE BLOOD COUNT 6.4 K/mm3 (4.0-10.0)
[2021-07-21 11:32] LABS: ALBUMIN 3.7 g/dl (3.4-5.0); BILIRUBIN,DIRECT 0.1 mg/dL (0.0-0.2); BILIRUBIN,TOTAL 0.4 mg/dL (0.2-1); BLOOD UREA NITROGEN 23.3 mg/dL (7-18); CALCIUM 9.1 mg/dL (8.5-10.1); TOT PROT 7.6 g/dl (6.4-8.2)
[2021-07-21 17:01] VITALS: BP 123/61; PULSE 79; TEMP 98
[2021-07-21] MEDS ORDERED: PORTA CATH FLUSH 10 ML IVPUSH PRN (17:15)
== END 2021-07-21 13:15 | disposition home or self-care (01) ==
LOC: JONCCHEMO 06:53
PROVIDERS: ATTEND Internal Medicine Hematology & Oncology
DX: Z51.11 Encounter for antineoplastic chemotherapy (principal); C50.312 Malignant neoplasm of lower-inner quadrant of left female breast; Z17.0 Estrogen receptor positive status [ER+]
CPT/HCPCS: 36415; 80048; 80076; 82378; 83735; 85025; 86300; 96367; 96413; J9354

== ENCOUNTER 2021-08-14 06:52 | Day surgery (SDC) | payer OTHER ==
[2021-08-14] MEDS ORDERED: ACETAMINOPHEN 325 MG TABLET (FP) PO ONE (09:30)
[2021-08-14] MEDS ORDERED: DEXAMETHASONE SODIUM PHOSPHATE 4 MG, ONDANSETRON INJECTION 8 MG, DIPHENHYDRAMINE 25 MG ... IVPB ONE (09:30)
[2021-08-14] MEDS ORDERED: ADO TRASTUZUMAB EMTANSINE IVPB ONE (10:00)
[2021-08-14] MEDS ORDERED: SODIUM CHLORIDE IVPB ONE (10:00)
[2021-08-14 11:27] LABS: BASO % 0.6 % (0-2.0); EOS % 1.5 % (0-4.5); HEMATOCRIT 44.5 % (32.4-45.2); HEMOGLOBIN 14.4 GM/dL (10.7-15.3); LYMPH % 27.6 % (8-40); MCH 27.5 pg (25.7-33.7); MCHC 32.4 g/dl (32.0-36.0); MEAN PLT VOLUME 8.2 fl (7.5-11.1); MONO % 9.4 % (3.8-10.2); NEUT % 60.9 % (42.8-82.8); PLATELET COUNT 254 10^3/uL (134-434); RBC 5.24 M/mm3 (3.60-5.2); RDW 14.2 % (11.6-15.6); WHITE BLOOD COUNT 6.7 K/mm3 (4.0-10.0)
[2021-08-14 11:44] LABS: ALBUMIN 4.1 g/dl (3.4-5.0); CALCIUM 10.1 mg/dL (8.5-10.1)
[2021-08-14 11:45] LABS: BLOOD UREA NITROGEN 18.2 mg/dL (7-18); MAGNESIUM 2.3 mg/dL (1.8-2.4)
[2021-08-14 11:47] LABS: BILIRUBIN,DIRECT 0.2 mg/dL (0.0-0.2); CREATININE 0.9 mg/dL (0.55-1.3)
[2021-08-14 11:48] LABS: BILIRUBIN,TOTAL 0.6 mg/dL (0.2-1)
[2021-08-14 11:49] LABS: TOT PROT 7.9 g/dl (6.4-8.2)
[2021-08-14 16:22] VITALS: TEMP 98.4
[2021-08-14] MEDS ORDERED: PORTA CATH FLUSH 10 ML IVPUSH PRN (16:22)
[2021-08-14 16:25] VITALS: BP 113/55; PULSE 65
== END 2021-08-14 13:40 | disposition home or self-care (01) ==
LOC: JONCCHEMO 06:52
PROVIDERS: ATTEND Internal Medicine Hematology & Oncology
DX: Z51.11 Encounter for antineoplastic chemotherapy (principal); C50.312 Malignant neoplasm of lower-inner quadrant of left female breast; Z17.0 Estrogen receptor positive status [ER+]
CPT/HCPCS: 36415; 80048; 80076; 82378; 83735; 85025; 86300; 96367; 96413; J9354

== ENCOUNTER 2021-09-08 06:25 | Day surgery (SDC) | payer OTHER ==
[2021-09-08] MEDS ORDERED: DEXAMETHASONE SODIUM PHOSPHATE 4 MG, ONDANSETRON INJECTION 8 MG, DIPHENHYDRAMINE 25 MG ... IVPB ONE (10:00)
[2021-09-08] MEDS ORDERED: ACETAMINOPHEN 325 MG TABLET (FP) PO ONE (10:00)
[2021-09-08] MEDS ORDERED: ADO TRASTUZUMAB EMTANSINE IVPB ONE (10:30)
[2021-09-08] MEDS ORDERED: SODIUM CHLORIDE IVPB ONE (10:30)
[2021-09-08 10:33] LABS: BASO % 0.5 % (0-2.0); EOS % 1.3 % (0-4.5); HEMATOCRIT 42.9 % (32.4-45.2); HEMOGLOBIN 14.1 GM/dL (10.7-15.3); LYMPH % 29.7 % (8-40); MCH 27.9 pg (25.7-33.7); MCHC 32.9 g/dl (32.0-36.0); MEAN CELL VOLUME 84.8 fl (80-96); MEAN PLT VOLUME 7.8 fl (7.5-11.1); MONO % 9.6 % (3.8-10.2); NEUT % 58.9 % (42.8-82.8); PLATELET COUNT 239 10^3/uL (134-434); RBC 5.05 M/mm3 (3.60-5.2); RDW 14.8 % (11.6-15.6); WHITE BLOOD COUNT 6.1 K/mm3 (4.0-10.0)
[2021-09-08 10:55] LABS: CALCIUM 9.5 mg/dL (8.5-10.1)
[2021-09-08 10:56] LABS: ALBUMIN 3.9 g/dl (3.4-5.0); BLOOD UREA NITROGEN 20.5 mg/dL (7-18); MAGNESIUM 2.1 mg/dL (1.8-2.4)
[2021-09-08 10:58] LABS: BILIRUBIN,DIRECT 0.1 mg/dL (0.0-0.2)
[2021-09-08 10:59] LABS: CREATININE 0.9 mg/dL (0.55-1.3)
[2021-09-08 11:00] LABS: TOT PROT 7.8 g/dl (6.4-8.2)
[2021-09-08 11:01] LABS: BILIRUBIN,TOTAL 0.5 mg/dL (0.2-1)
[2021-09-08 11:03] VITALS: TEMP 98.3
[2021-09-08] MEDS ORDERED: PORTA CATH FLUSH 10 ML IVPUSH PRN (11:03)
[2021-09-08 15:00] VITALS: BP 115/55; PULSE 61; RESP 18
== END 2021-09-08 13:30 | disposition home or self-care (01) ==
LOC: JONCCHEMO 06:25
PROVIDERS: ATTEND Internal Medicine Hematology & Oncology
DX: Z51.11 Encounter for antineoplastic chemotherapy (principal); C50.312 Malignant neoplasm of lower-inner quadrant of left female breast; C17.0 Malignant neoplasm of duodenum
CPT/HCPCS: 36415; 80048; 80076; 82378; 83735; 85025; 86300; 96367; 96413; J9354

== ENCOUNTER 2021-09-29 07:47 | Day surgery (SDC) | payer OTHER ==
[2021-09-29] MEDS ORDERED: ACETAMINOPHEN 325 MG TABLET (FP) PO ONE (10:00)
[2021-09-29] MEDS ORDERED: DEXAMETHASONE SODIUM PHOSPHATE 4 MG, ONDANSETRON INJECTION 8 MG, DIPHENHYDRAMINE 25 MG ... IVPB ONE (10:00)
[2021-09-29] MEDS ORDERED: ADO TRASTUZUMAB EMTANSINE IVPB ONE (10:30)
[2021-09-29] MEDS ORDERED: SODIUM CHLORIDE IVPB ONE (10:30)
[2021-09-29 11:20] LABS: CALCIUM 9.4 mg/dL (8.5-10.1)
[2021-09-29 11:21] LABS: MAGNESIUM 2.1 mg/dL (1.8-2.4)
[2021-09-29 11:23] LABS: BASO % 0.4 % (0-2.0); EOS % 1.2 % (0-4.5); HEMATOCRIT 41.1 % (32.4-45.2); HEMOGLOBIN 13.6 GM/dL (10.7-15.3); LYMPH % 29.3 % (8-40); MCH 27.9 pg (25.7-33.7); MEAN CELL VOLUME 84.5 fl (80-96); MEAN PLT VOLUME 8.2 fl (7.5-11.1); MONO % 10.2 % (3.8-10.2); NEUT % 58.9 % (42.8-82.8); PLATELET COUNT 203 10^3/uL (134-434); RBC 4.87 M/mm3 (3.60-5.2); RDW 14.4 % (11.6-15.6); WHITE BLOOD COUNT 6.8 K/mm3 (4.0-10.0)
[2021-09-29 11:24] LABS: CREATININE 0.9 mg/dL (0.55-1.3)
[2021-09-29 11:25] LABS: BILIRUBIN,DIRECT 0.3 mg/dL (0.0-0.2)
[2021-09-29 11:26] LABS: TOT PROT 7.8 g/dl (6.4-8.2)
[2021-09-29 11:27] LABS: BILIRUBIN,TOTAL 0.6 mg/dL (0.2-1)
[2021-09-29 16:44] VITALS: TEMP 98.1
[2021-09-29] MEDS ORDERED: PORTA CATH FLUSH 10 ML IVPUSH PRN (16:44)
[2021-09-29 16:51] VITALS: BP 137/65; PULSE 67; RESP 20
== END 2021-09-29 13:15 | disposition home or self-care (01) ==
LOC: JONCCHEMO 07:47
PROVIDERS: ATTEND Internal Medicine Hematology & Oncology
DX: Z51.11 Encounter for antineoplastic chemotherapy (principal); C50.312 Malignant neoplasm of lower-inner quadrant of left female breast; Z17.0 Estrogen receptor positive status [ER+]
CPT/HCPCS: 36415; 80048; 80061; 80076; 82378; 83735; 85025; 86300; 96367; 96413; J9354

== ENCOUNTER 2021-10-20 07:23 | Day surgery (SDC) | payer OTHER ==
[2021-10-20] MEDS ORDERED: DEXAMETHASONE SODIUM PHOSPHATE 4 MG, ONDANSETRON INJECTION 8 MG, DIPHENHYDRAMINE 25 MG ... IVPB ONE (09:30)
[2021-10-20] MEDS ORDERED: ACETAMINOPHEN 325 MG TABLET (FP) PO ONE (09:30)
[2021-10-20] MEDS ORDERED: SODIUM CHLORIDE IVPB ONE (10:00)
[2021-10-20] MEDS ORDERED: ADO TRASTUZUMAB EMTANSINE IVPB ONE (10:00)
[2021-10-20 12:05] VITALS: RESP 18; TEMP 97.9
[2021-10-20] MEDS ORDERED: PORTA CATH FLUSH 10 ML IVPUSH PRN (12:14)
[2021-10-20 12:52] LABS: BASO % 0.7 % (0-2.0); EOS % 1.5 % (0-4.5); HEMATOCRIT 45.4 % (32.4-45.2); LYMPH % 27.7 % (8-40); MCH 28.4 pg (25.7-33.7); MCHC 33.1 g/dl (32.0-36.0); MEAN CELL VOLUME 85.9 fl (80-96); MEAN PLT VOLUME 8.3 fl (7.5-11.1); MONO % 9.3 % (3.8-10.2); NEUT % 60.8 % (42.8-82.8); PLATELET COUNT 243 10^3/uL (134-434); RBC 5.29 M/mm3 (3.60-5.2); RDW 14.7 % (11.6-15.6); WHITE BLOOD COUNT 7.4 K/mm3 (4.0-10.0)
[2021-10-20 12:53] LABS: ALBUMIN 4.2 g/dl (3.4-5.0); BLOOD UREA NITROGEN 23.6 mg/dL (7-18); CALCIUM 9.7 mg/dL (8.5-10.1)
[2021-10-20 12:54] LABS: MAGNESIUM 1.9 mg/dL (1.8-2.4)
[2021-10-20 12:56] LABS: BILIRUBIN,DIRECT 0.1 mg/dL (0.0-0.2); CREATININE 0.9 mg/dL (0.55-1.3)
[2021-10-20 12:58] LABS: BILIRUBIN,TOTAL 0.5 mg/dL (0.2-1); TOT PROT 8.3 g/dl (6.4-8.2)
[2021-10-20 15:22] VITALS: BP 110/49; PULSE 65
== END 2021-10-20 14:45 | disposition home or self-care (01) ==
LOC: JONCCHEMO 07:23
PROVIDERS: ATTEND Internal Medicine Hematology & Oncology
DX: Z51.11 Encounter for antineoplastic chemotherapy (principal); C50.312 Malignant neoplasm of lower-inner quadrant of left female breast; Z17.0 Estrogen receptor positive status [ER+]
CPT/HCPCS: 36415; 80048; 80076; 82378; 83735; 85025; 86300; 96367; 96413; J9354

== ENCOUNTER 2021-11-10 11:21 | Day surgery (SDC) | payer OTHER ==
[~2021-11-10 11:21] MED LIST changes: +ACETAMINOPHEN 325 MG TABLET (FP) PO ONE; +ADO TRASTUZUMAB EMTANSINE IVPB ONE; +DEXAMETHASONE SODIUM PHOSPHATE IVPB ONE; +DIPHENHYDRAMINE IVPB ONE; -TRASTUZUMAB ANNS IVPB ONE; +[UNRECOGNIZED DRUG - OTHER] IVPB ONE
[2021-11-10 12:45] LABS: BASO % 0.6 % (0-2.0); HEMATOCRIT 44.4 % (32.4-45.2); HEMOGLOBIN 14.5 GM/dL (10.7-15.3); LYMPH % 30.3 % (8-40); MCHC 32.7 g/dl (32.0-36.0); MEAN CELL VOLUME 85.6 fl (80-96); MEAN PLT VOLUME 8.5 fl (7.5-11.1); MONO % 10.4 % (3.8-10.2); NEUT % 56.7 % (42.8-82.8); PLATELET COUNT 247 10^3/uL (134-434); RBC 5.19 M/mm3 (3.60-5.2); RDW 14.6 % (11.6-15.6); WHITE BLOOD COUNT 6.8 K/mm3 (4.0-10.0)
[2021-11-10 12:57] LABS: CALCIUM 9.8 mg/dL (8.5-10.1)
[2021-11-10 12:58] LABS: ALBUMIN 4.2 g/dl (3.4-5.0); BLOOD UREA NITROGEN 20.2 mg/dL (7-18); MAGNESIUM 2.1 mg/dL (1.8-2.4)
[2021-11-10 13:01] LABS: BILIRUBIN,DIRECT 0.1 mg/dL (0.0-0.2); CREATININE 0.9 mg/dL (0.55-1.3)
[2021-11-10 13:02] LABS: TOT PROT 8.2 g/dl (6.4-8.2)
[2021-11-10 13:03] LABS: BILIRUBIN,TOTAL 0.5 mg/dL (0.2-1)
[2021-11-10 16:40] VITALS: BP 169/96; PULSE 74; RESP 18; TEMP 98.1
[2021-11-10] MEDS ORDERED: PORTA CATH FLUSH 10 ML IVPUSH PRN (16:40)
[2021-11-11] MEDS ORDERED: PORTA CATH FLUSH 10 ML IVPUSH PRN (08:32)
== END 2021-11-10 15:20 | disposition home or self-care (01) ==
LOC: JONCCHEMO 11:21
PROVIDERS: ATTEND Internal Medicine Hematology & Oncology
DX: Z51.11 Encounter for antineoplastic chemotherapy (principal); C50.312 Malignant neoplasm of lower-inner quadrant of left female breast
CPT/HCPCS: 36415; 80048; 80076; 82378; 83735; 85025; 86300; 96367; 96413; J9354

== ENCOUNTER 2021-12-08 10:37 | Day surgery (SDC) | payer OTHER ==
[2021-12-08 11:13] LABS: BASO % 0.6 % (0-2.0); EOS % 4.3 % (0-4.5); HEMATOCRIT 43.7 % (32.4-45.2); HEMOGLOBIN 14.7 GM/dL (10.7-15.3); LYMPH % 26.7 % (8-40); MCH 28.8 pg (25.7-33.7); MCHC 33.6 g/dl (32.0-36.0); MEAN CELL VOLUME 85.5 fl (80-96); MEAN PLT VOLUME 7.6 fl (7.5-11.1); MONO % 9.4 % (3.8-10.2); PLATELET COUNT 229 10^3/uL (134-434); RBC 5.11 M/mm3 (3.60-5.2); RDW 14.4 % (11.6-15.6); WHITE BLOOD COUNT 7.9 K/mm3 (4.0-10.0)
[2021-12-08 11:24] LABS: CALCIUM 9.9 mg/dL (8.5-10.1)
[2021-12-08 11:25] LABS: BLOOD UREA NITROGEN 23.9 mg/dL (7-18); MAGNESIUM 2.1 mg/dL (1.8-2.4)
[2021-12-08 11:27] LABS: BILIRUBIN,DIRECT 0.2 mg/dL (0.0-0.2)
[2021-12-08 11:28] LABS: CREATININE 0.9 mg/dL (0.55-1.3)
[2021-12-08 11:29] LABS: BILIRUBIN,TOTAL 0.6 mg/dL (0.2-1)
[2021-12-08 13:44] VITALS: RESP 18
[2021-12-08] MEDS ORDERED: PORTA CATH FLUSH 10 ML IVPUSH PRN (13:49)
[2021-12-08 13:53] VITALS: BP 135/51; PULSE 68; TEMP 97.9
== END 2021-12-08 13:40 | disposition home or self-care (01) ==
LOC: JONCCHEMO 10:37
PROVIDERS: ATTEND Internal Medicine Hematology & Oncology
DX: Z51.11 Encounter for antineoplastic chemotherapy (principal); C50.312 Malignant neoplasm of lower-inner quadrant of left female breast
CPT/HCPCS: 36415; 80048; 80076; 83735; 85025; 96367; 96413; 96415; J9354

== ENCOUNTER 2021-12-29 10:09 | Day surgery (SDC) | payer OTHER ==
[~2021-12-29 10:09] MED LIST changes: -ADO TRASTUZUMAB EMTANSINE IVPB ONE; +DEXAMETHASONE SODIUM PHOSPHATE 4 MG, ONDANSETRON INJECTION 8 MG, DIPHENHYDRAMINE 25 MG ... IVPB ONE; -DEXAMETHASONE SODIUM PHOSPHATE IVPB ONE; -DIPHENHYDRAMINE IVPB ONE; -SODIUM CHLORIDE IVPB ONE; -[UNRECOGNIZED DRUG - OTHER] IVPB ONE
[2021-12-29] MEDS ORDERED: SODIUM CHLORIDE IVPB ONE (10:30)
[2021-12-29] MEDS ORDERED: ADO TRASTUZUMAB EMTANSINE IVPB ONE (10:30)
[2021-12-29] MEDS ORDERED: PORTA CATH FLUSH 10 ML IVPUSH PRN ×2 (10:49→15:31)
[2021-12-29 10:50] LABS: BASO % 0.4 % (0-2.0); EOS % 2.7 % (0-4.5); HEMATOCRIT 45.4 % (32.4-45.2); HEMOGLOBIN 14.7 GM/dL (10.7-15.3); LYMPH % 24.6 % (8-40); MCHC 32.5 g/dl (32.0-36.0); MEAN CELL VOLUME 86.1 fl (80-96); MEAN PLT VOLUME 8.1 fl (7.5-11.1); MONO % 9.4 % (3.8-10.2); NEUT % 62.9 % (42.8-82.8); PLATELET COUNT 221 10^3/uL (134-434); RBC 5.28 M/mm3 (3.60-5.2); RDW 14.2 % (11.6-15.6); WHITE BLOOD COUNT 7.2 K/mm3 (4.0-10.0)
[2021-12-29 11:00] LABS: ALBUMIN 3.9 g/dl (3.4-5.0); BLOOD UREA NITROGEN 23.2 mg/dL (7-18); CALCIUM 9.4 mg/dL (8.5-10.1)
[2021-12-29 11:04] LABS: CREATININE 0.9 mg/dL (0.55-1.3)
[2021-12-29 11:05] LABS: BILIRUBIN,TOTAL 0.5 mg/dL (0.2-1); TOT PROT 7.8 g/dl (6.4-8.2)
[2021-12-29 11:06] LABS: BILIRUBIN,DIRECT 0.4 mg/dL (0.0-0.2)
[2021-12-29 15:15] VITALS: RESP 18; TEMP 98.1
[2021-12-29 15:30] VITALS: BP 130/55; PULSE 66
== END 2021-12-29 13:10 | disposition home or self-care (01) ==
LOC: JONCCHEMO 10:09
PROVIDERS: ATTEND Internal Medicine Hematology & Oncology
DX: Z51.11 Encounter for antineoplastic chemotherapy (principal); C50.312 Malignant neoplasm of lower-inner quadrant of left female breast
CPT/HCPCS: 36415; 80048; 80076; 82306; 82378; 83735; 85025; 86300; 96367; 96413; J9354

== ENCOUNTER 2022-01-19 12:16 | Day surgery (SDC) | payer OTHER ==
[~2022-01-19 12:16] MED LIST changes: +ADO TRASTUZUMAB EMTANSINE IVPB ONE; +SODIUM CHLORIDE IVPB ONE
[2022-01-19 13:48] LABS: BASO % 0.7 % (0-2.0); EOS % 3.3 % (0-4.5); HEMATOCRIT 45.8 % (32.4-45.2); HEMOGLOBIN 14.8 GM/dL (10.7-15.3); LYMPH % 37.5 % (8-40); MCH 27.9 pg (25.7-33.7); MCHC 32.2 g/dl (32.0-36.0); MEAN CELL VOLUME 86.8 fl (80-96); MEAN PLT VOLUME 8.1 fl (7.5-11.1); MONO % 10.6 % (3.8-10.2); NEUT % 47.9 % (42.8-82.8); PLATELET COUNT 231 10^3/uL (134-434); RBC 5.28 M/mm3 (3.60-5.2); RDW 14.3 % (11.6-15.6)
[2022-01-19 14:00] LABS: ALBUMIN 4.2 g/dl (3.4-5.0); CALCIUM 9.9 mg/dL (8.5-10.1); MAGNESIUM 1.9 mg/dL (1.8-2.4)
[2022-01-19 14:03] LABS: CREATININE 0.9 mg/dL (0.55-1.3)
[2022-01-19 14:04] LABS: BILIRUBIN,DIRECT 0.2 mg/dL (0.0-0.2)
[2022-01-19 14:05] LABS: BILIRUBIN,TOTAL 0.5 mg/dL (0.2-1); TOT PROT 8.1 g/dl (6.4-8.2)
[2022-01-19 19:19] VITALS: TEMP 98.6
[2022-01-19 19:26] VITALS: BP 110/64; PULSE 68; RESP 18
[2022-01-19] MEDS ORDERED: PORTA CATH FLUSH 10 ML IVPUSH PRN (19:26)
[2022-01-21 16:08] LABS: CARCINOEMBRYONIC ANTIGEN 3.9 ng/mL (0.0-4.7)
== END 2022-01-19 16:45 | disposition home or self-care (01) ==
LOC: JONCCHEMO 12:16
PROVIDERS: ATTEND Internal Medicine Hematology & Oncology
DX: Z51.11 Encounter for antineoplastic chemotherapy (principal); C50.312 Malignant neoplasm of lower-inner quadrant of left female breast
CPT/HCPCS: 36415; 80048; 80076; 82085; 82378; 82550; 83735; 85025; 86300; 93970-TC; 96367; 96413; J9354

== ENCOUNTER 2022-02-12 10:28 | Day surgery (SDC) | payer OTHER ==
[~2022-02-12 10:28] MED LIST changes: -ADO TRASTUZUMAB EMTANSINE IVPB ONE; -DEXAMETHASONE SODIUM PHOSPHATE 4 MG, ONDANSETRON INJECTION 8 MG, DIPHENHYDRAMINE 25 MG ... IVPB ONE; +DEXAMETHASONE SODIUM PHOSPHATE IVPB ONE; +DIPHENHYDRAMINE IVPB ONE; -SODIUM CHLORIDE IVPB ONE; +[UNRECOGNIZED DRUG - OTHER] IVPB ONE
[2022-02-12] MEDS ORDERED: ADO TRASTUZUMAB EMTANSINE IVPB ONE (10:30)
[2022-02-12] MEDS ORDERED: SODIUM CHLORIDE IVPB ONE (10:30)
[2022-02-12 10:54] VITALS: RESP 18; TEMP 98.1
[2022-02-12 10:58] LABS: BASO % 0.7 % (0-2.0); EOS % 2.8 % (0-4.5); HEMATOCRIT 43.9 % (32.4-45.2); HEMOGLOBIN 14.5 GM/dL (10.7-15.3); MCH 28.6 pg (25.7-33.7); MCHC 33.1 g/dl (32.0-36.0); MEAN CELL VOLUME 86.4 fl (80-96); MEAN PLT VOLUME 7.1 fl (7.5-11.1); MONO % 12.3 % (3.8-10.2); NEUT % 53.2 % (42.8-82.8); PLATELET COUNT 261 10^3/uL (134-434); RBC 5.09 M/mm3 (3.60-5.2); RDW 14.7 % (11.6-15.6); WHITE BLOOD COUNT 7.1 K/mm3 (4.0-10.0)
[2022-02-12 11:24] LABS: CALCIUM 10.2 mg/dL (8.5-10.1)
[2022-02-12 11:25] LABS: ALBUMIN 4.1 g/dl (3.4-5.0); BLOOD UREA NITROGEN 21.3 mg/dL (7-18); MAGNESIUM 2.1 mg/dL (1.8-2.4)
[2022-02-12 11:27] LABS: BILIRUBIN,DIRECT 0.2 mg/dL (0.0-0.2)
[2022-02-12 11:29] LABS: BILIRUBIN,TOTAL 0.6 mg/dL (0.2-1); TOT PROT 8.2 g/dl (6.4-8.2)
[2022-02-12 14:27] VITALS: BP 119/45; PULSE 66
[2022-02-12] MEDS ORDERED: PORTA CATH FLUSH 10 ML IVPUSH PRN (14:27)
[2022-02-13 08:06] LABS: CARCINOEMBRYONIC ANTIGEN 3.4 ng/mL (0.0-4.7)
== END 2022-02-12 13:15 | disposition home or self-care (01) ==
LOC: JONCCHEMO 10:28
PROVIDERS: ATTEND Internal Medicine Hematology & Oncology
DX: Z51.11 Encounter for antineoplastic chemotherapy (principal); C50.312 Malignant neoplasm of lower-inner quadrant of left female breast
CPT/HCPCS: 36415; 80048; 80076; 82378; 83735; 85025; 86300; 96367; 96413; J9354

== ENCOUNTER 2022-03-05 11:04 | Day surgery (SDC) | payer OTHER ==
[~2022-03-05 11:04] MED LIST changes: +ADO TRASTUZUMAB EMTANSINE IVPB ONE; +SODIUM CHLORIDE IVPB ONE
[2022-03-05 12:44] LABS: BASO % 0.4 % (0-2.0); EOS % 2.8 % (0-4.5); HEMATOCRIT 46.2 % (32.4-45.2); LYMPH % 31.5 % (8-40); MCH 28.3 pg (25.7-33.7); MCHC 32.5 g/dl (32.0-36.0); MEAN PLT VOLUME 7.8 fl (7.5-11.1); NEUT % 55.3 % (42.8-82.8); PLATELET COUNT 228 10^3/uL (134-434); RBC 5.31 M/mm3 (3.60-5.2); RDW 14.2 % (11.6-15.6); WHITE BLOOD COUNT 6.8 K/mm3 (4.0-10.0)
[2022-03-05 13:07] LABS: CALCIUM 9.8 mg/dL (8.5-10.1)
[2022-03-05 13:08] LABS: ALBUMIN 4.2 g/dl (3.4-5.0); BLOOD UREA NITROGEN 21.8 mg/dL (7-18); MAGNESIUM 2.1 mg/dL (1.8-2.4)
[2022-03-05 13:11] LABS: BILIRUBIN,DIRECT 0.2 mg/dL (0.0-0.2); CREATININE 0.9 mg/dL (0.55-1.3)
[2022-03-05 13:13] LABS: BILIRUBIN,TOTAL 0.8 mg/dL (0.2-1); TOT PROT 8.2 g/dl (6.4-8.2)
[2022-03-05 17:58] VITALS: BP 123/65; PULSE 71; RESP 18; TEMP 98.1
[2022-03-05] MEDS ORDERED: PORTA CATH FLUSH 10 ML IVPUSH PRN (17:58)
[2022-03-06 08:07] LABS: CARCINOEMBRYONIC ANTIGEN 3.7 ng/mL (0.0-4.7)
== END 2022-03-05 15:20 | disposition home or self-care (01) ==
LOC: JONCCHEMO 11:04
PROVIDERS: ATTEND Internal Medicine Hematology & Oncology
DX: Z51.11 Encounter for antineoplastic chemotherapy (principal); C50.312 Malignant neoplasm of lower-inner quadrant of left female breast
CPT/HCPCS: 36415; 80048; 80076; 82378; 83735; 85025; 86300; 96367; 96413; J9354

== ENCOUNTER 2022-03-26 11:01 | Day surgery (SDC) | payer OTHER ==
[~2022-03-26 11:01] MED LIST changes: +DEXAMETHASONE SODIUM PHOSPHATE 4 MG, DIPHENHYDRAMINE 25 MG in SODIUM CHLORIDE 100 ML IVPB ONE
[2022-03-26 12:09] LABS: BASO % 0.5 % (0-2.0); HEMATOCRIT 42.3 % (32.4-45.2); HEMOGLOBIN 14.2 GM/dL (10.7-15.3); LYMPH % 32.4 % (8-40); MCHC 33.5 g/dl (32.0-36.0); MEAN CELL VOLUME 86.6 fl (80-96); MEAN PLT VOLUME 7.6 fl (7.5-11.1); MONO % 10.5 % (3.8-10.2); NEUT % 54.6 % (42.8-82.8); PLATELET COUNT 223 10^3/uL (134-434); RBC 4.89 M/mm3 (3.60-5.2); WHITE BLOOD COUNT 6.6 K/mm3 (4.0-10.0)
[2022-03-26 12:45] LABS: CALCIUM 9.4 mg/dL (8.5-10.1)
[2022-03-26 12:46] LABS: BLOOD UREA NITROGEN 22.5 mg/dL (7-18)
[2022-03-26 12:47] LABS: MAGNESIUM 1.9 mg/dL (1.8-2.4)
[2022-03-26 12:50] LABS: BILIRUBIN,DIRECT 0.1 mg/dL (0.0-0.2); CREATININE 0.9 mg/dL (0.55-1.3)
[2022-03-26 12:51] LABS: BILIRUBIN,TOTAL 0.6 mg/dL (0.2-1)
[2022-03-26 15:31] VITALS: TEMP 97.9
[2022-03-26 15:39] VITALS: BP 115/50; PULSE 69; RESP 20
[2022-03-26] MEDS ORDERED: PORTA CATH FLUSH 10 ML IVPUSH PRN (15:39)
[2022-03-27 10:08] LABS: CARCINOEMBRYONIC ANTIGEN 3.7 ng/mL (0.0-4.7)
== END 2022-03-26 15:00 | disposition home or self-care (01) ==
LOC: JONCCHEMO 11:01
PROVIDERS: ATTEND Internal Medicine Hematology & Oncology
DX: Z51.11 Encounter for antineoplastic chemotherapy (principal); C50.312 Malignant neoplasm of lower-inner quadrant of left female breast
CPT/HCPCS: 36415; 80048; 80076; 82378; 83735; 85025; 86300; 96367; 96413; J9354

== ENCOUNTER 2022-04-16 10:46 | Day surgery (SDC) | payer OTHER ==
[~2022-04-16 10:46] MED LIST changes: -DEXAMETHASONE SODIUM PHOSPHATE 4 MG, DIPHENHYDRAMINE 25 MG in SODIUM CHLORIDE 100 ML IVPB ONE
[2022-04-16 11:15] LABS: BASO % 0.8 % (0-2.0); EOS % 1.8 % (0-4.5); HEMATOCRIT 44.7 % (32.4-45.2); HEMOGLOBIN 15.1 GM/dL (10.7-15.3); LYMPH % 29.4 % (8-40); MCHC 33.7 g/dl (32.0-36.0); MEAN CELL VOLUME 86.1 fl (80-96); MEAN PLT VOLUME 7.6 fl (7.5-11.1); MONO % 9.6 % (3.8-10.2); NEUT % 58.4 % (42.8-82.8); PLATELET COUNT 241 10^3/uL (134-434); RBC 5.19 M/mm3 (3.60-5.2); RDW 13.9 % (11.6-15.6)
[2022-04-16 11:35] LABS: ALBUMIN 4.1 g/dl (3.4-5.0); BLOOD UREA NITROGEN 22.8 mg/dL (7-18); MAGNESIUM 1.9 mg/dL (1.8-2.4)
[2022-04-16 11:38] LABS: BILIRUBIN,DIRECT 0.2 mg/dL (0.0-0.2); CREATININE 0.9 mg/dL (0.55-1.3)
[2022-04-16 11:40] LABS: BILIRUBIN,TOTAL 0.5 mg/dL (0.2-1); TOT PROT 8.2 g/dl (6.4-8.2)
[2022-04-16 16:12] VITALS: RESP 16; TEMP 98.1
[2022-04-16 16:20] VITALS: BP 108/57; PULSE 74
[2022-04-16] MEDS ORDERED: PORTA CATH FLUSH 10 ML IVPUSH PRN (16:20)
== END 2022-04-16 13:15 | disposition home or self-care (01) ==
LOC: JONCCHEMO 10:46
PROVIDERS: ATTEND Internal Medicine Hematology & Oncology
DX: Z51.11 Encounter for antineoplastic chemotherapy (principal); C50.312 Malignant neoplasm of lower-inner quadrant of left female breast
CPT/HCPCS: 36415; 80048; 80076; 82378; 83735; 85025; 86300; 96367; 96413; J9354

== ENCOUNTER 2022-05-07 11:18 | Day surgery (SDC) | payer OTHER ==
[2022-05-07 11:48] LABS: BASO % 0.5 % (0-2.0); EOS % 1.6 % (0-4.5); HEMATOCRIT 40.5 % (32.4-45.2); HEMOGLOBIN 13.9 GM/dL (10.7-15.3); LYMPH % 35.4 % (8-40); MCH 28.8 pg (25.7-33.7); MCHC 34.2 g/dl (32.0-36.0); MEAN CELL VOLUME 84.1 fl (80-96); MEAN PLT VOLUME 7.8 fl (7.5-11.1); MONO % 10.8 % (3.8-10.2); NEUT % 51.7 % (42.8-82.8); PLATELET COUNT 208 10^3/uL (134-434); RBC 4.82 M/mm3 (3.60-5.2); WHITE BLOOD COUNT 6.2 K/mm3 (4.0-10.0)
[2022-05-07 12:37] LABS: CALCIUM 9.3 mg/dL (8.5-10.1)
[2022-05-07 12:38] LABS: ALBUMIN 3.9 g/dl (3.4-5.0); BLOOD UREA NITROGEN 25.1 mg/dL (7-18); MAGNESIUM 1.8 mg/dL (1.8-2.4)
[2022-05-07 12:40] LABS: BILIRUBIN,DIRECT 0.2 mg/dL (0.0-0.2)
[2022-05-07 12:41] LABS: CREATININE 0.9 mg/dL (0.55-1.3)
[2022-05-07 12:42] LABS: TOT PROT 7.7 g/dl (6.4-8.2)
[2022-05-07 12:43] LABS: BILIRUBIN,TOTAL 0.7 mg/dL (0.2-1)
[2022-05-07 17:55] VITALS: BP 133/70; PULSE 70; RESP 20; TEMP 98.3
[2022-05-07] MEDS ORDERED: PORTA CATH FLUSH 10 ML IVPUSH PRN (17:55)
[2022-05-08 11:09] LABS: CARCINOEMBRYONIC ANTIGEN 3.8 ng/mL (0.0-4.7)
== END 2022-05-07 15:00 | disposition home or self-care (01) ==
LOC: JONCCHEMO 11:18
PROVIDERS: ATTEND Internal Medicine Hematology & Oncology
DX: Z51.11 Encounter for antineoplastic chemotherapy (principal); C50.312 Malignant neoplasm of lower-inner quadrant of left female breast
CPT/HCPCS: 36415; 80048; 80061; 80076; 82378; 83036; 83735; 85025; 86300; 96413; J9354

== ENCOUNTER 2022-05-28 11:10 | Day surgery (SDC) | payer OTHER ==
[~2022-05-28 11:10] MED LIST changes: +DEXAMETHASONE SODIUM PHOSPHATE 4 MG, ONDANSETRON INJECTION 8 MG, DIPHENHYDRAMINE 25 MG ... IVPB ONE; -DEXAMETHASONE SODIUM PHOSPHATE IVPB ONE; -DIPHENHYDRAMINE IVPB ONE; -[UNRECOGNIZED DRUG - OTHER] IVPB ONE
[2022-05-28 11:55] LABS: BASO % 0.6 % (0-2.0); EOS % 1.5 % (0-4.5); HEMATOCRIT 42.9 % (32.4-45.2); HEMOGLOBIN 14.5 GM/dL (10.7-15.3); MCH 28.6 pg (25.7-33.7); MCHC 33.8 g/dl (32.0-36.0); MEAN CELL VOLUME 84.8 fl (80-96); MEAN PLT VOLUME 7.9 fl (7.5-11.1); NEUT % 53.9 % (42.8-82.8); PLATELET COUNT 237 10^3/uL (134-434); RBC 5.05 M/mm3 (3.60-5.2)
[2022-05-28 12:17] LABS: CALCIUM 9.5 mg/dL (8.5-10.1)
[2022-05-28 12:18] LABS: BLOOD UREA NITROGEN 21.7 mg/dL (7-18); MAGNESIUM 1.9 mg/dL (1.8-2.4)
[2022-05-28 12:19] LABS: ALBUMIN 3.9 g/dl (3.4-5.0)
[2022-05-28 12:20] LABS: BILIRUBIN,DIRECT 0.2 mg/dL (0.0-0.2)
[2022-05-28 12:21] LABS: CREATININE 0.9 mg/dL (0.55-1.3)
[2022-05-28 12:22] LABS: BILIRUBIN,TOTAL 1.1 mg/dL (0.2-1); TOT PROT 7.8 g/dl (6.4-8.2)
[2022-05-28 17:28] VITALS: RESP 20; TEMP 98.1
[2022-05-28 17:36] VITALS: BP 96/53; PULSE 87
[2022-05-28] MEDS ORDERED: PORTA CATH FLUSH 10 ML IVPUSH PRN (17:36)
[2022-05-29 08:09] LABS: CARCINOEMBRYONIC ANTIGEN 4.6 ng/mL (0.0-4.7)
== END 2022-05-28 14:30 | disposition home or self-care (01) ==
LOC: JONCCHEMO 11:10
PROVIDERS: ATTEND Internal Medicine Hematology & Oncology
DX: Z51.11 Encounter for antineoplastic chemotherapy (principal); C50.312 Malignant neoplasm of lower-inner quadrant of left female breast
CPT/HCPCS: 36415; 80048; 80076; 82378; 83735; 85025; 86300; 96367; 96413; J9354

== ENCOUNTER 2022-06-18 10:28 | Day surgery (SDC) | payer OTHER ==
[2022-06-18 11:34] LABS: BASO % 0.6 % (0-2.0); EOS % 1.6 % (0-4.5); HEMATOCRIT 44.6 % (32.4-45.2); HEMOGLOBIN 15.3 GM/dL (10.7-15.3); LYMPH % 30.3 % (8-40); MCH 29.3 pg (25.7-33.7); MCHC 34.3 g/dl (32.0-36.0); MEAN CELL VOLUME 85.5 fl (80-96); MEAN PLT VOLUME 8.4 fl (7.5-11.1); MONO % 11.6 % (3.8-10.2); NEUT % 55.9 % (42.8-82.8); PLATELET COUNT 222 10^3/uL (134-434); RBC 5.21 M/mm3 (3.60-5.2); WHITE BLOOD COUNT 6.7 K/mm3 (4.0-10.0)
[2022-06-18 12:02] LABS: POTASSIUM 4.5 mmol/L (3.5-5.1)
[2022-06-18 12:04] LABS: CALCIUM 9.7 mg/dL (8.5-10.1)
[2022-06-18 12:05] LABS: ALBUMIN 4.1 g/dl (3.4-5.0); BLOOD UREA NITROGEN 18.4 mg/dL (7-18); MAGNESIUM 2.1 mg/dL (1.8-2.4)
[2022-06-18 12:07] LABS: BILIRUBIN,DIRECT 0.2 mg/dL (0.0-0.2)
[2022-06-18 12:08] LABS: CREATININE 0.9 mg/dL (0.55-1.3)
[2022-06-18 12:09] LABS: BILIRUBIN,TOTAL 0.7 mg/dL (0.2-1); TOT PROT 8.1 g/dl (6.4-8.2)
[2022-06-18] MEDS ORDERED: PORTA CATH FLUSH 10 ML IVPUSH PRN (17:18)
[2022-06-18 17:19] VITALS: BP 119/65; PULSE 78; RESP 18; TEMP 98.2
== END 2022-06-18 14:30 | disposition home or self-care (01) ==
LOC: JONCCHEMO 10:28 → J7W 10:32 → JONCCHEMO 14:30
PROVIDERS: ATTEND Internal Medicine Hematology & Oncology
DX: Z51.11 Encounter for antineoplastic chemotherapy (principal); C50.312 Malignant neoplasm of lower-inner quadrant of left female breast
CPT/HCPCS: 36415; 80048; 80076; 82378; 83735; 85025; 86300; 96367; 96413; J9354

== ENCOUNTER 2022-07-09 10:59 | Day surgery (SDC) | payer OTHER ==
[2022-07-09 11:27] LABS: BASO % 0.1 % (0-2.0); HEMATOCRIT 42.5 % (32.4-45.2); HEMOGLOBIN 14.2 GM/dL (10.7-15.3); LYMPH % 17.1 % (8-40); MCH 28.4 pg (25.7-33.7); MCHC 33.5 g/dl (32.0-36.0); MEAN PLT VOLUME 8.2 fl (7.5-11.1); NEUT % 74.8 % (42.8-82.8); PLATELET COUNT 237 10^3/uL (134-434); WHITE BLOOD COUNT 8.8 K/mm3 (4.0-10.0)
[2022-07-09 11:41] LABS: POTASSIUM 4.4 mmol/L (3.5-5.1)
[2022-07-09 11:43] LABS: ALBUMIN 4.1 g/dl (3.4-5.0); BLOOD UREA NITROGEN 17.3 mg/dL (7-18); CALCIUM 9.9 mg/dL (8.5-10.1); MAGNESIUM 2.1 mg/dL (1.8-2.4)
[2022-07-09 11:46] LABS: BILIRUBIN,DIRECT 0.2 mg/dL (0.0-0.2); CREATININE 0.9 mg/dL (0.55-1.3)
[2022-07-09 11:48] LABS: BILIRUBIN,TOTAL 0.7 mg/dL (0.2-1); TOT PROT 8.2 g/dl (6.4-8.2)
[2022-07-09 18:35] VITALS: RESP 18; TEMP 98.3
[2022-07-09 18:42] VITALS: BP 121/49; PULSE 62
[2022-07-09] MEDS ORDERED: PORTA CATH FLUSH 10 ML IVPUSH PRN (18:42)
[2022-07-10 08:07] LABS: CARCINOEMBRYONIC ANTIGEN 4.9 ng/mL (0.0-4.7)
== END 2022-07-09 14:00 | disposition home or self-care (01) ==
LOC: JONCCHEMO 10:59 → J7W 11:00 → JONCCHEMO 14:00
PROVIDERS: ATTEND Internal Medicine Hematology & Oncology
DX: Z51.11 Encounter for antineoplastic chemotherapy (principal); C50.312 Malignant neoplasm of lower-inner quadrant of left female breast
CPT/HCPCS: 36415; 80048; 80076; 82378; 83735; 85025; 86300; 96367; 96413; J9354

== ENCOUNTER 2022-07-30 10:12 | Day surgery (SDC) | payer OTHER ==
[~2022-07-30 10:12] MED LIST changes: -ADO TRASTUZUMAB EMTANSINE IVPB ONE; -DEXAMETHASONE SODIUM PHOSPHATE 4 MG, ONDANSETRON INJECTION 8 MG, DIPHENHYDRAMINE 25 MG ... IVPB ONE; +DEXAMETHASONE SODIUM PHOSPHATE IVPB ONE; +DIPHENHYDRAMINE IVPB ONE; -SODIUM CHLORIDE IVPB ONE; +[UNRECOGNIZED DRUG - OTHER] IVPB ONE
[2022-07-30] MEDS ORDERED: ADO TRASTUZUMAB EMTANSINE IVPB ONE (10:30)
[2022-07-30] MEDS ORDERED: SODIUM CHLORIDE IVPB ONE (10:30)
[2022-07-30 12:04] LABS: BASO % 0.4 % (0-2.0); EOS % 1.5 % (0-4.5); HEMATOCRIT 42.9 % (32.4-45.2); HEMOGLOBIN 14.6 GM/dL (10.7-15.3); LYMPH % 27.3 % (8-40); MCH 28.6 pg (25.7-33.7); MCHC 33.9 g/dl (32.0-36.0); MEAN CELL VOLUME 84.3 fl (80-96); MEAN PLT VOLUME 7.6 fl (7.5-11.1); MONO % 11.8 % (3.8-10.2); PLATELET COUNT 198 10^3/uL (134-434); RDW 14.3 % (11.6-15.6); WHITE BLOOD COUNT 6.7 K/mm3 (4.0-10.0)
[2022-07-30 12:26] LABS: POTASSIUM 4.5 mmol/L (3.5-5.1)
[2022-07-30 12:29] LABS: ALBUMIN 3.9 g/dl (3.4-5.0); BLOOD UREA NITROGEN 18.2 mg/dL (7-18); MAGNESIUM 1.9 mg/dL (1.8-2.4)
[2022-07-30 12:31] LABS: BILIRUBIN,DIRECT 0.2 mg/dL (0.0-0.2)
[2022-07-30 12:32] LABS: CREATININE 0.8 mg/dL (0.55-1.3)
[2022-07-30 12:33] LABS: BILIRUBIN,TOTAL 0.8 mg/dL (0.2-1); TOT PROT 7.7 g/dl (6.4-8.2)
[2022-07-30 16:15] VITALS: BP 107/62; PULSE 77; RESP 18; TEMP 98.8
[2022-07-30] MEDS ORDERED: PORTA CATH FLUSH 10 ML IVPUSH PRN (16:15)
[2022-07-31 10:08] LABS: CARCINOEMBRYONIC ANTIGEN 5.1 ng/mL (0.0-4.7)
== END 2022-07-30 14:45 | disposition home or self-care (01) ==
LOC: JONCCHEMO 10:12 → J7W 10:16 → JONCCHEMO 14:45
PROVIDERS: ATTEND Internal Medicine Hematology & Oncology
DX: Z51.11 Encounter for antineoplastic chemotherapy (principal); C50.312 Malignant neoplasm of lower-inner quadrant of left female breast
CPT/HCPCS: 36415; 80048; 80076; 82378; 83735; 85025; 86300; 96367; 96413; J9354

== ENCOUNTER 2022-08-20 10:10 | Day surgery (SDC) | payer OTHER ==
[~2022-08-20 10:10] MED LIST changes: +ADO TRASTUZUMAB EMTANSINE IVPB ONE; -DEXAMETHASONE SODIUM PHOSPHATE IVPB ONE; -DIPHENHYDRAMINE IVPB ONE; +SODIUM CHLORIDE IVPB ONE; -[UNRECOGNIZED DRUG - OTHER] IVPB ONE
[2022-08-20 10:34] LABS: BASO % 0.9 % (0-2.0); EOS % 1.6 % (0-4.5); HEMATOCRIT 45.8 % (32.4-45.2); LYMPH % 27.9 % (8-40); MCH 28.3 pg (25.7-33.7); MCHC 32.8 g/dl (32.0-36.0); MEAN CELL VOLUME 86.4 fl (80-96); MEAN PLT VOLUME 7.9 fl (7.5-11.1); MONO % 11.2 % (3.8-10.2); NEUT % 58.4 % (42.8-82.8); PLATELET COUNT 235 10^3/uL (134-434); RDW 13.9 % (11.6-15.6); WHITE BLOOD COUNT 7.5 K/mm3 (4.0-10.0)
[2022-08-20 10:44] LABS: CALCIUM 10.4 mg/dL (8.5-10.1)
[2022-08-20 10:45] LABS: ALBUMIN 4.1 g/dl (3.4-5.0); BLOOD UREA NITROGEN 17.8 mg/dL (7-18)
[2022-08-20 10:47] LABS: BILIRUBIN,DIRECT 0.1 mg/dL (0.0-0.2)
[2022-08-20 10:50] LABS: BILIRUBIN,TOTAL 0.8 mg/dL (0.2-1)
[2022-08-20] MEDS ORDERED: DEXAMETHASONE SODIUM PHOSPHATE IVPB ONE (11:45)
[2022-08-20] MEDS ORDERED: DIPHENHYDRAMINE IVPB ONE (11:45)
[2022-08-20] MEDS ORDERED: [UNRECOGNIZED DRUG - OTHER] IVPB ONE (11:45)
[2022-08-20 17:59] VITALS: BP 101/53; PULSE 70; RESP 18; TEMP 98.6
[2022-08-20] MEDS ORDERED: PORTA CATH FLUSH 10 ML IVPUSH PRN (17:59)
[2022-08-21] MEDS ORDERED: [UNRECOGNIZED DRUG - OTHER] IVPB ONE (09:30)
[2022-08-21] MEDS ORDERED: DIPHENHYDRAMINE IVPB ONE (09:30)
[2022-08-21] MEDS ORDERED: DEXAMETHASONE SODIUM PHOSPHATE IVPB ONE (09:30)
== END 2022-08-20 13:35 | disposition home or self-care (01) ==
LOC: JONCCHEMO 10:10 → J7W 10:11 → JONCCHEMO 13:35
PROVIDERS: ATTEND Internal Medicine Hematology & Oncology
DX: Z51.11 Encounter for antineoplastic chemotherapy (principal); C50.312 Malignant neoplasm of lower-inner quadrant of left female breast; C79.51 Secondary malignant neoplasm of bone
CPT/HCPCS: 36415; 80048; 80076; 82378; 83735; 85025; 86300; 96367; 96413; J9354

== ENCOUNTER 2022-09-10 10:20 | Day surgery (SDC) | payer OTHER ==
[~2022-09-10 10:20] MED LIST changes: -ADO TRASTUZUMAB EMTANSINE IVPB ONE; +DEXAMETHASONE SODIUM PHOSPHATE IVPB ONE; +DIPHENHYDRAMINE IVPB ONE; -SODIUM CHLORIDE IVPB ONE; +[UNRECOGNIZED DRUG - OTHER] IVPB ONE
[2022-09-10] MEDS ORDERED: SODIUM CHLORIDE IVPB ONE (10:30)
[2022-09-10] MEDS ORDERED: ADO TRASTUZUMAB EMTANSINE IVPB ONE (10:30)
[2022-09-10 11:06] LABS: BASO % 0.6 % (0-2.0); EOS % 1.9 % (0-4.5); HEMATOCRIT 45.1 % (32.4-45.2); HEMOGLOBIN 14.5 GM/dL (10.7-15.3); LYMPH % 31.9 % (8-40); MCH 28.2 pg (25.7-33.7); MCHC 32.3 g/dl (32.0-36.0); MEAN CELL VOLUME 87.3 fl (80-96); MEAN PLT VOLUME 8.2 fl (7.5-11.1); MONO % 12.1 % (3.8-10.2); NEUT % 53.5 % (42.8-82.8); PLATELET COUNT 219 10^3/uL (134-434); RBC 5.16 M/mm3 (3.60-5.2); RDW 14.4 % (11.6-15.6); WHITE BLOOD COUNT 5.6 K/mm3 (4.0-10.0)
[2022-09-10 11:28] LABS: POTASSIUM 4.1 mmol/L (3.5-5.1)
[2022-09-10 11:30] LABS: BLOOD UREA NITROGEN 21.2 mg/dL (7-18); CALCIUM 9.5 mg/dL (8.5-10.1)
[2022-09-10 11:33] LABS: BILIRUBIN,DIRECT 0.2 mg/dL (0.0-0.2)
[2022-09-10 11:34] LABS: CREATININE 0.9 mg/dL (0.55-1.3)
[2022-09-10 11:35] LABS: BILIRUBIN,TOTAL 0.6 mg/dL (0.2-1); TOT PROT 7.7 g/dl (6.4-8.2)
[2022-09-10 16:26] VITALS: BP 125/64; PULSE 69; RESP 20; TEMP 98.1
[2022-09-10] MEDS ORDERED: PORTA CATH FLUSH 10 ML IVPUSH PRN (16:26)
== END 2022-09-10 13:30 | disposition home or self-care (01) ==
LOC: JONCCHEMO 10:20 → J7W 10:23 → JONCCHEMO 13:30
PROVIDERS: ATTEND Internal Medicine Hematology & Oncology
DX: Z51.11 Encounter for antineoplastic chemotherapy (principal); C50.312 Malignant neoplasm of lower-inner quadrant of left female breast; C79.51 Secondary malignant neoplasm of bone
CPT/HCPCS: 36415; 80048; 80076; 82378; 83735; 85025; 86300; 96367; 96413; J9354

== ENCOUNTER 2022-10-08 10:23 | Day surgery (SDC) | payer OTHER ==
[~2022-10-08 10:23] MED LIST changes: +ADO TRASTUZUMAB EMTANSINE IVPB ONE; +SODIUM CHLORIDE IVPB ONE
[2022-10-08 11:03] LABS: BASO % 0.6 % (0-2.0); EOS % 1.8 % (0-4.5); HEMATOCRIT 43.1 % (32.4-45.2); HEMOGLOBIN 14.4 GM/dL (10.7-15.3); LYMPH % 34.6 % (8-40); MCH 28.5 pg (25.7-33.7); MCHC 33.4 g/dl (32.0-36.0); MEAN CELL VOLUME 85.2 fl (80-96); MEAN PLT VOLUME 7.6 fl (7.5-11.1); MONO % 11.5 % (3.8-10.2); NEUT % 51.5 % (42.8-82.8); PLATELET COUNT 196 10^3/uL (134-434); RBC 5.06 M/mm3 (3.60-5.2); RDW 14.5 % (11.6-15.6); WHITE BLOOD COUNT 5.3 K/mm3 (4.0-10.0)
[2022-10-08 11:32] LABS: POTASSIUM 4.5 mmol/L (3.5-5.1)
[2022-10-08 11:34] LABS: ALBUMIN 4.1 g/dl (3.4-5.0); CALCIUM 9.3 mg/dL (8.5-10.1)
[2022-10-08 11:35] LABS: BLOOD UREA NITROGEN 18.3 mg/dL (7-18); MAGNESIUM 1.9 mg/dL (1.8-2.4)
[2022-10-08 11:37] LABS: BILIRUBIN,DIRECT 0.2 mg/dL (0.0-0.2); CREATININE 0.9 mg/dL (0.55-1.3)
[2022-10-08 11:39] LABS: BILIRUBIN,TOTAL 0.6 mg/dL (0.2-1); TOT PROT 7.9 g/dl (6.4-8.2)
[2022-10-08] MEDS ORDERED: PORTA CATH FLUSH 10 ML IVPUSH PRN (16:12)
[2022-10-08 16:13] VITALS: BP 136/50; PULSE 76; RESP 18; TEMP 97.8
[2022-10-09 08:08] LABS: CARCINOEMBRYONIC ANTIGEN 5.6 ng/mL (0.0-4.7)
== END 2022-10-08 14:10 | disposition home or self-care (01) ==
LOC: JONCCHEMO 10:23 → J7W 10:25 → JONCCHEMO 14:10
PROVIDERS: ATTEND Internal Medicine Hematology & Oncology
DX: Z51.11 Encounter for antineoplastic chemotherapy (principal); C50.912 Malignant neoplasm of unspecified site of left female breast; Z17.0 Estrogen receptor positive status [ER+]
CPT/HCPCS: 36415; 80048; 80076; 82378; 83735; 85025; 86300; 96367; 96413; J9354

== ENCOUNTER 2022-11-19 10:54 | Day surgery (SDC) | payer OTHER ==
[2022-11-19 11:10] LABS: BASO % 0.5 % (0-2.0); HEMATOCRIT 43.4 % (32.4-45.2); HEMOGLOBIN 14.9 GM/dL (10.7-15.3); LYMPH % 33.7 % (8-40); MCH 29.1 pg (25.7-33.7); MCHC 34.3 g/dl (32.0-36.0); MEAN CELL VOLUME 84.8 fl (80-96); MEAN PLT VOLUME 7.3 fl (7.5-11.1); MONO % 10.9 % (3.8-10.2); NEUT % 53.9 % (42.8-82.8); PLATELET COUNT 203 10^3/uL (134-434); RBC 5.12 M/mm3 (3.60-5.2); RDW 14.1 % (11.6-15.6); WHITE BLOOD COUNT 6.8 K/mm3 (4.0-10.0)
[2022-11-19 11:58] LABS: ALBUMIN 4.2 g/dl (3.4-5.0); BLOOD UREA NITROGEN 20.8 mg/dL (7-18); POTASSIUM 4.1 mmol/L (3.5-5.1)
[2022-11-19 12:04] LABS: CREATININE 0.8 mg/dL (0.55-1.3)
[2022-11-19 12:06] LABS: BILIRUBIN,DIRECT 0.2 mg/dL (0.0-0.2)
[2022-11-19 12:07] LABS: BILIRUBIN,TOTAL 0.8 mg/dL (0.2-1); TOT PROT 7.9 g/dl (6.4-8.2)
[2022-11-19 12:23] LABS: CALCIUM 9.1 mg/dL (8.5-10.1)
[2022-11-19 12:24] LABS: MAGNESIUM 1.8 mg/dL (1.8-2.4)
[2022-11-19 17:48] VITALS: BP 129/54; PULSE 64; RESP 20; TEMP 97.2
[2022-11-19] MEDS ORDERED: PORTA CATH FLUSH 10 ML IVPUSH PRN (17:48)
[2022-11-20 08:06] LABS: CARCINOEMBRYONIC ANTIGEN 5.2 ng/mL (0.0-4.7)
== END 2022-11-19 14:30 | disposition home or self-care (01) ==
LOC: JONCCHEMO 10:54 → J7W 11:02 → JONCCHEMO 14:30
PROVIDERS: ATTEND Internal Medicine Hematology & Oncology
DX: Z51.11 Encounter for antineoplastic chemotherapy (principal); C50.312 Malignant neoplasm of lower-inner quadrant of left female breast; Z17.0 Estrogen receptor positive status [ER+]; C79.51 Secondary malignant neoplasm of bone
CPT/HCPCS: 36415; 80048; 80076; 82378; 83735; 85025; 86300; 96367; 96413; J9354

== ENCOUNTER 2022-12-10 10:45 | Day surgery (SDC) | payer OTHER ==
[2022-12-10 11:17] LABS: BASO % 0.4 % (0-2.0); EOS % 1.3 % (0-4.5); HEMATOCRIT 48.4 % (32.4-45.2); HEMOGLOBIN 15.6 GM/dL (10.7-15.3); LYMPH % 28.5 % (8-40); MCH 28.1 pg (25.7-33.7); MCHC 32.3 g/dl (32.0-36.0); MEAN CELL VOLUME 86.9 fl (80-96); MEAN PLT VOLUME 7.6 fl (7.5-11.1); MONO % 11.2 % (3.8-10.2); NEUT % 58.6 % (42.8-82.8); PLATELET COUNT 234 10^3/uL (134-434); RBC 5.57 M/mm3 (3.60-5.2); RDW 14.3 % (11.6-15.6); WHITE BLOOD COUNT 7.7 K/mm3 (4.0-10.0)
[2022-12-10 11:40] LABS: CALCIUM 9.7 mg/dL (8.5-10.1)
[2022-12-10 11:41] LABS: ALBUMIN 4.2 g/dl (3.4-5.0); BLOOD UREA NITROGEN 21.5 mg/dL (7-18); MAGNESIUM 1.9 mg/dL (1.8-2.4)
[2022-12-10 11:43] LABS: BILIRUBIN,DIRECT 0.2 mg/dL (0.0-0.2)
[2022-12-10 11:45] LABS: BILIRUBIN,TOTAL 0.8 mg/dL (0.2-1); TOT PROT 8.3 g/dl (6.4-8.2)
[2022-12-10 15:09] VITALS: RESP 18; TEMP 97.8
[2022-12-10 15:21] VITALS: BP 95/46; PULSE 77
[2022-12-10] MEDS ORDERED: PORTA CATH FLUSH 10 ML IVPUSH PRN (15:21)
== END 2022-12-10 13:45 | disposition home or self-care (01) ==
LOC: JONCCHEMO 10:45 → J7W 10:49 → JONCCHEMO 13:45
PROVIDERS: ATTEND Internal Medicine Hematology & Oncology
DX: Z51.11 Encounter for antineoplastic chemotherapy (principal); C50.312 Malignant neoplasm of lower-inner quadrant of left female breast; D70.1 Agranulocytosis secondary to cancer chemotherapy; Z17.0 Estrogen receptor positive status [ER+]
CPT/HCPCS: 36415; 80048; 80076; 82378; 83735; 85025; 86300; 96367; 96413; J9354

== ENCOUNTER 2023-01-07 09:40 | Day surgery (SDC) | payer OTHER ==
[~2023-01-07 09:40] MED LIST changes: -ADO TRASTUZUMAB EMTANSINE IVPB ONE; -SODIUM CHLORIDE IVPB ONE
[2023-01-07] MEDS ORDERED: SODIUM CHLORIDE IVPB ONE (10:00)
[2023-01-07] MEDS ORDERED: ADO TRASTUZUMAB EMTANSINE IVPB ONE (10:00)
[2023-01-07 10:33] LABS: BASO % 0.6 % (0-2.0); EOS % 1.9 % (0-4.5); HEMATOCRIT 43.5 % (32.4-45.2); HEMOGLOBIN 14.8 GM/dL (10.7-15.3); MCH 29.1 pg (25.7-33.7); MCHC 34.1 g/dl (32.0-36.0); MEAN CELL VOLUME 85.5 fl (80-96); MEAN PLT VOLUME 7.7 fl (7.5-11.1); MONO % 11.6 % (3.8-10.2); NEUT % 53.9 % (42.8-82.8); PLATELET COUNT 214 10^3/uL (134-434); RBC 5.09 M/mm3 (3.60-5.2); RDW 14.3 % (11.6-15.6); WHITE BLOOD COUNT 6.4 K/mm3 (4.0-10.0)
[2023-01-07 10:55] LABS: POTASSIUM 4.1 mmol/L (3.5-5.1)
[2023-01-07 10:59] LABS: BLOOD UREA NITROGEN 22.3 mg/dL (7-18); CALCIUM 9.5 mg/dL (8.5-10.1)
[2023-01-07 11:01] LABS: BILIRUBIN,DIRECT 0.2 mg/dL (0.0-0.2)
[2023-01-07 11:02] LABS: CREATININE 0.9 mg/dL (0.55-1.3); MAGNESIUM 1.8 mg/dL (1.8-2.4)
[2023-01-07 11:04] LABS: TOT PROT 7.9 g/dl (6.4-8.2)
[2023-01-07 11:08] LABS: BILIRUBIN,TOTAL 0.8 mg/dL (0.2-1)
[2023-01-07 16:20] VITALS: BP 107/47; PULSE 77; RESP 18; TEMP 97.5
[2023-01-07] MEDS ORDERED: PORTA CATH FLUSH 10 ML IVPUSH PRN (16:20)
== END 2023-01-07 13:30 | disposition home or self-care (01) ==
LOC: JONCCHEMO 09:40 → J7W 09:42 → JONCCHEMO 13:30
PROVIDERS: ATTEND Internal Medicine Hematology & Oncology
DX: Z51.11 Encounter for antineoplastic chemotherapy (principal); C50.312 Malignant neoplasm of lower-inner quadrant of left female breast
CPT/HCPCS: 36415; 80048; 80076; 82378; 83735; 85025; 86300; 96367; 96413; J9354

== ENCOUNTER 2023-01-17 14:58 | Emergency (ER) | payer OTHER ==
[2023-01-17 15:01] VITALS: BMI 27.6
[2023-01-17] MEDS ORDERED: METOCLOPRAMIDE HCL INJECTION 10 MG/2 ML VIAL IVPUSH ONE (16:15)
[2023-01-17] MEDS ORDERED: SODIUM CHLORIDE 0.9% 500 ML INFUS.BAG IV ONE (16:15)
[2023-01-17] MEDS ORDERED: ACETAMINOPHEN 1000 MG/100 ML BAG IVPB ONE (16:15)
[2023-01-17] MEDS ORDERED: METOCLOPRAMIDE HCL INJECTION 10 MG/2 ML VIAL ONE (16:24)
[2023-01-17] MEDS ORDERED: ACETAMINOPHEN INJECTION 100 ML IVPB ONE (16:24)
[2023-01-17 16:47] LABS: BASO % 0.6 % (0-2.0); EOS % 1.4 % (0-4.5); HEMATOCRIT 46.3 % (32.4-45.2); HEMOGLOBIN 15.3 GM/dL (10.7-15.3); LYMPH % 33.8 % (8-40); MCH 28.9 pg (25.7-33.7); MEAN CELL VOLUME 87.7 fl (80-96); MEAN PLT VOLUME 7.7 fl (7.5-11.1); NEUT % 51.2 % (42.8-82.8); PLATELET COUNT 176 10^3/uL (134-434); RBC 5.28 M/mm3 (3.60-5.2); RDW 14.6 % (11.6-15.6)
[2023-01-17 17:13] LABS: POTASSIUM 4.2 mmol/L (3.5-5.1)
[2023-01-17 17:15] LABS: CALCIUM 10.3 mg/dL (8.5-10.1)
[2023-01-17 17:16] LABS: ALBUMIN 4.2 g/dl (3.4-5.0); BLOOD UREA NITROGEN 30.8 mg/dL (7-18)
[2023-01-17 17:21] LABS: BILIRUBIN,TOTAL 0.6 mg/dL (0.2-1)
[2023-01-17] MEDS ORDERED: KETOROLAC TROMETHAMINE 15 MG/ML VIAL IVPUSH ONE (19:53)
[2023-01-17] MEDS ORDERED: KETOROLAC TROMETHAMINE 15 MG/ML VIAL ONE (20:26)
[2023-01-17 20:39] VITALS: BP 134/78; PULSE 72; RESP 19; TEMP 97.9
== END 2023-01-17 20:39 | disposition home or self-care (01) ==
LOC: JER 14:58
PROC: 3E033NZ Introduction of Analgesics, Hypnotics, Sedatives into Peripheral Vein, Percutaneous Approach (ICD-10-PCS; principal; 2023-01-17)
PROC: 3E0333Z Introduction of Anti-inflammatory into Peripheral Vein, Percutaneous Approach (ICD-10-PCS; 2023-01-17)
PROC: 3E033GC Introduction of Other Therapeutic Substance into Peripheral Vein, Percutaneous Approach (ICD-10-PCS; 2023-01-17)
DX: R51.9 Headache, unspecified (principal); H53.71 Glare sensitivity; F40.298 Other specified phobia; G43.919 Migraine, unspecified, intractable, without status migrainosus
CPT/HCPCS: 36415; 70450-TC; 80053; 85025; 99284-25

== ENCOUNTER 2023-01-28 10:43 | Day surgery (SDC) | payer OTHER ==
[~2023-01-28 10:43] MED LIST changes: +ADO TRASTUZUMAB EMTANSINE IVPB ONE; +SODIUM CHLORIDE IVPB ONE
[2023-01-28 11:19] LABS: BASO % 0.6 % (0-2.0); EOS % 1.8 % (0-4.5); HEMATOCRIT 46.5 % (32.4-45.2); HEMOGLOBIN 15.3 GM/dL (10.7-15.3); MCH 28.8 pg (25.7-33.7); MCHC 32.8 g/dl (32.0-36.0); MEAN CELL VOLUME 87.8 fl (80-96); MEAN PLT VOLUME 7.6 fl (7.5-11.1); MONO % 11.4 % (3.8-10.2); NEUT % 47.2 % (42.8-82.8); PLATELET COUNT 217 10^3/uL (134-434); RDW 14.4 % (11.6-15.6); WHITE BLOOD COUNT 6.9 K/mm3 (4.0-10.0)
[2023-01-28 11:49] LABS: POTASSIUM 4.3 mmol/L (3.5-5.1)
[2023-01-28 11:57] LABS: BILIRUBIN,TOTAL 0.8 mg/dL (0.2-1); BLOOD UREA NITROGEN 22.8 mg/dL (7-18)
[2023-01-28 11:58] LABS: CALCIUM 10.1 mg/dL (8.5-10.1); TOT PROT 8.1 g/dl (6.4-8.2)
[2023-01-28 11:59] LABS: ALBUMIN 4.2 g/dl (3.4-5.0); BILIRUBIN,DIRECT 0.2 mg/dL (0.0-0.2)
[2023-01-28 17:16] VITALS: BP 132/54; PULSE 132; RESP 79; TEMP 97.8
[2023-01-28] MEDS ORDERED: PORTA CATH FLUSH 10 ML IVPUSH PRN ×2 (17:16→17:23)
[2023-01-29 08:16] LABS: CARCINOEMBRYONIC ANTIGEN 6.3 ng/mL (0.0-4.7)
== END 2023-01-28 14:00 | disposition home or self-care (01) ==
LOC: JONCCHEMO 10:43 → J7W 10:47 → JONCCHEMO 14:00
PROVIDERS: ATTEND Internal Medicine Hematology & Oncology
DX: Z51.11 Encounter for antineoplastic chemotherapy (principal); C50.312 Malignant neoplasm of lower-inner quadrant of left female breast
CPT/HCPCS: 36415; 80048; 80076; 82378; 83735; 85025; 86300; 96367; 96413; J9354

== ENCOUNTER 2023-02-25 11:08 | Day surgery (SDC) | payer OTHER ==
[2023-02-25 11:42] LABS: BASO % 0.7 % (0-2.0); EOS % 2.6 % (0-4.5); HEMATOCRIT 44.1 % (32.4-45.2); LYMPH % 35.8 % (8-40); MCH 29.4 pg (25.7-33.7); MEAN CELL VOLUME 86.6 fl (80-96); MEAN PLT VOLUME 7.7 fl (7.5-11.1); MONO % 11.1 % (3.8-10.2); NEUT % 49.8 % (42.8-82.8); PLATELET COUNT 197 10^3/uL (134-434); RBC 5.09 M/mm3 (3.60-5.2); RDW 14.3 % (11.6-15.6)
[2023-02-25 12:04] LABS: POTASSIUM 4.1 mmol/L (3.5-5.1)
[2023-02-25 12:06] LABS: BLOOD UREA NITROGEN 18.2 mg/dL (7-18); CALCIUM 9.7 mg/dL (8.5-10.1)
[2023-02-25 12:07] LABS: MAGNESIUM 1.8 mg/dL (1.8-2.4)
[2023-02-25 12:09] LABS: BILIRUBIN,DIRECT 0.2 mg/dL (0.0-0.2); CREATININE 0.8 mg/dL (0.55-1.3)
[2023-02-25 12:11] LABS: BILIRUBIN,TOTAL 0.8 mg/dL (0.2-1); TOT PROT 7.8 g/dl (6.4-8.2)
[2023-02-25 17:53] VITALS: RESP 18; TEMP 98
[2023-02-25 18:01] VITALS: BP 109/80; PULSE 62
[2023-02-25] MEDS ORDERED: PORTA CATH FLUSH 10 ML IVPUSH PRN (18:01)
[2023-02-26 10:07] LABS: CARCINOEMBRYONIC ANTIGEN 5.5 ng/mL (0.0-4.7)
== END 2023-02-25 14:00 | disposition home or self-care (01) ==
LOC: JONCCHEMO 11:08 → J7W 11:19 → JONCCHEMO 14:00
PROVIDERS: ATTEND Internal Medicine Hematology & Oncology
DX: Z51.11 Encounter for antineoplastic chemotherapy (principal); C50.312 Malignant neoplasm of lower-inner quadrant of left female breast
CPT/HCPCS: 36415; 80048; 80076; 82378; 83735; 85025; 86300; 96367; 96413; J9354

== ENCOUNTER 2023-03-18 10:36 | Day surgery (SDC) | payer OTHER ==
[2023-03-18 12:05] LABS: BASO % 0.6 % (0-2.0); EOS % 3.4 % (0-4.5); HEMATOCRIT 41.5 % (32.4-45.2); HEMOGLOBIN 14.1 GM/dL (10.7-15.3); LYMPH % 32.1 % (8-40); MCH 29.5 pg (25.7-33.7); MEAN CELL VOLUME 86.5 fl (80-96); MONO % 12.2 % (3.8-10.2); NEUT % 51.7 % (42.8-82.8); PLATELET COUNT 193 10^3/uL (134-434); RBC 4.79 M/mm3 (3.60-5.2); RDW 14.3 % (11.6-15.6); WHITE BLOOD COUNT 5.6 K/mm3 (4.0-10.0)
[2023-03-18 12:23] LABS: POTASSIUM 4.3 mmol/L (3.5-5.1)
[2023-03-18 12:24] LABS: CALCIUM 9.3 mg/dL (8.5-10.1)
[2023-03-18 12:25] LABS: ALBUMIN 3.9 g/dl (3.4-5.0); BLOOD UREA NITROGEN 18.5 mg/dL (7-18); MAGNESIUM 1.8 mg/dL (1.8-2.4)
[2023-03-18 12:27] LABS: BILIRUBIN,DIRECT 0.2 mg/dL (0.0-0.2)
[2023-03-18 12:28] LABS: CREATININE 0.8 mg/dL (0.55-1.3)
[2023-03-18 12:29] LABS: TOT PROT 7.5 g/dl (6.4-8.2)
[2023-03-18 12:30] LABS: BILIRUBIN,TOTAL 0.8 mg/dL (0.2-1)
[2023-03-18] MEDS: DIPHENHYDRAMINE IVPB ONE (12:38)
[2023-03-18] MEDS: DEXAMETHASONE SODIUM PHOSPHATE IVPB ONE (12:38)
[2023-03-18] MEDS: [UNRECOGNIZED DRUG - OTHER] IVPB ONE (12:38)
[2023-03-18] MEDS: ACETAMINOPHEN 325 MG TABLET (FP) PO ONE (12:42)
[2023-03-18] MEDS: ADO TRASTUZUMAB EMTANSINE IVPB ONE (13:12)
[2023-03-18] MEDS: SODIUM CHLORIDE IVPB ONE (13:12)
[2023-03-18] MEDS: PORTA CATH FLUSH 10 ML IVPUSH PRN (13:55)
[2023-03-18 16:20] VITALS: RESP 18; TEMP 98.1
[2023-03-18 16:45] VITALS: BP 122/55; PULSE 75
== END 2023-03-18 14:00 | disposition home or self-care (01) ==
LOC: JONCCHEMO 10:36 → J7W 10:38 → JONCCHEMO 14:00
PROVIDERS: ATTEND Internal Medicine Hematology & Oncology
DX: Z51.11 Encounter for antineoplastic chemotherapy (principal); C50.312 Malignant neoplasm of lower-inner quadrant of left female breast
CPT/HCPCS: 36415; 80048; 80076; 82378; 83735; 85025; 86300; 96367; 96413; J9354

== ENCOUNTER 2023-04-08 10:22 | Day surgery (SDC) | payer OTHER ==
[2023-04-08 11:09] LABS: EPI CELLS 13 /uL (0-25.1); HYALINE CASTS 0 /uL (0-3.1); PH,URINE 5.5 (5.0-8.0); URINE APPEARANCE CLEAR; URINE BACTERIA 32 /uL (0-1359); URINE BILIRUBIN NEGATIVE (NEGATIVE); URINE COLOR YELLOW; URINE GLUCOSE (UA) NEGATIVE (NEGATIVE); URINE KETONE NEGATIVE (NEGATIVE); URINE LEUK ESTERASE 1+ (NEGATIVE); URINE NITRITE NEGATIVE (NEGATIVE); URINE PROTEIN NEGATIVE (NEGATIVE); URINE RBC 44 /uL (0-23.9); URINE UROBILINOGEN 0.2 mg/dL (0.2-1.0); URINE WBC 30 /uL (0-25.8)
[2023-04-08 11:15] VITALS: RESP 20; TEMP 97.9
[2023-04-08 11:25] LABS: POTASSIUM 4.2 mmol/L (3.5-5.1)
[2023-04-08 11:27] LABS: CALCIUM 9.3 mg/dL (8.5-10.1)
[2023-04-08 11:28] LABS: BLOOD UREA NITROGEN 19.1 mg/dL (7-18); MAGNESIUM 1.8 mg/dL (1.8-2.4)
[2023-04-08 11:30] LABS: BILIRUBIN,DIRECT 0.2 mg/dL (0.0-0.2)
[2023-04-08 11:31] LABS: CREATININE 0.9 mg/dL (0.55-1.3)
[2023-04-08 11:32] LABS: BILIRUBIN,TOTAL 1.1 mg/dL (0.2-1)
[2023-04-08 11:33] LABS: TOT PROT 7.7 g/dl (6.4-8.2)
[2023-04-08 12:31] LABS: BASO % 0.8 % (0-2.0); EOS % 2.8 % (0-4.5); HEMATOCRIT 40.5 % (32.4-45.2); HEMOGLOBIN 13.7 GM/dL (10.7-15.3); LYMPH % 31.1 % (8-40); MCH 29.4 pg (25.7-33.7); MCHC 33.8 g/dl (32.0-36.0); MEAN CELL VOLUME 87.1 fl (80-96); MEAN PLT VOLUME 7.7 fl (7.5-11.1); MONO % 12.3 % (3.8-10.2); PLATELET COUNT 172 10^3/uL (134-434); RBC 4.65 M/mm3 (3.60-5.2); RDW 13.7 % (11.6-15.6); WHITE BLOOD COUNT 6.2 K/mm3 (4.0-10.0)
[2023-04-08] MEDS: ACETAMINOPHEN 325 MG TABLET (FP) PO ONE (13:13)
[2023-04-08] MEDS: DEXAMETHASONE SODIUM PHOSPHATE IVPB ONE (13:14)
[2023-04-08] MEDS: DIPHENHYDRAMINE IVPB ONE (13:14)
[2023-04-08] MEDS: [UNRECOGNIZED DRUG - OTHER] IVPB ONE (13:14)
[2023-04-08] MEDS: SODIUM CHLORIDE IVPB ONE (13:50)
[2023-04-08] MEDS: ADO TRASTUZUMAB EMTANSINE IVPB ONE (13:50)
[2023-04-08 17:39] VITALS: BP 135/64; PULSE 72
[2023-04-08] MEDS ORDERED: PORTA CATH FLUSH 10 ML IVPUSH PRN (17:39)
== END 2023-04-08 14:30 | disposition home or self-care (01) ==
LOC: JONCCHEMO 10:22 → J7W 10:24 → JONCCHEMO 14:30
PROVIDERS: ATTEND Internal Medicine Hematology & Oncology
DX: Z51.11 Encounter for antineoplastic chemotherapy (principal); C50.312 Malignant neoplasm of lower-inner quadrant of left female breast
CPT/HCPCS: 36415; 80048; 80061; 80076; 81003; 82306; 82378; 82607; 83036; 83735; 84439; 84443; 85025; 86300; 96367; 96413; J9354

== ENCOUNTER 2023-04-27 10:50 | Day surgery (SDC) | payer OTHER ==
[2023-04-27 11:39] LABS: BASO % 0.6 % (0-2.0); EOS % 2.6 % (0-4.5); HEMOGLOBIN 15.3 GM/dL (10.7-15.3); LYMPH % 32.2 % (8-40); MCH 29.6 pg (25.7-33.7); MEAN CELL VOLUME 86.9 fl (80-96); MEAN PLT VOLUME 7.9 fl (7.5-11.1); MONO % 10.8 % (3.8-10.2); NEUT % 53.8 % (42.8-82.8); PLATELET COUNT 205 10^3/uL (134-434); RBC 5.18 M/mm3 (3.60-5.2); RDW 14.6 % (11.6-15.6); WHITE BLOOD COUNT 6.3 K/mm3 (4.0-10.0)
[2023-04-27 11:40] LABS: PH,URINE 6.5 (5.0-8.0); URINE APPEARANCE CLEAR; URINE BILIRUBIN NEGATIVE (NEGATIVE); URINE COLOR YELLOW; URINE GLUCOSE (UA) NEGATIVE (NEGATIVE); URINE KETONE NEGATIVE (NEGATIVE); URINE LEUK ESTERASE NEGATIVE (NEGATIVE); URINE NITRITE NEGATIVE (NEGATIVE); URINE PROTEIN NEGATIVE (NEGATIVE); URINE UROBILINOGEN 0.2 mg/dL (0.2-1.0)
[2023-04-27 12:01] LABS: POTASSIUM 4.1 mmol/L (3.5-5.1)
[2023-04-27 12:06] LABS: ALBUMIN 4.2 g/dl (3.4-5.0); BLOOD UREA NITROGEN 15.7 mg/dL (7-18); CALCIUM 10.1 mg/dL (8.5-10.1); MAGNESIUM 2.1 mg/dL (1.8-2.4)
[2023-04-27 12:09] LABS: BILIRUBIN,DIRECT 0.3 mg/dL (0.0-0.2); CREATININE 0.8 mg/dL (0.55-1.3)
[2023-04-27 12:10] LABS: BILIRUBIN,TOTAL 1.1 mg/dL (0.2-1); TOT PROT 8.3 g/dl (6.4-8.2)
[2023-04-27] MEDS: [UNRECOGNIZED DRUG - OTHER] IVPB ONE (13:10)
[2023-04-27] MEDS: DIPHENHYDRAMINE IVPB ONE (13:10)
[2023-04-27] MEDS: DEXAMETHASONE SODIUM PHOSPHATE IVPB ONE (13:10)
[2023-04-27] MEDS: ACETAMINOPHEN 325 MG TABLET (FP) PO ONE (13:10)
[2023-04-27] MEDS: ADO TRASTUZUMAB EMTANSINE IVPB ONE (13:47)
[2023-04-27] MEDS: SODIUM CHLORIDE IVPB ONE (13:47)
[2023-04-27] MEDS: PORTA CATH FLUSH 10 ML IVPUSH PRN (14:30)
[2023-04-27 18:02] VITALS: TEMP 97.8
[2023-04-27 18:07] VITALS: BP 112/64; PULSE 72; RESP 18
[2023-04-28 08:11] LABS: CARCINOEMBRYONIC ANTIGEN 7.7 ng/mL (0.0-4.7)
== END 2023-04-27 14:30 | disposition home or self-care (01) ==
LOC: J7W 10:50 → JONCCHEMO 10:50
PROVIDERS: ATTEND Internal Medicine Hematology & Oncology
DX: Z51.11 Encounter for antineoplastic chemotherapy (principal); C50.312 Malignant neoplasm of lower-inner quadrant of left female breast
CPT/HCPCS: 36415; 80048; 80061; 80076; 81003; 82306; 82378; 82607; 83036; 83735; 84439; 84443; 85025; 86300; 87086; 96367; 96413; J9354

== ENCOUNTER 2023-05-08 12:48 | Inpatient (IN) | payer OTHER ==
[2023-05-08] MEDS ORDERED: ACETAMINOPHEN INJECTION 100 ML IVPB ONE (13:41)
[2023-05-08 13:45] LABS: HEMATOCRIT 42.1 % (32.4-45.2); MCH 28.9 pg (25.7-33.7); MCHC 33.2 g/dl (32.0-36.0); MEAN CELL VOLUME 87.2 fl (80-96); MEAN PLT VOLUME 7.6 fl (7.5-11.1); PLATELET COUNT 141 10^3/uL (134-434); RBC 4.83 M/mm3 (3.60-5.2); RDW 14.2 % (11.6-15.6); WHITE BLOOD COUNT 6.6 K/mm3 (4.0-10.0)
[2023-05-08 13:46] LABS: VENOUS BASE EXCESS 3.1 mmol/L (-2-2); VENOUS O2 SATURATION 24.1 % (70-80); VENOUS PCO2 56.4 mmHg (38-52); VENOUS PH 7.349 (7.310-7.410)
[2023-05-08] MEDS: SODIUM CHLORIDE 0.9% 500 ML INFUS.BAG IV ONE (13:48)
[2023-05-08] MEDS: ACETAMINOPHEN 1000 MG/100 ML BAG IVPB ONE (13:48)
[2023-05-08 13:55] LABS: PH,URINE 5.5 (5.0-8.0); URINE APPEARANCE CLEAR; URINE BILIRUBIN NEGATIVE (NEGATIVE); URINE COLOR YELLOW; URINE GLUCOSE (UA) NEGATIVE (NEGATIVE); URINE KETONE NEGATIVE (NEGATIVE); URINE LEUK ESTERASE NEGATIVE (NEGATIVE); URINE NITRITE NEGATIVE (NEGATIVE); URINE PROTEIN NEGATIVE (NEGATIVE); URINE UROBILINOGEN 0.2 mg/dL (0.2-1.0)
[2023-05-08 14:03] LABS: POTASSIUM 4.1 mmol/L (3.5-5.1)
[2023-05-08 14:05] LABS: CALCIUM 9.8 mg/dL (8.5-10.1)
[2023-05-08 14:06] LABS: ALBUMIN 4.1 g/dl (3.4-5.0)
[2023-05-08 14:09] LABS: CREATININE 1.1 mg/dL (0.55-1.3)
[2023-05-08 14:11] LABS: BILIRUBIN,TOTAL 0.9 mg/dL (0.2-1); INR 1.17 (0.83-1.09); PROTHROMBIN TIME (PATIENT) 13.5 SEC (9.7-13.0); TOT PROT 7.8 g/dl (6.4-8.2)
[2023-05-08 14:14] LABS: ACTIVATED PTT 33.5 SECONDS (25.2-36.5)
[2023-05-08 14:32] LABS: ANISOCYTOSIS 0; HELMET CELLS 0; HOWELL-JOLLY BODIES 0; MACROCYTOSIS 0; OVALOCYTE 0; ROULEAU 0; SICKELED CELLS 0; TARGET CELLS 0; TEAR DROP CELLS 0; TOXIC GRANULATION 0
[2023-05-08] MEDS ORDERED: DEXAMETHASONE SOD PHOSPHATE 10 MG/1 ML VIAL ONE (17:37)
[2023-05-08] MEDS ORDERED: CEFTRIAXONE 1 GM/50 ML BAG ONE (17:38)
[2023-05-08] MEDS: CEFTRIAXONE 1 GM in DEXTROSE 5%-WATER - 100 ML IVPB ONE (17:48)
[2023-05-08] MEDS: DEXAMETHASONE SOD PHOSPHATE 10 MG/1 ML VIAL IVPUSH ONE (17:48)
[2023-05-08] MEDS ORDERED: PATIENT'S OWN MEDICATION (NON-FORMULARY) (Hydroxyzine Hcl [Hydroxyzine Hcl] 25 MG Tablet) PO PRN (18:01)
[2023-05-08] MEDS ORDERED: ACETAMINOPHEN 500 MG TABLET (FP) PO PRN (18:12)
[2023-05-08] MEDS: AZITHROMYCIN IVPB 500 MG in DEXTROSE 5%-WATER - 250 ML IVPB ONE (19:06)
[2023-05-08] MEDS: ROSUVASTATIN CA 10 MG TABLET PO SCH (21:46)
[2023-05-08] MEDS: CHOLECALCIFEROL (VIT D3) 1,000 UNIT (25 MCG) TABLET PO SCH (21:46)
[2023-05-08] MEDS: HEPARIN NA (PORCINE) 5,000 UNITS/ML 1ML VIAL SQ SCH (21:46)
[2023-05-08] MEDS: DOXYCYCLINE INJECTION 100 MG in DEXTROSE 5%-WATER 100 ML IVPB SCH (21:59)
[2023-05-08] MEDS ORDERED: PATIENT'S OWN MEDICATION (NON-FORMULARY) (Exemestane 25 MG Tablet) PO SCH (22:00)
[2023-05-08] MEDS: EXEMESTANE 25 MG TABLET PO SCH (22:51)
[2023-05-09 08:03] LABS: BASO % 0.2 % (0-2.0); HEMOGLOBIN 13.6 GM/dL (10.7-15.3); LYMPH % 16.2 % (8-40); MCH 28.9 pg (25.7-33.7); MCHC 33.2 g/dl (32.0-36.0); MEAN CELL VOLUME 87.2 fl (80-96); NEUT % 75.6 % (42.8-82.8); PLATELET COUNT 124 10^3/uL (134-434); RBC 4.71 M/mm3 (3.60-5.2); RDW 13.9 % (11.6-15.6); WHITE BLOOD COUNT 4.9 K/mm3 (4.0-10.0)
[2023-05-09 08:22] LABS: POTASSIUM 3.3 mmol/L (3.5-5.1)
[2023-05-09 08:25] LABS: BLOOD UREA NITROGEN 18.4 mg/dL (7-18); CALCIUM 8.7 mg/dL (8.5-10.1)
[2023-05-09 08:29] LABS: CREATININE 0.8 mg/dL (0.55-1.3)
[2023-05-09] MEDS: DOCUSATE SODIUM 100 MG CAPSULE (FP) PO SCH (09:55)
[2023-05-09] MEDS: POLYETHYLENE GLYCOL (HEALTHYLAX) 3350 17 GM PACKET PO SCH (09:55)
[2023-05-09] MEDS: LOSARTAN 50MG/HCTZ 12.5MG 1 TAB PO SCH (09:55)
[2023-05-09] MEDS: guaiFENesin 200 MG/10 ML 10 ML UNIT-DOSE CUPS PO PRN (09:55)
[2023-05-09] MEDS: BENZOCAINE/MENTH/CETYLPYRD CL 1 EACH LOZENGE MM PRN (09:56)
[2023-05-09] MEDS ORDERED: PATIENT'S OWN MEDICATION (NON-FORMULARY) (Losartan/Hydrochlorothiazide [Hyzaar 100-25 Tabl PO SCH (10:00)
[2023-05-09] MEDS: SODIUM CHLORIDE 1,000 ML IV SCH (10:39)
[2023-05-09] MEDS: CEFTRIAXONE 1 GM in DEXTROSE 5%-WATER - 50 ML IVPB SCH (10:40)
[2023-05-09] MEDS: POTASSIUM CHLORIDE ORAL LIQUID 20 MEQ/15 ML PO ONE ×2 (10:53)
[2023-05-09] MEDS: DEXAMETHASONE SOD PHOSPHATE 10 MG/1 ML VIAL IVPUSH SCH (14:19)
[2023-05-09] MEDS: REMDESIVIR 200 MG in SODIUM CHLORIDE 250 ML IVPB ONE (17:09)
[2023-05-09] MEDS: HEPARIN NA (PORCINE) 5,000 UNITS/ML 1ML VIAL SQ SCH (21:52)
[2023-05-09] MEDS: SENNOSIDES 8.8 MG/5 ML SYRUP PO SCH (21:53)
[2023-05-10 09:39] LABS: BASO % 0.3 % (0-2.0); HEMATOCRIT 43.4 % (32.4-45.2); HEMOGLOBIN 14.3 GM/dL (10.7-15.3); LYMPH % 16.3 % (8-40); MCH 28.8 pg (25.7-33.7); MCHC 32.9 g/dl (32.0-36.0); MEAN CELL VOLUME 87.6 fl (80-96); MEAN PLT VOLUME 8.1 fl (7.5-11.1); MONO % 14.6 % (3.8-10.2); NEUT % 68.8 % (42.8-82.8); PLATELET COUNT 139 10^3/uL (134-434); RBC 4.95 M/mm3 (3.60-5.2); RDW 14.2 % (11.6-15.6); WHITE BLOOD COUNT 7.3 K/mm3 (4.0-10.0)
[2023-05-10 09:51] LABS: POTASSIUM 4.2 mmol/L (3.5-5.1)
[2023-05-10 09:52] LABS: CALCIUM 8.7 mg/dL (8.5-10.1)
[2023-05-10 09:54] LABS: BLOOD UREA NITROGEN 20.7 mg/dL (7-18)
[2023-05-10 09:57] LABS: CREATININE 0.8 mg/dL (0.55-1.3)
[2023-05-10] MEDS: ENOXAPARIN NA (PORCINE) 40 MG/0.4 ML DISP.SYRIN SQ SCH (10:46)
[2023-05-10] MEDS: REMDESIVIR 100 MG in SODIUM CHLORIDE 250 ML IVPB SCH (17:46)
[2023-05-11 07:14] LABS: BASO % 0.1 % (0-2.0); HEMATOCRIT 43.6 % (32.4-45.2); HEMOGLOBIN 14.4 GM/dL (10.7-15.3); LYMPH % 17.5 % (8-40); MCH 28.8 pg (25.7-33.7); MEAN CELL VOLUME 87.1 fl (80-96); MEAN PLT VOLUME 8.3 fl (7.5-11.1); MONO % 12.9 % (3.8-10.2); NEUT % 69.5 % (42.8-82.8); PLATELET COUNT 133 10^3/uL (134-434); RDW 14.4 % (11.6-15.6)
[2023-05-11 07:31] LABS: POTASSIUM 3.8 mmol/L (3.5-5.1)
[2023-05-11 07:34] LABS: BLOOD UREA NITROGEN 18.4 mg/dL (7-18); CALCIUM 9.2 mg/dL (8.5-10.1); MAGNESIUM 2.2 mg/dL (1.8-2.4)
[2023-05-11 07:38] LABS: CREATININE 0.7 mg/dL (0.55-1.3)
[2023-05-11] MEDS ORDERED: REMDESIVIR 100 MG in SODIUM CHLORIDE 250 ML IVPB SCH (10:00)
[2023-05-11] MEDS ORDERED: SIMETHICONE 80 MG TAB.CHEW (FP) PO PRN (10:35)
[2023-05-11] MEDS: FAMOTIDINE 20 MG TABLET PO SCH (14:57)
[2023-05-11] MEDS: DOXYCYCLINE HYCLATE 100 MG CAPSULE PO SCH (18:19)
[2023-05-12 08:16] LABS: POTASSIUM 3.8 mmol/L (3.5-5.1)
[2023-05-12 08:20] LABS: BASO % 0.1 % (0-2.0); HEMATOCRIT 43.3 % (32.4-45.2); HEMOGLOBIN 14.6 GM/dL (10.7-15.3); LYMPH % 23.8 % (8-40); MCH 29.1 pg (25.7-33.7); MCHC 33.6 g/dl (32.0-36.0); MEAN CELL VOLUME 86.5 fl (80-96); MEAN PLT VOLUME 8.3 fl (7.5-11.1); MONO % 10.4 % (3.8-10.2); NEUT % 65.7 % (42.8-82.8); PLATELET COUNT 142 10^3/uL (134-434); RBC 5.01 M/mm3 (3.60-5.2); WHITE BLOOD COUNT 5.1 K/mm3 (4.0-10.0)
[2023-05-12 08:22] LABS: CALCIUM 9.1 mg/dL (8.5-10.1)
[2023-05-12 08:23] LABS: BLOOD UREA NITROGEN 21.7 mg/dL (7-18); MAGNESIUM 2.1 mg/dL (1.8-2.4)
[2023-05-12 08:26] LABS: CREATININE 0.6 mg/dL (0.55-1.3)
[2023-05-12] MEDS: AZITHROMYCIN IVPB 500 MG/250 ML BAG IVPB ONE (11:57)
[2023-05-12] MEDS: ONDANSETRON 4 MG/2 ML VIAL IVPUSH PRN (12:59)
[2023-05-12] MEDS: hydrOXYzine PAMOATE 25 MG CAPSULE (FP) PO PRN (23:19)
[2023-05-13 07:07] LABS: BASO % 0.2 % (0-2.0); HEMATOCRIT 43.5 % (32.4-45.2); HEMOGLOBIN 14.5 GM/dL (10.7-15.3); LYMPH % 26.6 % (8-40); MCH 29.1 pg (25.7-33.7); MCHC 33.4 g/dl (32.0-36.0); MEAN CELL VOLUME 87.1 fl (80-96); MEAN PLT VOLUME 8.4 fl (7.5-11.1); MONO % 11.6 % (3.8-10.2); NEUT % 61.6 % (42.8-82.8); PLATELET COUNT 137 10^3/uL (134-434); RBC 4.99 M/mm3 (3.60-5.2); RDW 13.9 % (11.6-15.6); WHITE BLOOD COUNT 5.1 K/mm3 (4.0-10.0)
[2023-05-13 07:11] LABS: POTASSIUM 4.2 mmol/L (3.5-5.1)
[2023-05-13 07:12] LABS: CALCIUM 8.6 mg/dL (8.5-10.1)
[2023-05-13 07:13] LABS: BLOOD UREA NITROGEN 20.1 mg/dL (7-18)
[2023-05-13 07:16] LABS: CREATININE 0.7 mg/dL (0.55-1.3)
[2023-05-13 13:01] VITALS: BMI 28.4
[2023-05-14 09:02] LABS: BASO % 0.1 % (0-2.0); HEMOGLOBIN 15.6 GM/dL (10.7-15.3); LYMPH % 26.3 % (8-40); MCH 29.3 pg (25.7-33.7); MCHC 33.9 g/dl (32.0-36.0); MEAN CELL VOLUME 86.6 fl (80-96); MEAN PLT VOLUME 8.2 fl (7.5-11.1); MONO % 13.6 % (3.8-10.2); PLATELET COUNT 156 10^3/uL (134-434); RBC 5.31 M/mm3 (3.60-5.2); RDW 14.2 % (11.6-15.6); WHITE BLOOD COUNT 7.6 K/mm3 (4.0-10.0)
[2023-05-14 09:05] LABS: POTASSIUM 4.5 mmol/L (3.5-5.1)
[2023-05-14 09:06] LABS: CALCIUM 9.1 mg/dL (8.5-10.1)
[2023-05-14 09:07] LABS: BLOOD UREA NITROGEN 21.6 mg/dL (7-18); MAGNESIUM 2.1 mg/dL (1.8-2.4)
[2023-05-14 09:10] LABS: CREATININE 0.7 mg/dL (0.55-1.3)
[2023-05-14] MEDS: CEFUROXIME AXETIL 500 MG TABLET PO SCH (10:12)
[2023-05-14] MEDS: DOXYCYCLINE HYCLATE 100 MG CAPSULE PO ONE (10:12)
[2023-05-14 14:15] VITALS: BP 129/73; PULSE 69; RESP 20; TEMP 97.9
== END 2023-05-14 14:18 | disposition home or self-care (01) | DRG 177 ==
LOC: JER 12:48 → JERBED 15:41 → J7W 18:38
PROVIDERS: ADMIT Internal Medicine; ATTEND Internal Medicine
PROC: XW033E5 Introduction of Remdesivir Anti-infective into Peripheral Vein, Percutaneous Approach, New Technology Group 5 (ICD-10-PCS; principal; 2023-05-08)
DX: U07.1 COVID-19 (principal); J12.82 Pneumonia due to coronavirus disease 2019; E87.1 Hypo-osmolality and hyponatremia; J98.11 Atelectasis; E87.6 Hypokalemia; C50.919 Malignant neoplasm of unspecified site of unspecified female breast; I10 Essential (primary) hypertension; R74.01 Elevation of levels of liver transaminase levels; K59.00 Constipation, unspecified; K52.9 Noninfective gastroenteritis and colitis, unspecified; E86.0 Dehydration
CPT/HCPCS: 0241U-QW; 36415; 71045-TC-FY; 71275-TC; 74177-TC; 80048; 80053; 81003; 82550; 82803; 83605; 83735; 84484; 85025; 85610; 85730; 86850; 86900; 86901; 87040; 87070; 87086; 87205; 87635; 87899; 93005; 93010; 94010; 99285-25; J0131; J0248; J1100; J1644; Q9967

== ENCOUNTER 2023-06-10 11:38 | Day surgery (SDC) | payer OTHER ==
[2023-06-10 12:04] LABS: EPI CELLS 7 /uL (0-25.1); HYALINE CASTS 1 /uL (0-3.1); PH,URINE 5.5 (5.0-8.0); URINE BACTERIA 7 /uL (0-1359); URINE BILIRUBIN NEGATIVE (NEGATIVE); URINE COLOR YELLOW; URINE GLUCOSE (UA) NEGATIVE (NEGATIVE); URINE KETONE NEGATIVE (NEGATIVE); URINE LEUK ESTERASE TRACE (NEGATIVE); URINE NITRITE NEGATIVE (NEGATIVE); URINE PROTEIN NEGATIVE (NEGATIVE); URINE RBC 23 /uL (0-23.9); URINE UROBILINOGEN 0.2 mg/dL (0.2-1.0); URINE WBC 18 /uL (0-25.8)
[2023-06-10 12:07] LABS: BASO % 0.7 % (0-2.0); EOS % 2.1 % (0-4.5); HEMATOCRIT 39.9 % (32.4-45.2); HEMOGLOBIN 13.4 GM/dL (10.7-15.3); LYMPH % 40.7 % (8-40); MCH 29.2 pg (25.7-33.7); MCHC 33.5 g/dl (32.0-36.0); MEAN CELL VOLUME 87.1 fl (80-96); MEAN PLT VOLUME 7.6 fl (7.5-11.1); MONO % 11.9 % (3.8-10.2); NEUT % 44.6 % (42.8-82.8); PLATELET COUNT 222 10^3/uL (134-434); RBC 4.59 M/mm3 (3.60-5.2); RDW 14.9 % (11.6-15.6); WHITE BLOOD COUNT 5.3 K/mm3 (4.0-10.0)
[2023-06-10 12:22] LABS: CHLORIDE 110 mmol/L (98-107); POTASSIUM 4.2 mmol/L (3.5-5.1); SODIUM 139 mmol/L (136-145)
[2023-06-10 12:26] LABS: ALBUMIN 3.8 g/dl (3.4-5.0); ANION GAP 0 mmol/L (4-13); BLOOD UREA NITROGEN 16.6 mg/dL (7-18); CALCIUM 9.3 mg/dL (8.5-10.1); CO2 29 mmol/L (21-32); GLUCOSE,RANDOM 83 mg/dL (74-106); MAGNESIUM 1.9 mg/dL (1.8-2.4)
[2023-06-10 12:29] LABS: BILIRUBIN,DIRECT 0.2 mg/dL (0.0-0.2); CHOLESTEROL 159 mg/dL (50-200); CREATININE 0.8 mg/dL (0.55-1.3); SGOT/AST 60 U/L (15-37); SGPT/ALT 58 U/L (13-61)
[2023-06-10 12:30] LABS: LDL CHOLESTEROL (ONLY SJRH) 91 mg/dL (5-100)
[2023-06-10 12:31] LABS: BILIRUBIN,TOTAL 0.7 mg/dL (0.2-1); TOT PROT 7.1 g/dl (6.4-8.2)
[2023-06-10 12:32] LABS: ALK PHOS 109 U/L (45-117); HDL CHOLESTEROL 51 mg/dL (40-60)
[2023-06-10] MEDS: PORTA CATH FLUSH 10 ML IVPUSH PRN (13:05)
[2023-06-10 13:15] LABS: URINE APPEARANCE CLEAR
[2023-06-10] MEDS: DIPHENHYDRAMINE IVPB ONE (13:16)
[2023-06-10] MEDS: [UNRECOGNIZED DRUG - OTHER] IVPB ONE (13:16)
[2023-06-10] MEDS: ACETAMINOPHEN 325 MG TABLET (FP) PO ONE (13:16)
[2023-06-10] MEDS: DEXAMETHASONE SODIUM PHOSPHATE IVPB ONE (13:16)
[2023-06-10] MEDS: SODIUM CHLORIDE IVPB ONE (14:03)
[2023-06-10] MEDS: ADO TRASTUZUMAB EMTANSINE IVPB ONE (14:03)
[2023-06-10 16:19] VITALS: RESP 20; TEMP 98
[2023-06-10 17:15] VITALS: BP 134/76; PULSE 85
== END 2023-06-10 14:55 | disposition home or self-care (01) ==
LOC: JONCCHEMO 11:38 → J7W 11:43 → JONCCHEMO 14:55
PROVIDERS: ATTEND Internal Medicine Hematology & Oncology
DX: Z51.11 Encounter for antineoplastic chemotherapy (principal); C50.312 Malignant neoplasm of lower-inner quadrant of left female breast
CPT/HCPCS: 36415; 80048; 80061; 80076; 81003; 82306; 82378; 82607; 83036; 83735; 84439; 84443; 85025; 86300; 96367; 96413; J9354

== ENCOUNTER 2023-07-01 10:41 | Day surgery (SDC) | payer OTHER ==
[2023-07-01 11:05] LABS: BASO % 0.7 % (0-2.0); EOS % 2.2 % (0-4.5); HEMATOCRIT 41.1 % (32.4-45.2); LYMPH % 39.7 % (8-40); MCH 29.6 pg (25.7-33.7); MCHC 34.1 g/dl (32.0-36.0); MEAN CELL VOLUME 86.8 fl (80-96); MEAN PLT VOLUME 7.5 fl (7.5-11.1); MONO % 11.9 % (3.8-10.2); NEUT % 45.5 % (42.8-82.8); PLATELET COUNT 184 10^3/uL (134-434); RBC 4.74 M/mm3 (3.60-5.2); RDW 14.4 % (11.6-15.6); WHITE BLOOD COUNT 4.9 K/mm3 (4.0-10.0)
[2023-07-01 11:39] LABS: POTASSIUM 4.2 mmol/L (3.5-5.1)
[2023-07-01 11:41] LABS: ALBUMIN 3.9 g/dl (3.4-5.0); BLOOD UREA NITROGEN 22.2 mg/dL (7-18); CALCIUM 9.7 mg/dL (8.5-10.1); MAGNESIUM 1.8 mg/dL (1.8-2.4)
[2023-07-01 11:44] LABS: BILIRUBIN,DIRECT 0.3 mg/dL (0.0-0.2); CREATININE 0.9 mg/dL (0.55-1.3)
[2023-07-01 11:46] LABS: TOT PROT 7.5 g/dl (6.4-8.2)
[2023-07-01] MEDS: DEXAMETHASONE SODIUM PHOSPHATE IVPB ONE (12:14)
[2023-07-01] MEDS: [UNRECOGNIZED DRUG - OTHER] IVPB ONE (12:14)
[2023-07-01] MEDS: DIPHENHYDRAMINE IVPB ONE (12:14)
[2023-07-01] MEDS: ACETAMINOPHEN 325 MG TABLET (FP) PO ONE (12:15)
[2023-07-01] MEDS: ADO TRASTUZUMAB EMTANSINE IVPB ONE (13:04)
[2023-07-01] MEDS: SODIUM CHLORIDE IVPB ONE (13:04)
[2023-07-01] MEDS: PORTA CATH FLUSH 10 ML IVPUSH PRN (13:45)
[2023-07-01 14:45] VITALS: TEMP 98.6
[2023-07-01 14:56] VITALS: BP 108/64; PULSE 63; RESP 20
[2023-07-02 08:10] LABS: CARCINOEMBRYONIC ANTIGEN 7.1 ng/mL (0.0-4.7)
== END 2023-07-01 14:25 | disposition home or self-care (01) ==
LOC: JONCCHEMO 10:41 → J7W 10:42 → JONCCHEMO 14:25
PROVIDERS: ATTEND Internal Medicine Hematology & Oncology
DX: Z51.11 Encounter for antineoplastic chemotherapy (principal); C50.312 Malignant neoplasm of lower-inner quadrant of left female breast
CPT/HCPCS: 36415; 80048; 80076; 82378; 83735; 85025; 86300; 96367; 96413; J9354

== ENCOUNTER 2023-07-22 12:20 | Day surgery (SDC) | payer OTHER ==
[2023-07-22 12:58] LABS: BASO % 0.5 % (0-2.0); EOS % 1.2 % (0-4.5); HEMATOCRIT 43.2 % (32.4-45.2); HEMOGLOBIN 14.5 GM/dL (10.7-15.3); LYMPH % 34.7 % (8-40); MCHC 33.6 g/dl (32.0-36.0); MEAN CELL VOLUME 86.3 fl (80-96); MEAN PLT VOLUME 7.6 fl (7.5-11.1); MONO % 10.7 % (3.8-10.2); NEUT % 52.9 % (42.8-82.8); PLATELET COUNT 196 10^3/uL (134-434); RBC 5.01 M/mm3 (3.60-5.2); RDW 14.2 % (11.6-15.6)
[2023-07-22 13:18] LABS: CHLORIDE 105 mmol/L (98-107); POTASSIUM 3.8 mmol/L (3.5-5.1); SODIUM 139 mmol/L (136-145)
[2023-07-22 13:20] LABS: ALBUMIN 4.2 g/dl (3.4-5.0); ANION GAP 7 mmol/L (4-13); BLOOD UREA NITROGEN 22.6 mg/dL (7-18); CO2 27 mmol/L (21-32); GLUCOSE,RANDOM 86 mg/dL (74-106); MAGNESIUM 1.9 mg/dL (1.8-2.4)
[2023-07-22 13:23] LABS: BILIRUBIN,DIRECT 0.3 mg/dL (0.0-0.2); CREATININE 0.7 mg/dL (0.55-1.3); SGOT/AST 73 U/L (15-37); SGPT/ALT 66 U/L (13-61)
[2023-07-22 13:25] LABS: BILIRUBIN,TOTAL 1.2 mg/dL (0.2-1); TOT PROT 7.5 g/dl (6.4-8.2)
[2023-07-22 13:26] LABS: ALK PHOS 112 U/L (45-117)
[2023-07-22] MEDS: [UNRECOGNIZED DRUG - OTHER] IVPB ONE (13:52)
[2023-07-22] MEDS: ACETAMINOPHEN 325 MG TABLET (FP) PO ONE (13:52)
[2023-07-22] MEDS: DIPHENHYDRAMINE IVPB ONE (13:52)
[2023-07-22] MEDS: DEXAMETHASONE SODIUM PHOSPHATE IVPB ONE (13:52)
[2023-07-22] MEDS: ADO TRASTUZUMAB EMTANSINE IVPB ONE (14:28)
[2023-07-22] MEDS: SODIUM CHLORIDE IVPB ONE (14:28)
[2023-07-22] MEDS: PORTA CATH FLUSH 10 ML IVPUSH PRN (15:10)
[2023-07-22 15:29] VITALS: RESP 20; TEMP 98
[2023-07-22 15:50] VITALS: BP 100/66; PULSE 56
[2023-07-23 08:10] LABS: CARCINOEMBRYONIC ANTIGEN 5.9 ng/mL (0.0-4.7)
== END 2023-07-22 15:15 | disposition home or self-care (01) ==
LOC: J7W 12:20 → JONCCHEMO 12:20
PROVIDERS: ATTEND Internal Medicine Hematology & Oncology
DX: Z51.11 Encounter for antineoplastic chemotherapy (principal); C50.312 Malignant neoplasm of lower-inner quadrant of left female breast
CPT/HCPCS: 36415; 80048; 80076; 82378; 83735; 85025; 86300; 96367; 96413; J9354

== ENCOUNTER 2023-09-02 10:15 | Day surgery (SDC) | payer OTHER ==
[2023-09-02 11:14] LABS: BASO % 0.6 % (0-2.0); EOS % 1.6 % (0-4.5); HEMATOCRIT 43.8 % (32.4-45.2); HEMOGLOBIN 14.9 GM/dL (10.7-15.3); LYMPH % 38.5 % (8-40); MCH 29.6 pg (25.7-33.7); MEAN CELL VOLUME 87.1 fl (80-96); MEAN PLT VOLUME 7.8 fl (7.5-11.1); MONO % 10.8 % (3.8-10.2); NEUT % 48.5 % (42.8-82.8); PLATELET COUNT 199 10^3/uL (134-434); RBC 5.03 M/mm3 (3.60-5.2); RDW 14.3 % (11.6-15.6); WHITE BLOOD COUNT 5.7 K/mm3 (4.0-10.0)
[2023-09-02 11:34] LABS: CHLORIDE 105 mmol/L (98-107); POTASSIUM 4.2 mmol/L (3.5-5.1); SODIUM 141 mmol/L (136-145)
[2023-09-02 11:36] LABS: CALCIUM 9.6 mg/dL (8.5-10.1)
[2023-09-02 11:37] LABS: ANION GAP 7 mmol/L (4-13); CO2 30 mmol/L (21-32); GLUCOSE,RANDOM 78 mg/dL (74-106); MAGNESIUM 1.9 mg/dL (1.8-2.4)
[2023-09-02 11:39] LABS: BILIRUBIN,DIRECT 0.2 mg/dL (0.0-0.2)
[2023-09-02 11:40] LABS: CREATININE 0.9 mg/dL (0.55-1.3); SGOT/AST 62 U/L (15-37); SGPT/ALT 63 U/L (13-61)
[2023-09-02 11:41] LABS: BILIRUBIN,TOTAL 0.9 mg/dL (0.2-1); TOT PROT 7.8 g/dl (6.4-8.2)
[2023-09-02 11:43] LABS: ALK PHOS 114 U/L (45-117)
[2023-09-02] MEDS: DEXAMETHASONE SODIUM PHOSPHATE IVPB ONE (12:16)
[2023-09-02] MEDS: [UNRECOGNIZED DRUG - OTHER] IVPB ONE (12:16)
[2023-09-02] MEDS: DIPHENHYDRAMINE IVPB ONE (12:16)
[2023-09-02] MEDS: ACETAMINOPHEN 325 MG TABLET (FP) PO ONE (12:17)
[2023-09-02] MEDS: SODIUM CHLORIDE IVPB ONE (12:59)
[2023-09-02] MEDS: ADO TRASTUZUMAB EMTANSINE IVPB ONE (12:59)
[2023-09-02] MEDS: PORTA CATH FLUSH 10 ML IVPUSH PRN (13:40)
[2023-09-02 16:53] VITALS: BP 135/71; PULSE 75; RESP 20; TEMP 98
== END 2023-09-02 13:45 | disposition home or self-care (01) ==
LOC: JONCCHEMO 10:15 → J7W 10:16 → JONCCHEMO 13:45
PROVIDERS: ATTEND Internal Medicine Hematology & Oncology
DX: Z51.11 Encounter for antineoplastic chemotherapy (principal); C50.912 Malignant neoplasm of unspecified site of left female breast; C79.51 Secondary malignant neoplasm of bone
CPT/HCPCS: 36415; 80048; 80076; 82378; 83735; 85025; 86300; 96367; 96413; J9354

== ENCOUNTER 2023-09-30 09:41 | Day surgery (SDC) | payer OTHER ==
[2023-09-30 10:29] LABS: BASO % 0.5 % (0-2.0); EOS % 1.9 % (0-4.5); HEMATOCRIT 41.6 % (32.4-45.2); LYMPH % 36.9 % (8-40); MCH 29.1 pg (25.7-33.7); MCHC 33.7 g/dl (32.0-36.0); MEAN CELL VOLUME 86.3 fl (80-96); MEAN PLT VOLUME 7.6 fl (7.5-11.1); MONO % 10.4 % (3.8-10.2); NEUT % 50.3 % (42.8-82.8); PLATELET COUNT 182 10^3/uL (134-434); RBC 4.82 M/mm3 (3.60-5.2); WHITE BLOOD COUNT 5.2 K/mm3 (4.0-10.0)
[2023-09-30 10:55] LABS: POTASSIUM 4.1 mmol/L (3.5-5.1)
[2023-09-30 10:57] LABS: ALBUMIN 3.8 g/dl (3.4-5.0); BLOOD UREA NITROGEN 21.2 mg/dL (7-18); CALCIUM 9.4 mg/dL (8.5-10.1); MAGNESIUM 1.8 mg/dL (1.8-2.4)
[2023-09-30 11:00] LABS: BILIRUBIN,DIRECT 0.3 mg/dL (0.0-0.2); CREATININE 0.7 mg/dL (0.55-1.3)
[2023-09-30 11:02] LABS: BILIRUBIN,TOTAL 0.8 mg/dL (0.2-1); TOT PROT 7.3 g/dl (6.4-8.2)
[2023-09-30] MEDS: DEXAMETHASONE SODIUM PHOSPHATE IVPB ONE (11:24)
[2023-09-30] MEDS: DIPHENHYDRAMINE IVPB ONE (11:24)
[2023-09-30] MEDS: ACETAMINOPHEN 325 MG TABLET (FP) PO ONE (11:24)
[2023-09-30] MEDS: [UNRECOGNIZED DRUG - OTHER] IVPB ONE (11:24)
[2023-09-30] MEDS: SODIUM CHLORIDE IVPB ONE (12:04)
[2023-09-30] MEDS: ADO TRASTUZUMAB EMTANSINE IVPB ONE (12:04)
[2023-09-30] MEDS: PORTA CATH FLUSH 10 ML IVPUSH PRN (12:40)
[2023-09-30 18:01] VITALS: BP 124/57; PULSE 68; RESP 20; TEMP 98.2
== END 2023-09-30 12:50 | disposition home or self-care (01) ==
LOC: JONCCHEMO 09:41 → J7W 09:42 → JONCCHEMO 12:50
PROVIDERS: ATTEND Internal Medicine Hematology & Oncology
DX: Z51.11 Encounter for antineoplastic chemotherapy (principal); C50.312 Malignant neoplasm of lower-inner quadrant of left female breast; C79.51 Secondary malignant neoplasm of bone
CPT/HCPCS: 36415; 80048; 80076; 82378; 83735; 85025; 86300; 96367; 96413; J9354

== ENCOUNTER 2023-10-21 10:52 | Day surgery (SDC) | payer OTHER ==
[2023-10-21 11:29] LABS: BASO % 0.6 % (0-2.0); EOS % 1.6 % (0-4.5); HEMATOCRIT 43.8 % (32.4-45.2); HEMOGLOBIN 14.6 GM/dL (10.7-15.3); LYMPH % 37.4 % (8-40); MCH 29.2 pg (25.7-33.7); MCHC 33.4 g/dl (32.0-36.0); MEAN CELL VOLUME 87.6 fl (80-96); MEAN PLT VOLUME 7.9 fl (7.5-11.1); MONO % 11.5 % (3.8-10.2); NEUT % 48.9 % (42.8-82.8); PLATELET COUNT 203 10^3/uL (134-434); RDW 14.3 % (11.6-15.6); WHITE BLOOD COUNT 6.5 K/mm3 (4.0-10.0)
[2023-10-21 11:50] LABS: POTASSIUM 4.1 mmol/L (3.5-5.1)
[2023-10-21 11:53] LABS: ALBUMIN 4.2 g/dl (3.4-5.0); BLOOD UREA NITROGEN 25.3 mg/dL (7-18); CALCIUM 10.1 mg/dL (8.5-10.1); MAGNESIUM 1.8 mg/dL (1.8-2.4)
[2023-10-21 11:56] LABS: BILIRUBIN,DIRECT 0.3 mg/dL (0.0-0.2); CREATININE 0.9 mg/dL (0.55-1.3)
[2023-10-21 11:59] LABS: TOT PROT 7.7 g/dl (6.4-8.2)
[2023-10-21] MEDS: DEXAMETHASONE SODIUM PHOSPHATE IVPB ONE (12:06)
[2023-10-21] MEDS: [UNRECOGNIZED DRUG - OTHER] IVPB ONE (12:06)
[2023-10-21] MEDS: DIPHENHYDRAMINE IVPB ONE (12:06)
[2023-10-21] MEDS: ACETAMINOPHEN 325 MG TABLET (FP) PO ONE (12:07)
[2023-10-21 12:25] VITALS: RESP 18; TEMP 98.1
[2023-10-21] MEDS: SODIUM CHLORIDE IVPB ONE (13:35)
[2023-10-21] MEDS: ADO TRASTUZUMAB EMTANSINE IVPB ONE (13:35)
[2023-10-21] MEDS: PORTA CATH FLUSH 10 ML IVPUSH PRN (14:10)
[2023-10-21 14:49] VITALS: BP 118/41; PULSE 78
== END 2023-10-21 14:30 | disposition home or self-care (01) ==
LOC: JONCCHEMO 10:52 → J7W 10:54 → JONCCHEMO 14:30
PROVIDERS: ATTEND Internal Medicine Hematology & Oncology
PROC: 3E04305 Introduction of Other Antineoplastic into Central Vein, Percutaneous Approach (ICD-10-PCS; principal; 2023-10-21)
PROC: 3E043GC Introduction of Other Therapeutic Substance into Central Vein, Percutaneous Approach (ICD-10-PCS; 2023-10-21)
DX: Z51.11 Encounter for antineoplastic chemotherapy (principal); C50.312 Malignant neoplasm of lower-inner quadrant of left female breast; C79.51 Secondary malignant neoplasm of bone
CPT/HCPCS: 36415; 80048; 80076; 82378; 83735; 85025; 86300; 96367; 96413; J9354

== ENCOUNTER 2023-11-10 09:37 | Day surgery (SDC) | payer OTHER ==
[2023-11-10 10:39] LABS: BASO % 0.5 % (0-2.0); EOS % 1.4 % (0-4.5); HEMATOCRIT 45.8 % (32.4-45.2); HEMOGLOBIN 14.9 GM/dL (10.7-15.3); LYMPH % 35.1 % (8-40); MCH 28.8 pg (25.7-33.7); MCHC 32.5 g/dl (32.0-36.0); MEAN CELL VOLUME 88.6 fl (80-96); MEAN PLT VOLUME 7.9 fl (7.5-11.1); MONO % 12.4 % (3.8-10.2); NEUT % 50.6 % (42.8-82.8); PLATELET COUNT 192 10^3/uL (134-434); RBC 5.16 M/mm3 (3.60-5.2); RDW 14.3 % (11.6-15.6); WHITE BLOOD COUNT 6.1 K/mm3 (4.0-10.0)
[2023-11-10 10:56] LABS: CHLORIDE 106 mmol/L (98-107); POTASSIUM 3.9 mmol/L (3.5-5.1); SODIUM 142 mmol/L (136-145)
[2023-11-10 11:00] LABS: CALCIUM 10.2 mg/dL (8.5-10.1)
[2023-11-10 11:01] LABS: ANION GAP 8 mmol/L (4-13); BILIRUBIN,DIRECT 0.3 mg/dL (0.0-0.2); BLOOD UREA NITROGEN 24.8 mg/dL (7-18); CO2 27 mmol/L (21-32); GLUCOSE,RANDOM 109 mg/dL (74-106); MAGNESIUM 1.8 mg/dL (1.8-2.4)
[2023-11-10 11:04] LABS: BILIRUBIN,TOTAL 1.3 mg/dL (0.2-1); CREATININE 0.8 mg/dL (0.55-1.3); TOT PROT 7.4 g/dl (6.4-8.2)
[2023-11-10] MEDS: DEXAMETHASONE SODIUM PHOSPHATE IVPB ONE (13:21)
[2023-11-10] MEDS: ACETAMINOPHEN 325 MG TABLET (FP) PO ONE (13:21)
[2023-11-10] MEDS: DIPHENHYDRAMINE IVPB ONE (13:21)
[2023-11-10] MEDS: [UNRECOGNIZED DRUG - OTHER] IVPB ONE (13:21)
[2023-11-10] MEDS: ADO TRASTUZUMAB EMTANSINE IVPB ONE (14:00)
[2023-11-10] MEDS: SODIUM CHLORIDE IVPB ONE (14:00)
[2023-11-10] MEDS: PORTA CATH FLUSH 10 ML IVPUSH PRN (14:35)
[2023-11-10 16:03] VITALS: BP 120/67; PULSE 75; RESP 18; TEMP 98.2
== END 2023-11-10 14:50 | disposition home or self-care (01) ==
LOC: JONCCHEMO 09:37 → J7W 09:43 → JONCCHEMO 14:50
PROVIDERS: ATTEND Internal Medicine Hematology & Oncology
PROC: 3E04305 Introduction of Other Antineoplastic into Central Vein, Percutaneous Approach (ICD-10-PCS; principal; 2023-11-10)
PROC: 3E043GC Introduction of Other Therapeutic Substance into Central Vein, Percutaneous Approach (ICD-10-PCS; 2023-11-10)
DX: Z51.11 Encounter for antineoplastic chemotherapy (principal); C50.312 Malignant neoplasm of lower-inner quadrant of left female breast
CPT/HCPCS: 36415; 80048; 80076; 82378; 83735; 85025; 86300; 96374; 96413; J9354

== ENCOUNTER 2023-12-02 10:04 | Day surgery (SDC) | payer OTHER ==
[2023-12-02 10:23] LABS: EOS % 1.8 % (0-4.5); HEMOGLOBIN 14.2 GM/dL (10.7-15.3); LYMPH % 40.8 % (8-40); MCH 29.4 pg (25.7-33.7); MCHC 33.8 g/dl (32.0-36.0); MEAN CELL VOLUME 86.9 fl (80-96); MEAN PLT VOLUME 7.7 fl (7.5-11.1); NEUT % 45.4 % (42.8-82.8); PLATELET COUNT 187 10^3/uL (134-434); RBC 4.83 M/mm3 (3.60-5.2); RDW 14.3 % (11.6-15.6)
[2023-12-02 11:02] LABS: POTASSIUM 3.8 mmol/L (3.5-5.1)
[2023-12-02 11:04] LABS: BLOOD UREA NITROGEN 18.6 mg/dL (7-18); CALCIUM 9.1 mg/dL (8.5-10.1); MAGNESIUM 1.8 mg/dL (1.8-2.4)
[2023-12-02 11:07] LABS: BILIRUBIN,DIRECT 0.3 mg/dL (0.0-0.2)
[2023-12-02 11:08] LABS: CREATININE 0.9 mg/dL (0.55-1.3)
[2023-12-02 11:09] LABS: TOT PROT 7.3 g/dl (6.4-8.2)
[2023-12-02] MEDS: DEXAMETHASONE SODIUM PHOSPHATE IVPB ONE (11:12)
[2023-12-02] MEDS: [UNRECOGNIZED DRUG - OTHER] IVPB ONE (11:12)
[2023-12-02] MEDS: DIPHENHYDRAMINE IVPB ONE (11:12)
[2023-12-02] MEDS: ACETAMINOPHEN 325 MG TABLET (FP) PO ONE (11:13)
[2023-12-02] MEDS: ADO TRASTUZUMAB EMTANSINE IVPB ONE (12:21)
[2023-12-02] MEDS: SODIUM CHLORIDE IVPB ONE (12:21)
[2023-12-02] MEDS: PORTA CATH FLUSH 10 ML IVPUSH PRN (13:00)
[2023-12-02 16:40] VITALS: BP 133/59; PULSE 75; RESP 20; TEMP 97.7
== END 2023-12-02 13:35 | disposition home or self-care (01) ==
LOC: JONCCHEMO 10:04 → J7W 10:06 → JONCCHEMO 13:35
PROVIDERS: ATTEND Internal Medicine Hematology & Oncology
DX: Z51.11 Encounter for antineoplastic chemotherapy (principal); C50.919 Malignant neoplasm of unspecified site of unspecified female breast
CPT/HCPCS: 36415; 80048; 80076; 82378; 83735; 85025; 86300; 96367; 96413; J9354

== ENCOUNTER 2023-12-23 11:17 | Day surgery (SDC) | payer OTHER ==
[2023-12-23 11:42] LABS: BASO % 0.7 % (0-2.0); EOS % 1.4 % (0-4.5); HEMATOCRIT 42.9 % (32.4-45.2); HEMOGLOBIN 14.5 GM/dL (10.7-15.3); LYMPH % 33.6 % (8-40); MCH 29.4 pg (25.7-33.7); MCHC 33.7 g/dl (32.0-36.0); MEAN CELL VOLUME 87.1 fl (80-96); MEAN PLT VOLUME 8.1 fl (7.5-11.1); NEUT % 52.3 % (42.8-82.8); PLATELET COUNT 181 10^3/uL (134-434); RBC 4.93 M/mm3 (3.60-5.2); RDW 14.7 % (11.6-15.6); WHITE BLOOD COUNT 5.6 K/mm3 (4.0-10.0)
[2023-12-23 11:48] LABS: CHLORIDE 105 mmol/L (98-107); POTASSIUM 4.8 mmol/L (3.5-5.1); SODIUM 140 mmol/L (136-145)
[2023-12-23 11:50] LABS: ALBUMIN 3.9 g/dl (3.4-5.0)
[2023-12-23 11:51] LABS: ANION GAP 5 mmol/L (4-13); BLOOD UREA NITROGEN 16.7 mg/dL (7-18); CO2 30 mmol/L (21-32); GLUCOSE,RANDOM 89 mg/dL (74-106); MAGNESIUM 1.8 mg/dL (1.8-2.4)
[2023-12-23 11:53] LABS: BILIRUBIN,DIRECT 0.3 mg/dL (0.0-0.2)
[2023-12-23 11:55] LABS: BILIRUBIN,TOTAL 1.1 mg/dL (0.2-1); CREATININE 0.9 mg/dL (0.55-1.3); TOT PROT 7.5 g/dl (6.4-8.2)
[2023-12-23] MEDS: DIPHENHYDRAMINE IVPB ONE (13:00)
[2023-12-23] MEDS: DEXAMETHASONE SODIUM PHOSPHATE IVPB ONE (13:00)
[2023-12-23] MEDS: ACETAMINOPHEN 325 MG TABLET (FP) PO ONE (13:00)
[2023-12-23] MEDS: [UNRECOGNIZED DRUG - OTHER] IVPB ONE (13:00)
[2023-12-23] MEDS: SODIUM CHLORIDE IVPB ONE (13:43)
[2023-12-23] MEDS: ADO TRASTUZUMAB EMTANSINE IVPB ONE (13:43)
[2023-12-23] MEDS: PORTA CATH FLUSH 10 ML IVPUSH PRN (14:18)
[2023-12-23 15:12] VITALS: RESP 18; TEMP 98
[2023-12-23 15:44] VITALS: BP 100/46; PULSE 72
== END 2023-12-23 14:50 | disposition home or self-care (01) ==
LOC: JONCCHEMO 11:17 → J7W 11:18 → JONCCHEMO 14:50
PROVIDERS: ATTEND Internal Medicine Hematology & Oncology
DX: Z51.11 Encounter for antineoplastic chemotherapy (principal); C50.919 Malignant neoplasm of unspecified site of unspecified female breast
CPT/HCPCS: 36415; 80048; 80076; 82378; 83735; 85025; 86300; 96367; 96413; J9354

== ENCOUNTER 2024-01-13 10:43 | Day surgery (SDC) | payer OTHER ==
[~2024-01-13 10:43] MED LIST changes: -ADO TRASTUZUMAB EMTANSINE IVPB ONE; -DEXAMETHASONE SODIUM PHOSPHATE IVPB ONE; -DIPHENHYDRAMINE IVPB ONE; -SODIUM CHLORIDE IVPB ONE; -[UNRECOGNIZED DRUG - OTHER] IVPB ONE
[2024-01-13 11:20] LABS: BASO % 0.8 % (0-2.0); EOS % 1.9 % (0-4.5); HEMATOCRIT 44.7 % (32.4-45.2); HEMOGLOBIN 14.2 GM/dL (10.7-15.3); LYMPH % 38.3 % (8-40); MCH 28.4 pg (25.7-33.7); MCHC 31.8 g/dl (32.0-36.0); MEAN CELL VOLUME 89.4 fl (80-96); MEAN PLT VOLUME 8.2 fl (7.5-11.1); MONO % 11.8 % (3.8-10.2); NEUT % 47.2 % (42.8-82.8); PLATELET COUNT 179 10^3/uL (134-434); RDW 14.6 % (11.6-15.6); WHITE BLOOD COUNT 4.9 K/mm3 (4.0-10.0)
[2024-01-13 12:03] LABS: CHLORIDE 108 mmol/L (98-107); SODIUM 143 mmol/L (136-145)
[2024-01-13 12:06] LABS: ANION GAP 8 mmol/L (4-13); BLOOD UREA NITROGEN 19.2 mg/dL (7-18); CO2 27 mmol/L (21-32); GLUCOSE,RANDOM 82 mg/dL (74-106); MAGNESIUM 1.9 mg/dL (1.8-2.4)
[2024-01-13 12:08] LABS: BILIRUBIN,DIRECT 0.3 mg/dL (0.0-0.2); SGPT/ALT 49 U/L (13-61)
[2024-01-13 12:09] LABS: CREATININE 0.8 mg/dL (0.55-1.3); SGOT/AST 60 U/L (15-37)
[2024-01-13 12:10] LABS: BILIRUBIN,TOTAL 0.9 mg/dL (0.2-1)
[2024-01-13 12:11] LABS: ALK PHOS 103 U/L (45-117); TOT PROT 7.4 g/dl (6.4-8.2)
[2024-01-13] MEDS: FAMOTIDINE 20 MG TABLET PO ONE (12:30)
[2024-01-13] MEDS: DIPHENHYDRAMINE IVPB ONE (12:40)
[2024-01-13] MEDS: DEXAMETHASONE SODIUM PHOSPHATE IVPB ONE (12:40)
[2024-01-13] MEDS: [UNRECOGNIZED DRUG - OTHER] IVPB ONE (12:40)
[2024-01-13] MEDS: IBUPROFEN 400 MG TABLET (FP) PO ONE (12:52)
[2024-01-13] MEDS: SODIUM CHLORIDE IVPB ONE (13:10)
[2024-01-13] MEDS: ADO TRASTUZUMAB EMTANSINE IVPB ONE (13:10)
[2024-01-13] MEDS: PORTA CATH FLUSH 10 ML IVPUSH PRN (13:50)
[2024-01-13 16:16] VITALS: RESP 20; TEMP 98
[2024-01-13 16:21] VITALS: BP 117/50; PULSE 62
== END 2024-01-13 13:45 | disposition home or self-care (01) ==
LOC: JONCCHEMO 10:43 → J7W 10:45 → JONCCHEMO 13:45
PROVIDERS: ATTEND Internal Medicine Hematology & Oncology
DX: Z51.11 Encounter for antineoplastic chemotherapy (principal); C50.919 Malignant neoplasm of unspecified site of unspecified female breast
CPT/HCPCS: 36415; 80048; 80076; 82378; 83735; 85025; 86300; 96367; 96413; J9354

== ENCOUNTER 2024-02-07 10:15 | Day surgery (SDC) | payer OTHER ==
[2024-02-07 11:22] LABS: BASO % 0.7 % (0-2.0); EOS % 1.8 % (0-4.5); HEMATOCRIT 43.9 % (32.4-45.2); HEMOGLOBIN 14.3 GM/dL (10.7-15.3); LYMPH % 37.6 % (8-40); MCH 28.9 pg (25.7-33.7); MCHC 32.6 g/dl (32.0-36.0); MEAN CELL VOLUME 88.5 fl (80-96); MEAN PLT VOLUME 8.2 fl (7.5-11.1); MONO % 12.5 % (3.8-10.2); NEUT % 47.4 % (42.8-82.8); PLATELET COUNT 169 10^3/uL (134-434); RBC 4.96 M/mm3 (3.60-5.2); RDW 14.5 % (11.6-15.6); WHITE BLOOD COUNT 5.4 K/mm3 (4.0-10.0)
[2024-02-07 11:48] LABS: EPI CELLS 5 /uL (0-25.1); HYALINE CASTS 0 /uL (0-3.1); PH,URINE 5.5 (5.0-8.0); URINE APPEARANCE CLEAR; URINE BACTERIA 6 /uL (0-1359); URINE BILIRUBIN NEGATIVE (NEGATIVE); URINE COLOR YELLOW; URINE GLUCOSE (UA) NEGATIVE (NEGATIVE); URINE KETONE NEGATIVE (NEGATIVE); URINE LEUK ESTERASE TRACE (NEGATIVE); URINE NITRITE NEGATIVE (NEGATIVE); URINE PROTEIN NEGATIVE (NEGATIVE); URINE RBC 12 /uL (0-23.9); URINE UROBILINOGEN 0.2 mg/dL (0.2-1.0); URINE WBC 9 /uL (0-25.8)
[2024-02-07 11:56] LABS: POTASSIUM 4.2 mmol/L (3.5-5.1)
[2024-02-07 11:58] LABS: ALBUMIN 3.9 g/dl (3.4-5.0); CALCIUM 9.8 mg/dL (8.5-10.1)
[2024-02-07 11:59] LABS: BLOOD UREA NITROGEN 17.9 mg/dL (7-18); MAGNESIUM 1.8 mg/dL (1.8-2.4)
[2024-02-07 12:01] LABS: BILIRUBIN,DIRECT 0.3 mg/dL (0.0-0.2)
[2024-02-07 12:02] LABS: CREATININE 0.8 mg/dL (0.55-1.3)
[2024-02-07 12:03] LABS: BILIRUBIN,TOTAL 1.1 mg/dL (0.2-1); TOT PROT 7.4 g/dl (6.4-8.2)
[2024-02-07] MEDS: ACETAMINOPHEN 325 MG TABLET (FP) PO ONE (12:22)
[2024-02-07] MEDS: DIPHENHYDRAMINE IVPB ONE (12:23)
[2024-02-07] MEDS: DEXAMETHASONE SODIUM PHOSPHATE IVPB ONE (12:23)
[2024-02-07] MEDS: [UNRECOGNIZED DRUG - OTHER] IVPB ONE (12:23)
[2024-02-07] MEDS: ADO TRASTUZUMAB EMTANSINE IVPB ONE (13:03)
[2024-02-07] MEDS: SODIUM CHLORIDE IVPB ONE (13:03)
[2024-02-07 18:21] VITALS: RESP 18; TEMP 98.1
[2024-02-07 18:26] VITALS: BP 115/49; PULSE 71
[2024-02-07] MEDS ORDERED: PORTA CATH FLUSH 10 ML IVPUSH PRN (18:26)
== END 2024-02-07 13:45 | disposition home or self-care (01) ==
LOC: JONCCHEMO 10:15 → J7W 10:16 → JONCCHEMO 13:45
PROVIDERS: ATTEND Internal Medicine Hematology & Oncology
DX: Z51.11 Encounter for antineoplastic chemotherapy (principal); C50.312 Malignant neoplasm of lower-inner quadrant of left female breast; Z17.0 Estrogen receptor positive status [ER+]
CPT/HCPCS: 36415; 80048; 80061; 80076; 81003; 82306; 82378; 82550; 82607; 83735; 84439; 84443; 85025; 86300; 87086; 96367; 96413; J9354

== ENCOUNTER 2024-03-02 10:22 | Day surgery (SDC) | payer OTHER ==
[2024-03-02 10:54] LABS: BASO % 0.6 % (0-2.0); EOS % 2.9 % (0-4.5); HEMATOCRIT 45.9 % (32.4-45.2); LYMPH % 36.6 % (8-40); MCH 28.8 pg (25.7-33.7); MCHC 32.6 g/dl (32.0-36.0); MEAN CELL VOLUME 88.3 fl (80-96); MEAN PLT VOLUME 7.8 fl (7.5-11.1); MONO % 11.7 % (3.8-10.2); NEUT % 48.2 % (42.8-82.8); PLATELET COUNT 184 10^3/uL (134-434); RBC 5.21 M/mm3 (3.60-5.2); RDW 14.6 % (11.6-15.6); WHITE BLOOD COUNT 6.5 K/mm3 (4.0-10.0)
[2024-03-02 11:11] LABS: CHLORIDE 106 mmol/L (98-107); SODIUM 141 mmol/L (136-145)
[2024-03-02 11:13] LABS: ALBUMIN 4.1 g/dl (3.4-5.0); ANION GAP 7 mmol/L (4-13); CALCIUM 10.4 mg/dL (8.5-10.1); CO2 29 mmol/L (21-32)
[2024-03-02 11:14] LABS: BLOOD UREA NITROGEN 19.8 mg/dL (7-18); GLUCOSE,RANDOM 88 mg/dL (74-106); MAGNESIUM 1.8 mg/dL (1.8-2.4)
[2024-03-02 11:16] LABS: BILIRUBIN,DIRECT 0.3 mg/dL (0.0-0.2); CREATININE 0.8 mg/dL (0.55-1.3); SGOT/AST 57 U/L (15-37); SGPT/ALT 47 U/L (13-61)
[2024-03-02 11:18] LABS: BILIRUBIN,TOTAL 1.2 mg/dL (0.2-1); TOT PROT 7.6 g/dl (6.4-8.2)
[2024-03-02 11:19] LABS: ALK PHOS 120 U/L (45-117)
[2024-03-02] MEDS: DEXAMETHASONE SODIUM PHOSPHATE IVPB ONE (11:50)
[2024-03-02] MEDS: [UNRECOGNIZED DRUG - OTHER] IVPB ONE (11:50)
[2024-03-02] MEDS: DIPHENHYDRAMINE IVPB ONE (11:50)
[2024-03-02] MEDS: ACETAMINOPHEN 325 MG TABLET (FP) PO ONE (11:52)
[2024-03-02] MEDS: SODIUM CHLORIDE IVPB ONE (12:37)
[2024-03-02] MEDS: ADO TRASTUZUMAB EMTANSINE IVPB ONE (12:37)
[2024-03-02] MEDS: PORTA CATH FLUSH 10 ML IVPUSH PRN (13:10)
[2024-03-02 16:24] VITALS: RESP 20; TEMP 97.8
[2024-03-02 16:44] VITALS: BP 126/60; PULSE 80
== END 2024-03-02 13:15 | disposition home or self-care (01) ==
LOC: JONCCHEMO 10:22 → J7W 10:24 → JONCCHEMO 13:15
PROVIDERS: ATTEND Internal Medicine Hematology & Oncology
DX: Z51.11 Encounter for antineoplastic chemotherapy (principal); C50.312 Malignant neoplasm of lower-inner quadrant of left female breast
CPT/HCPCS: 36415; 80048; 80076; 82378; 83735; 85025; 86300; 96367; 96413; J9354

== ENCOUNTER 2024-03-30 11:28 | Day surgery (SDC) | payer OTHER ==
[2024-03-30 12:26] LABS: HEMATOCRIT 44.1 % (32.4-45.2); HEMOGLOBIN 14.5 GM/dL (10.7-15.3); MCH 28.8 pg (25.7-33.7); MCHC 32.8 g/dl (32.0-36.0); MEAN CELL VOLUME 88.1 fl (80-96); PLATELET COUNT 171 10^3/uL (134-434); RBC 5.01 M/mm3 (3.60-5.2); RDW 14.5 % (11.6-15.6); WHITE BLOOD COUNT 5.6 K/mm3 (4.0-10.0)
[2024-03-30 12:27] LABS: BASO % 0.7 % (0-2.0); EOS % 2.6 % (0-4.5); LYMPH % 39.3 % (8-40); MONO % 11.4 % (3.8-10.2)
[2024-03-30 13:06] LABS: CHLORIDE 109 mmol/L (98-107); SODIUM 143 mmol/L (136-145)
[2024-03-30 13:10] LABS: ANION GAP 5 mmol/L (4-13); BLOOD UREA NITROGEN 19.6 mg/dL (7-18); CALCIUM 9.6 mg/dL (8.5-10.1); CO2 29 mmol/L (21-32); GLUCOSE,RANDOM 82 mg/dL (74-106); MAGNESIUM 1.7 mg/dL (1.8-2.4)
[2024-03-30 13:13] LABS: BILIRUBIN,DIRECT 0.3 mg/dL (0.0-0.2); CREATININE 0.7 mg/dL (0.55-1.3); SGOT/AST 54 U/L (15-37); SGPT/ALT 39 U/L (13-61)
[2024-03-30 13:14] LABS: BILIRUBIN,TOTAL 1.2 mg/dL (0.2-1)
[2024-03-30 13:15] LABS: TOT PROT 7.6 g/dl (6.4-8.2)
[2024-03-30 13:16] LABS: ALK PHOS 101 U/L (45-117)
[2024-03-30] MEDS: ACETAMINOPHEN 325 MG TABLET (FP) PO ONE (13:49)
[2024-03-30] MEDS: DEXAMETHASONE SODIUM PHOSPHATE IVPB ONE (13:50)
[2024-03-30] MEDS: DIPHENHYDRAMINE IVPB ONE (13:50)
[2024-03-30] MEDS: [UNRECOGNIZED DRUG - OTHER] IVPB ONE (13:50)
[2024-03-30] MEDS: ADO TRASTUZUMAB EMTANSINE IVPB ONE (14:19)
[2024-03-30] MEDS: SODIUM CHLORIDE IVPB ONE (14:19)
[2024-03-30] MEDS: PORTA CATH FLUSH 10 ML IVPUSH PRN (14:50)
[2024-03-30] MEDS ORDERED: MAGNESIUM OXIDE 400 MG TABLET (FP) PO ONE (15:17)
[2024-03-30 17:25] VITALS: TEMP 97.9
[2024-03-30 17:30] VITALS: BP 112/52; PULSE 59; RESP 20
== END 2024-03-30 15:00 | disposition home or self-care (01) ==
LOC: JONCCHEMO 11:28
PROVIDERS: ATTEND Internal Medicine Hematology & Oncology
DX: Z51.11 Encounter for antineoplastic chemotherapy (principal); C50.312 Malignant neoplasm of lower-inner quadrant of left female breast
CPT/HCPCS: 36415; 80048; 80076; 82378; 83735; 85025; 86300; 96367; 96413; J9354

== ENCOUNTER 2024-04-20 12:10 | Day surgery (SDC) | payer OTHER ==
[2024-04-20 12:06] LABS: BASO % 0.8 % (0-2.0); EOS % 2.3 % (0-4.5); HEMATOCRIT 43.3 % (32.4-45.2); HEMOGLOBIN 14.4 GM/dL (10.7-15.3); LYMPH % 38.3 % (8-40); MCH 29.1 pg (25.7-33.7); MCHC 33.3 g/dl (32.0-36.0); MEAN CELL VOLUME 87.5 fl (80-96); MEAN PLT VOLUME 7.9 fl (7.5-11.1); MONO % 13.4 % (3.8-10.2); NEUT % 45.2 % (42.8-82.8); PLATELET COUNT 160 10^3/uL (134-434); RBC 4.95 M/mm3 (3.60-5.2); RDW 14.6 % (11.6-15.6)
[2024-04-20] MEDS: LIDOCAINE 5% TOPICAL PATCH TP ONE (12:32)
[2024-04-20 12:57] LABS: CHLORIDE 107 mmol/L (98-107); POTASSIUM 4.3 mmol/L (3.5-5.1); SODIUM 142 mmol/L (136-145)
[2024-04-20 13:01] LABS: ALBUMIN 3.8 g/dl (3.4-5.0); ANION GAP 5 mmol/L (4-13); BLOOD UREA NITROGEN 19.8 mg/dL (7-18); CALCIUM 9.2 mg/dL (8.5-10.1); CO2 29 mmol/L (21-32); GLUCOSE,RANDOM 89 mg/dL (74-106); MAGNESIUM 2.1 mg/dL (1.8-2.4)
[2024-04-20 13:04] LABS: BILIRUBIN,DIRECT 0.4 mg/dL (0.0-0.2); CREATININE 0.8 mg/dL (0.55-1.3); SGOT/AST 65 U/L (15-37); SGPT/ALT 49 U/L (13-61)
[2024-04-20 13:06] LABS: BILIRUBIN,TOTAL 1.1 mg/dL (0.2-1); TOT PROT 7.2 g/dl (6.4-8.2)
[2024-04-20 13:07] LABS: ALK PHOS 115 U/L (45-117)
[2024-04-20] MEDS: ACETAMINOPHEN 325 MG TABLET (FP) PO ONE (13:50)
[2024-04-20] MEDS: [UNRECOGNIZED DRUG - OTHER] IVPB ONE (13:50)
[2024-04-20] MEDS: DIPHENHYDRAMINE IVPB ONE (13:50)
[2024-04-20] MEDS: DEXAMETHASONE SODIUM PHOSPHATE IVPB ONE (13:50)
[2024-04-20] MEDS: ADO TRASTUZUMAB EMTANSINE IVPB ONE (14:35)
[2024-04-20] MEDS: SODIUM CHLORIDE IVPB ONE (14:35)
[2024-04-20] MEDS: PORTA CATH FLUSH 10 ML IVPUSH PRN (15:20)
[2024-04-20 16:11] VITALS: RESP 18; TEMP 98
[2024-04-20 16:24] VITALS: BP 119/55; PULSE 71
[2024-04-20] MEDS ORDERED: LIDOCAINE PATCH REMOVAL MC SCH (22:00)
== END 2024-04-20 15:20 | disposition home or self-care (01) ==
LOC: JONCCHEMO 12:10 → J7W 12:10 → JONCCHEMO 15:20
PROVIDERS: ATTEND Internal Medicine Hematology & Oncology
PROC: 3E04305 Introduction of Other Antineoplastic into Central Vein, Percutaneous Approach (ICD-10-PCS; principal; 2024-04-20)
PROC: 3E043GC Introduction of Other Therapeutic Substance into Central Vein, Percutaneous Approach (ICD-10-PCS; 2024-04-20)
DX: Z51.11 Encounter for antineoplastic chemotherapy (principal); C50.312 Malignant neoplasm of lower-inner quadrant of left female breast; Z17.0 Estrogen receptor positive status [ER+]
CPT/HCPCS: 36415; 80048; 80076; 82378; 83735; 85025; 86300; 96374; 96375; 96413; J9354

== ENCOUNTER 2024-05-11 10:53 | Day surgery (SDC) | payer OTHER ==
[2024-05-11 11:24] LABS: ABSOLUTE IMMATURE GRANULOCYTES 0.01 x10^3/uL (0.0-0.031); BASOPHILS # 0.04 x10^3/uL (0.01-0.08); EOSINOPHIL % 2.1 % (0.7-5.8); HEMATOCRIT 45.9 % (34.1-44.9); HEMOGLOBIN 14.8 g/dL (11.2-15.7); MCHC 32.2 g/dl (32.2-35.5); MEAN PLT VOLUME 10.1 fl (9.4-12.3); MONOCYTE # 0.62 x10^3/uL (0.24-0.86); PLATELET COUNT 163 x10^3/uL (182-369); RDW 13.7 % (12.4-16.4)
[2024-05-11 11:51] LABS: CHLORIDE 105 mmol/L (98-107); POTASSIUM 4.3 mmol/L (3.5-5.1); SODIUM 141 mmol/L (136-145)
[2024-05-11 11:53] LABS: ALBUMIN 3.9 g/dl (3.4-5.0); ANION GAP 5 mmol/L (4-13); BLOOD UREA NITROGEN 20.3 mg/dL (7-18); CALCIUM 9.6 mg/dL (8.5-10.1); CO2 32 mmol/L (21-32); MAGNESIUM 1.9 mg/dL (1.8-2.4)
[2024-05-11 11:54] LABS: GLUCOSE,RANDOM 84 mg/dL (74-106)
[2024-05-11 11:56] LABS: BILIRUBIN,DIRECT 0.3 mg/dL (0.0-0.2); CREATININE 0.8 mg/dL (0.55-1.3); SGOT/AST 63 U/L (15-37); SGPT/ALT 54 U/L (13-61)
[2024-05-11 11:58] LABS: BILIRUBIN,TOTAL 1.2 mg/dL (0.2-1); TOT PROT 7.3 g/dl (6.4-8.2)
[2024-05-11 11:59] LABS: ALK PHOS 115 U/L (45-117)
[2024-05-11] MEDS: ACETAMINOPHEN 325 MG TABLET (FP) PO ONE (12:28)
[2024-05-11] MEDS: DEXAMETHASONE SODIUM PHOSPHATE IVPB ONE (12:29)
[2024-05-11] MEDS: DIPHENHYDRAMINE IVPB ONE (12:29)
[2024-05-11] MEDS: [UNRECOGNIZED DRUG - OTHER] IVPB ONE (12:29)
[2024-05-11] MEDS: ADO TRASTUZUMAB EMTANSINE IVPB ONE (12:58)
[2024-05-11] MEDS: SODIUM CHLORIDE IVPB ONE (12:58)
[2024-05-11] MEDS: PORTA CATH FLUSH 10 ML IVPUSH PRN (14:00)
[2024-05-11 16:13] VITALS: TEMP 97.9
[2024-05-11 16:17] VITALS: BP 110/48; PULSE 61; RESP 18
== END 2024-05-11 14:00 | disposition home or self-care (01) ==
LOC: JONCCHEMO 10:53 → J7W 10:55 → JONCCHEMO 14:00
PROVIDERS: ATTEND Internal Medicine Hematology & Oncology
DX: Z51.11 Encounter for antineoplastic chemotherapy (principal); C50.312 Malignant neoplasm of lower-inner quadrant of left female breast; Z17.0 Estrogen receptor positive status [ER+]
CPT/HCPCS: 36415; 80048; 80076; 82378; 83735; 85025; 86300; 96413; J9354

== ENCOUNTER 2024-06-01 11:16 | Day surgery (SDC) | payer OTHER ==
[2024-06-01 10:10] LABS: ABSOLUTE IMMATURE GRANULOCYTES 0.01 x10^3/uL (0.0-0.031); BASOPHILS # 0.04 x10^3/uL (0.01-0.08); EOSINOPHIL % 2.8 % (0.7-5.8); EOSINOPHILS # 0.14 x10^3/uL (0.04-0.36); MCHC 31.9 g/dl (32.2-35.5); MEAN CELL VOLUME 89.5 fl (79.4-94.8); MEAN PLT VOLUME 10.2 fl (9.4-12.3); MONOCYTE # 0.64 x10^3/uL (0.24-0.86); MONOCYTE % 12.9 % (4.7-12.5); PLATELET COUNT 170 x10^3/uL (182-369); RDW 13.9 % (12.4-16.4)
[2024-06-01 10:32] LABS: POTASSIUM 4.2 mmol/L (3.5-5.1)
[2024-06-01 10:35] LABS: CALCIUM 10.5 mg/dL (8.5-10.1); MAGNESIUM 1.7 mg/dL (1.8-2.4)
[2024-06-01 10:36] LABS: BLOOD UREA NITROGEN 21.1 mg/dL (7-18)
[2024-06-01 10:38] LABS: BILIRUBIN,DIRECT 0.4 mg/dL (0.0-0.2)
[2024-06-01 10:39] LABS: CREATININE 0.7 mg/dL (0.55-1.3)
[2024-06-01 10:40] LABS: BILIRUBIN,TOTAL 1.2 mg/dL (0.2-1); TOT PROT 7.4 g/dl (6.4-8.2)
[2024-06-01] MEDS: DIPHENHYDRAMINE IVPB ONE (11:15)
[2024-06-01] MEDS: DEXAMETHASONE SODIUM PHOSPHATE IVPB ONE (11:15)
[2024-06-01] MEDS: ACETAMINOPHEN 325 MG TABLET (FP) PO ONE (11:15)
[2024-06-01] MEDS: [UNRECOGNIZED DRUG - OTHER] IVPB ONE (11:15)
[2024-06-01] MEDS: MAGNESIUM OXIDE 400 MG TABLET (FP) PO ONE (11:34)
[2024-06-01] MEDS: SODIUM CHLORIDE IVPB ONE (11:55)
[2024-06-01] MEDS: ADO TRASTUZUMAB EMTANSINE IVPB ONE (11:55)
[2024-06-01] MEDS: PORTA CATH FLUSH 10 ML IVPUSH PRN (12:30)
[2024-06-01 12:47] VITALS: TEMP 98
[2024-06-01] MEDS ORDERED: PORTA CATH FLUSH 10 ML IVPUSH PRN (12:51)
[2024-06-01 12:52] VITALS: BP 107/52; PULSE 68; RESP 18
[2024-06-01 20:10] LABS: PHOSPHOROUS 3.7 mg/dL (2.5-4.9)
== END 2024-06-01 12:40 | disposition home or self-care (01) ==
LOC: JONCCHEMO 11:16
PROVIDERS: ATTEND Internal Medicine Hematology & Oncology
DX: Z51.11 Encounter for antineoplastic chemotherapy (principal); C50.919 Malignant neoplasm of unspecified site of unspecified female breast
CPT/HCPCS: 36415; 80048; 80076; 82306; 82378; 83735; 83970; 84100; 85025; 86300; 96367; 96413; J9354

== ENCOUNTER 2024-07-05 11:26 | Emergency (ER) | payer OTHER ==
[2024-07-05 11:33] VITALS: RESP 20; BMI 26.3
[2024-07-05] MEDS ORDERED: ALBUTEROL SO4 2.5/IPRATROPIUM 0.5 INH SOL 3 ML VIAL.NEB. NEB ONE (12:29)
[2024-07-05] MEDS: SODIUM CHLORIDE 500 ML IV STA (12:32)
[2024-07-05] MEDS: ALBUTEROL SO4 2.5/IPRATROPIUM 0.5 INH SOL 3 ML VIAL.NEB. NEB ONE (12:32)
[2024-07-05 12:34] LABS: HEMOGLOBIN 14.9 g/dL (11.2-15.7); RDW 13.8 % (12.4-16.4)
[2024-07-05 12:35] LABS: HEMATOCRIT 45.9 % (34.1-44.9); MCHC 32.5 g/dl (32.2-35.5); PLATELET COUNT 119 x10^3/uL (182-369)
[2024-07-05 12:53] LABS: EPI CELLS 3 /uL (0-25.1); HYALINE CASTS 0 /uL (0-3.1); PH,URINE 6.5 (5.0-8.0); URINE APPEARANCE CLEAR; URINE BACTERIA 3 /uL (0-1359); URINE BILIRUBIN NEGATIVE (NEGATIVE); URINE COLOR YELLOW; URINE GLUCOSE (UA) NEGATIVE (NEGATIVE); URINE KETONE NEGATIVE (NEGATIVE); URINE LEUK ESTERASE TRACE (NEGATIVE); URINE NITRITE NEGATIVE (NEGATIVE); URINE PROTEIN NEGATIVE (NEGATIVE); URINE RBC 9 /uL (0-23.9); URINE UROBILINOGEN 0.2 mg/dL (0.2-1.0); URINE WBC 7 /uL (0-25.8)
[2024-07-05 13:06] LABS: POTASSIUM 4.4 mmol/L (3.5-5.1)
[2024-07-05 13:07] LABS: CALCIUM 9.5 mg/dL (8.5-10.1)
[2024-07-05 13:08] LABS: ALBUMIN 3.8 g/dl (3.4-5.0); BLOOD UREA NITROGEN 14.1 mg/dL (7-18)
[2024-07-05 13:11] LABS: CREATININE 0.6 mg/dL (0.55-1.3)
[2024-07-05 13:13] LABS: BILIRUBIN,TOTAL 1.1 mg/dL (0.2-1); TOT PROT 7.5 g/dl (6.4-8.2)
[2024-07-05 14:15] VITALS: BP 128/67; PULSE 66; TEMP 98.1
== END 2024-07-05 14:32 | disposition home or self-care (01) ==
LOC: JER 11:26
PROC: 3E0F7GC Introduction of Other Therapeutic Substance into Respiratory Tract, Via Natural or Artificial Opening (ICD-10-PCS; principal; 2024-07-05)
PROC: 3E0337Z Introduction of Electrolytic and Water Balance Substance into Peripheral Vein, Percutaneous Approach (ICD-10-PCS; 2024-07-05)
DX: R05.1 Acute cough (principal); R53.1 Weakness; R53.81 Other malaise
CPT/HCPCS: 0241U-QW; 36415; 71046-TC-FY; 80053; 81003; 84484; 85025; 99284-25

== ENCOUNTER 2024-07-13 10:00 | Day surgery (SDC) | payer OTHER ==
[2024-07-13 11:00] LABS: ABSOLUTE IMMATURE GRANULOCYTES 0.02 x10^3/uL (0.0-0.031); BASOPHILS # 0.07 x10^3/uL (0.01-0.08); EOSINOPHIL % 1.5 % (0.7-5.8); HEMATOCRIT 43.7 % (34.1-44.9); HEMOGLOBIN 14.4 g/dL (11.2-15.7); MEAN CELL VOLUME 87.1 fl (79.4-94.8); MEAN PLT VOLUME 9.7 fl (9.4-12.3); MONOCYTE # 0.86 x10^3/uL (0.24-0.86); MONOCYTE % 13.1 % (4.7-12.5); PLATELET COUNT 182 x10^3/uL (182-369); RDW 13.4 % (12.4-16.4)
[2024-07-13 11:29] LABS: POTASSIUM 3.7 mmol/L (3.5-5.1)
[2024-07-13 11:31] LABS: ALBUMIN 3.8 g/dl (3.4-5.0); CALCIUM 10.5 mg/dL (8.5-10.1)
[2024-07-13 11:32] LABS: BLOOD UREA NITROGEN 16.9 mg/dL (7-18); MAGNESIUM 1.9 mg/dL (1.8-2.4)
[2024-07-13 11:34] LABS: BILIRUBIN,DIRECT 0.3 mg/dL (0.0-0.2); CREATININE 0.7 mg/dL (0.55-1.3)
[2024-07-13 11:36] LABS: BILIRUBIN,TOTAL 1.2 mg/dL (0.2-1); TOT PROT 7.2 g/dl (6.4-8.2)
[2024-07-13] MEDS: [UNRECOGNIZED DRUG - OTHER] IVPB ONE (11:53)
[2024-07-13] MEDS: ACETAMINOPHEN 325 MG TABLET (FP) PO ONE (11:53)
[2024-07-13] MEDS: DIPHENHYDRAMINE IVPB ONE (11:53)
[2024-07-13] MEDS: DEXAMETHASONE SODIUM PHOSPHATE IVPB ONE (11:53)
[2024-07-13] MEDS: SODIUM CHLORIDE IVPB ONE (12:28)
[2024-07-13] MEDS: ADO TRASTUZUMAB EMTANSINE IVPB ONE (12:28)
[2024-07-13 13:02] LABS: PHOSPHOROUS 3.5 mg/dL (2.5-4.9)
[2024-07-13] MEDS: PORTA CATH FLUSH 10 ML IVPUSH PRN (13:05)
[2024-07-13 17:28] VITALS: BP 124/68; PULSE 69; RESP 20; TEMP 98.4
[2024-07-14 15:06] LABS: PARATHYROID HORM INTACT 13 pg/mL (15-65)
[2024-07-20 01:06] LABS: PARATHYROID RELATED PROTEIN < 2.0 pmol/L (.)
== END 2024-07-13 13:10 | disposition home or self-care (01) ==
LOC: JONCCHEMO 10:00 → J7W 10:54 → JONCCHEMO 13:10
PROVIDERS: ATTEND Internal Medicine Hematology & Oncology
PROC: 3E04305 Introduction of Other Antineoplastic into Central Vein, Percutaneous Approach (ICD-10-PCS; principal; 2024-07-13)
PROC: 3E043GC Introduction of Other Therapeutic Substance into Central Vein, Percutaneous Approach (ICD-10-PCS; 2024-07-13)
DX: Z51.11 Encounter for antineoplastic chemotherapy (principal); C50.312 Malignant neoplasm of lower-inner quadrant of left female breast; Z17.0 Estrogen receptor positive status [ER+]
CPT/HCPCS: 36415; 80048; 80076; 82378; 82397; 83735; 83970; 84100; 85025; 86300; 96375; 96413; J9354

== ENCOUNTER → 2024-10-04 | Day surgery (SDC) | payer OTHER | END | disposition home or self-care (01) | LOC: JRADUS-SUR 10:17 | PROVIDERS: ATTEND Internal Medicine Hematology & Oncology | PROC: 0H9U3ZX Drainage of Left Breast, Percutaneous Approach, Diagnostic (ICD-10-PCS; principal; 2024-10-04) | DX: C79.89 Secondary malignant neoplasm of other specified sites (principal) | CPT/HCPCS: 19083; 76942-TC; 87899; 88305-TC; 88341-TC; 88342-TC ==

== ENCOUNTER 2024-10-05 09:45 | Day surgery (SDC) | payer OTHER ==
[2024-10-05 11:05] LABS: ABSOLUTE IMMATURE GRANULOCYTES 0.01 x10^3/uL (0.0-0.031); BASOPHILS # 0.03 x10^3/uL (0.01-0.08); EOSINOPHIL % 2.1 % (0.7-5.8); EOSINOPHILS # 0.09 x10^3/uL (0.04-0.36); MCHC 31.7 g/dl (32.2-35.5); MEAN CELL VOLUME 90.7 fl (79.4-94.8); MEAN PLT VOLUME 10.2 fl (9.4-12.3); MONOCYTE # 0.60 x10^3/uL (0.24-0.86); MONOCYTE % 14.3 % (4.7-12.5); RDW 14.0 % (12.4-16.4)
[2024-10-05 11:55] LABS: GLUCOSE,RANDOM 77 mg/dL (74-106); TOT PROT 7.2 g/dl (6.4-8.2)
[2024-10-05 11:56] LABS: CO2 27 mmol/L (21-32)
[2024-10-05 11:58] LABS: ALK PHOS 104 U/L (40-150)
[2024-10-05 12:01] LABS: CREATININE 0.57 mg/dL (0.55-1.3); SGOT/AST 76 U/L (5-34); SGPT/ALT 48 U/L (0-55)
[2024-10-05] MEDS: MAGNESIUM OXIDE 400 MG TABLET (FP) PO ONE (12:30)
[2024-10-05] MEDS: ACETAMINOPHEN 325 MG TABLET (FP) PO ONE (12:31)
[2024-10-05] MEDS: DIPHENHYDRAMINE IVPB ONE (13:30)
[2024-10-05] MEDS: [UNRECOGNIZED DRUG - OTHER] IVPB ONE (13:30)
[2024-10-05] MEDS: DEXAMETHASONE SODIUM PHOSPHATE IVPB ONE (13:30)
[2024-10-05] MEDS: SODIUM CHLORIDE IVPB ONE (13:58)
[2024-10-05] MEDS: ADO TRASTUZUMAB EMTANSINE IVPB ONE (13:58)
[2024-10-05 16:46] VITALS: PULSE 74; RESP 20; TEMP 98.2
[2024-10-05 17:06] VITALS: BP 120/6
[2024-10-05] MEDS ORDERED: PORTA CATH FLUSH 10 ML IVPUSH PRN (17:06)
== END 2024-10-05 14:40 | disposition home or self-care (01) ==
LOC: JONCCHEMO 09:45 → J7W 10:21 → JONCCHEMO 14:40
PROVIDERS: ATTEND Internal Medicine Hematology & Oncology
DX: Z51.11 Encounter for antineoplastic chemotherapy (principal); C50.312 Malignant neoplasm of lower-inner quadrant of left female breast
CPT/HCPCS: 36415; 80048; 80076; 82085; 82378; 82550; 83735; 85025; 86038; 86300; J9354

== ENCOUNTER 2024-10-26 10:22 | Day surgery (SDC) | payer OTHER ==
[2024-10-26 10:56] LABS: MCHC 32.0 g/dl (32.2-35.5); MEAN CELL VOLUME 91.3 fl (79.4-94.8); MEAN PLT VOLUME 9.9 fl (9.4-12.3); RDW 14.0 % (12.4-16.4)
[2024-10-26 11:28] LABS: TOT PROT 7.5 g/dl (6.4-8.2)
[2024-10-26 11:30] LABS: ALK PHOS 105.0 U/L (40-150)
[2024-10-26 11:33] LABS: SGOT/AST 73.0 U/L (5-34); SGPT/ALT 46.0 U/L (0-55)
[2024-10-26 11:38] LABS: GLUCOSE,RANDOM 78 mg/dL (74-106)
[2024-10-26 11:40] LABS: CO2 27 mmol/L (21-32)
[2024-10-26 11:44] LABS: CREATININE 0.55 mg/dL (0.55-1.3)
[2024-10-26] MEDS: DIPHENHYDRAMINE IVPB ONE (12:16)
[2024-10-26] MEDS: DEXAMETHASONE SODIUM PHOSPHATE IVPB ONE (12:16)
[2024-10-26] MEDS: [UNRECOGNIZED DRUG - OTHER] IVPB ONE (12:16)
[2024-10-26] MEDS: ACETAMINOPHEN 325 MG TABLET (FP) PO ONE (12:17)
[2024-10-26] MEDS: MAGNESIUM OXIDE 400 MG TABLET (FP) PO ONE (12:32)
[2024-10-26] MEDS: ADO TRASTUZUMAB EMTANSINE IVPB ONE (13:08)
[2024-10-26] MEDS: SODIUM CHLORIDE IVPB ONE (13:08)
[2024-10-26] MEDS: FULVESTRANT 250 MG/5 ML SYRINGE IM ONE (13:47)
[2024-10-26 15:49] VITALS: BP 114/49; PULSE 67; RESP 20; TEMP 98.2
[2024-10-26] MEDS ORDERED: PORTA CATH FLUSH 10 ML IVPUSH PRN (15:49)
== END 2024-10-26 14:05 | disposition home or self-care (01) ==
LOC: JONCCHEMO 10:22
PROVIDERS: ATTEND Internal Medicine Hematology & Oncology
DX: Z51.11 Encounter for antineoplastic chemotherapy (principal); C50.312 Malignant neoplasm of lower-inner quadrant of left female breast; Z17.0 Estrogen receptor positive status [ER+]
CPT/HCPCS: 36415; 80048; 80076; 82378; 83735; 85025; 86300; 96402; 96413; J9354; J9395

== ENCOUNTER 2024-11-08 10:48 | Day surgery (SDC) | payer OTHER ==
[2024-11-08] MEDS: FULVESTRANT 250 MG/5 ML SYRINGE IM ONE (11:09)
[2024-11-08 11:28] VITALS: BP 112/53; PULSE 75; RESP 18; TEMP 97.8
== END 2024-11-08 11:30 | disposition home or self-care (01) ==
LOC: JONCCHEMO 10:48
PROVIDERS: ATTEND Internal Medicine Hematology & Oncology
DX: Z51.11 Encounter for antineoplastic chemotherapy (principal); C50.312 Malignant neoplasm of lower-inner quadrant of left female breast; Z17.0 Estrogen receptor positive status [ER+]
CPT/HCPCS: 96402; J9395

== ENCOUNTER 2024-11-23 10:13 | Day surgery (SDC) | payer OTHER ==
[2024-11-23] MEDS: FULVESTRANT 250 MG/5 ML SYRINGE IM ONE (10:31)
[2024-11-23 14:41] VITALS: BP 126/70; PULSE 70; RESP 20; TEMP 98
== END 2024-11-23 10:45 | disposition home or self-care (01) ==
LOC: JONCCHEMO 10:13
PROVIDERS: ATTEND Internal Medicine Hematology & Oncology
DX: Z51.11 Encounter for antineoplastic chemotherapy (principal); C50.312 Malignant neoplasm of lower-inner quadrant of left female breast; Z17.0 Estrogen receptor positive status [ER+]
CPT/HCPCS: 96401; J9395